=== PATIENT | female | born 1950 | race Caucasian/White ===

== ENCOUNTER 2020-10-05 09:15 | Outpatient (REF) | payer MEDICARE, OTHER, SELFPAY ==
[2020-10-05 11:20] LABS: Hematocrit 44.6 % (37-47); Hemoglobin 14.3 g/dl (12.0-16.0); Mean Corpuscular HGB Conc 32.1 g/dl (31.0-35.0); Mean Corpuscular Hemoglobin 29.1 pg (27.0-33.0); Mean Corpuscular Volume 90.8 fL (80-98); Platelet Count 265 X10*3/uL (160-400); Red Blood Count 4.91 X10*6/uL (4.20-5.50); Red Cell Distribution Width 13.2 % (11.0-16.0); White Blood Count 8.5 X10*3/uL (4.8-10.8)
[2020-10-05 11:36] LABS: Alanine Aminotransferase 46 U/L (0-31); Albumin Level 4.1 g/dL (3.5-5.0); Alkaline Phosphatase 149 U/L (39-117); Anion Gap 14 (12-20); Aspartate Amino Transferase 31 U/L (5-31); Bilirubin Total 0.7 mg/dL (0.0-1.0); Blood Urea Nitrogen 22 mg/dL (9-16); Calcium 9.2 mg/dL (8.4-10.2); Carbon Dioxide 28 mmol/L (22-29); Chloride 104 mmol/L (96-108); Cholesterol 197 mg/dL; Estimated Glomerular Filt Rate 50; Glucose Fasting 93 mg/dL (60-99); HDL Cholesterol 42 mg/dL; LDL Cholesterol Calculated 131 mg/dl; Potassium 4.9 mmol/l (3.3-5.1); Sodium 141 mmol/L (135-145); Total Protein 7.4 g/dL (6.5-8.0); Triglycerides 122 mg/dL
[2020-10-05 11:36] LABS: Glucose Urine UA NEG (NEG); Leukocyte Esterase Urine NEG (NEG); Nitrite Urine NEG (NEG); Specific Gravity - Urine 1.025 (1.005-1.025); Urine Blood NEG (NEG); Urine Ketones NEG (NEG); Urine Protein NEG (NEG-TRACE)
[2020-10-05 11:45] LABS: Appearance Urine CLEAR; Color Urine YELLOW
== END 2020-10-05 09:16 | disposition home or self-care (01) ==
LOC: HO.HMGCLDS 09:15
PROVIDERS: PCP Internal Medicine; Visit Provider Internal Medicine
DX: E78.5 Hyperlipidemia, unspecified (principal); I10 Essential (primary) hypertension; R30.0 Dysuria
CPT/HCPCS: 36415; 80053; 80061; 81003; 85027

== ENCOUNTER 2020-11-09 14:19 | Outpatient (REF) | payer MEDICARE, SELFPAY ==
--- NOTE | 2020-11-09 14:24 | XR_ITS ---
EXAMINATION: XR CHEST CLINICAL INFORMATION: Cough. COMPARISON: None TECHNIQUE: 2 views of the chest were obtained. FINDINGS: The lungs are hyperinflated but clear of acute process. Heart size and pulmonary vascularity is normal. No gross bony abnormality seen. XR/XR chest 2V IMPRESSION: Hyperinflated lungs. No acute process.
== END 2020-11-09 14:20 | disposition home or self-care (01) ==
LOC: HO.HMGCX 14:19
PROVIDERS: PCP Internal Medicine; Visit Provider Internal Medicine
DX: R05 Cough (principal)
CPT/HCPCS: 71046

== ENCOUNTER → 2023-03-04 09:56 | Outpatient (BNVA) | payer MEDICARE, SELFPAY | PROVIDERS: PCP Internal Medicine; Visit Provider Orthopaedic Surgery | DX: M72.0 Palmar fascial fibromatosis [Dupuytren] (principal) | CPT/HCPCS: 99202 ==

== ENCOUNTER 2023-05-08 12:03 | Outpatient (AMB) | payer MEDICARE, SELFPAY ==
--- NOTE | 2023-05-08 12:04 | AM.OFFWIN_ITS ---
Intake Vital Signs 05/08/23 12:05 Height 5 ft 8 in BP 158/82 H Blood Pressure Location Rt brachial Position Sitting Pulse 95 Pulse Source Pulse Oximeter Temp 98.6 F Temp Source Temporal Artery Scan Pulse Oximetry (%) 97 Oxygen Delivery Method Room Air Intake Visit Reasons: EST/left arm pain Intake Note: pt is here for c/o left arm pain due to fall. Patient Tobacco Use Status: Former Tobacco user Accompanied by: Self / Same As Patient Allergies acetaminophen [From PERCOCET] Allergy (Unknown, Verified 05/08/23 12:04) UNKNOWN azithromycin Allergy (Unknown, Verified 05/08/23 12:04) hives oxycodone [From PERCOCET] Allergy (Unknown, Verified 05/08/23 12:04) UNKNOWN Xjlvyao-WOY-CeL Reductase Inhibitor [JFXLFPQ-AUG-YNY REDUCTASE INHIBITOR] Allergy (Unknown, Verified 05/08/23 12:04) liver failure, major liver problems nitrofurantoin [From Macrobid] Adverse Reaction (Severe, Verified 05/08/23 12:04) breathing atorvastatin [Lipitor] Adverse Reaction (Unknown, Verified 05/08/23 12:04) Liver issues z-pack Allergy (Unknown, Uncoded 03/04/23 10:09) hives Do you need a note to return to daycare/school/sports/work: No HPI HPI Comments History of Present Illness Details This is a 73-year-old female presenting to the office with left shoulder/elbow/wrist pain following mechanical fall that occurred yesterday. Patient states she was [place] the beach for [place] and tripped while walking down the stairs causing her to fall on her left side. She sustained some abrasions on her left wrist and her left knee. She also developed left shoulder pain, left elbow pain and swelling, and left wrist pain and swelling. Patient went to an urgent care center and had imaging done that she is not sure of the results. She denies hitting her head. She denies headaches, visual disturbances, nausea/vomiting, or numbness/weakness/paresthesias of her extremities. [facility] Medical History CKD (chronic kidney disease), stage III Cough Dysuria GERD (gastroesophageal reflux disease) Hepatitis HTN (hypertension) Hyperlipidemia Liver hemangioma Mammogram normal TIA (transient ischemic attack) Surgical History H/O colonoscopy History of back surgery History of breast surgery History of hysterectomy Hx of cholecystectomy Family History Father No problems noted. Mother No problems noted. Brother No problems noted. Brother No problems noted. Sister No problems noted. 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 Cognitive needs: No Hearing needs: No Vision needs: Yes Review of Systems Const All systems reviewed & are unremarkable except as noted in HPI and below Denies chills and Denies fever(s) Eyes Reports no additional complaints, Denies change in vision and Denies loss of vision ENT Reports no additional complaints Card Denies chest pain, Denies chest pain at rest, Denies chest pain with activity and Denies dyspnea Resp Reports no additional complaints and Denies dyspnea GI Reports no additional complaints Reports no additional complaints Musc Reports arthralgias and Reports joint swelling Skin/Breast Reports wounds Neuro Reports no additional complaints and Denies loss of vision Physical Exam Vital Signs: Last Vital Signs Temp 98.6 F 05/08/23 12:05 Pulse 95 05/08/23 12:05 BP 158/82 H 05/08/23 12:05 Pulse Ox 97 05/08/23 12:05 Oxygen Delivery Method Room Air 05/08/23 12:05 Const General: cooperative and no acute distress Orientation/consciousness: patient oriented x3 HEENT Head: Yes normal to inspection, Yes normocephalic, Yes atraumatic, No Singer's sign, No raccoon eyes, No scalp tenderness and No periorbital ecchymosis Ears: hearing grossly normal bilaterally General nose exam: Normal external nose present Face and sinus: Yes normal facial exam Cardio Rate: regular rate Rhythm: regular rhythm Heart sounds: no gallops, no murmurs and no rubs Peripheral pulses: Peripheral pulses 2+ throughout Skin Other: Scabbed abrasion to the anterior left knee without surrounding erythema or purulence drainage. Two small skin tears noted to the anterior left wrist with some mild bleeding. No purulent drainage or surrounding erythema. Neuro General: patient oriented x3 Extrem Other: Tenderness to palpation and mild swelling of the left elbow and left wrist. Painful flexion/extension of the left elbow. Full painless range of motion of the left shoulder but some mild tenderness to palpation of the anterior shoulder. No tenderness to palpation of the left hip, knee, or ankle. Full r chino of motion of the left lower extremity without pain. Assessment & Plan Assessment & Plan (1) Left wrist pain: Code(s): M25.532 - Pain in left wrist (2) Left elbow pain: Code(s): M25.522 - Pain in left elbow (3) Abrasion of left wrist: Code(s): S60.812A - Abrasion of left wrist, initial encounter Plan This is a 73-year-old female presenting with left wrist, left elbow, and left shoulder pain following a mechanical fall that occurred yesterday. Differential diagnoses include sprain/strain versus fracture versus contusion versus abrasions. Patient's skin tears were cleansed, covered with bacitracin ointment, and dressed with a nonadherent pad and gauze wrap. X-rays of the left wrist, elbow, and shoulder were ordered and patient proceeding directly to [facility] to have these images done. Recommended supportive management including rest, ice, compression, and elevation of extremity. Patient instructed to keep the skin tears clean and dry. Patient was instructed to follow-up here or the emergency room for worsening or persistent symptoms. Patient verbalizes understanding and she is in agreement with the plan. Orders: Orders XR elbow LT min 3V Today R52 - Pain, unspecified XR shoulder LT min 2V Today R52 - Pain, unspecified XR wrist LT min 3V Today R52 - Pain, unspecified Coding Level of Care Code Est Pt Level 3 (91886) Diagnoses Left wrist pain M25.532 Left elbow pain M25.522 Abrasion of left wrist S60.812A
[2023-05-08 12:05] VITALS: BP 158/82; PULSE 95; TEMP 37; O2SAT 97
== END 2023-05-08 12:31 | disposition home or self-care (01) ==
PROVIDERS: PCP Internal Medicine; Visit Provider Physician Assistant Medical
DX: M25.532 Pain in left wrist (principal); M25.522 Pain in left elbow; S60.812A Abrasion of left wrist, initial encounter
CPT/HCPCS: 99213

== ENCOUNTER 2023-05-08 12:56 | Outpatient (REF) | payer MEDICARE, SELFPAY ==
--- NOTE | ~2023-05-08 | XR_ITS ---
Examination: Left elbow, left wrist and left shoulder. Clinical indications: Pain. COMPARISON: None. TECHNIQUE: Left elbow 3 views. Left wrist 4 views. Left shoulder 4 views. Findings: Left elbow: There is no visible fracture or dislocation. There is normal articulation of the elbow joint. The anterior and posterior fat pad sign is normal. The soft tissues are normal. Left wrist: There is no visible acute fracture or dislocation. There is a negative ulnar variance. The radioulnar carpal, intercarpal and carpometacarpal joint spaces are preserved. No bony erosive changes. The soft tissues are normal. The scaphoid view reveals no fracture. Left shoulder: There is no visible acute fracture or dislocation. The AC joint and glenohumeral joint space is maintained normal. The soft tissues are normal. XR/XR elbow LT min 3V IMPRESSION: 1. Unremarkable left elbow exam. 2. Unremarkable left wrist exam. There is negative ulnar variance. 3. Unremarkable left shoulder exam.
--- NOTE | ~2023-05-08 | XR_ITS ---
Examination: Left elbow, left wrist and left shoulder. Clinical indications: Pain. COMPARISON: None. TECHNIQUE: Left elbow 3 views. Left wrist 4 views. Left shoulder 4 views. Findings: Left elbow: There is no visible fracture or dislocation. There is normal articulation of the elbow joint. The anterior and posterior fat pad sign is normal. The soft tissues are normal. Left wrist: There is no visible acute fracture or dislocation. There is a negative ulnar variance. The radioulnar carpal, intercarpal and carpometacarpal joint spaces are preserved. No bony erosive changes. The soft tissues are normal. The scaphoid view reveals no fracture. Left shoulder: There is no visible acute fracture or dislocation. The AC joint and glenohumeral joint space is maintained normal. The soft tissues are normal. XR/XR wrist LT min 3V IMPRESSION: 1. Unremarkable left elbow exam. 2. Unremarkable left wrist exam. There is negative ulnar variance. 3. Unremarkable left shoulder exam.
--- NOTE | ~2023-05-08 | XR_ITS ---
Examination: Left elbow, left wrist and left shoulder. Clinical indications: Pain. COMPARISON: None. TECHNIQUE: Left elbow 3 views. Left wrist 4 views. Left shoulder 4 views. Findings: Left elbow: There is no visible fracture or dislocation. There is normal articulation of the elbow joint. The anterior and posterior fat pad sign is normal. The soft tissues are normal. Left wrist: There is no visible acute fracture or dislocation. There is a negative ulnar variance. The radioulnar carpal, intercarpal and carpometacarpal joint spaces are preserved. No bony erosive changes. The soft tissues are normal. The scaphoid view reveals no fracture. Left shoulder: There is no visible acute fracture or dislocation. The AC joint and glenohumeral joint space is maintained normal. The soft tissues are normal. XR/XR shoulder LT min 2V IMPRESSION: 1. Unremarkable left elbow exam. 2. Unremarkable left wrist exam. There is negative ulnar variance. 3. Unremarkable left shoulder exam.
== END 2023-05-08 12:57 | disposition home or self-care (01) ==
LOC: HO.XRAY 12:56
PROVIDERS: PCP Internal Medicine; Visit Provider Physician Assistant Medical
DX: M25.532 Pain in left wrist (principal); M25.512 Pain in left shoulder; M25.522 Pain in left elbow
CPT/HCPCS: 73030; 73080; 73110

== ENCOUNTER 2023-06-30 08:34 | Outpatient (AMB) | payer MEDICARE, SELFPAY ==
[2023-06-30 08:37] VITALS: BMI 27.1
--- NOTE | 2023-06-30 08:37 | MHC.OFFVIS ---
Intake Vital Signs 06/30/23 08:37 Height 5 ft 8 in Weight 178 lb BMI 27.1 Intake Visit Reasons: OV-RT hand Pinky trigger finger-w/out XRAYS Intake Note: Funmi 73 yr old female presents today for her follow up visit to discuss surgery for her Right small finger Dupuytren's contracture. Also states on 05/07/23 while on vacation on the beach, she tripped while walking down the stairs causing her to fall on her left side. Seen at [facility] urgent care and then at [facility] where xrays were taken. Currently states she did not injured her hand just some lacerations and scrapes. Allergies acetaminophen [From PERCOCET] Allergy (Unknown, Verified 06/30/23 08:45) UNKNOWN azithromycin Allergy (Unknown, Verified 06/30/23 08:45) hives oxycodone [From PERCOCET] Allergy (Unknown, Verified 06/30/23 08:45) UNKNOWN Nfpsxnj-DED-ShX Reductase Inhibitor [BNOJOIJ-KFC-FND REDUCTASE INHIBITOR] Allergy (Unknown, Verified 06/30/23 08:45) liver failure, major liver problems nitrofurantoin [From Macrobid] Adverse Reaction (Severe, Verified 06/30/23 08:45) breathing atorvastatin [Lipitor] Adverse Reaction (Unknown, Verified 06/30/23 08:45) Liver issues z-pack Allergy (Unknown, Uncoded 06/30/23 08:45) hives HPI OV-RT hand Pinky trigger finger-w/out XRAYS HPI Details Funmi is a 72 year old right hand dominant woman who returns to discuss her right small finger Dupuytrens contracture. She continues to be unable to fully straighten her finger, and has been working on ROM exercises at home. She was last seen on 03/04/23 where surgery was discussed, but at that time she was undergoing treatment for her CKD and that was her priority before treating her hand operatively. She also complains of some decreased sensation in her small finger, which is new since her last appointment. She has more normal sensation in the radial half of her small finger. She also reports taking a fall while on vacation on 05/07/23, landing on her left side and injuring her left wrist, elbow, & shoulder. She was seen at urgent care and imaging was performed, which showed no fractures or dislocations. She says she is doing better in regards to this. She has CKD stage III and reports a prior hx of issues with general anesthesia. 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 She says she is going for an echo on 07/03/23 due to having a weak pulse during prior kidney treatment. This was ordered by her Dental Hygiene Instructor, she does not follow with a Business Account Specialist. She says she is done her treatments for now, but she has a follow-up ultrasound in August to assess her kidneys. [facility] Medical History (Updated 06/30/23 @ 08:56 by Porfirio Greco) CKD (chronic kidney disease), stage III Cough Dysuria GERD (gastroesophageal reflux disease) Hepatitis HTN (hypertension) Hyperlipidemia Liver hemangioma Mammogram normal TIA (transient ischemic attack) Surgical History H/O colonoscopy History of back surgery History of breast surgery History of hysterectomy Hx of cholecystectomy Family History Father No problems noted. Mother No problems noted. Brother No problems noted. Brother No problems noted. Sister No problems noted. 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 She has normal sensation to the radial digital nerve distribution of the small finger and the rest of her digits. Vascular: Cap refill brisk ROM: She can bring all her digits closed to a fist She can extend all her digits, except for her small finger PIP joint flexion contracture of ~65 degrees, this involves the small finger ABductor She has Dupuytrens cord involving the small finger ABductor and flexion contracture of the small finger PIP joint of ~65 degrees Psych Appearance: grossly normal Affect: normal affect Attitude: cooperative Assessment & Plan Assessment & Plan (1) Dupuytren's contracture of right hand: Code(s): M72.0 - Palmar fascial fibromatosis [Dupuytren] (2) CKD (chronic kidney disease), stage III: Comment: f/u Dr. Fraser Code(s): N18.30 - Chronic kidney disease, stage 3 unspecified Plan Assessment & Plan: 1. Right small finger Dupuytren's contracture Involving the small finger ABductor MCP 0/PIP 65 I educated her about this condition I discussed operative and non-operative treatment options The patient would like to proceed with surgery She will have an appointment with OT hand therapy following her first post-op appointment to have a custom night splint made for her to wear. The risks and benefits of operative treatment were discussed with the patient and the patient wishes to proceed with surgery. These risks include, but are not limited to risk of damage to blood vessels, nerves, tendons, infection, recurrence, incomplete relief of preoperative symptoms, persistent pain, possible need for further surgery and the risks associated with regional blocks and anesthesia. The plan is to take the patient to the operating room sometime in the next few weeks for the following procedures: 1. Right small finger Duypuytrens fasciectomy, under general All of the preoperative paperwork including the consent was filled out today. All the patient's questions were answered. The patient understands that they will be contacted by our support representative soon to schedule this procedure She denies Diabetes, blood thinners, asthma, heart, lung issues She has Stage III CKD, and has an echocardiogram scheduled for 07/03/23, ordered by her Dental Hygiene Instructor, to assess for possible arrhythmia. She will need clearance prior to surgery, and I explained that if it takes longer than 30 days she may need to return to sign a new consent form. She reports a prior incident of having difficulty waking up following general anesthesia 2. Left small finger numbness Decreased subjective sensation to ulnar digital nerve distribution of the small finger This could very well be because of involvement of the ulnar digital nerve with the Dupuytren's cord. Scribed for Erin Rdz MD by Porfirio Lubanszky, medical billing coordinator, on 06/30/23 at 9:10 AM, EST. Coding Level of Care Code Est Pt Level 4 (15925) Diagnoses Dupuytren's contracture of right hand M72.0 CKD (chronic kidney disease), stage III N18.30
== END 2023-06-30 09:34 | disposition home or self-care (01) ==
PROVIDERS: Visit Provider Orthopaedic Surgery
DX: M72.0 Palmar fascial fibromatosis [Dupuytren] (principal)
CPT/HCPCS: 99214

== ENCOUNTER → 2023-06-30 08:34 | Outpatient (BNVA) | payer MEDICARE, SELFPAY | PROVIDERS: Visit Provider Orthopaedic Surgery | DX: M72.0 Palmar fascial fibromatosis [Dupuytren] (principal); N18.30 Chronic kidney disease, stage 3 unspecified | CPT/HCPCS: 99212 ==

== ENCOUNTER 2023-07-30 07:29 | Outpatient (REF) | payer MEDICARE, SELFPAY ==
[2023-07-30 11:12] LABS: Basophils Absolute Auto 0.1 X10*3/uL (0.0-0.2); Basophils Percent Auto 1.3 % (0-2); Eosinophils Absolute Auto 2.7 X10*3/uL (0.0-0.4); Eosinophils Percent Auto 31.5 % (0-4); Hematocrit 42.4 % (37.0-47.0); Hemoglobin 13.5 g/dl (12.0-16.0); Imm Gran Abs Auto 0.03 X10*3/uL (0.00-0.03); Imm Gran Pct Auto 0.3 % (0.0-0.4); Lymphocytes Absolute Auto 2.3 X10*3/uL (1.2-4.9); Lymphocytes Percent Auto 26.4 % (20-40); MANUAL DIFF FLAG SCAN; Mean Corpuscular HGB Conc 31.8 g/dl (31.0-35.0); Mean Platelet Volume 10.8 fL (9.4-12.3); Monocytes Absolute Auto 0.6 X10*3/uL (0.1-1.2); Monocytes Percent Auto 6.8 % (2-11); Neutrophils Absolute Auto 2.9 x10*3/uL (2.0-8.3); Neutrophils Percent Auto 33.7 % (45-73); Platelet Count 242 X10*3/uL (160-400); Red Blood Count 4.66 X10*6/uL (4.20-5.50); SCAN SMEAR FLAG 1; White Blood Count 8.7 X10*3/uL (4.8-10.8)
[2023-07-30 12:00] LABS: Alanine Aminotransferase 39 U/L (0-31); Albumin Level 3.7 g/dL (3.5-5.0); Alkaline Phosphatase 146 U/L (39-117); Anion Gap 14 (12-20); Aspartate Amino Transferase 32 U/L (5-31); Bilirubin Total 0.7 mg/dL (0.0-1.0); Blood Urea Nitrogen 16 mg/dL (9-16); Calcium 9.3 mg/dL (8.4-10.2); Carbon Dioxide 26 mmol/L (22-29); Chloride 107 mmol/L (96-108); Cholesterol 183 mg/dL (<200); Estimated Glomerular Filt Rate 57; Glucose Fasting 102 mg/dL (60-99); HDL Cholesterol 42 mg/dL (>40); LDL Cholesterol Calculated 122 mg/dL (<100); Potassium 4.5 mmol/L (3.3-5.1); Sodium 142 mmol/L (135-145); Total Protein 7.1 g/dL (6.5-8.0); Triglycerides 98 mg/dL (<150)
[2023-07-30 12:01] LABS: SLIDE REVIEW VERIFIED
[2023-07-30 12:03] LABS: TSH reflex Free T4 3.04 uIU/mL (0.32-4.0)
== END 2023-07-30 07:30 | disposition home or self-care (01) ==
LOC: HO.HMGCLDS 07:29
PROVIDERS: PCP Internal Medicine; Visit Provider Internal Medicine
DX: I12.9 Hypertensive chronic kidney disease with stage 1 through stage 4 chronic kidney disease, or unspecified chronic kidney disease (principal); N18.30 Chronic kidney disease, stage 3 unspecified; E78.5 Hyperlipidemia, unspecified
CPT/HCPCS: 36415; 80053; 80061; 84443; 85025

== ENCOUNTER 2023-08-10 07:55 | Outpatient (AMB) | payer MEDICARE, SELFPAY ==
--- NOTE | 2023-08-10 08:08 | A.OFFPC_ITS ---
Vital Signs 08/10/23 08:11 Height 5 ft 8 in Weight 170 lb BMI 25.8 BP 138/82 Blood Pressure Location Lt brachial Position Sitting Pulse 80 Pulse Source Pulse Oximeter Pulse Oximetry (%) 98 Oxygen Delivery Method Room Air Intake Visit Reasons: Pre op Intake Note: Pt is here today for pre op visit on dupuytren's syndrome of R hand with Dr. Rdz on 08/13/23. Allergies acetaminophen [From PERCOCET] Allergy (Unknown, Verified 08/10/23 08:15) UNKNOWN azithromycin Allergy (Unknown, Verified 08/10/23 08:15) hives oxycodone [From PERCOCET] Allergy (Unknown, Verified 08/10/23 08:15) UNKNOWN Eitjijb-GRX-XqU Reductase Inhibitor [JAFFNHM-CEL-ODJ REDUCTASE INHIBITOR] Allergy (Unknown, Verified 08/10/23 08:15) liver failure, major liver problems nitrofurantoin [From Macrobid] Adverse Reaction (Severe, Verified 08/10/23 08:15) breathing atorvastatin [Lipitor] Adverse Reaction (Unknown, Verified 08/10/23 08:15) Liver issues z-pack Allergy (Unknown, Uncoded 08/10/23 08:15) hives Medication List - Last Reconciled 08/10/23 by Annelise Griffiths MD albuterol sulfate 90 mcg/actuation 1 - 2 puffs PO Q4-6H PRN aspirin 81 mg PO DAILY clonidine HCl 0.1 mg PO TID PRN ezetimibe 10 mg PO DAILY lisinopril 40 mg PO DAILY lorazepam 0.5 mg PO DAILY PRN omeprazole 20 mg PO DAILY spironolactone 25 mg PO DAILY Tobacco use date assessed: 08/10/23 Fall risk assessment: No Falls in past year Last assessed Fall Risk: 08/10/23 Dental Screening Dental Screen Date: 08/10/23 Did you have a dental visit in the last 12 months?: Yes Did you have a dental problem in the last 6 months where you did not have access to dental care?: No Was dental information given to patient?: Patient has dentist HPI Pre op HPI Details Pt presents for preop L 5th finger cyst. Pt f/u for HTN with nephrology and reports her blood pressure well controlled at home. She denies chest pain shortness of breath headaches. [facility] Medical History Cough Mammogram normal Dysuria CKD (chronic kidney disease), stage III TIA (transient ischemic attack) Liver hemangioma Hepatitis GERD (gastroesophageal reflux disease) HTN (hypertension) Hyperlipidemia Surgical History H/O colonoscopy Hx of cholecystectomy History of breast surgery History of back surgery History of hysterectomy Family History Father No problems noted. Mother No problems noted. Brother No problems noted. Brother No problems noted. Sister No problems noted. 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 1. Little interest or pleasure in doing things: not at all 2. Feeling down, depressed, or hopeless: not at all 3. Trouble falling or staying asleep, or sleeping too much: not at all 4. Feeling tired or having little energy: several days 5. Poor appetite or overeating: several days 6. Feeling bad about yourself - or that you are a failure or have let yourself or your family down: not at all 7. Trouble concentrating on things, such as reading the newspaper or watching television: not at all 8. Moving or speaking so slowly that other people could have noticed. Or the opposite - being so fidgety or restless that you have been moving around a lot more than usual: not at all 9. Thoughts that you would be better off or of hurting yourself in some way: not at all Total score: 2 Depression Screening Interpretation: Negative Depression Screening Done: Yes Source: Developed by Drs. Jose Caba, Aurelia Arita, Juan A Juan and colleagues, with an educational denise from [employer]. Thrive Questionnaire Date Thrive assessed: 08/10/23 I am a: Patient What is your living situation today?: I have a steady place to live Within the past 12 months, did the food you bought not last and you didn't have the money to get more?: Never true Within the past 12 months, did you worry whether your food would run out before you got money to buy more?: Never true Do you have trouble paying for medicines?: No Do you have trouble getting transportation to medical appointments?: No Do you have trouble paying your heating and electricity bill?: No Do you have trouble taking care of your child, family member or friend?: No Do you have trouble with day-to-day activities such as bathing, preparing meals, shopping, managing finances, etc.?: No Are you currently unemployed and looking for a job?: No Are you interested in more education?: No Please select the resources that you would like help with: None Currently or been in a relationship where the following occur: no concerns reported AUDIT C Alcohol Use Questionnaire (AUDIT-C) 1. How often do you have a drink containing alcohol?: Never 3. How often do you have six or more drinks on one occasion?: Never Total Score: 0 SOBEIDA-7 AMB Questionnaire SOBEIDA-7 Date SOBEIDA - 7 assessed: 08/10/23 Feeling nervous, anxious, or on edge: 0 = Not at all Not being able to stop or control worryin = Not at all Worrying too much about different things: 1 = Several days Trouble relaxin = Not at all Being so restless that it is hard to sit still: 0 = Not at all Becoming easily annoyed or irritable: 0 = Not at all Feeling afraid as if something awful might happen: 0 = Not at all Total SOBEIDA-7 score (0-4 normal; 5-9 mild; 10-14 moderate; 15-21 severe): 1 Source: Developed by Drs. Jose Caba, Aurelia Arita, Juan A Juan and colleagues, with an educational denise from [employer]. Review of Systems Const All systems reviewed & are unremarkable except as noted in HPI and below Reports no additional complaints Eyes Reports no additional complaints ENT Reports no additional complaints Card Reports no additional complaints Resp Reports no additional complaints GI Reports no additional complaints Reports no additional complaints Physical exam (Primary Care) Vital Signs: Last Vital Signs Pulse 80 08/10/23 08:11 BP 138/82 08/10/23 08:11 Pulse Ox 98 08/10/23 08:11 Oxygen Delivery Method Room Air 08/10/23 08:11 BMI result Body Mass Index 25.8 Tobacco/Smoking Status: Tobacco use Status Tobacco use date assessed 08/10/23 08/10/23 08:17 Patient Tobacco Use Status Former Tobacco user 08/10/23 08:10 e-Cigarette/Vaping Use Never Used 08/10/23 08:10 PHQ-9: PHQ-9 Score PHQ-9: Total score 2 08/10/23 08:28 Depression Screening Interpretation: Negative Thrive Assessment: Date of Thrive Assessment Date Thrive assessed 08/10/23 08/10/23 08:26 Currently or been in a relationship where the following occur: no concerns reported Const General: no acute distress HENMT Head: Yes normal to inspection Neck Neck: Yes no lymphadenopathy and Yes supple Resp Effort & Inspection: normal respiratory effort Auscultation: clear to auscultation bilaterally Cardio Rhythm: regular rhythm Heart sounds: S1 normal heart sound present and S2 normal heart sound present GI Inspection: Yes normal to inspection Palpation (GI): Soft to palpation Percussion: Yes normal to percussion Assessment and Plan Assessment & Plan (1) CKD (chronic kidney disease), stage III: Comment: f/u Dr. Fraser Code(s): N18.30 - Chronic kidney disease, stage 3 unspecified Plan: Monitor renal function follow-up with nephrology (2) HTN (hypertension): Comment: BP goal less than 130/80, f/u prescribed lorazepam for anxiety Code(s): I10 - Essential (primary) hypertension Plan: Continue current medications (3) Ganglion cyst of finger: Code(s): M67.449 - Ganglion, unspecified hand Plan: Patient is medically cleared for a finger surgery. Medications: New spironolactone 25 mg PO DAILY 90 tabs 0RF amlodipine 2.5 mg PO BID 180 tabs 0RF Changed From lisinopril 20 mg PO DAILY 90 tabs 3RF To lisinopril 40 mg PO DAILY Coding Level of Care Code Est Pt Level 3 (95308) Diagnoses CKD (chronic kidney disease), stage III N18.30 HTN (hypertension) I10 Ganglion cyst of finger M67.449
[2023-08-10 08:11] VITALS: BP 138/82; PULSE 80; O2SAT 98; BMI 25.8
== END 2023-08-10 13:45 | disposition home or self-care (01) ==
PROVIDERS: PCP Internal Medicine; Visit Provider Internal Medicine
DX: Z01.818 Encounter for other preprocedural examination (principal); M67.441 Ganglion, right hand; I12.9 Hypertensive chronic kidney disease with stage 1 through stage 4 chronic kidney disease, or unspecified chronic kidney disease; N18.30 Chronic kidney disease, stage 3 unspecified
CPT/HCPCS: 99213

== ENCOUNTER 2023-08-11 11:12 | Outpatient (AMB) | payer MEDICARE, SELFPAY ==
--- NOTE | 2023-08-11 11:45 | MHC.OFFVIS ---
Intake Vital Signs 08/11/23 11:50 Height 5 ft 8 in Weight 170 lb BMI 25.8 Intake Visit Reasons: Pre-op Dupuytren's contracture of right hand Intake Note: Funmi is a 73 year old female who presents today for a pre op appointment for her dupuytren's contracture of the left hand. Allergies acetaminophen [From PERCOCET] Allergy (Unknown, Verified 08/11/23 11:49) UNKNOWN azithromycin Allergy (Unknown, Verified 08/11/23 11:49) hives oxycodone [From PERCOCET] Allergy (Unknown, Verified 08/11/23 11:49) UNKNOWN Vvjjaac-ESU-BtE Reductase Inhibitor [XDGODET-LZR-AVA REDUCTASE INHIBITOR] Allergy (Unknown, Verified 08/11/23 11:49) liver failure, major liver problems nitrofurantoin [From Macrobid] Adverse Reaction (Severe, Verified 08/11/23 11:49) breathing atorvastatin [Lipitor] Adverse Reaction (Unknown, Verified 08/11/23 11:49) Liver issues z-pack Allergy (Unknown, Uncoded 08/10/23 08:15) hives HPI Pre-op Dupuytren's contracture of right hand HPI Details Funmi is a 72 year old right hand dominant woman who returns to discuss her right small finger Dupuytrens contracture. She continues to be unable to fully straighten her finger, and has been working on ROM exercises at home. She says her finger is hurting her and her contracture has worsened since she was last seen She has been undergoing treatment for her CKD and that was her priority before treating her hand operatively. She says she is done her treatments for now She continues to complain of some decreased sensation in her small finger, which is new since her last appointment. She has more normal sensation in the radial half of her small finger. She has CKD stage III and reports a prior hx of issues with general anesthesia. 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 She reports having a poor reaction to Percocets after surgery [facility] Medical History Cough Mammogram normal Dysuria CKD (chronic kidney disease), stage III TIA (transient ischemic attack) Liver hemangioma Hepatitis GERD (gastroesophageal reflux disease) HTN (hypertension) Hyperlipidemia Surgical History H/O colonoscopy Hx of cholecystectomy History of breast surgery History of back surgery History of hysterectomy Family History Father No problems noted. Mother No problems noted. Brother No problems noted. Brother No problems noted. Sister No problems noted. 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 She has normal sensation to the radial digital nerve distribution of the small finger and the rest of her digits. Vascular: Cap refill brisk ROM: She can make a fist and extend all her digits, except for her small finger She has a Dupuytrens cord involving the small finger ABductor and flexion contracture MCP 0/ PIP 75, involving the small finger ABductor Psych Appearance: grossly normal Affect: normal affect Attitude: cooperative Assessment & Plan Assessment & Plan (1) Dupuytren's contracture of right hand: Code(s): M72.0 - Palmar fascial fibromatosis [Dupuytren] (2) CKD (chronic kidney disease), stage III: Comment: f/u Dr. Fraser Code(s): N18.30 - Chronic kidney disease, stage 3 unspecified Plan Assessment & Plan: 1. Right small finger Dupuytren's contracture Involving the small finger ABductor MCP 0/PIP 75 I educated her about this condition I discussed operative and non-operative treatment options The patient would like to proceed with surgery She will have an appointment with OT hand therapy following her first post-op appointment to have a custom night splint made for her to wear. The risks and benefits of operative treatment were discussed with the patient and the patient wishes to proceed with surgery. These risks include, but are not limited to risk of damage to blood vessels, nerves, tendons, infection, recurrence, incomplete relief of preoperative symptoms, persistent pain, possible need for further surgery and the risks associated with regional blocks and anesthesia. The plan is to take the patient to the operating room sometime on 08/13/23 for the following procedures: 1. Right small finger Duypuytrens fasciectomy, under general 2. Ulnar nerve block All of the preoperative paperwork including the consent was filled out today. All the patient's questions were answered. She denies Diabetes, blood thinners, asthma, heart, lung issues She has Stage III CKD, and has been cleared by her Biochemistry Specialist for surgery She reports a prior incident of having difficulty waking up following general anesthesia, and a poor reaction to Percocets after surgery 2. Left small finger numbness Decreased subjective sensation to ulnar digital nerve distribution of the small finger This could very well be because of involvement of the ulnar digital nerve with the Dupuytren's cord. Scribed for Erin Rdz MD by Porfirio Greco, medical laboratory manager, on 08/11/23 at 12:05 PM, EST. Coding Level of Care Code Est Pt Level 4 (79166) Diagnoses Dupuytren's contracture of right hand M72.0 CKD (chronic kidney disease), stage III N18.30
[2023-08-11 11:50] VITALS: BMI 25.8
== END 2023-08-11 12:19 | disposition home or self-care (01) ==
PROVIDERS: PCP Internal Medicine; Visit Provider Orthopaedic Surgery
DX: M72.0 Palmar fascial fibromatosis [Dupuytren] (principal)
CPT/HCPCS: 99214

== ENCOUNTER → 2023-08-11 11:12 | Outpatient (BNVA) | payer MEDICARE, SELFPAY | PROVIDERS: PCP Internal Medicine; Visit Provider Orthopaedic Surgery | DX: M72.0 Palmar fascial fibromatosis [Dupuytren] (principal); N18.30 Chronic kidney disease, stage 3 unspecified; Z96.0 Presence of urogenital implants | CPT/HCPCS: 99212 ==

== ENCOUNTER 2023-08-13 05:59 | Day surgery (SDC) | payer MEDICARE, SELFPAY ==
[2023-08-11 08:39] VITALS: BMI 25.8
--- NOTE | 2023-08-12 10:48 | P.CONAN_ITS ---
Documented by User: Sherley Irving NP 08/12/23 10:50 HPI - Anesthesia Eval Consult details Narrative: 73yo F for Right Small Finger Dupuytrens Contracture Release PCP cleared [facility] Active Problems Active Problems: All Active Problems (Updated 08/10/23 @ 13:45 by Annelise Griffiths MD) Ganglion cyst of finger (Acute) CKD (chronic kidney disease), stage III (Acute) Dupuytren's contracture of right hand (Acute) Annual physical exam (Acute) Cough (Acute) Mammogram normal (Acute) Hyperlipidemia (Acute) HTN (hypertension) (Acute) Dysuria (Acute) Past Medical History Medical History Cough Mammogram normal Dysuria CKD (chronic kidney disease), stage III TIA (transient ischemic attack) Liver hemangioma Hepatitis GERD (gastroesophageal reflux disease) HTN (hypertension) Hyperlipidemia Family History Family History Father No problems noted. Mother No problems noted. Brother No problems noted. Brother No problems noted. Sister No problems noted. 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 Cognitive needs: No Hearing needs: No Vision needs: Yes Meds Allergies Allergy/AdvReac Type Severity Reaction Status Date / Time acetaminophen [From PERCOCET] Allergy Unknown UNKNOWN Verified 08/11/23 11:49 azithromycin Allergy Unknown hives Verified 08/11/23 11:49 oxycodone [From PERCOCET] Allergy Unknown UNKNOWN Verified 08/11/23 11:49 [place]-TMP-LoV Reductase Allergy Unknown liver Verified 08/11/23 11:49 Inhibitor failure, [TREWAJK-WQA-KFL REDUCTASE major INHIBITOR] liver problems nitrofurantoin AdvReac Severe breathing Verified 08/11/23 11:49 [From Macrobid] atorvastatin [Lipitor] AdvReac Unknown Liver Verified 08/11/23 11:49 issues z-pack Allergy Unknown hives Uncoded 08/10/23 08:15 Home Medications Medication Instructions Recorded Confirmed Last Taken Type albuterol sulfate 90 mcg/actuation 1 - 2 puff PO Q4-6H PRN dyspnea 10/04/20 08/10/23 Unknown History aerosol inhaler aspirin 81 mg tablet,delayed 81 mg PO DAILY 10/04/20 08/10/23 Unknown History release clonidine HCl 0.1 mg tablet 0.1 mg PO TID PRN blood pressure 10/04/20 08/10/23 Unknown History lorazepam 0.5 mg tablet 0.5 mg PO DAILY PRN anxiety 10/04/20 08/10/23 Unknown History lisinopril 20 mg tablet 40 mg PO DAILY 08/10/23 08/10/23 Unknown History Exam Exam Date and Time: August 12, 2023 1048 Height,Weight and Vital Signs: Height 5 ft 8 in Weight 77.111 kg Pertinent Lab Results Pertinent Lab Results: Laboratory Tests 07/30/23 07/30/23 07:44 07:46 WBC 8.7 Hgb 13.5 Hct 42.4 Plt Count 242 Sodium 142 Potassium 4.5 Chloride 107 Carbon Dioxide 26 BUN 16 Creatinine 0.96 Assessment and Plan Assessment Anesthesia Assessment: Chart Reviewed Documented by User: Neeraj Olivier MD 08/13/23 08:53 [facility] Past Medical History Medical History Cough Mammogram normal Dysuria CKD (chronic kidney disease), stage III TIA (transient ischemic attack) Liver hemangioma Hepatitis GERD (gastroesophageal reflux disease) HTN (hypertension) Hyperlipidemia Family History Family History Father No problems noted. Mother No problems noted. Brother No problems noted. Brother No problems noted. Sister No problems noted. 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 Cognitive needs: No Hearing needs: No Vision needs: Yes Meds Allergies Allergy/AdvReac Type Severity Reaction Status Date / Time acetaminophen [From PERCOCET] Allergy Unknown UNKNOWN Verified 08/11/23 11:49 azithromycin Allergy Unknown hives Verified 08/11/23 11:49 oxycodone [From PERCOCET] Allergy Unknown UNKNOWN Verified 08/11/23 11:49 Kcfmeeq-QDM-UlJ Reductase Allergy Unknown liver Verified 08/11/23 11:49 Inhibitor failure, [LDKSBKY-AZK-JWH REDUCTASE major INHIBITOR] liver problems nitrofurantoin AdvReac Severe breathing Verified 08/11/23 11:49 [From Macrobid] atorvastatin [Lipitor] AdvReac Unknown Liver Verified 08/11/23 11:49 issues z-pack Allergy Unknown hives Uncoded 08/10/23 08:15 Home Medications Medication Instructions Recorded Confirmed Last Taken Type albuterol sulfate 90 mcg/actuation 1 - 2 puff PO Q4-6H PRN dyspnea 10/04/20 08/10/23 Unknown History aerosol inhaler aspirin 81 mg tablet,delayed 81 mg PO DAILY 10/04/20 08/10/23 Unknown History release clonidine HCl 0.1 mg tablet 0.1 mg PO TID PRN blood pressure 10/04/20 08/10/23 Unknown History lorazepam 0.5 mg tablet 0.5 mg PO DAILY PRN anxiety 10/04/20 08/10/23 Unknown History lisinopril 20 mg tablet 40 mg PO DAILY 08/10/23 08/10/23 Unknown History Exam Airway Mallampati Class: II TM Dist: <=3cm Neck ROM: Full Partial: Upper Heart: ok Lungs: ok Assessment and Plan Assessment Anesthesia Assessment: Anesthesia Plan Discussed Final Anesthetic Review Family History of Problems with Anesthesia: No History of Problems with Anesthesia: Yes (PONV) NPO: Yes ASA Class: III Final Preanesthetic Review: No Changes in Pt Med Stat, Meds/Allgs Chart Reviewed, Consent Obtained/Reviewed and Anes Risks/Benef Reviewed Patient Risk: Intermediate Procedure Risk: Low Anesthetic Plan Anesthetic Plan: GA, Regional Block and Agree w/ Assess. and Plan Disposition: Standard PACU
[2023-08-13] VITALS (10 sets, daily range): BP systolic 134–177; BP diastolic 47–71; PULSE 50–65; RESP 14–18; TEMP 36.1–36.4; O2SAT 91–98
--- NOTE | 2023-08-13 07:59 | MHC.SHP ---
Pre-Procedural Eval Section A Date of Service: 08/13/23 Section B Chief Complaint: Palmar fascial fibromatosis [Dupuytren], left smal Allergies: Allergies Allergy/AdvReac Type Severity Reaction Status Date / Time acetaminophen [From PERCOCET] Allergy Unknown UNKNOWN Verified 08/11/23 11:49 azithromycin Allergy Unknown hives Verified 08/11/23 11:49 oxycodone [From PERCOCET] Allergy Unknown UNKNOWN Verified 08/11/23 11:49 Uxdlfvr-UYZ-EtW Reductase Allergy Unknown liver Verified 08/11/23 11:49 Inhibitor failure, [UYQOYZH-XEY-ZIS REDUCTASE major INHIBITOR] liver problems nitrofurantoin AdvReac Severe breathing Verified 08/11/23 11:49 [From Macrobid] atorvastatin [Lipitor] AdvReac Unknown Liver Verified 08/11/23 11:49 issues z-pack Allergy Unknown hives Uncoded 08/10/23 08:15 Plan I have reviewed the history and physical and performed a pertinent physical examination on my patient. No changes have occurred unless specified. Original order was for right small finger surgery. The order was changed and the note amended to notes that she has a left small finger Dupuytren's contracture and we are performing surgery on the left small finger. Time Spent With Patient Time: Total time managing care of this patient today ____ minutes.
--- NOTE | 2023-08-13 08:00 | W.PM.OPN ---
Operative Note Operative Note Date of Service: 08/13/23 Narrative: Preop diagnosis: 1. Left small finger Dupuytren's contracture Postop diagnosis: Same Procedure: 1. Left small finger Partial Dupuytren's fasciectomy 2. Left small finger ulnar digital nerve neurolysis 3. Left small finger PIP joint volar capsulectomy and release of the volar plate Surgeon: Erin Rdz MD Anesthesia: General anesthesia plus regional block Findings: Dupuytren's cord extending from the abductor digiti minimi muscle across the volar aspect of the small finger to the distal aspect of the middle phalanx. PIP joint was brought into full extension after release of the volar plate. Implants: None Tourniquet time: 45 minutes EBL: 5.0 ml Specimen: Left small finger Dupuytren's cord Drains: None Complications: None Disposition: Brought to the recovery room in stable condition Plan: Follow-up in 10-14 days for wound check, suture removal and to check pathology OT appt on day of f/u to make a custom night spint and to begin OT Indications: The patient is a 73 year old woman with a left small finger Dupuytren's contracture . The risks and benefits of operative treatment, including but not limited to risk of damage to blood vessels, nerves, tendons, infection, recurrence, persistent pain or numbness, incomplete resolution of preoperative symptoms, or need for further surgery were discussed with the patient and they wished to proceed with surgery. Procedure: Once consent was obtained patient was brought back to the operating suite and placed in the operating table in a supine position. A regional block was performed by the anesthesia team. Perioperative antibiotics and anesthesia was administered by the anesthesia team. A tourniquet was applied to the proximal aspect of the left upper extremity and the limb was prepped and draped in a standard surgical fashion. The limb was elevated exsanguinated with Esmarch bandage and the tourniquet inflated to 250 mm of mercury for a total tourniquet time of 45 minutes. I made a Kimberlee type incision extending along the Dupuytren's cord from the mid palm to the DIP flexion crease of the left small finger. The Incision was made with a 15. Blade through the skin the subcutaneous tissues. I then carefully dissected down to the level of the Dupuytren's cord beginning at the proximal aspect of the incision. This was done using tenotomy in iris scissors. Care was taken to protect the nearby neurovascular structures. The Dupuytren's cord was cut at its proximal aspect using tenotomy scissors. It was then grasped with an Allis clamp. TheDupuytren's cord was then carefully dissected free in a proximal to distal direction using tenotomy scissors and again taking care to protect the nearby neurovascular structures. She had a Dupuytren's cord extending from the abductor digiti minimi distally along the volar ulnar aspect of the small finger to the distal aspect of middle phalanx centered over the flexor tendon sheath in this area. The ulnar digital neurovascular bundle was identified passing volar and radial to the fascial cord. A neurolysis of the ulnar digital nerve and vessel was performed carefully dissecting it free from the Dupuytren's cords and then protecting them from our dissection. The Dupuytren's cord was detached proximally and then released from the surrounding tissues in a proximal to distal direction. It had been attached to the skin, flexor tendon sheath and the middle phalanx, as well as its attachment to the abductor digiti minimi. It was mobilized, detached and placed on the back table to be sent for histopathology. At this point I was able to bring the MCP joint in full extension and the PIP joint to about 40 degrees from full extension. I then elected to proceed with a release of the volar capsule of the PIP joint and the volar plate. The flexor tendon sheath was identified. I then passed radial to the flexor tendons as I entered the flexor tendon sheath at the A3 barbie and retracted the flexor tendons ulnarly. This then allowed me to perform my capsulectomy and released the volar plate just proximal to the PIP joint. I then carefully brought the PIP joint into full extension. No further Dupuytren's cords were appreciated in the small finger. At the conclusion of our case the small finger was brought into full extension at the MCP, PIP and D IP joints. At this point the tourniquet was deflated and hemostasis obtained with a brief period of local pressure. The wound was copiously irrigated with normal saline. The skin edges were reapproximated with 5-0 Prolene suture. The wound was infiltrated with some 0.25% plain Marcaine for postop pain control and a sterile dressing and volar splint holding the small and ring fingers in extension was applied. The patient appears to have tolerated the procedure well and with no complications. All digits were well vascularized conclusion of the case.
[2023-08-13] MEDS: ondansetron HCL 4 MG/2 ML VIAL IVPUSH (10:55)
== END 2023-08-13 12:45 | disposition home or self-care (01) ==
PROVIDERS: PCP Internal Medicine; Visit Provider Orthopaedic Surgery
PROC: (CPT 26045; principal; 2023-08-13 07:30)
DX: M72.0 Palmar fascial fibromatosis [Dupuytren] (principal); I12.9 Hypertensive chronic kidney disease with stage 1 through stage 4 chronic kidney disease, or unspecified chronic kidney disease; N18.30 Chronic kidney disease, stage 3 unspecified; Z79.82 Long term (current) use of aspirin; Z79.899 Other long term (current) drug therapy; Z88.1 Allergy status to other antibiotic agents; Z88.5 Allergy status to narcotic agent; Z88.8 Allergy status to other drugs, medicaments and biological substances; Z86.73 Personal history of transient ischemic attack (TIA), and cerebral infarction without residual deficits; Z87.891 Personal history of nicotine dependence; Z98.890 Other specified postprocedural states
CPT/HCPCS: 26123; 64702; 26525; 88304; J0690; J2371; J2405; J2795; J3010

== ENCOUNTER → 2023-08-13 05:59 | Outpatient (BNV) | payer MEDICARE, SELFPAY | PROVIDERS: PCP Internal Medicine; Visit Provider Orthopaedic Surgery | DX: M72.0 Palmar fascial fibromatosis [Dupuytren] (principal) | CPT/HCPCS: 26123; 26525 ==

== ENCOUNTER 2023-08-26 12:04 | Outpatient (AMB) | payer MEDICARE, SELFPAY ==
--- NOTE | 2023-08-26 12:22 | MHC.OFFVIS ---
Intake Intake Visit Reasons: PO-Dupuytrens 08/13/23 Intake Note: Funmi a 73 year old female presents today for a post operative left small finger dupuytrens, DOS 08/13/23. Patient reports having discomfort and a throbbing sensation in her small finger. Allergies acetaminophen [From PERCOCET] Allergy (Unknown, Verified 08/26/23 12:24) UNKNOWN azithromycin Allergy (Unknown, Verified 08/26/23 12:24) hives oxycodone [From PERCOCET] Allergy (Unknown, Verified 08/26/23 12:24) UNKNOWN Tlpxnfn-GHB-GpO Reductase Inhibitor [WPOBDCY-ZJX-NLS REDUCTASE INHIBITOR] Allergy (Unknown, Verified 08/26/23 12:24) liver failure, major liver problems nitrofurantoin [From Macrobid] Adverse Reaction (Severe, Verified 08/26/23 12:24) breathing atorvastatin [Lipitor] Adverse Reaction (Unknown, Verified 08/26/23 12:24) Liver issues z-pack Allergy (Unknown, Uncoded 08/26/23 12:24) hives HPI PO-Dupuytrens 08/13/23 HPI Details Funmi is a 73 year old right hand dominant woman who presents S/P left small finger partial fasciectomy and volar capsulectomy, DOS: 08/13/23. She complains of a throbbing sensation in her small finger and she continues to have numbness. It does not appear that she has an appointment with OT to have a custom night splint made for her. [facility] Medical History Cough Mammogram normal Dysuria CKD (chronic kidney disease), stage III TIA (transient ischemic attack) Liver hemangioma Hepatitis GERD (gastroesophageal reflux disease) HTN (hypertension) Hyperlipidemia Surgical History H/O colonoscopy Hx of cholecystectomy History of breast surgery History of back surgery History of hysterectomy Family History Father No problems noted. Mother No problems noted. Brother No problems noted. Brother No problems noted. Sister No problems noted. 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 Half sutures removed and Steri-Strips applied She can bring her small finger out into full extension She was hesitant to bring her ring & small fingers down to a closed fist. We worked on range of motion exercises while she was in clinic today. Before leaving clinic she was able to actively bring her ring finger closed to a fist, and her small finger ~2cm from her palm No locking or catching Continues to have decreased sensation in the ulnar digital nerve distribution, unchanged from prior to surgery. Normal sensation to the radial digital nerve distributions. Cap refill is brisk Psych Appearance: grossly normal Affect: normal affect Attitude: cooperative Assessment & Plan Assessment & Plan (1) CKD (chronic kidney disease), stage III: Comment: f/u Dr. Fraser Code(s): N18.30 - Chronic kidney disease, stage 3 unspecified (2) Dupuytren's contracture of left hand: Code(s): M72.0 - Palmar fascial fibromatosis [Dupuytren] Plan Assessment & Plan: 1. Left small finger Dupuytren's contracture S/P partial fasciectomy & PIP joint volar capsulectomy DOS: 08/13/23 Involving the small finger ABductor MCP 0/PIP 75 Post-operatively with full extension The patient appears to be doing well post-operatively I educated her about the post-operative course I explained the signs and symptoms of infection, if the patient develops any new or worsening erythema, drainage, pain, or warmth they should contact the clinic or attend the ED. I discussed activity modifications, she is to lift nothing heavier than a cellphone for the next two weeks She is to attend OT to have a cutom night splint made for her to wear, as she does not have an appointment scheduled I ordered OT today She will perform gentle ROM exercises at home. Her goal is to be able to bring her small finger into a fist at her next appointment She should avoid any underwater activities for the next 5 days She should gently massage about the incision site to reduce the risk of hypersensitivity Half her sutures removed today, she will follow up next week for removal of her remaining sutures and a ROM check 2. Left small finger numbness Decreased subjective sensation to ulnar digital nerve distribution of the small finger This could very well be because of involvement of the ulnar digital nerve with the Dupuytren's cord. Scribed for Erin Rdz MD by Porfirio Greco, regional medical director, on 08/26/23 at 12:50 PM, EST. Orders: Orders OT Evaluation and Treatment Today M72.0 - Palmar fascial fibromatosis [Dupuytren] Coding Level of Care Code Global (46271) Diagnoses CKD (chronic kidney disease), stage III N18.30 Dupuytren's contracture of left hand M72.0
== END 2023-08-26 13:13 | disposition home or self-care (01) ==
PROVIDERS: PCP Internal Medicine; Visit Provider Orthopaedic Surgery
DX: N18.30 Chronic kidney disease, stage 3 unspecified (principal); M72.0 Palmar fascial fibromatosis [Dupuytren]
CPT/HCPCS: 99024

== ENCOUNTER → 2023-08-26 12:04 | Outpatient (BNVA) | payer MEDICARE, SELFPAY | PROVIDERS: PCP Internal Medicine; Visit Provider Orthopaedic Surgery ==

== ENCOUNTER 2023-09-03 10:55 | Outpatient (AMB) | payer MEDICARE, SELFPAY ==
--- NOTE | 2023-09-03 11:02 | A.OFFVIS_ITS ---
Intake Intake Visit Reasons: PO-Dupuytrens 08/13/23-ROM/Wound check Intake Note: Funmi ball 73 year old female presents today for a post operative left small finger dupuytrens, DOS 08/13/23. Patient reports she continues to have pain in small finger. States here for a suture removal. Allergies acetaminophen [From PERCOCET] Allergy (Unknown, Verified 09/03/23 11:04) UNKNOWN azithromycin Allergy (Unknown, Verified 09/03/23 11:04) hives oxycodone [From PERCOCET] Allergy (Unknown, Verified 09/03/23 11:04) UNKNOWN Hpvcxkl-HLJ-UnR Reductase Inhibitor [HLABLBJ-BOH-TFL REDUCTASE INHIBITOR] Allergy (Unknown, Verified 09/03/23 11:04) liver failure, major liver problems nitrofurantoin [From Macrobid] Adverse Reaction (Severe, Verified 09/03/23 11:04) breathing atorvastatin [Lipitor] Adverse Reaction (Unknown, Verified 09/03/23 11:04) Liver issues z-pack Allergy (Unknown, Uncoded 09/03/23 11:04) hives HPI PO-Dupuytrens 08/13/23-ROM/Wound check HPI Details 73-year-old female who [facility] for post-op left small finger Dupuytren?s, 08/13/23. She continues to have pain in her small fing er. She is working on home exercises as instructed and is not yet started with physical therapy. She is doing well otherwise and has no concerns today. [facility] Medical History Cough Mammogram normal Dysuria CKD (chronic kidney disease), stage III TIA (transient ischemic attack) Liver hemangioma Hepatitis GERD (gastroesophageal reflux disease) HTN (hypertension) Hyperlipidemia Surgical History H/O colonoscopy Hx of cholecystectomy History of breast surgery History of back surgery History of hysterectomy Family History Father No problems noted. Mother No problems noted. Brother No problems noted. Brother No problems noted. Sister No problems noted. 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 No erythema or drainage. She can fully extend the digit. She can bend the MCP to 90, PIP to 90 and DIP to 45 degrees. I can passively bring her to a closed fist. NVI. Assessment & Plan Assessment & Plan (1) Dupuytren's contracture of left hand: Code(s): M72.0 - Palmar fascial fibromatosis [Dupuytren] Plan Sutures removed today, steri strips applied. We did work on ROM techniques in the office today and I was able to actively bring her to a closed fist. I did stress the importance of working on this several times a day while at home to improve her ROM. She does begin occupational therapy on 09/08/23. I would like to see her back in 3 weeks for a ROM check, sooner if needed. Patient Instructions: Scribed for Daniella Lyn PA-C, by [facility] or medical, on 09/03/2023 at 11:15 AM EST. I, Daniella Lyn PA-C, have personally reviewed and agree with the information entered by the scribe. Coding Level of Care Code Global (50195) Diagnoses Dupuytren's contracture of left hand M72.0
== END 2023-09-03 11:55 | disposition home or self-care (01) ==
PROVIDERS: PCP Internal Medicine; Visit Provider Physician Assistant
DX: M72.0 Palmar fascial fibromatosis [Dupuytren] (principal)
CPT/HCPCS: 99024

== ENCOUNTER → 2023-09-03 10:55 | Outpatient (BNVA) | payer MEDICARE, SELFPAY | PROVIDERS: PCP Internal Medicine; Visit Provider Physician Assistant ==

== ENCOUNTER 2023-09-21 08:32 | Outpatient (AMB) | payer MEDICARE, SELFPAY ==
--- NOTE | 2023-09-21 08:58 | MHC.PC.OV ---
Vital Signs 09/21/23 09:01 Height 5 ft 8 in Weight 141 lb BMI 21.4 BP 140/64 H Blood Pressure Location Lt brachial Position Sitting Pulse 70 Pulse Source Pulse Oximeter Pulse Oximetry (%) 96 Oxygen Delivery Method Room Air Intake Visit Reasons: 1 month follow up Intake Note: Pt is here today for 1 month follow up visit. Allergies acetaminophen [From PERCOCET] Allergy (Unknown, Verified 09/21/23 09:04) UNKNOWN azithromycin Allergy (Unknown, Verified 09/21/23 09:04) hives oxycodone [From PERCOCET] Allergy (Unknown, Verified 09/21/23 09:04) UNKNOWN Gdczfgb-FRJ-DxY Reductase Inhibitor [VODRJPE-HFI-DJY REDUCTASE INHIBITOR] Allergy (Unknown, Verified 09/21/23 09:04) liver failure, major liver problems nitrofurantoin [From Macrobid] Adverse Reaction (Severe, Verified 09/21/23 09:04) breathing atorvastatin [Lipitor] Adverse Reaction (Unknown, Verified 09/21/23 09:04) Liver issues z-pack Allergy (Unknown, Uncoded 09/21/23 09:04) hives Tobacco use date assessed: 09/21/23 HPI 1 month follow up HPI Details Pt presents for f/u of HTN, hyperlipid,GERD, stable on meds. [facility] Medical History (Updated 09/21/23 @ 10:25 by Annelise Griffiths MD) Cough Mammogram normal Dysuria CKD (chronic kidney disease), stage III TIA (transient ischemic attack) Liver hemangioma Hepatitis GERD (gastroesophageal reflux disease) HTN (hypertension) Hyperlipidemia Surgical History H/O colonoscopy Hx of cholecystectomy History of breast surgery History of back surgery History of hysterectomy Family History Father No problems noted. Mother No problems noted. Brother No problems noted. Brother No problems noted. Sister No problems noted. 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 Jose Caba, Aurelia Arita, Juan A Juan and colleagues, with an educational denise from [employer]. Review of Systems Const All systems reviewed & are unremarkable except as noted in HPI and below Eyes Reports no additional complaints ENT Reports no additional complaints Card Reports no additional complaints Resp Reports no additional complaints GI Reports no additional complaints Reports no additional complaints Physical exam (Primary Care) Vital Signs: Last Vital Signs Pulse 70 09/21/23 09:01 BP 140/64 H 09/21/23 09:01 Pulse Ox 96 09/21/23 09:01 Oxygen Delivery Method Room Air 09/21/23 09:01 BMI result Body Mass Index 21.4 Tobacco/Smoking Status: Tobacco use Status Tobacco use date assessed 09/21/23 09/21/23 09:05 Patient Tobacco Use Status Former Tobacco user 09/21/23 08:59 e-Cigarette/Vaping Use Never Used 09/21/23 08:59 Thrive Assessment: Date of Thrive Assessment Date Thrive assessed 08/10/23 09/21/23 08:59 Const General: no acute distress HENMT Head: Yes normal to inspection Ears: hearing grossly normal bilaterally General nose exam: Normal external nose present Face and sinus: Yes normal facial exam Mouth: Normal oral and palatal mucosa present Throat: Yes posterior oropharynx normal Eyes General: appearance normal, both eyes and all related structures Neck Neck: Yes no lymphadenopathy and Yes supple Resp Effort & Inspection: normal respiratory effort Auscultation: clear to auscultation bilaterally Cardio Rhythm: regular rhythm Heart sounds: S1 normal heart sound present and S2 normal heart sound present GI Palpation (GI): Soft to palpation Percussion: Yes normal to percussion Auscultation: normal bowel sounds Assessment and Plan Assessment & Plan (1) Hydronephrosis: Comment: L kidney s/p stent 01/15, urology Dr. Barker Code(s): N13.30 - Unspecified hydronephrosis Plan: f/u with urology (2) CKD (chronic kidney disease), stage III: Comment: f/u Dr. Fraser Code(s): N18.30 - Chronic kidney disease, stage 3 unspecified Plan: f/u with nephrology (3) Annual physical exam: Code(s): Z00.00 - Encounter for general adult medical examination without abnormal findings Plan: well balanced diet, regular exercise discussed (4) Hyperlipidemia: Comment: statins caused hepatitis [place] 2020, f/u with GI Code(s): E78.5 - Hyperlipidemia, unspecified Plan: cont Zetia and low cholesterol diet (5) HTN (hypertension): Comment: BP goal less than 130/80, f/u prescribed lorazepam for anxiety Code(s): I10 - Essential (primary) hypertension Plan: cont meds Coding Level of Care Code Est Pt Level 4 (81840) Diagnoses Hydronephrosis N13.30 CKD (chronic kidney disease), stage III N18.30 Annual physical exam Z00.00 Hyperlipidemia E78.5 HTN (hypertension) I10
[2023-09-21 09:01] VITALS: BP 140/64; PULSE 70; O2SAT 96; BMI 21.4
== END 2023-09-21 10:27 | disposition home or self-care (01) ==
PROVIDERS: PCP Internal Medicine; Visit Provider Internal Medicine
DX: I12.9 Hypertensive chronic kidney disease with stage 1 through stage 4 chronic kidney disease, or unspecified chronic kidney disease (principal); N13.30 Unspecified hydronephrosis; N18.30 Chronic kidney disease, stage 3 unspecified; Z00.00 Encounter for general adult medical examination without abnormal findings; E78.5 Hyperlipidemia, unspecified
CPT/HCPCS: 99214

== ENCOUNTER 2023-09-23 09:29 | Outpatient (AMB) | payer MEDICARE, SELFPAY ==
--- NOTE | 2023-09-23 09:49 | A.OFFVIS_ITS ---
Intake Intake Visit Reasons: PO-Dupuytrens 08/13/23-ROM check Intake Note: Funmi ball 73 year old female presents today for a post operative ROM check s/p left hand dupuytrens, 08/13/23 AR. Patient reports that she continues to work with OT. She states numbness in her SF. Allergies acetaminophen [From PERCOCET] Allergy (Unknown, Verified 09/23/23 10:03) UNKNOWN azithromycin Allergy (Unknown, Verified 09/23/23 10:03) hives oxycodone [From PERCOCET] Allergy (Unknown, Verified 09/23/23 10:03) UNKNOWN Mveowom-NJC-LyB Reductase Inhibitor [VCWFNTC-UXQ-MLE REDUCTASE INHIBITOR] Allergy (Unknown, Verified 09/23/23 10:03) liver failure, major liver problems nitrofurantoin [From Macrobid] Adverse Reaction (Severe, Verified 09/23/23 10:03) breathing atorvastatin [Lipitor] Adverse Reaction (Unknown, Verified 09/23/23 10:03) Liver issues z-pack Allergy (Unknown, Uncoded 09/23/23 10:03) hives HPI PO-Dupuytrens 08/13/23-ROM check HPI Details 73-year-old female who returns to the [facility] today for post-op left hand Dupuytren?s, 08/13/[address] Rdz. She states she has no pain but she does c/o numbness in her small finger. She continues to wear her brace at night and works with occupational therapy as instructed. She is doing well overall and has no concerns today. [facility] Medical History (Updated 09/21/23 @ 10:25 by Annelise Griffiths MD) Cough Mammogram normal Dysuria CKD (chronic kidney disease), stage III TIA (transient ischemic attack) Liver hemangioma Hepatitis GERD (gastroesophageal reflux disease) HTN (hypertension) Hyperlipidemia Surgical History H/O colonoscopy Hx of cholecystectomy History of breast surgery History of back surgery History of hysterectomy Family History Father No problems noted. Mother No problems noted. Brother No problems noted. Brother No problems noted. Sister No problems noted. 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 No erythema or swelling. She has full extension and flexion with no contracture. NVI. Assessment & Plan Assessment & Plan (1) Dupuytren's contracture of left hand: Code(s): M72.0 - Palmar fascial fibromatosis [Dupuytren] Plan She will continue working with occupational therapy and she will continue wearing her night splint for at least another 6 weeks to prevent contracture. I did ask that she make an appointment to see us back in 6 weeks for another follow-up and this can be booked with myself or Dr. Rdz, sooner if needed. Patient Instructions: Scribed for Daniella Lyn PA-C, by [facility] Sanchez medical staffing coordinator, on 09/23/2023 at 9:45 AM EST. I, Daniella Lyn PA-C, have personally reviewed and agree with the information entered by the scribe. Coding Level of Care Code Global (03728) Diagnoses Dupuytren's contracture of left hand M72.0
== END 2023-09-23 10:03 | disposition home or self-care (01) ==
PROVIDERS: PCP Internal Medicine; Visit Provider Physician Assistant
DX: M72.0 Palmar fascial fibromatosis [Dupuytren] (principal)
CPT/HCPCS: 99024

== ENCOUNTER → 2023-09-23 09:29 | Outpatient (BNVA) | payer MEDICARE, SELFPAY | PROVIDERS: PCP Internal Medicine; Visit Provider Physician Assistant ==

== ENCOUNTER 2023-09-28 09:00 | Outpatient (RCR) | payer MEDICARE, SELFPAY ==
--- NOTE | 2023-09-08 13:25 | MHC.OT.EP ---
[address] [phone] Occupational Therapy Plan of Care Patient Name: Funmi Gonzales Date of Evaluation: 09/08/23 Diagnosis: Left hand Dupuytens contracture, small finger Pain Location: 4 left small finger with exercise, ache Pain Score: 4 Pain Scale Used: Numeric (0 - 10) Aggravating Factors: Bending small finger Alleviating Factors: Avoiding use of left small finger Assessment: Pt is a 73 yo female 4 wks s/p right small finger Dupuytrenss and ulnar digital nerve neurolysis . Today she presents with mild small finger edema ,stiffness and impaired light touch at ulnar aspect of distal digit Pt reports mild limitation due to protecting the small finger by avoiding use. Pt will benefit from and night hand based volar gutter splint for digit extension and continued OT to progress ROM and functional use of her right dominant hand Frequency and Duration: The patient will be seen 2 x 2 wks Short Term Goals: Demo compliance with night extension orthosis Demo proper technique with scar management as instructed Right small finger extension to neutral at MCP jt and PIP jt Right small finger tip to DPC Use if right dominant hand with light to mod resistant activities with homemaking Nursing Home Goals: Same as above Treatment Plan: Therapeutic Exercise Therapeutic Activity Home Exercise Program Splinting Patient Education Soft Tissue Mobilization Scar management Electronically Signed By: Petrona Love OT CHT CLT Please Sign and return to therapist. Thank you once again for your referral.
--- NOTE | 2023-10-30 13:30 | MHC.OT.DC ---
[address] [phone] F: [phone] Occupational Therapy Discharge Note Patient Name: Funmi Gonzales Provider: Erin Rdz Diagnosis: Left hand Dupuytens contracture, small finger Date of Surgery: 08/13/23 Date of Evaluation: 09/08/23 Date of Discharge: 09/28/23 Treatments to Date: 3 Cancellations to Date: No Shows to Date: Discharge Status: Achieved Goals Improved Function Independent with HEP Discharge Summary: Goals met for digit extension to neutral, digit flexion and tolerating moderate use of right dominant hand. . 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 Electronically Signed By: Petrona Love OT CHT CLT Reviewed/agree with student documentation: Therapist: Please Sign and return to therapist, thank you for your referral.
== END 2023-10-30 13:31 | disposition home or self-care (01) ==
LOC: HO.OT 09:00
PROVIDERS: PCP Internal Medicine; Visit Provider Orthopaedic Surgery
DX: Z47.89 Encounter for other orthopedic aftercare (principal); M72.0 Palmar fascial fibromatosis [Dupuytren]
CPT/HCPCS: 29130; 97110; 97165; 97760

== ENCOUNTER 2023-11-04 09:42 | Outpatient (AMB) | payer MEDICARE, SELFPAY ==
[2023-11-04 09:44] VITALS: BMI 22.5
--- NOTE | 2023-11-04 09:44 | A.OFFVIS_ITS ---
Intake Vital Signs 11/04/23 09:44 Height 5 ft 8 in Weight 148 lb BMI 22.5 Intake Visit Reasons: New problem- right wrist pain Intake Note: Funmi 73 year old female presents today for a new problem for her right wrist pain. she is also s/p left hand dupuytrens surgery, 08/13/23 [place]. Patient reports she continues to do her home exercise with great improvement however states she banged her right against a chair about 3 weeks ago and is now having mild pain. Patient is requesting xrays. Allergies acetaminophen [From PERCOCET] Allergy (Unknown, Verified 11/04/23 10:01) UNKNOWN azithromycin Allergy (Unknown, Verified 11/04/23 10:) hives oxycodone [From PERCOCET] Allergy (Unknown, Verified 11/04/23 10:) UNKNOWN Wzbahkk-UPN-AxU Reductase Inhibitor [QTNWCJQ-IZO-WBO REDUCTASE INHIBITOR] Allergy (Unknown, Verified 11/04/23 10:01) liver failure, major liver problems nitrofurantoin [From Macrobid] Adverse Reaction (Severe, Verified 11/04/23 10:01) breathing atorvastatin [Lipitor] Adverse Reaction (Unknown, Verified 11/04/23 10:01) Liver issues z-pack Allergy (Unknown, Uncoded 11/04/23 10:01) hives HPI New problem- right wrist pain HPI Details Funmi is a 73 year old right hand dominant woman who presents with complaint of right ulnar-sided wrist pain after a fall ~2-3 weeks ago. She says she has pain with activity and use of her wrist, along with an audible clicking sound, and she says she has a brief increase of pain when this happens. She has her hand very bruised after her fall, but this has been improving. She is also S/P left small finger partial fasciectomy and volar capsulectomy, DOS: 08/13/23. In regards to her left hand, she says she is doing well and continues to work on at-home exercises. She says this has been improving her motion and stiffness, and she is happy about this. She continues to have numbness in her small finger, unchanged from prior. [facility] Medical History (Updated 11/04/23 @ 10:41 by Porfirio Greco) Cough Mammogram normal Dysuria CKD (chronic kidney disease), stage III TIA (transient ischemic attack) Liver hemangioma Hepatitis GERD (gastroesophageal reflux disease) HTN (hypertension) Hyperlipidemia Surgical History H/O colonoscopy Hx of cholecystectomy History of breast surgery History of back surgery History of hysterectomy Family History Father No problems noted. Mother No problems noted. Brother No problems noted. Brother No problems noted. Sister No problems noted. 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 Normal sensation to the tips of all other digits Vascular: Cap refill brisk Her incision is well healed. She can make a fist and extend all her digits She can get her left hand flat on the table In regards to her right hand: Tender over ECU tendon No foveal tenderness Mild tenderness over the DRUJ When bringing wrist into supination, there was an audible click or snapping sound in the dorsal ulnar aspect of her wrist, which was painful Non-tender over the distal radius or scaphoid No tenderness over the radiocarpal joint no tenderness over the metacarpals or digits No swelling or erythema Radiographs: 3 views of the right wrist were taken and viewed by me today in clinic. They show no fractures or dislocations. Psych Appearance: grossly normal Affect: normal affect Attitude: cooperative Assessment & Plan Assessment & Plan (1) Dupuytren's contracture of left hand: Code(s): M72.0 - Palmar fascial fibromatosis [Dupuytren] (2) Numbness of left hand: Code(s): R20.0 - Anesthesia of skin (3) Right wrist pain: Code(s): M25.531 - Pain in right wrist Plan Assessment & Plan: 1. Right dorsal ulnar sided wrist pain After a fall ~2 weeks ago, in late September I educated her about this condition. I ordered an MRI to assess her wrist I discussed activity modification, she should limit or avoid any heavy lifting or twisting activities for the next few weeks, She will follow up after the MRI for review, and should have a 30 minute appointment. 2. Left small finger Dupuytren's contracture S/P partial fasciectomy & PIP joint volar capsulectomy DOS: 08/13/23 Involving the small finger ABductor MCP 0/PIP 75 Post-operatively with full extension Doing well with no complaints Continue at-home ROM exercises 3. Left small finger numbness Continue numbness in the ulnar digital nerve distribution of the small finger, which was present preoperatively. Please note that greater than 30 minutes was spent with this patient going over the history, evaluating the patient and radiographs, formulating possible treatment options, discussing them with the patient, and documenting the visit. Scribed for Erin Rdz MD by Porfirio Greco, outside medical sales representative, on 11/04/23 at 10:45 AM, EST. Orders: Orders XR wrist RT min 3V Today M25.531 - Pain in right wrist MR wrist RT wo con Today M25.531 - Pain in right wrist Coding Level of Care Code Est Pt Level 3 (98314) Diagnoses Dupuytren's contracture of left hand M72.0 Numbness of left hand R20.0 Right wrist pain M25.531
== END 2023-11-04 10:45 | disposition home or self-care (01) ==
PROVIDERS: PCP Internal Medicine; Visit Provider Orthopaedic Surgery
DX: M25.531 Pain in right wrist (principal); M72.0 Palmar fascial fibromatosis [Dupuytren]; R20.0 Anesthesia of skin
CPT/HCPCS: 99213

== ENCOUNTER 2023-11-04 09:42 | Outpatient (REF) | payer MEDICARE, SELFPAY ==
--- NOTE | ~2023-11-04 | XR_ITS ---
EXAMINATION: XR WRIST, RIGHT CLINICAL INFORMATION: Pain in the right wrist COMPARISON: None available. TECHNIQUE: PA, lateral, and oblique views of the right wrist. FINDINGS: Small marginal osteophytes about the first carpometacarpal joint and triscaphe scaphoid joint indicative of mild osteoarthritis. Surrounding bones joints and soft tissues unremarkable.. XR/XR wrist RT min 3V IMPRESSION: Mild osteoarthritis of the right wrist.
== END 2023-11-04 09:43 | disposition home or self-care (01) ==
LOC: HO.HOSX 09:42
PROVIDERS: PCP Internal Medicine; Visit Provider Orthopaedic Surgery
DX: M25.531 Pain in right wrist (principal); M72.0 Palmar fascial fibromatosis [Dupuytren]; R20.0 Anesthesia of skin; Z91.81 History of falling
CPT/HCPCS: 73110; 99212

== ENCOUNTER 2023-11-23 08:43 | Outpatient (REF) | payer MEDICARE, SELFPAY ==
--- NOTE | ~2023-11-23 | MR_ITS ---
EXAMINATION: MR WRIST WITHOUT CONTRAST, RIGHT CLINICAL INFORMATION: Right dorsal ulnar pain, status post fall 3 weeks ago. COMPARISON: None available. TECHNIQUE: MRI of the wrist was performed using routine sequences on a high-field scanner. FINDINGS: Motion artifact degrading images, limiting evaluation. BONE/JOINTS: There are degenerative/arthritic changes in the carpal bones, including T2 bright foci/cysts in the distal scaphoid, lunate, triquetrum. Mild distal ulnar edema, nonspecific, could reflect degenerative signal or bone bruise. Mild first CMC arthritis. No acute fracture seen, correlate with x-ray. Small wrist joint effusion. Small distal radioulnar joint effusion. MUSCLE/TENDONS: Mild intermediate signal in the extensor carpi ulnaris tendon could reflect mild tendinosis. The tendons otherwise appear intact. No appreciable tenosynovitis. LIGAMENTS: Thinning/partial tearing of the medial aspect of the triangular fibrocartilage measuring 0.45 cm transverse. There is diffuse T2 signal otherwise in the TFCC, including in the ulnar attachments of the TFCC which could reflect degeneration or sprain. There is fluid in the distal radioulnar joint, raising the possibility of an occult full-thickness tear of the triangular fibrocartilage. Scapholunate ligament degeneration without tear. MEDIAN NERVE: Within normal limits. MR/MR wrist RT wo con IMPRESSION: 1. Arthritis present, including arthritic changes in the carpal bones, mild first CMC arthritis. No evidence of acute fracture, correlate with x-ray. 2. Small wrist joint effusion. 3. Triangular fibrocartilage degeneration with a partial-thickness tear in the radial aspect, measuring 0.45 cm transverse. Increased signal in the TFCC otherwise, could reflect degeneration or sprain. Small effusion the distal radioulnar joint raises the possibility of an occult full-thickness triangular fibrocartilage tear. 4. Scapholunate ligament degeneration. 5. Mild distal ulnar edema, nonspecific, could reflect degeneration or bruise. 6. Possible mild extensor carpi ulnaris tendinosis.
== END 2023-11-23 08:44 | disposition home or self-care (01) ==
LOC: HO.MRI 08:43
PROVIDERS: PCP Internal Medicine; Visit Provider Orthopaedic Surgery
DX: M25.531 Pain in right wrist (principal)
CPT/HCPCS: 73221

== ENCOUNTER 2023-12-02 13:03 | Outpatient (AMB) | payer MEDICARE, SELFPAY ==
[2023-12-02 13:25] VITALS: BMI 22.5
--- NOTE | 2023-12-02 13:25 | MHC.OFFVIS ---
Intake Vital Signs 12/02/23 13:25 Height 5 ft 8 in Weight 148 lb BMI 22.5 Intake Visit Reasons: O/V Right dorsal ulnar sided wrist pain MRI rev. Intake Note: Funmi is a 73 year old female who presents today for a follow up for her MRI review of her right dorsal ulnar sided wrist pain. Patient reports her pain hasn't changed since her last visit. She states that she hears a crunching sound when she moves her wrist. Allergies acetaminophen [From PERCOCET] Allergy (Unknown, Verified 12/02/23 13:29) UNKNOWN azithromycin Allergy (Unknown, Verified 12/02/23 13:29) hives oxycodone [From PERCOCET] Allergy (Unknown, Verified 12/02/23 13:29) UNKNOWN Kvwyvyc-SII-BgR Reductase Inhibitor [PRPXSBW-HYD-FAP REDUCTASE INHIBITOR] Allergy (Unknown, Verified 12/02/23 13:29) liver failure, major liver problems nitrofurantoin [From Macrobid] Adverse Reaction (Severe, Verified 12/02/23 13:29) breathing atorvastatin [Lipitor] Adverse Reaction (Unknown, Verified 12/02/23 13:29) Liver issues z-pack Allergy (Unknown, Uncoded 11/04/23 10:01) hives HPI O/V Right dorsal ulnar sided wrist pain MRI rev. HPI Details Funmi is a 73 year old right hand dominant woman who returns with complaints of right ulnar-sided wrist pain after a fall in mid to late September 2023. She says she still has pain in the ulnar aspect of her right wrist that can be at rest, but is more likely with activities with her right hand. She is here for follow-up and an MRI review She says this pain has not changed since her last appointment. She is S/P left small finger partial fasciectomy and volar capsulectomy, DOS: 08/13/23. She is very pleased with the results of her surgery, and the fact that she can now fully extend her small finger and bring it to a fist. [facility] Medical History (Updated 12/02/23 @ 14:12 by Porfirio Greco) Cough Mammogram normal Dysuria CKD (chronic kidney disease), stage III TIA (transient ischemic attack) Liver hemangioma Hepatitis GERD (gastroesophageal reflux disease) HTN (hypertension) Hyperlipidemia Surgical History H/O colonoscopy Hx of cholecystectomy History of breast surgery History of back surgery History of hysterectomy Family History Father No problems noted. Mother No problems noted. Brother No problems noted. Brother No problems noted. Sister No problems noted. 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 She can make a tight fist with good strength and no pain. She can actively extend all of her digits. She was not particularly tender over the distal radius DRUJ or distal ulna. The DRUJ was stable on exam. She could bring her wrist into full pronation and then into about 70 degrees of supination. This time I did not appreciate any kind of audible click or snapping sound. At her last visit we did have an audible click or snapping sound around the dorsal aspect of her wrist which was painful. She was somewhat tender over the fovea today. Not particularly tender over the dorsal aspect of the ulnocarpal joint, distal to the DRUJ or over the DRUJ. Not particularly tender over the ECU tendon. I did not appreciate any ECU subluxation with pronation/supination. Mild pain with full wrist extension and flexion. This may be secondary to using her wrist brace and protecting her wrist. Right wrist MRI: FINDINGS: Motion artifact degrading images, limiting evaluation. BONE/JOINTS: There are degenerative/arthritic changes in the carpal bones, including T2 bright foci/cysts in the distal scaphoid, lunate, triquetrum. Mild distal ulnar edema, nonspecific, could reflect degenerative signal or bone bruise. Mild first CMC arthritis. No acute fracture seen, correlate with x-ray. Small wrist joint effusion. Small distal radioulnar joint effusion. MUSCLE/TENDONS: Mild intermediate signal in the extensor carpi ulnaris tendon could reflect mild tendinosis. The tendons otherwise appear intact. No appreciable tenosynovitis. LIGAMENTS: Thinning/partial tearing of the medial aspect of the triangular fibrocartilage measuring 0.45 cm transverse. There is diffuse T2 signal otherwise in the TFCC, including in the ulnar attachments of the TFCC which could reflect degeneration or sprain. There is fluid in the distal radioulnar joint, raising the possibility of an occult full-thickness tear of the triangular fibrocartilage. Scapholunate ligament degeneration without tear. MEDIAN NERVE: Within normal limits. IMPRESSION: 1. Arthritis present, including arthritic changes in the carpal bones, mild first CMC arthritis. No evidence of acute fracture, correlate with x-ray. 2. Small wrist joint effusion. 3. Triangular fibrocartilage degeneration with a partial-thickness tear in the radial aspect, measuring 0.45 cm transverse. Increased signal in the TFCC otherwise, could reflect degeneration or sprain. Small effusion the distal radioulnar joint raises the possibility of an occult full-thickness triangular fibrocartilage tear. 4. Scapholunate ligament degeneration. 5. Mild distal ulnar edema, nonspecific, could reflect degeneration or bruise. 6. Possible mild extensor carpi ulnaris tendinosis. Dictated By: Mayo Chen MD 11/24/23 Psych Appearance: grossly normal Affect: normal affect Attitude: cooperative Assessment & Plan Assessment & Plan (1) Dupuytren's contracture of left hand: Code(s): M72.0 - Palmar fascial fibromatosis [Dupuytren] (2) Numbness of left hand: Code(s): R20.0 - Anesthesia of skin (3) Tear of triangular fibrocartilage complex (TFCC) of right wrist: Code(s): S63.591A - Other specified sprain of right wrist, initial encounter (4) Right wrist pain: Code(s): M25.531 - Pain in right wrist Plan Assessment & Plan: 1. Right TFCC tear, likely partial, and possibly degenerative with an acute sprain. After a fall in late September 2023 I educated her about this condition and reviewed her MRI results with her We discussed operative and non-operative treatment options, including steroid injection or possible diagnostic wrist arthroscopy with evaluation of the TFCC for possible debridement versus repair. Before deciding on surgery, I think it is prudent to determine whether it is in the necessary. Some of her discomfort appears to be secondary to mild wrist stiffness secondary to disuse. We talked about the importance of activity modification. I have also ordered a course of occupational hand therapy for her to work on improving her range of motion and overall hand and wrist function. She will follow up in 4 weeks, no radiographs. If her symptoms persist we may consider an ulnocarpal joint injection If she still continues to have pain, we may consider a diagnostic Arthroscopy with evaluation of the TFCC for possible debridement versus repair 2. Left small finger Dupuytren's contracture S/P partial fasciectomy & PIP joint volar capsulectomy DOS: 08/13/23 Involving the small finger ABductor MCP 0/PIP 75 Post-operatively with full extension The patient is doing well and very pleased with her results. 3. Left small finger numbness Continue numbness in the ulnar digital nerve distribution of the small finger, which was present preoperatively. Please note that greater than 40 minutes was spent with this patient going over the history, evaluating the patient and radiographs, formulating possible treatment options, discussing them with the patient, and documenting the visit. Scribed for Erin Rdz MD by Porfirio Greco, medical photographer, on 12/02/23 at 2:10 PM, EST. Orders: Orders OT Evaluation and Treatment 12/02/23 M25.531 - Pain in right wrist, S63.591A - Other specified sprain of right wrist, initial encounter Coding Level of Care Code Est Pt Level 4 (29531) Diagnoses Dupuytren's contracture of left hand M72.0 Numbness of left hand R20.0 Tear of triangular fibrocartilage complex (TFCC) of right wrist S63.591A Right wrist pain M25.531
== END 2023-12-02 14:31 | disposition home or self-care (01) ==
PROVIDERS: PCP Internal Medicine; Visit Provider Orthopaedic Surgery
DX: M72.0 Palmar fascial fibromatosis [Dupuytren] (principal); R20.0 Anesthesia of skin; S63.591A Other specified sprain of right wrist, initial encounter; M25.531 Pain in right wrist
CPT/HCPCS: 99215

== ENCOUNTER → 2023-12-02 13:03 | Outpatient (BNVA) | payer MEDICARE, SELFPAY | PROVIDERS: PCP Internal Medicine; Visit Provider Orthopaedic Surgery | DX: S63.591D Other specified sprain of right wrist, subsequent encounter (principal); M72.0 Palmar fascial fibromatosis [Dupuytren]; R20.0 Anesthesia of skin | CPT/HCPCS: 99212 ==

== ENCOUNTER 2024-01-06 07:58 | Outpatient (AMB) | payer MEDICARE, SELFPAY ==
[2024-01-06 08:22] VITALS: BMI 22.5
--- NOTE | 2024-01-06 08:22 | A.OFFVIS_ITS ---
Intake Vital Signs 01/06/24 08:22 Height 5 ft 8 in Weight 148 lb BMI 22.5 Intake Visit Reasons: O/V Right dorsal ulnar sided-R wrist TFCC Intake Note: Funmi 72 yr old female presents today for her follow up visit for her right dorsal ulnar sided-R wrist TFCC after a fall in late September 2023. Here for a ROM check s/p O.T. States little improvement in her ROM, she continues to have pain with certain twists of wrist. She continues to attend OT. Allergies acetaminophen [From PERCOCET] Allergy (Unknown, Verified 01/06/24 08:28) UNKNOWN azithromycin Allergy (Unknown, Verified 01/06/24 08:28) hives oxycodone [From PERCOCET] Allergy (Unknown, Verified 01/06/24 08:28) UNKNOWN Mhzgbwv-JDG-IkW Reductase Inhibitor [YKJWHJE-HQI-CVJ REDUCTASE INHIBITOR] Allergy (Unknown, Verified 01/06/24 08:28) liver failure, major liver problems nitrofurantoin [From Macrobid] Adverse Reaction (Severe, Verified 01/06/24 08:28) breathing atorvastatin [Lipitor] Adverse Reaction (Unknown, Verified 01/06/24 08:28) Liver issues z-pack Allergy (Unknown, Uncoded 01/06/24 08:28) hives HPI O/V Right dorsal ulnar sided-R wrist TFCC HPI Details Funmi is a 73 year old right hand dominant woman who returns to discuss her right wrist TFCC tear, from a fall in mid to late September 2023. She says she still has pain in the ulnar aspect of her right wrist that can be at rest, but is more likely with activities with her right hand. She has found little improvement in her pain with OT. She continues to have pain with twisting motions of her wrist, but she does say the snapping sensation has improved somewhat. She feels she has improved some of her motion as she performs exercises daily at home & with OT. She says she is supposed to have an OT appointment later this morning but is unsure if she can keep this following an injection. She is S/P left small finger partial fasciectomy and volar capsulectomy, DOS: 08/13/23. She is very pleased with the results of her surgery, and the fact that she can now fully extend her small finger and bring it to a fist. [facility] Medical History (Updated 12/02/23 @ 14:12 by Porfirio Greco) Cough Mammogram normal Dysuria CKD (chronic kidney disease), stage III TIA (transient ischemic attack) Liver hemangioma Hepatitis GERD (gastroesophageal reflux disease) HTN (hypertension) Hyperlipidemia Surgical History H/O colonoscopy Hx of cholecystectomy History of breast surgery History of back surgery History of hysterectomy Family History Father No problems noted. Mother No problems noted. Brother No problems noted. Brother No problems noted. Sister No problems noted. 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 She can make a tight fist with good strength and no pain. She can actively extend all of her digits. She was not particularly tender over the distal radius DRUJ or distal ulna. The DRUJ was stable on exam. She could bring her wrist into full pronation without pain. She can bring her wrist into about 70 degrees of supination but this was mildly painful at full supination.. We no longer appreciate any kind of audible click or snapping sound. At her visit in October we did have an audible click or snapping sound around the dorsal aspect of her wrist which was painful. She was tender over the fovea today. Not particularly tender over the dorsal aspect of the ulnocarpal joint, distal to the DRUJ or over the DRUJ. Not particularly tender over the ECU tendon, except perhaps where the ECU tendon passed over the ulnocarpal joint she had some mild tenderness.. I did not appreciate any ECU subluxation with pronation/supination. Wrist flexion and extension are improved to about 70 degrees and 60 degrees. Right wrist MRI: FINDINGS: Motion artifact degrading images, limiting evaluation. BONE/JOINTS: There are degenerative/arthritic changes in the carpal bones, including T2 bright foci/cysts in the distal scaphoid, lunate, triquetrum. Mild distal ulnar edema, nonspecific, could reflect degenerative signal or bone bruise. Mild first CMC arthritis. No acute fracture seen, correlate with x-ray. Small wrist joint effusion. Small distal radioulnar joint effusion. MUSCLE/TENDONS: Mild intermediate signal in the extensor carpi ulnaris tendon could reflect mild tendinosis. The tendons otherwise appear intact. No appreciable tenosynovitis. LIGAMENTS: Thinning/partial tearing of the medial aspect of the triangular fibrocartilage measuring 0.45 cm transverse. There is diffuse T2 signal otherwise in the TFCC, including in the ulnar attachments of the TFCC which could reflect degeneration or sprain. There is fluid in the distal radioulnar joint, raising the possibility of an occult full-thickness tear of the triangular fibrocartilage. Scapholunate ligament degeneration without tear. MEDIAN NERVE: Within normal limits. IMPRESSION: 1. Arthritis present, including arthritic changes in the carpal bones, mild first CMC arthritis. No evidence of acute fracture, correlate with x-ray. 2. Small wrist joint effusion. 3. Triangular fibrocartilage degeneration with a partial-thickness tear in the radial aspect, measuring 0.45 cm transverse. Increased signal in the TFCC otherwise, could reflect degeneration or sprain. Small effusion the distal radioulnar joint raises the possibility of an occult full-thickness triangular fibrocartilage tear. 4. Scapholunate ligament degeneration. 5. Mild distal ulnar edema, nonspecific, could reflect degeneration or bruise. 6. Possible mild extensor carpi ulnaris tendinosis. Dictated By: Mayo Chen MD 11/24/23 Psych Appearance: grossly normal Affect: normal affect Attitude: cooperative Office Procedures Fracture Care Details: [place] [address] for needle placement with fluoroscopic guidance Fracture Billing Code: Fracture Billing Code Assessment & Plan Assessment & Plan (1) Dupuytren's contracture of left hand: Code(s): M72.0 - Palmar fascial fibromatosis [Dupuytren] (2) Numbness of left hand: Code(s): R20.0 - Anesthesia of skin (3) Tear of triangular fibrocartilage complex (TFCC) of right wrist: Code(s): S63.591A - Other specified sprain of right wrist, initial encounter (4) Right wrist pain: Code(s): M25.531 - Pain in right wrist Plan Assessment & Plan: 1. Right TFCC tear, likely partial, and possibly degenerative with an acute sprain. After a fall in late September 2023 I educated her about this condition We discussed operative and non-operative treatment options, including steroid injection or possible diagnostic wrist arthroscopy with evaluation of the TFCC for possible debridement versus repair. We talked about the importance of activity modification. Her symptoms have not improved with OT hand therapy I recommend a diagnostic ulnocarpal joint injection, and she is in agreement She will continue to attend OT hand therapy for ROM and normalizing function. She is supposed to have an appointment later this morning, but I think it would be best to skip this appointment following her injection. Carmella will reach out to the OT office to cancel her OT appointments for this week.. If she still continues to have pain, we may consider a diagnostic Arthroscopy with evaluation of the TFCC for possible debridement versus repair Injection #1 : The risks and benefits of a steroid injection including but not limited to risk of damage to blood vessels, nerve, tendon, infection, skin bleaching, persistent or worsening pain, and failure to improve symptoms were discussed with the patient and they wish to proceed with the steroid injection. Once consent was obtained the skin over the dorsal aspect of the right ulnocarpal joint was sterilely prepped. The joint was then injected in the dorsal aspect of the ulnocarpal joint between the 5th and 6th dorsal compartments with a combination of 1 mL of (40 mg/ml} Depo-Medrol and 3mL plain 0.5% Marcaine using the Fluoroscan for needle guidance. The patient appears to have tolerated the procedure well and with no complications. She had very good early relief of her symptoms before leaving clinic today. She took the wrist through full range of motion including pronation and supination and again felt that her pain was significantly improved after the injection. She knows that they may not have another steroid injection into this joint for least 4 months. She will follow up in 6-8 weeks to see how she is doing 2. Left small finger Dupuytren's contracture S/P partial fasciectomy & PIP joint volar capsulectomy DOS: 08/13/23 Involving the small finger ABductor MCP 0/PIP 75 Post-operatively with full extension The patient is doing well and very pleased with her results. 3. Left small finger numbness Continue numbness in the ulnar digital nerve distribution of the small finger, which was present preoperatively. Please note that greater than 40 minutes was spent with this patient going over the history, evaluating the patient and radiographs, formulating possible treatment options, discussing them with the patient, and documenting the visit. Scribed for Erin Rdz MD by Porfirio Greco, medical van driver, on 01/06/24 at 8:40 AM, EST. Orders: Orders FL guided needle placement Today M25.531 - Pain in right wrist, S63.591A - Other specified sprain of right wrist, initial encounter Coding Level of Care Code Est Pt Level 4 (54741) Diagnoses Dupuytren's contracture of left hand M72.0 Numbness of left hand R20.0 Tear of triangular fibrocartilage complex (TFCC) of right wrist S63.591A Right wrist pain M25.531 CPT Codes Fracture Care - Fracture Billing Code: Fracture Billing Code ([id number])
== END 2024-01-06 09:25 | disposition home or self-care (01) ==
PROVIDERS: PCP Internal Medicine; Visit Provider Orthopaedic Surgery
DX: M72.0 Palmar fascial fibromatosis [Dupuytren] (principal); S63.591A Other specified sprain of right wrist, initial encounter; R20.0 Anesthesia of skin; M25.531 Pain in right wrist
CPT/HCPCS: 20605; 77002; 99214

== ENCOUNTER 2024-01-06 07:58 | Outpatient (REF) | payer MEDICARE, SELFPAY ==
--- NOTE | ~2024-01-06 | FL_ITS ---
INDICATION: Intraoperative fluoroscopy. FLUOROSCOPY: Fluoroscopy Time: 6.2 seconds Dose/DAP: 3642.6 Gy m2 Images saved: 1 FINDINGS: A single intraoperative fluoroscopic image is submitted during reported procedure of the right wrist. Correlation with operative report. Evaluation is limited secondary to fluoroscopic technique. IMPRESSION: Intra-operative fluoroscopic imaging provided by radiology during during reported procedure Please refer to operative note for further information.
== END 2024-01-06 07:59 | disposition home or self-care (01) ==
LOC: HO.HOSX 07:58
PROVIDERS: PCP Internal Medicine; Visit Provider Orthopaedic Surgery
DX: M72.0 Palmar fascial fibromatosis [Dupuytren] (principal); R20.0 Anesthesia of skin; S63.591A Other specified sprain of right wrist, initial encounter
CPT/HCPCS: 20605; 77002; 99212; J0665; J1020

== ENCOUNTER 2024-01-27 09:00 | Outpatient (RCR) | payer MEDICARE, SELFPAY ==
--- NOTE | 2023-12-16 09:00 | MHC.OT.EP ---
[address] [phone] Occupational Therapy Plan of Care Patient Name: Funmi Gonzales Date of Evaluation: 12/16/23 Diagnosis: Right wrist pain w/ TFCC tear Pain Location: Low ache at rest, right ulnar wrist Sharp strong pain w/ weightbearing or lifting/rotating Tender to palpate right ulnar wrist over TFCC Pain Score: 8 Pain Scale Used: Dudley-Gonsalez (Faces) Aggravating Factors: Lifting, rotation, weightbearing Alleviating Factors: Tylenol PRN Assessment: 73 yo female w/ hx of fall this past September, was seen at [facility] (where she is known from recent D5 partial fasciectomy and volar capsulotomy) and was noted to have pain and clicking w/ wrist movement and rotation. MRI indicating partial TFCC tear OT ordered for conservative treatment prior to surgical interventions. On assessment, she reports pain w/ end range forearm rotation and w/ weightbearing through palm. She has (+) Fovea sign and pain/weakness w/ WB through palm assessment. Gross grasp is weakened and wrist range is slightly decreased but still functional. She has been avoiding aggravating movements but still has pain w/ everyday activities such as lifting cookware, turning steering wheel and occasionally w/ sleep positions. She will benefit from trial of OT services for reduction of pain and inflammation w/ attention to activity modification and joint protection as well. Frequency and Duration: The patient will be seen 2x/wk for 4 weeks Short Term Goals: Ind w/ Wrist Widget trial for reduction of pain Ind w/ use of ice for inflammation and pain Pt to demo good follow through w/ joint protection techniques Pt to report ease w/ sleeping [facility] Goals: Right gross grasp 30lb QuickDASH score <40 pts Pt to demo lift and carry light weighted container (simulating laundry, pans, etc) Pain free through unweighted AROM wrist/forearm Ind w/ isometric strengthening HEP Treatment Plan: Therapeutic Exercise Therapeutic Activity Home Exercise Program Patient Education Edema Control ADL Training Ultrasound Iontophoresis Paraffin Fluidotherapy MHP Cold Packs Soft Tissue Mobilization Kinesiotaping Ionto w/ Dexamethasone Wrist Widget trial Electronically Signed By: Nola Valentino, OTR/L CHT Please Sign and return to therapist. Thank you once again for your referral.
--- NOTE | 2023-12-30 14:04 | MHC.OT.OP ---
[address] [phone] F: [phone] Occupational Therapy Progress Note Patient Name: Funmi Gonzales Diagnosis: Right wrist pain w/ TFCC tear Date of Evaluation: 12/16/23 Treatments to Date: 5 Subjective: I think it's a bit better, I can move a little more Pain Score: 6 Pain Location: Right ulnar wrist Objective Measures: Denies sensory changes Status: Progressing Assessment: Funmi is progressing steadily, but slowly through course of conservative hand therapy. She has good carry over with gentle home exercises, joint protection and activity modification and has been using Wrist Widget for TFCC support and DRUJ stability, noting comfort and increased functional with wear. She is still avoiding forceful rotation, weightbearing through palm and heavy lifting. We are continuing with iontophoresis w/ dexamathesone and progressing as able with focus on mindfulnes of movement and use of right hand/wrist. Short Term Goals: Ind w/ Wrist Widget trial for reduction of pain Ind w/ use of ice for inflammation and pain Pt to demo good follow through w/ joint protection techniques Pt to report ease w/ sleeping [employer] Goals: Right gross grasp 30lb QuickDASH score <40 pts Pt to demo lift and carry light weighted container (simulating laundry, pans, etc) Pain free through unweighted AROM wrist/forearm Ind w/ isometric strengthening HEP Frequency and Duration: The patient will be seen 2x/wk for 3 weeks Treatment Plan: Therapeutic Exercise Therapeutic Activity Home Exercise Program Splinting Patient Education Edema Control ADL Training Ultrasound Iontophoresis w/ Dexamethasone Paraffin Fluidotherapy MHP Cold Packs Soft Tissue Mobilization Kinesiotaping Ionto w/ Dexamethasone Wrist Widget trial Electronically Signed By: Nola Valentino OTR/L CHT Reviewed/agree with student documentation: Therapist:
--- NOTE | 2024-01-27 13:41 | MHC.OT.DC ---
[address] [phone] F: [phone] Occupational Therapy Discharge Note Patient Name: Funmi Gonzales Provider: Dr Erin Rdz Diagnosis: Right wrist pain w/ TFCC tear Date of Evaluation: 12/16/23 Date of Discharge: 01/27/24 Treatments to Date: 10 Discharge Status: Independent with HEP Discharge Summary: Funmi was referred to OT for conservative management of TFCC tear. She received cortisone injection several weeks ago and is reporting overall decreased pain, but sharp ache still occurs w/ overuse or end range rotation. She has good follow through HEP and still wearing Wrist Widget for comfort. She does not like full wrist orthosis but would benefit from cont'd protection and reminder to limit full forearm rotation. She is still using left hand for heavier activities, not cutting or opening containers, able to lift light objects w/ two hands together. At this time we will discharge to self management and allow patient time to heal, she is Ind w/ progression of isometric exercises and will limited full range, weightbearing and heavier tasks. Electronically Signed By: Nola Valentino OTR/L CHT Please Sign and return to therapist, thank you for your referral.
== END 2024-01-27 13:42 | disposition home or self-care (01) ==
LOC: HO.OT 09:00
PROVIDERS: PCP Internal Medicine; Visit Provider Orthopaedic Surgery
DX: M25.531 Pain in right wrist (principal)
CPT/HCPCS: 29125; 97033; 97035; 97110; 97140; 97165; 97760

== ENCOUNTER 2024-02-16 08:29 | Outpatient (AMB) | payer MEDICARE, SELFPAY ==
[2024-02-16 08:44] VITALS: BMI 22.5
--- NOTE | 2024-02-16 08:44 | A.OFFVIS_ITS ---
Vital Signs 02/16/24 08:44 Height 5 ft 8 in Weight 148 lb BMI 22.5 Handedness Right Intake Visit Reasons: O/V RT dorsal ulnar sided-R wrist TFCC-follow up Intake Note: Funmi is a 72 year old right hand dominant female who presents today for her follow up visit for her right dorsal ulnar sided-R wrist TFCC after a fall in late September 2023. Injection done on 01/06/24, which was helpful. Patient reports she is doing well. She completed therapy and states she is improving. Allergies acetaminophen [From PERCOCET] Allergy (Unknown, Verified 02/16/24 08:50) UNKNOWN azithromycin Allergy (Unknown, Verified 02/16/24 08:50) hives oxycodone [From PERCOCET] Allergy (Unknown, Verified 02/16/24 08:50) UNKNOWN Bucblsw-AIV-JsG Reductase Inhibitor [KPLGQQC-VJG-CRR REDUCTASE INHIBITOR] Allergy (Unknown, Verified 02/16/24 08:50) liver failure, major liver problems nitrofurantoin [From Macrobid] Adverse Reaction (Severe, Verified 02/16/24 08:50) breathing atorvastatin [Lipitor] Adverse Reaction (Unknown, Verified 02/16/24 08:50) Liver issues z-pack Allergy (Unknown, Uncoded 01/06/24 08:28) hives HPI HPI O/V RT dorsal ulnar sided-R wrist TFCC-follow up: Details: Funmi is a 73 year old right hand dominant woman who returns to discuss her right wrist TFCC tear, from a fall in mid to late September 2023. She has completed a course of OT and was discharged on 01/27/24 noting discharge to self management and allow patient time to heal She was last seen, on 01/06/24 and given a right ulnocarpal joint injection, using Fluoroscan. She says this injection was helpful. She says she is feeling better and feels she has improved following the injection & OT. She says she no longer feels any cracking in her wrist with rotation. She says she cannot do any heavy lifting with her right hand, but is overall happy with how much her wrist has improved.. She is S/P left small finger partial fasciectomy and volar capsulectomy, DOS: 08/13/23. She is very pleased with the results of her surgery, and the fact that she can now fully extend her small finger and bring it to a fist. [facility] Medical History (Updated 12/02/23 @ 14:12 by Porfirio Greco) Cough Mammogram normal Dysuria CKD (chronic kidney disease), stage III TIA (transient ischemic attack) Liver hemangioma Hepatitis GERD (gastroesophageal reflux disease) HTN (hypertension) Hyperlipidemia Surgical History H/O colonoscopy Hx of cholecystectomy History of breast surgery History of back surgery History of hysterectomy Family History Father No problems noted. Mother No problems noted. Brother No problems noted. Brother No problems noted. Sister No problems noted. 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 She can make a tight fist with good strength and no pain. She can actively extend all of her digits. She was not tender over the distal radius DRUJ or distal ulna. The DRUJ was stable on exam. No fovea tenderness Not tenderness over the dorsal aspect of the ulnocarpal joint, distal to the DRUJ or over the DRUJ. No foveal tenderness She is using her hand normally today Full & symmetrical pronosupination We no longer appreciate any kind of audible click or snapping sound with ROM. Right wrist MRI: FINDINGS: Motion artifact degrading images, limiting evaluation. BONE/JOINTS: There are degenerative/arthritic changes in the carpal bones, including T2 bright foci/cysts in the distal scaphoid, lunate, triquetrum. Mild distal ulnar edema, nonspecific, could reflect degenerative signal or bone bruise. Mild first CMC arthritis. No acute fracture seen, correlate with x-ray. Small wrist joint effusion. Small distal radioulnar joint effusion. MUSCLE/TENDONS: Mild intermediate signal in the extensor carpi ulnaris tendon could reflect mild tendinosis. The tendons otherwise appear intact. No appreciable tenosynovitis. LIGAMENTS: Thinning/partial tearing of the medial aspect of the triangular fibrocartilage measuring 0.45 cm transverse. There is diffuse T2 signal otherwise in the TFCC, including in the ulnar attachments of the TFCC which could reflect degeneration or sprain. There is fluid in the distal radioulnar joint, raising the possibility of an occult full-thickness tear of the triangular fibrocartilage. Scapholunate ligament degeneration without tear. MEDIAN NERVE: Within normal limits. IMPRESSION: 1. Arthritis present, including arthritic changes in the carpal bones, mild first CMC arthritis. No evidence of acute fracture, correlate with x-ray. 2. Small wrist joint effusion. 3. Triangular fibrocartilage degeneration with a partial-thickness tear in the radial aspect, measuring 0.45 cm transverse. Increased signal in the TFCC otherwise, could reflect degeneration or sprain. Small effusion the distal radioulnar joint raises the possibility of an occult full-thickness triangular fibrocartilage tear. 4. Scapholunate ligament degeneration. 5. Mild distal ulnar edema, nonspecific, could reflect degeneration or bruise. 6. Possible mild extensor carpi ulnaris tendinosis. Dictated By: Mayo Chen MD 11/24/23 Psych Appearance: grossly normal Affect: normal affect Attitude: cooperative Assessment & Plan Assessment & Plan (1) Dupuytren's contracture of left hand: Code(s): M72.0 - Palmar fascial fibromatosis [Dupuytren] Category: Medical (2) Numbness of left hand: Code(s): R20.0 - Anesthesia of skin Category: Medical (3) Tear of triangular fibrocartilage complex (TFCC) of right wrist: Code(s): S63.591A - Other specified sprain of right wrist, initial encounter Category: Medical (4) Right wrist pain: Code(s): M25.531 - Pain in right wrist Category: Medical Plan Assessment & Plan: 1. Right TFCC tear, likely partial, and possibly degenerative with an acute sprain, S/P injection After a fall in late September 2023 Date of injection: 01/06/24 I educated her about this condition Her symptoms have improved significantly following her injection & OT hand therapy In the past We discussed operative and non-operative treatment options, including steroid injection or possible diagnostic wrist arthroscopy with evaluation of the TFCC for possible debridement versus repair. We both agree that operative treatment does not appear necessary at this point. I discussed activity modification, she is to continue to work on ROM exercises at home. She should work on slowly increasing her weight limit as tolerated, as she still has difficulty with heavy lifting She can follow up prn She is happy with the current plan, and plans to meet with her family this summer on [employer] She can have a repeat injection no sooner than 05/07/24 2. Left small finger Dupuytren's contracture S/P partial fasciectomy & PIP joint volar capsulectomy DOS: 08/13/23 Involving the small finger ABductor MCP 0/PIP 75 Post-operatively with full extension The patient is doing well and very pleased with her results. 3. Left small finger numbness Continue numbness in the ulnar digital nerve distribution of the small finger, which was present pre-operatively. Scribed for Erin Rdz MD by Porfirio Greco, medical records library professor, on 02/16/24 at 9:00 AM, EST.
== END 2024-02-16 09:17 | disposition home or self-care (01) ==
PROVIDERS: PCP Internal Medicine; Visit Provider Orthopaedic Surgery
DX: M72.0 Palmar fascial fibromatosis [Dupuytren] (principal); R20.0 Anesthesia of skin; S63.591A Other specified sprain of right wrist, initial encounter; M25.531 Pain in right wrist
CPT/HCPCS: 99213

== ENCOUNTER → 2024-02-16 08:29 | Outpatient (BNVA) | payer MEDICARE, SELFPAY | PROVIDERS: PCP Internal Medicine; Visit Provider Orthopaedic Surgery | DX: M72.0 Palmar fascial fibromatosis [Dupuytren] (principal); S63.591D Other specified sprain of right wrist, subsequent encounter; R20.0 Anesthesia of skin; M25.531 Pain in right wrist | CPT/HCPCS: 99212 ==

== ENCOUNTER 2024-03-02 08:34 | Outpatient (AMB) | payer MEDICARE, SELFPAY ==
--- NOTE | 2024-03-02 08:37 | A.OFFPC_ITS ---
Intake Visit Reasons: SWV [id number] Allergies acetaminophen [From PERCOCET] Allergy (Unknown, Verified 02/16/24 08:50) UNKNOWN azithromycin Allergy (Unknown, Verified 02/16/24 08:50) hives oxycodone [From PERCOCET] Allergy (Unknown, Verified 02/16/24 08:50) UNKNOWN Mcwtzps-OMK-YmI Reductase Inhibitor [CUMOOGR-DDJ-IOU REDUCTASE INHIBITOR] Allergy (Unknown, Verified 02/16/24 08:50) liver failure, major liver problems nitrofurantoin [From Macrobid] Adverse Reaction (Severe, Verified 02/16/24 08:50) breathing atorvastatin [Lipitor] Adverse Reaction (Unknown, Verified 02/16/24 08:50) Liver issues z-pack Allergy (Unknown, Uncoded 01/06/24 08:28) hives Tobacco use date assessed: 09/21/23 Dental Screening Dental Screen Date: 08/10/23 [facility] Medical History (Updated 12/02/23 @ 14:12 by Porfirio Greco) Cough Mammogram normal Dysuria CKD (chronic kidney disease), stage III TIA (transient ischemic attack) Liver hemangioma Hepatitis GERD (gastroesophageal reflux disease) HTN (hypertension) Hyperlipidemia Surgical History H/O colonoscopy Hx of cholecystectomy History of breast surgery History of back surgery History of hysterectomy Family History Father No problems noted. Mother No problems noted. Brother No problems noted. Brother No problems noted. Sister No problems noted. 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 Jose Caba, Aurelia Arita, Juan A Juan and colleagues, with an educational denise from [employer]. Physical exam (Primary Care) Tobacco/Smoking Status: Tobacco use Status Tobacco use date assessed 09/21/23 12/02/23 10:54 Patient Tobacco Use Status Former Tobacco user 12/02/23 10:54 e-Cigarette/Vaping Use Never Used 12/02/23 10:54 Thrive Assessment: Date of Thrive Assessment Date Thrive assessed 08/10/23 12/02/23 10:54 Coding
[2024-03-02 08:40] VITALS: BP 132/80; PULSE 81; O2SAT 97; BMI 26.6
--- NOTE | 2024-03-02 08:41 | AM.OFFVISMDC ---
Intake Vital Signs 03/02/24 08:40 Height 5 ft 8 in Weight 175 lb BMI 26.6 BP 132/80 Blood Pressure Location Lt brachial Position Sitting Pulse 81 Pulse Source Pulse Oximeter Pulse Oximetry (%) 97 Oxygen Delivery Method Room Air Intake Visit Reasons: SWV [id number] Allergies acetaminophen [From PERCOCET] Allergy (Unknown, Verified 03/02/24 08:41) UNKNOWN azithromycin Allergy (Unknown, Verified 03/02/24 08:41) hives oxycodone [From PERCOCET] Allergy (Unknown, Verified 03/02/24 08:41) UNKNOWN [place]-HYU-OlM Reductase Inhibitor [XIIYQOF-CRG-JSP REDUCTASE INHIBITOR] Allergy (Unknown, Verified 03/02/24 08:41) liver failure, major liver problems nitrofurantoin [From Macrobid] Adverse Reaction (Severe, Verified 03/02/24 08:41) breathing atorvastatin [Lipitor] Adverse Reaction (Unknown, Verified 03/02/24 08:41) Liver issues z-pack Allergy (Unknown, Uncoded 03/02/24 08:41) hives Medication List - Last Reconciled 03/02/24 by Annelise Griffiths MD albuterol sulfate 90 mcg/actuation 1 - 2 puffs PO Q4-6H PRN amlodipine 5 mg PO DAILY clonidine HCl 0.1 mg PO BID ezetimibe 10 mg PO DAILY lisinopril 40 mg PO DAILY lorazepam 0.5 mg PO DAILY PRN omeprazole 20 mg PO DAILY spironolactone 25 mg PO DAILY HPI SWV [id number] HPI Details Initiated the conversation about Advanced Directives. Advanced Directives help? patients prepare for current and future decisions about their medical treatment? and place of care. Discussed with patient that it is a process where a patients? current condition and prognosis are reviewed, their wishes for information? regarding their illness are elicited, and likely medical dilemmas are presented? and options discussed. The form can be amended as needed, reviewed yearly and? make changes as needed IPPE/AWV ? year old presents? for her ? Annual? Wellness Visit, initial visit.? Medical / Social History Reviewed? Past Medical History ?Yes? . ? [place]? of Care / Care Team list updated ?Yes . ? Surgical/Hospitalization? History ?Yes . ? Current Medications? (including OTC and supplements) ?Yes . ? Family History ?Yes? . ? Tobacco? Control form ?Yes . ? AUDIT-C (Alcohol use) form? ?Yes . ? Illicit drug use in Social? History ?Yes . ? Current diagnosis of? depression? ?No ? Appropriate PHQ2/PHQ9? completed ?Yes . ? Data entered by ?Medical? Business Systems Technician and reviewed by provider ? Fall Risk ? Fall? History? Have you had any falls with? injury in the past year? ?No . ? Have you had two or more? falls in the past year? ?No . ? Fall Risk Assessment: ?No? falls in the past year . ? HRA filled out by? the patient, reviewed by Provider and scanned. ? IPPE/AWV ? Balance? [place]? ?Yes . ? Tandem? walk ?Yes . ? Walk and? Turn ?Yes . ? Rise from? sit to stand ?Yes . ?Vision? Corrective? lens ?Yes ? Vision? screen ? Up-to-date, has an appointment [] for vision? screening and glaucoma screening ?Hearing? Whisper? test ?pass .? Initiated the conversation about Advanced Directives. Advanced Directives help? patients prepare for current and future decisions about their medical treatment? and place of care. Discussed with patient that it is a process where a patients? current condition and prognosis are reviewed, their wishes for information? regarding their illness are elicited, and likely medical dilemmas are presented? and options discussed. The form can be amended as needed, reviewed yearly and? make changes as needed Written? Plan?Completed. See Patient? Documents. [facility] Medical History (Updated 03/02/24 @ 15:50 by Annelise Griffiths MD) Cough Mammogram normal Dysuria CKD (chronic kidney disease), stage III TIA (transient ischemic attack) Liver hemangioma Hepatitis GERD (gastroesophageal reflux disease) HTN (hypertension) Hyperlipidemia Surgical History H/O colonoscopy Hx of cholecystectomy History of breast surgery History of back surgery History of hysterectomy Family History Father No problems noted. Mother No problems noted. Brother No problems noted. Brother No problems noted. Sister No problems noted. 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 Cognitive needs: No Hearing needs: No Vision needs: Yes Questionnaire Medicare Wellness Checkup [age] What gender do you identify with?: female During the past 4 weeks, how much have you been bothered by emotional problems such as feeling anxious, depressed, irritable, sad or downhearted, and blue?: not at all During the past 4 weeks, has your physical & emotional health limited your social activities with family, friends, neighbors, or groups?: not at all During the past 4 weeks, how much bodily pain have you generally had?: no pain During the past 4 weeks, was someone available to help you if you needed & wanted help?: yes, as much as I wanted During the past 4 weeks, what was the hardest physical activity you could do for at least 2 minutes?: moderate Can you get to places out of walking distance without help? (For eg., can you travel alone on buses, taxis or drive your car?): Yes Can you go shopping for groceries or clothes without someone's help?: Yes Can you prepare your own meals?: Yes Can you do your housework without help?: Yes Because of any health problems, do you need the help of another person with your personal care needs such as eating, bathing, dressing or getting around the house?: No Can you handle your own money without help?: Yes During the past 4 weeks, how would you rate your health in general?: good During the past 4 weeks how have things been going for you?: pretty well Are you having difficulties driving your car?: no Do you always fasten your seat belt when you are in a car?: yes, usually During past 4 weeks, have you been bothered by the following: never: Falling or dizzy when standing up, Sexual problems?, Trouble eating well?, Teeth or denture problems?, Problems using the telephone? and Tiredness or fatigue? Have you fallen 2 or more times in the past year?: No Are you afraid of falling?: No Are you a smoker?: no During the past 4 weeks, how many drinks of wine, beer, or other alcoholic beverages did you have?: no alcohol at all Do you exercise for about 20 minutes 3 or more times a week?: yes, some of the time Have you been given information to help with the following?: yes: Keeping track of your medications? and no: Hazards in your house that might hurt you? How often do you have trouble taking medicines the way you have been told to take them?: I always take medicine as prescribed How confident are you that you can control & manage most of your health problems?: I do not have any health problems What is your race?: White Mini Mental State Exam (MMSE) Orientation What is the (year) (season) (date) (day) (month)?: year, season, date, day and month Where are we (state) (county) (town or city) (hospital) (floor)?: state, county, town or city, hospital/clinic and floor Registration Name of 3 unrelated objects clearly and slowly, then ask patient to repeat all 3 of them. (1st repeat determines score. Make sure they can repeat all three): object 1, object 2 and object 3 Attention & Calculation (CHOOSE ONE) Spell WORLD backwards (DLROW): 5 letters Recall Ask patient to repeat the 3 items from question #3.: object 1, object 2 and object 3 Language Show patient a wristwatch & ask what it is. Repeat for pencil.: watch and pencil Ask the patient to repeat the phrase 'No ifs, ands, or buts' after you.: correct Ask the patient to 'take a piece of paper with their right hand' 'fold paper in half' 'place paper on floor': take paper in right hand, fold paper in half and place paper on floor Print the sentence 'CLOSE YOUR EYES' on a piece. If patient actually closes eyes then score.: followed written direction Give patient a blank piece of paper & ask to write a sentence. Score if it contains a noun & verb.: sentence contains subject and verb Score Score: 29 Activity of Daily Living Bathing - sponge bath, tub bath or shower: receives no assistance (gets in/out by self, if usual bathing means Dressing - getting clothes from closets & drawers, including inner/outer garments & fasteners.: gets clothes & gets completely dressed without help Toileting - going to the 'toilet room' for urine/bowel elimination & cleaning self/arranging clothes: goes to toilet room, cleans self, arranges clothes without help Transfer: moves in & out of bed and chair without help (may use support object) Continence: controls urination/bowel movements completely by self Feeding: feeds self without help Total Score: 0 Information obtained from: patient Using telephone: independent Traveling: independent Shopping: independent Preparing meals: independent Housework: independent Taking medicine: independent Managing money: independent PHQ-9 Over the last 2 weeks, how often have you been bothered by any of the following problems? 1. Little interest or pleasure in doing things: not at all 2. Feeling down, depressed, or hopeless: not at all 3. Trouble falling or staying asleep, or sleeping too much: not at all 4. Feeling tired or having little energy: several days 5. Poor appetite or overeating: not at all 6. Feeling bad about yourself - or that you are a failure or have let yourself or your family down: not at all 7. Trouble concentrating on things, such as reading the newspaper or watching television: not at all 8. Moving or speaking so slowly that other people could have noticed. Or the opposite - being so fidgety or restless that you have been moving around a lot more than usual: not at all 9. Thoughts that you would be better off or of hurting yourself in some way: not at all Total score: 1 Depression Screening Interpretation: Negative Depression Screening Done: Yes Source: Developed by Drs. Jose Caba, Aurelia Arita, Juan A Juan and colleagues, with an educational denise from [employer]. Review of Systems Const All systems reviewed & are unremarkable except as noted in HPI and below Reports no additional complaints Eyes Reports no additional complaints ENT Reports no additional complaints Card Reports no additional complaints Resp Reports no additional complaints GI Reports no additional complaints Reports no additional complaints Musc Reports no additional complaints Physical Exam Vital Signs: Last Vital Signs Pulse 81 03/02/24 08:40 BP 132/80 03/02/24 08:40 Pulse Ox 97 03/02/24 08:40 Oxygen Delivery Method Room Air 03/02/24 08:40 BMI result Body Mass Index 26.6 Const General: no acute distress Eyes General: appearance normal, both eyes and all related structures Neck Neck: Yes supple Resp Effort & Inspection: normal respiratory effort Auscultation: clear to auscultation bilaterally Cardio Rhythm: regular rhythm Heart sounds: S1 normal heart sound present and S2 normal heart sound present GI Inspection: Yes normal to inspection Palpation (GI): Soft to palpation Percussion: Yes normal to percussion Auscultation: normal bowel sounds Extrem General: Yes no clubbing, cyanosis or edema Assessment & Plan Assessment & Plan (1) Abnormal LFTs: Code(s): R79.89 - Other specified abnormal findings of blood chemistry Plan: check liver ultrasound to evaluate (2) Postmenopausal: Code(s): Z78.0 - Asymptomatic menopausal state Plan: check DEXA (3) HTN (hypertension): Comment: BP goal less than 130/80, f/u prescribed lorazepam for anxiety, follow-up with nephrology Code(s): I10 - Essential (primary) hypertension Plan: CONTINUE CURRENT MEDICATIONS FOLLOW-UP WITH NEPHROLOGY (4) CKD (chronic kidney disease), stage III: Comment: f/u Dr. Fraser Code(s): N18.30 - Chronic kidney disease, stage 3 unspecified Plan: Avoid nephrotoxins monitor renal function follow-up with nephrology (5) Annual physical exam: Code(s): Z00.00 - Encounter for general adult medical examination without abnormal findings Plan: Well-balanced diet regular physical activity discussed with the patient she is up-to-date with the mammogram and colonoscopy Orders: Orders US abdomen betancourt w elastography Today R79.89 - Other specified abnormal findings of blood chemistry XR DEXA axial skeleton Today Z78.0 - Asymptomatic menopausal state Comprehensive Met. Panel Today I10 - Essential (primary) hypertension, N18.30 - Chronic kidney disease, stage 3 unspecified, R79.89 - Other specified abnormal findings of blood chemistry, Z00.00 - Encounter for general adult medical examination without abnormal findings Hemoglobin A1c Today I10 - Essential (primary) hypertension, N18.30 - Chronic kidney disease, stage 3 unspecified, R79.89 - Other specified abnormal findings of blood chemistry, Z00.00 - Encounter for general adult medical examination without abnormal findings Quality Reporting (2019) Depression/Bipolar (159/160/161/177) PHQ-9: Total score: 1 Coding Level of Care Code Medicare Subsequent (G0439) Diagnoses Abnormal LFTs R79.89 Postmenopausal Z78.0 HTN (hypertension) I10 CKD (chronic kidney disease), stage III N18.30 Annual physical exam Z00.00 CPT Codes Advance Care Planning - Advance Care Planning discussion: On file, no changes ([id number]) Advance Care Planning - Time spent: 1-15 minutes, on File ([id number]) Advance Care Planning Advance Care Planning discussion: On file, no changes Forms completed: Health Care Proxy Time spent: 1-15 minutes, on File
== END 2024-03-02 15:51 | disposition home or self-care (01) ==
PROVIDERS: PCP Internal Medicine; Visit Provider Internal Medicine
DX: Z00.00 Encounter for general adult medical examination without abnormal findings (principal); I12.9 Hypertensive chronic kidney disease with stage 1 through stage 4 chronic kidney disease, or unspecified chronic kidney disease; N18.30 Chronic kidney disease, stage 3 unspecified; R79.89 Other specified abnormal findings of blood chemistry; Z78.0 Asymptomatic menopausal state
CPT/HCPCS: 1123F; G0439

== ENCOUNTER 2024-03-14 08:56 | Outpatient (REF) | payer MEDICARE, SELFPAY ==
[2024-03-14 10:49] LABS: Estimated Average Glucose 117 mg/dL; Hemoglobin A1c % 5.7 % (<6.0)
[2024-03-14 11:17] LABS: Alanine Aminotransferase 30 U/L (0-31); Albumin Level 3.8 g/dL (3.5-5.0); Alkaline Phosphatase 106 U/L (39-117); Anion Gap 13 (12-20); Aspartate Amino Transferase 24 U/L (5-31); Bilirubin Total 0.7 mg/dL (0.0-1.0); Blood Urea Nitrogen 21 mg/dL (9-16); Carbon Dioxide 27 mmol/L (22-29); Chloride 107 mmol/L (96-108); Estimated Glomerular Filt Rate 53; Glucose Random 90 mg/dL (60-115); Sodium 143 mmol/L (135-145); Total Protein 7.2 g/dL (6.5-8.0)
== END 2024-03-14 08:57 | disposition home or self-care (01) ==
LOC: HO.HMGCLDS 08:56
PROVIDERS: PCP Internal Medicine; Visit Provider Internal Medicine
DX: Z00.00 Encounter for general adult medical examination without abnormal findings (principal); I10 Essential (primary) hypertension; N18.30 Chronic kidney disease, stage 3 unspecified; R79.89 Other specified abnormal findings of blood chemistry
CPT/HCPCS: 36415; 80053; 83036

== ENCOUNTER 2024-04-07 07:51 | Outpatient (REF) | payer MEDICARE, SELFPAY ==
--- NOTE | ~2024-04-07 | MM_ITS ---
EXAMINATION: BONE DENSITOMETRY CLINICAL INDICATION: Asymptomatic menopausal state. COMPARISON: This is the patient's baseline examination. TECHNIQUE: Using a [employer] DXA System (software version: 13.1) manufactured by [employer], dual-energy x-ray absorptiometry was performed of the lumbar spine and left hip. The images are of good technical quality. Summary results are attached. FINDINGS: LEFT FEMUR, NECK: BMD 0.856 g/cm2, Z-score 0.2, T-score -1.3, osteopenia. LEFT FEMUR, TOTAL: BMD 0.924 g/cm2, Z-score 0.6, T-score -0.7, normal. AP SPINE L1-L3 (excluding L4): The data of L1-L4 has been changed to exclude the L4 vertebral body, because metallic hardware at this level may cause overestimation of lumbar spine density. BMD 1.091 g/cm2, Z-score 0.6, T-score -0.7, normal. IDENTIFIED RISK FACTORS: Early menopause, secondary osteoporosis, hysterectomy, bilateral oophorectomy. HISTORY OF FRACTURE: None listed. MEDICATIONS: None listed. MM/XR DEXA axial skeleton IMPRESSION: 1. DIAGNOSIS: Osteopenia based on the lowest T-score value of -1.3 in the femoral neck applying World Health Organization criteria. 2. 10-YEAR FRACTURE RISK PREDICTION, FRAX: Major osteoporotic fracture (clinical spine, forearm, hip or shoulder) 10.2%. Hip fracture 1.6%. 3. Treatment Recommendations: NOF guidelines recommend consideration for treatment in postmenopausal women and men age 50 and older presenting with the following: -A hip or vertebral (clinical or morphometric) fracture. -T-score less than or equal to -2.5 at the femoral neck or spine after appropriate evaluation to exclude secondary causes. -Low bone mass at the hip or spine and a 10-year fracture probability by FRAX of greater than or equal to 3% for hip fracture or greater than or equal to 20% for major osteoporotic fracture based on the [place] adapted WHO algorithm. 4. Other Recommendations: All treatment decisions require clinical judgment and consideration of individual patient factors, including patient preferences, comorbidities, previous drug use, risk factors not captured in the FRAX model (e.g. frailty, falls, vitamin D deficiency, increased bone turnover, interval significant decline in bone density) and possible under or overestimation of fracture risk by FRAX. Additional medical evaluation for secondary cause of low bone mineral density may be appropriate. FUTURE SCAN RECOMMENDATION: People with diagnosed cases of osteoporosis or at high risk for fracture should have regular bone mineral density tests. For patients eligible for Medicare, routine testing is allowed once every 2 years. The testing frequency can be increased to one year for patients who have rapidly progressing disease, those who are receiving or discontinuing medical therapy to restore bone mass, or have additional risk factors.
== END 2024-04-07 07:52 | disposition home or self-care (01) ==
LOC: HO.MAMMO 07:51
PROVIDERS: PCP Internal Medicine; Visit Provider Internal Medicine
DX: Z13.820 Encounter for screening for osteoporosis (principal); Z78.0 Asymptomatic menopausal state
CPT/HCPCS: 77080

== ENCOUNTER 2024-09-09 09:14 | Outpatient (AMB) | payer MEDICARE, SELFPAY ==
[2024-09-09 09:16] VITALS: BP 136/78; PULSE 58; O2SAT 98; BMI 25.8
--- NOTE | 2024-09-09 09:16 | A.OFFPC_ITS ---
Vital Signs 09/09/24 09:16 Height 5 ft 8 in Weight 170 lb BMI 25.8 BP 136/78 Blood Pressure Location Lt brachial Position Sitting Pulse 58 Pulse Source Pulse Oximeter Pulse Oximetry (%) 98 Oxygen Delivery Method Room Air Intake Visit Reasons: 6M F/U shirley TAYLOR Allergies acetaminophen [From PERCOCET] Allergy (Unknown, Verified 09/09/24 09:18) UNKNOWN azithromycin Allergy (Unknown, Verified 09/09/24 09:18) hives oxycodone [From PERCOCET] Allergy (Unknown, Verified 09/09/24 09:18) UNKNOWN Xynbube-VKB-ZhY Reductase Inhibitor [IXELRIR-ZLA-IYI REDUCTASE INHIBITOR] Allergy (Unknown, Verified 09/09/24 09:18) liver failure, major liver problems nitrofurantoin [From Macrobid] Adverse Reaction (Severe, Verified 09/09/24 09:18) breathing atorvastatin [Lipitor] Adverse Reaction (Unknown, Verified 09/09/24 09:18) Liver issues z-pack Allergy (Unknown, Uncoded 09/09/24 09:18) hives Medication List - Last Reconciled 09/09/24 by Annelise Griffiths MD albuterol sulfate 90 mcg/actuation 1 - 2 puffs PO Q4-6H PRN amlodipine 5 mg PO DAILY clonidine HCl 0.1 mg PO BID ezetimibe 10 mg PO DAILY lisinopril 40 mg PO DAILY lorazepam 0.5 mg PO DAILY PRN omeprazole 20 mg PO DAILY spironolactone 25 mg PO DAILY Tobacco use date assessed: 09/09/24 Fall risk assessment: No Falls in past year Last assessed Fall Risk: 09/09/24 Dental Screening Dental Screen Date: 09/09/24 Did you have a dental visit in the last 12 months?: Yes Did you have a dental problem in the last 6 months where you did not have access to dental care?: No Was dental information given to patient?: Patient has dentist HPI 6M F/U shirley TAYLOR HPI Details Patient presents for the follow-up of hypertension hyperlipidemia stable on current medications. [facility] Medical History (Updated 09/09/24 @ 09:35 by Annelise Griffiths MD) Cough Mammogram normal Dysuria CKD (chronic kidney disease), stage III TIA (transient ischemic attack) Liver hemangioma Hepatitis GERD (gastroesophageal reflux disease) HTN (hypertension) Hyperlipidemia Surgical History H/O colonoscopy Hx of cholecystectomy History of breast surgery History of back surgery History of hysterectomy Family History Father No problems noted. Mother No problems noted. Brother No problems noted. Brother No problems noted. Sister No problems noted. 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 How often do you have a drink containing alcohol?: Never 3. How often do you have six or more drinks on one occasion?: Never Total Score: 0 SOBEIDA-7 AMB Questionnaire SOBEIDA-7 Date SOBEIDA - 7 assessed: 08/10/23 Source: Developed by Drs. Jose Caba, Aurelia Arita, Juan A Juan and colleagues, with an educational denise from [employer] Review of Systems Const All systems reviewed & are unremarkable except as noted in HPI and below ENT Reports no additional complaints Card Reports no additional complaints Resp Reports no additional complaints GI Reports no additional complaints Reports no additional complaints Physical exam (Primary Care) Vital Signs: Last Vital Signs Pulse 58 09/09/24 09:16 BP 136/78 09/09/24 09:16 Pulse Ox 98 09/09/24 09:16 Oxygen Delivery Method Room Air 09/09/24 09:16 BMI result Body Mass Index 25.8 Tobacco/Smoking Status: Tobacco use Status Tobacco use date assessed 09/09/24 09/09/24 09:20 Patient Tobacco Use Status Former Tobacco user 09/09/24 09:20 e-Cigarette/Vaping Use Never Used 09/09/24 09:20 Thrive Assessment: Date of Thrive Assessment Date Thrive assessed 08/10/23 09/09/24 09:20 Const General: no acute distress HENMT Head: Yes normal to inspection Throat: Yes posterior oropharynx normal Resp Effort & Inspection: normal respiratory effort Auscultation: clear to auscultation bilaterally Cardio Rhythm: regular rhythm Heart sounds: S1 normal heart sound present and S2 normal heart sound present GI Inspection: Yes normal to inspection Palpation (GI): Soft to palpation Percussion: Yes normal to percussion Auscultation: normal bowel sounds Coding Level of Care Code Est Pt Level 4 (93511) Diagnoses Hyperlipidemia E78.5 HTN (hypertension) I10 CKD (chronic kidney disease), stage III N18.30 Annual physical exam Z00.00 Assessment & Plan Assessment & Plan (1) Hyperlipidemia: Comment: statins caused hepatitis [place] 2020, f/u with GI Code(s): E78.5 - Hyperlipidemia, unspecified Category: Medical Plan: Continue Zetia and low-cholesterol diet (2) HTN (hypertension): Comment: BP goal less than 130/80, f/u prescribed lorazepam for anxiety, follow-up with nephrology Code(s): I10 - Essential (primary) hypertension Category: Medical Plan: Continue current medications patient is established with nephrology (3) CKD (chronic kidney disease), stage III: Comment: f/u Dr. Fraser Code(s): N18.30 - Chronic kidney disease, stage 3 unspecified Category: Medical Plan: Avoid nephrotoxins monitor renal function (4) Annual physical exam: Code(s): Z00.00 - Encounter for general adult medical examination without abnormal findings Category: Medical Plan: Well-balanced diet regular physical activity discussed with the patient return in 6 months with a fasting labs before Orders: Orders Comprehensive [place]. Panel Fast 6 Months E53.8 - Deficiency of other specified B group vitamins, E55.9 - Vitamin D deficiency, unspecified, E78.5 - Hyperlipidemia, unspecified, I10 - Essential (primary) hypertension, N18.30 - Chronic kidney disease, stage 3 unspecified, Z00.00 - Encounter for general adult medical examination without abnormal findings Complete Blood Count Auto Diff 6 Months E53.8 - Deficiency of other specified B group vitamins, E55.9 - Vitamin D deficiency, unspecified, E78.5 - Hyperlipidemia, unspecified, I10 - Essential (primary) hypertension, N18.30 - Chronic kidney disease, stage 3 unspecified, Z00.00 - Encounter for general adult medical examination without abnormal findings TSH reflex Free T4 6 Months E53.8 - Deficiency of other specified B group vitamins, E55.9 - Vitamin D deficiency, unspecified, E78.5 - Hyperlipidemia, unspecified, I10 - Essential (primary) hypertension, N18.30 - Chronic kidney disease, stage 3 unspecified, Z00.00 - Encounter for general adult medical examination without abnormal findings Vitamin B12 and Folate 6 Months E53.8 - Deficiency of other specified B group vitamins, E55.9 - Vitamin D deficiency, unspecified, E78.5 - Hyperlipidemia, unspecified, I10 - Essential (primary) hypertension, N18.30 - Chronic kidney disease, stage 3 unspecified, Z00.00 - Encounter for general adult medical examination without abnormal findings Vitamin D 25-OH Total 6 Months E53.8 - Deficiency of other specified B group vitamins, E55.9 - Vitamin D deficiency, unspecified, E78.5 - Hyperlipidemia, unspecified, I10 - Essential (primary) hypertension, N18.30 - Chronic kidney disease, stage 3 unspecified, Z00.00 - Encounter for general adult medical examination without abnormal findings Lipid Panel 6 Months E53.8 - Deficiency of other specified B group vitamins, E55.9 - Vitamin D deficiency, unspecified, E78.5 - Hyperlipidemia, unspecified, I10 - Essential (primary) hypertension, N18.30 - Chronic kidney disease, stage 3 unspecified, Z00.00 - Encounter for general adult medical examination without abnormal findings
== END 2024-09-09 09:37 | disposition home or self-care (01) ==
PROVIDERS: PCP Internal Medicine; Visit Provider Internal Medicine
DX: E78.5 Hyperlipidemia, unspecified (principal); I10 Essential (primary) hypertension; N18.30 Chronic kidney disease, stage 3 unspecified; Z00.00 Encounter for general adult medical examination without abnormal findings

== ENCOUNTER → 2024-09-09 09:14 | Outpatient (BNVA) | payer MEDICARE, SELFPAY | PROVIDERS: PCP Internal Medicine; Visit Provider Internal Medicine | DX: E78.5 Hyperlipidemia, unspecified (principal); I12.9 Hypertensive chronic kidney disease with stage 1 through stage 4 chronic kidney disease, or unspecified chronic kidney disease; N18.30 Chronic kidney disease, stage 3 unspecified | CPT/HCPCS: 99212 ==

== ENCOUNTER 2024-11-04 09:11 | Outpatient (AMB) | payer MEDICARE, SELFPAY ==
--- OUTSIDE RECORDS SUMMARY | 2024-11-04 09:17 | XMS_ITS | Data Portability ---
Author Organization [facility], Main Office Address [address] [address] [place] [address] Care Team Providers Care Printed Circuit Layout Taper Name Role Phone JUNIOR JARQUIN Chinese Language Professor [phone] EVELIN BEAL Export Manager ARACELI YOUNG Primary Care Provider YAYA ARANA Title Coordinator Assessment No assessment recorded. Plan of Treatment Reminders Order Date Submit Date Provider Last Modified By Organization Details Last Modified Time Details Appointments None recorded. Lab urinalysi s complete, reflex culture 2017 018 [facility], [address], [address], [place], [address], 8 21:21:44 hepatic function panel, serum 2017 018 [facility], [address], [address], [place], [address], 8 15:02:53 urinalysi s, dipstick 2017 018 pmadden In-Office Order, Internal Use Only DO Not Attach Compendium DO Not Attach Compendium, Do Not Delete/merge, [id number] 8 11:07:53 rapid flu (A+B) 2017 018 pmadden In-Office Order, Internal Use Only DO Not Attach Compendium DO Not Attach Compendium, Do Not Delete/merge, 8 11:07:53 CK (creatine kinase), total, serum 2017 018 [facility], [address], [address], [place], [address], 8 15:02:51 hepatic function panel, serum - copy all labs to Dr Syed Jarquin 2017 018 [facility], [address], [address], [place], [address], 8 14:36:02 hepatic function panel, serum 2017 018 [facility], [address], [address], [place], [address], 8 22:14:23 CBC w/ auto diff 2017 018 [facility], [address], [address], [place], [address], 8 20:28:11 CMP, serum or plasma 2018 019 [facility], [address], [address], [place], [address], 9 18:47:48 Referral gastroent erologist referral - pt had episode of jaundice which is most likely due to statin reaction. Labs to be repeated next week. pt needs f/u appt w/GI in December 252017 018 lisa Jarquin, [address] [place], [address], 8 10:24:32 physical therapist referral - At risk for falling 2017 018 [facility], [address], [place], [address], 8 09:01:13 cardiolog ist referral 2018 019 satish Wolff MD, [address], [address], [place], [address], 9 08:56:49 Procedures None recorded. Surgeries None recorded. Imaging None recorded. Medication Orders omeprazol e 20 mg capsule,d elayed release 2017 018 abigby Not available 8 11:32:13 Tessalon Perles 100 mg capsule 2017 018 [facility], [address] [place] [address], [id number], 9 16:02:00 omeprazol e 20 mg capsule,d elayed release 2018 019 [facility], [address] [place] [address], [id number], 9 17:44:15 lisinopri l 20 mg tablet 2018 019 [facility], [address] [place] [address], [id number], 9 17:44:16 ezetimibe 10 mg tablet 2018 019 [facility], [address] [place] [address], [id number], 9 17:44:14 Patient Targets Encounter Date Encounter Id Patient Goals Patient Target Last Modified By Organization Details Last Modified Time 09/06/2018 [id number] squash centre manager goal of Blood Pressure 140 / 90 Not available Not available Not available [facility] goal of Exercise level Not available Not available Not available squash centre manager goal of Tobacco Smoking Status Not available Not available Not available squash centre manager goal of Excess Body Weight Loss % 5 Not available Not available Not available Ongoing of LDL Direct yearly Not available Not available Not available Ongoing of LDL Direct <100 Not available Not available Not available Pt agrees to follow low fat diet, avoid saturated fats , decrease carbohydrate intake to 45 - 50 gm per meal , pt agrees to develop a regular pattern of exercise such as walking 30 minutes a day 3 times a week, Pt will keep a record of exercise and activity level Patient preferences and goals incorporated in plan and updated/modified as needed to reflect progress toward goal.Pt advised and agrees to eat a low salt low fat diet; to do moderate exercise (such as walking) 150 minutes per week; to limit alcohol intake (goal of 2 drinks per day or less for men or 1 for woman). and to monitor dietary sodium. Will monitor home blood pressures and bring readings to appointments. Patient preferences and goals incorporated in plan and updated/modified as needed to reflect progress toward goal.Pt advised and agrees to work on self-monitoring behaviors; begin an appropriate diet for weight loss (such as a low carbohydrate diet), to do moderate exercise (such as walking) for approximately 150 minutes per week; and to identify desirable and timely rewards that will reinforce achievement of specific weight loss goals. pmadden Not available 09/07/2018 20:10:28 03/07/2019 [id number] [facility] goal of Blood Pressure 140 / 90 Not available Not available Not available [facility] goal of Exercise level Not available Not available Not available squash centre manager goal of Tobacco Smoking Status Not available Not available Not available Pt advised and agrees to eat a low salt low fat diet; to do moderate exercise (such as walking) 150 minutes per week; to limit alcohol intake (goal of 2 drinks per day or less for men or 1 for woman). and to monitor dietary sodium. Will monitor home blood pressures and bring readings to appointments. Patient preferences and goals incorporated in plan and updated/modified as needed to reflect progress toward goal. pmadden Not available 03/07/2019 16:42:31 Patient Instructions Encounter Date Encounter Id Patient Instructions Last Modified By Organization Details Last Modified Time 12/07/2017 [id number] jaundice: care instructions pmadden Not available 12/07/2017 11:08:02 nausea and vomiting: care instructions pmadden Not available 12/07/2017 11:07:53 dehydration: care instructions pmadden Not available 12/07/2017 11:07:53 Discussed risks for driving while using this medication.mm. I have reviewed the note and agree with the assessment and plan of care. quinn Not available 12/07/2017 17:31:03 09/06/2018 [id number] cough: care instructions pmadden Not available 09/06/2018 17:18:26 saline nasal washes: care instructions pmadden Not available 09/06/2018 17:18:26 upper respiratory infection (cold): care instructions pmadden Not available 09/06/2018 17:18:25 preventing falls: care instructions pmadden Not available 09/06/2018 17:26:29 medicare preventive services guide (male 74 rs and under) pmadden Not available 09/06/2018 17:26:29 medicare preventive services guide (female 74yrs and under) pmadden Not available 09/06/2018 17:26:29 Follow up if no improvement or if symptoms worsen. -- re: cough Medications (OTC, herbal therapies, supplements) reviewed and reconciled with patient and or caregiver, including potential side effects, drug interactions, instructions, and the consequences of not taking medication. Reviewed potential barriers to medication adherence, such as side effects from medication or cost of medication. pmadden Not available 09/06/2018 17:20:45 03/07/2019 [id number] Medications (OTC, herbal therapies, supplements) reviewed and reconciled with patient and or caregiver, including potential side effects, drug interactions, instructions, and the consequences of not taking medication. Reviewed potential barriers to medication adherence, such as side effects from medication or cost of medication. Patient will follow up and keep appointment as scheduled. pmadden Not available 03/09/2019 13:07:44 Reason for Referral Chinese Language Professor Referral for Jaundice pt had episode of jaundice which is most likely due to statin reaction. Labs to be repeated next week. pt needs f/u appt w/GI in December Referring Physician: Tony Mojica, Internal Medicine, Encounter Date: 12/17/2017 Physical Therapist Referral for Adult health examination At risk for falling Referring Physician: Araceli Young, Internal Medicine, Encounter Date: 09/06/2018 Nurseryman Assistant Referral for Dy spnea Referring Physician: Araceli Young, Internal Medicine, Encounter Date: 03/07/2019 Results Created Date Observation Date Name Description Value Unit Range Abnormal Flag Note LastModifiedBy Organization Detail LastModifiedTime 12/05/19 18 12/05/2017 CBC w/ auto diff WBC 9.0 K/mm3 (4.0-1 1.0) Not Available [facility] [address], [place], [address], 12/05/2017 14:01:14 12/05/19 18 12/05/2017 CBC w/ auto diff RBC 4.53 M/mm3 (4.20- 5.40) Not Available [facility] [address] [place], [address], 12/05/2017 14:01:14 12/05/19 18 12/05/2017 CBC w/ auto diff HGB 13.4 gm/dL (12.0- 16.0) Not Available [facility] [address] [place], [address], 12/05/2017 14:01:14 12/05/19 18 12/05/2017 CBC w/ auto diff HCT 41.6 % (37.0- 47.0) Not Available [facility] [address] [place], [address], 12/05/2017 14:01:14 12/05/19 18 12/05/2017 CBC w/ auto diff MCV 91.8 fL (80.0- 100.0) Not Available [facility] [address] [place], [address], 12/05/2017 14:01:14 12/05/19 18 12/05/2017 CBC w/ auto diff MCH 29.6 pg (27.0- 34.0) Not Available [facility] [address] [place], [address], 12/05/2017 14:01:14 12/05/19 18 12/05/2017 CBC w/ auto diff MCHC 32.2 g/dL (33.0- 37.0) low Not Available [facility] [address] [place], [address], 12/05/2017 14:01:14 12/05/19 18 12/05/2017 CBC w/ auto diff plt 235 K/mm3 (150-4 60) Not Available [facility] [address] [place], [address], 12/05/2017 14:01:14 12/05/19 18 12/05/2017 CBC w/ auto diff RDW-SD 45.5 fL (<47.0 ) Not Available [facility] [address] [place], [address], 12/05/2017 14:01:14 12/05/19 18 12/05/2017 CBC w/ auto diff MPV 11.3 fL (9.4-1 2.4) Not Available [facility] [address] [place], [address], 12/05/2017 14:01:14 12/05/19 18 12/05/2017 CBC w/ auto diff automated NRBC 0.0 #/100 _WBC' s Not Available [facility] [address] [place], [address], 12/05/2017 14:01:14 12/05/19 18 12/05/2017 CBC w/ auto diff abs. NRBC 0.0 K/mm3 Not Available [facility] [address] [place], [address], 12/05/2017 14:01:14 12/05/19 18 12/05/2017 CBC w/ auto diff neut # 5.4 K/mm3 (1.3-7 .0) Not Available [facility] [address] [place], [address], 12/05/2017 14:01:14 12/05/19 18 12/05/2017 CBC w/ auto diff lymph # 1.8 K/mm3 (0.8-3 .1) Not Available [facility] [address] [place], [address], 12/05/2017 14:01:14 12/05/19 18 12/05/2017 CBC w/ auto diff mono# 0.4 K/mm3 (0.4-0 .9) Not Available [facility] [address] [place], [address], 12/05/2017 14:01:14 12/05/19 18 12/05/2017 CBC w/ auto diff eo # 1.1 K/mm3 (0.0-0 .4) high Not Available [facility] [address] [place], [address], 12/05/2017 14:01:14 12/05/19 18 12/05/2017 CBC w/ auto diff baso # 0.1 K/mm3 (0.0-0 .1) Not Available [facility] [address] [place], [address], 12/05/2017 14:01:14 12/05/19 18 12/05/2017 CBC w/ auto diff abs. imm gran 0.1 K/mm3 Not Available [facility] [address] [place], [address], 12/05/2017 14:01:14 12/05/19 18 12/05/2017 CBC w/ auto diff neut 60.5 % (44-76 ) Not Available [facility] [address] [place], [address], 12/05/2017 14:01:14 12/05/19 18 12/05/2017 CBC w/ auto diff lymph 19.9 % (15-43 ) Not Available [facility] [address] [place], [address], 12/05/2017 14:01:14 12/05/19 18 12/05/2017 CBC w/ auto diff monocyte 4.9 % (4.5-1 0.5) Not Available [facility] [address] [place], [address], 12/05/2017 14:01:14 12/05/19 18 12/05/2017 CBC w/ auto diff eo 12.6 % (0-6) high Not Available [facility] [address] [place], [address], 12/05/2017 14:01:14 12/05/19 18 12/05/2017 CBC w/ auto diff baso 0.7 % (0-2) Not Available [facility] [address] [place], [address], 12/05/2017 14:01:14 12/05/19 18 12/05/2017 CBC w/ auto diff imm gran 1.4 % (0.0-0 .6) high Not Available [facility] [address] [place], [address], 12/05/2017 14:01:14 12/05/19 18 12/05/2017 BMP, serum or plasm a glucose 83 mg/dL (70-99 ) Not Available [facility] [address] [place], [address], 12/05/2017 15:51:55 12/05/19 18 12/05/2017 BMP, serum or plasm a BUN 18 mg/dL (8-23) Not Available [facility] [address] [place], [address], 12/05/2017 15:51:55 12/05/19 18 12/05/2017 BMP, serum or plasm a creatinine 1.2 mg/dL (0.5-1 .0) high Not Available [facility] [address], [address], 12/05/2017 15:51:55 12/05/19 18 12/05/2017 BMP, serum or plasm a sodium 143 mmol/ L (133-1 45) Not Available [facility] [address], [address], 12/05/2017 15:51:55 12/05/19 18 12/05/2017 BMP, serum or plasm a potassium 4.5 mmol/ L (3.6-5 .2) Not Available [facility] [address] [place], [address], 12/05/2017 15:51:55 12/05/19 18 12/05/2017 BMP, serum or plasm a chloride 103 mmol/ L (98-10 7) Not Available [facility] [address], [address], 12/05/2017 15:51:55 12/05/19 18 12/05/2017 BMP, serum or plasm a bicarbonate 28 mmol/ L (22-29 ) Not Available [facility] [address] [place], [address], 12/05/2017 15:51:55 12/05/19 18 12/05/2017 BMP, serum or plasm a anion gap 12 (4-17) Not Available [facility] [address] [place], [address], 12/05/2017 15:51:55 12/05/19 18 12/05/2017 BMP, serum or plasm a calcium 9.0 mg/dL (8.6-1 0.5) Not Available [facility] [address] [place], [address], 12/05/2017 15:51:55 12/05/19 18 12/05/2017 BMP, serum or plasm a est GFR non 47 mL/mi n/1.7 3_M2 Creat inine based estim ated glome rular filtr ation rate (eGFR ) is calcu lated using the Chron ic Kidne y Disea se Epide miolo gy Colla borat ion (CKD- EPI). The CKD-E PI creat inine equat ion has not been valid ated in child cayden (<18 years ), pregn ant women or in some racia l or ethni c subgr oups other than Cauca sians and Afric an Ameri cans. Not Available [facility] [address] [place], [address], 12/05/2017 15:51:55 12/05/19 18 12/05/2017 BMP, serum or plasm a est GFR 55 mL/mi n/1.7 3_M2 Creat inine based estim ated glome rular filtr ation rate (eGFR ) is calcu lated using the Chron ic Kidne y Disea se Epide miolo gy Colla borat ion (CKD- EPI). The CKD-E PI creat inine equat ion has not been valid ated in child cayden (<18 years ), pregn ant women or in some racia l or ethni c subgr oups other than Cauca sians and Afric olvin Mcnallyeri cans. Not Available [facility] [address] [place], [address], 12/05/2017 15:51:55 12/07/19 18 12/07/2017 CK (crea irlanda kinas e), total , serum CK (creatine kinase) 38 U/L (0-190 ) TOTAL CPK MAXIM NTRAT ION TOO LOW FOR ISOEN ZYME RUBÉN SIS Not Available [facility] [address] [place], [address], 12/07/2017 15:02:51 12/07/19 18 12/07/2017 hepat ic funct ion panel , serum bilirubin,to yolie 4.7 mg/dL (0-1.2 ) high Not Available [facility] [address] [place], [address], 12/07/2017 15:02:53 12/07/19 18 12/07/2017 hepat ic funct ion panel , serum bilirubin, direct 3.9 mg/dL (0-0.3 ) high Not Available [facility] [address] [place], [address], 12/07/2017 15:02:53 12/07/19 18 12/07/2017 hepat ic funct ion panel , serum indirect bilirubin 0.8 mg/dL (0.0-0 .7) high Not Available [facility] [address] [place], [address], 12/07/2017 15:02:53 12/07/19 18 12/07/2017 hepat ic funct ion panel , serum albumin 3.6 gm/dL (3.4-4 .8) Not Available [facility] [address] [place], [address], 12/07/2017 15:02:53 12/07/19 18 12/07/2017 hepat ic funct ion panel , serum AST 205 U/L (0-32) high Not Available [facility] [address] [place], [address], 12/07/2017 15:02:53 12/07/19 18 12/07/2017 hepat ic funct ion panel , serum ALT 366 U/L (0-33) high Not Available [facility] [address] [place], [address], 12/07/2017 15:02:53 12/07/19 18 12/07/2017 hepat ic funct ion panel , serum alk phos 372 U/L (35-10 4) high Not Available [facility] [address] [place], [address], 12/07/2017 15:02:53 12/07/19 18 12/07/2017 hepat ic funct ion panel , serum total protein 6.5 gm/dL (6.2-8 .2) Not Available [facility] [address] [place], [address], 12/07/2017 15:02:53 12/07/19 18 12/07/2017 urina lysis compl ete, refle x cultu re appear/color DARK YELLO W CLEAR Not Available [facility] [address] [place], [address], 12/07/2017 21:21:44 12/07/19 18 12/07/2017 urina lysis compl ete, refle x cultu re sp. gravity 1.025 (1.002 -1.030 ) Not Available [facility] [address] [place], [address], 12/07/2017 21:21:44 12/07/19 18 12/07/2017 urina lysis compl ete, refle x cultu re urine pH 5.0 (4.0-8 .0) Not Available [facility] [address] [place], [address], 12/07/2017 21:21:44 12/07/19 18 12/07/2017 urina lysis compl ete, refle x cultu re urine albumin 1+ (neg) abnormal Not Available [facility] [address] [place], [address], 12/07/2017 21:21:44 12/07/19 18 12/07/2017 urina lysis compl ete, refle x cultu re urine glucose NEGATI VE (neg) Not Available [facility] [address] [place], [address], 12/07/2017 21:21:44 12/07/19 18 12/07/2017 urina lysis compl ete, refle x cultu re urine ketones NEGATI VE (neg) Not Available [facility] [address] [place], [address], 12/07/2017 21:21:44 12/07/19 18 12/07/2017 urina lysis compl ete, refle x cultu re urine bilirubin 2+ (neg) abnormal Not Available [facility] [address] [place], [address], 12/07/2017 21:21:44 12/07/19 18 12/07/2017 urina lysis compl ete, refle x cultu re urine hemoglobn 1+ (neg) abnormal Not Available [facility] [address] [place], [address], 12/07/2017 21:21:44 12/07/19 18 12/07/2017 urina lysis compl ete, refle x cultu re urine nitrite POSITI VE (neg) abnormal Not Available [facility] [address] [place], [address], 12/07/2017 21:21:44 12/07/19 18 12/07/2017 urina lysis compl ete, refle x cultu re urine leukocyte 2+ (neg) abnormal Not Available [facility] [address] [place], [address], 12/07/2017 21:21:44 12/07/19 18 12/07/2017 urina lysis compl ete, refle x cultu re urobilinogen 4 mg/dL (norm) abnormal Not Available [facility] [address] [place], [address], 12/07/2017 21:21:44 12/07/19 18 12/07/2017 urina lysis compl ete, refle x cultu re urine WBC's 39 /hpf (0-5) high Not Available [facility] [address] [place], [address], 12/07/2017 21:21:44 12/07/19 18 12/07/2017 urina lysis compl ete, refle x cultu re urine RBC's 1 /hpf (<3) Not Available [facility] [address] [place], [address], 12/07/2017 21:21:44 12/07/19 18 12/07/2017 urina lysis compl ete, refle x cultu re bacteria HEAVY hpf (neg) abnormal Not Available [facility] [address] [place], [address], 12/07/2017 21:21:44 12/07/19 18 12/07/2017 urina lysis compl ete, refle x cultu re mucus SLIGHT /lpf Not Available [facility] [address] [place], [address], 12/07/2017 21:21:44 12/07/19 18 12/07/2017 urina lysis compl ete, refle x cultu re squamous epith 9 /hpf Not Available [facility] [address] [place], [address], 12/07/2017 21:21:44 12/07/19 18 12/07/2017 urina lysis compl ete, refle x cultu re clarity CLEAR (clear ) Not Available [facility] [address] [place], [address], 12/07/2017 21:21:44 12/07/19 18 12/07/2017 urina lysis compl ete, refle x cultu re culture indication CULTUR E INDICA MARYLU Not Available [facility] [address] [place], [address], 12/07/2017 21:21:44 12/07/19 18 12/08/2017 cultu re, urine specimen description URINE Not Available [facility] [address] [place], [address], 12/09/2017 13:00:44 12/07/19 18 12/08/2017 cultu re, urine special requests NONE Not Available [facility] [address] [place], [address], 12/09/2017 13:00:44 12/07/19 18 12/09/2017 cultu re, urine culture >100,0 00 COL/ML ESCHER ICHIA COLI Not Available [facility] [address] [place], [address], 12/09/2017 13:00:44 12/07/19 18 12/09/2017 cultu re, urine report status FINAL 2017 Not Available [facility] [address] [place], [address], 12/09/2017 13:00:44 12/07/19 18 12/09/2017 cultu re, urine organism ORGANI SM >100,0 00 COL/ML ESCHER ICHIA COLI Not Available [facility] [address] [place], [address], 12/09/2017 13:00:44 12/07/19 18 12/09/2017 cultu re, urine method METHOD MIN. INHIB. CONC. (MCG/M L) Not Available [facility] [address] [place], [address], 12/09/2017 13:00:44 12/07/19 18 12/09/2017 cultu re, urine ampicillin AMPICI LLIN RESIST ANT resistant Not Available [facility] [address] [place], [address], 12/09/2017 13:00:44 12/07/19 18 12/09/2017 cultu re, urine ampicillin/s ulbactam AMPICI LLIN/S ULBACT AM RESIST ANT resistant Not Available [facility] [address] [place], [address], 12/09/2017 13:00:44 12/07/19 18 12/09/2017 cultu re, urine amoxicillin/ clavulanic acid AMOXIC ILLIN/ CLAVUL AN SUSCEP TIBLE susceptib le Not Available [facility] [address] [place], [address], 12/09/2017 13:00:44 12/07/19 18 12/09/2017 cultu re, urine cefazolin CEFAZO ADDISON SUSCEP TIBLE susceptib le Not Available [facility] [address] [place], [address], 12/09/2017 13:00:44 12/07/19 18 12/09/2017 cultu re, urine cefepime CEFEPI ME SUSCEP TIBLE susceptib le Not Available [facility] [address] [place], [address], 12/09/2017 13:00:44 12/07/19 18 12/09/2017 cultu re, urine ceftriaxone CEFTRI AXONE SUSCEP TIBLE susceptib le Not Available [facility] [address] [place], [address], 12/09/2017 13:00:44 12/07/19 18 12/09/2017 cultu re, urine ciprofloxaci n CIPROF LOXACI N SUSCEP TIBLE susceptib le Not Available [facility] [address] [place], [address], 12/09/2017 13:00:44 12/07/19 18 12/09/2017 cultu re, urine gentamicin GENTAM ICIN SUSCEP TIBLE susceptib le Not Available [facility] [address] [place], [address], 12/09/2017 13:00:44 12/07/19 18 12/09/2017 cultu re, urine levofloxacin LEVOFL OXACIN SUSCEP TIBLE susceptib le Not Available [facility] [address] [place], [address], 12/09/2017 13:00:44 02/12/20 18 12/09/2017 cultu re, urine meropenem MEROPE NEM SUSCEP TIBLE susceptib le Not Available [facility] [address] [place], [address], 12/09/2017 13:00:44 12/07/19 18 12/09/2017 cultu re, urine nitrofuranto in NITROF URANTO IN SUSCEP TIBLE susceptib le Not Available [facility] [address] [place], [address], 12/09/2017 13:00:44 12/07/19 18 12/09/2017 cultu re, urine piperacillin /tazobactam PIPERA CILLIN /TAZOB AC SUSCEP TIBLE susceptib le Not Available [facility] [address] [place], [address], 12/09/2017 13:00:44 12/07/19 18 12/09/2017 cultu re, urine trimeth/sulf amethox TRIMET H/SULF AMETHO X RESIST ANT resistant Not Available [facility] [address] [place], [address], 12/09/2017 13:00:44 12/07/19 18 12/09/2017 cultu re, 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 Not Available [facility] [address] [place], [address], 12/09/2017 13:00:44 12/07/19 18 12/07/2017 rapid flu (A+B) Flu A negati ve Not Available In-Office Order Internal Use Only DO Not Attach Compendium DO Not Attach Compendium, Do Not Delete/merge, [id number] 12/07/2017 10:54:49 12/07/19 18 12/07/2017 rapid flu (A+B) Flu B negati ve Not Available In-Office Order Internal Use Only DO Not Attach Compendium DO Not Attach Compendium, Do Not Delete/merge, [id number] 12/07/2017 10:54:49 12/07/19 18 12/07/2017 urina lysis , dipst ick Leukocytes Large Not Available In-Offi ce Order Internal Use Only DO Not Attach Compendium DO Not Attach Compendium, Do Not Delete/merge, 12/07/2017 10:57:51 12/07/19 18 12/07/2017 urina lysis , dipst ick Nitrite positi ve Not Available In-Office Order Internal Use Only DO Not Attach Compendium DO Not Attach Compendium, Do Not Delete/merge, 12/07/2017 10:57:51 12/07/19 18 12/07/2017 urina lysis , dipst ick Urobilinogen 4 Not Available In-Of fice Order Internal Use Only DO Not Attach Compendium DO Not Attach Compendium, Do Not Delete/merge, 12/07/2017 10:57:51 12/07/19 18 12/07/2017 urina lysis , dipst ick Protein Negati ve Not Available In-Office Order Internal Use Only DO Not Attach Compendium DO Not Attach Compendium, Do Not Delete/merge, 12/07/2017 10:57:51 12/07/19 18 12/07/2017 urina lysis , dipst ick pH 6.0 Not Available In-Office Order Internal Use Only DO Not Attach Compendium DO Not Attach Compendium, Do Not Delete/merge, 12/07/2017 10:57:51 12/07/19 18 12/07/2017 urina lysis , dipst ick Blood Negati ve Not Available In-Office Order Internal Use Only DO Not Attach Compendium DO Not Attach Compendium, Do Not Delete/merge, 12/07/2017 10:57:51 12/07/19 18 12/07/2017 urina lysis , dipst ick Specific [place] 1.030 Not Available In-Off ice Order Internal Use Only DO Not Attach Compendium DO Not Attach Compendium, Do Not Delete/merge, 12/07/2017 10:57:51 12/07/19 18 12/07/2017 urina lysis , dipst ick Ketone Negati ve Not Available In-Office Order Internal Use Only DO Not Attach Compendium DO Not Attach Compendium, Do Not Delete/merge, 12/07/2017 10:57:51 12/07/19 18 12/07/2017 urina lysis , dipst ick Bilirubin Negati ve Not Available In-Office Order Internal Use Only DO Not Attach Compendium DO Not Attach Compendium, Do Not Delete/merge, [id number] 12/07/2017 10:57:51 12/07/19 18 12/07/2017 urina lysis , dipst ick Glucose Negati ve Not Available In-Office Order Internal Use Only DO Not Attach Compendium DO Not Attach Compendium, Do Not Delete/merge, [id number] 12/07/2017 10:57:51 12/07/19 18 12/07/2017 urina lysis , dipst ick Color [place] Not Available In-Office Order Internal Use Only DO Not Attach Compendium DO Not Attach Compendium, Do Not Delete/merge, [id number] 12/07/2017 10:57:51 12/07/19 18 12/07/2017 urina lysis , dipst ick Appearance Cloudy Not Available In-Offi ce Order Internal Use Only DO Not Attach Compendium DO Not Attach Compendium, Do Not Delete/merge, [id number] 12/07/2017 10:57:51 12/22/19 18 12/22/2017 hepat ic funct ion panel , serum bilirubin,to yolie 0.7 mg/dL (0-1.2 ) Not Available [facility] [address] [place], [address], 12/22/2017 14:36:02 12/22/19 18 12/22/2017 hepat ic funct ion panel , serum bilirubin, direct 0.3 mg/dL (0-0.3 ) Not Available [facility] [address] [place], [address], 12/22/2017 14:36:02 12/22/19 18 12/22/2017 hepat ic funct ion panel , serum indirect bilirubin 0.4 mg/dL (0.0-0 .7) Not Available [facility] [address] [place], [address], 12/22/2017 14:36:02 12/22/19 18 12/22/2017 hepat ic funct ion panel , serum albumin 3.9 gm/dL (3.4-4 .8) Not Available [facility] [address] [place], [address], 12/22/2017 14:36:02 12/22/19 18 12/22/2017 hepat ic funct ion panel , serum AST 21 U/L (0-32) Not Available [facility] [address] [place], [address], 12/22/2017 14:36:02 12/22/19 18 12/22/2017 hepat ic funct ion panel , serum ALT 39 U/L (0-33) high Not Available [facility] [address] [place], [address], 12/22/2017 14:36:02 12/22/19 18 12/22/2017 hepat ic funct ion panel , serum alk phos 172 U/L (35-10 4) high Not Available [facility] [address], [address], 12/22/2017 14:36:02 12/22/19 18 12/22/2017 hepat ic funct ion panel , serum total protein 6.8 gm/dL (6.2-8 .2) Not Available [facility] [address], [address], 12/22/2017 14:36:02 03/15/20 18 03/15/2018 hepat ic funct ion panel , serum bilirubin,to yolie 0.4 mg/dL (0-1.2 ) Not Available [facility] [address], [address], 03/15/2018 22:14:22 03/15/20 18 03/15/2018 hepat ic funct ion panel , serum bilirubin, direct 0.1 mg/dL (0-0.3 ) Not Available [facility] [address], [address], 03/15/2018 22:14:22 03/15/20 18 03/15/2018 hepat ic funct ion panel , serum indirect bilirubin 0.3 mg/dL (0.0-0 .7) Not Available [facility] [address] [place], [address], 03/15/2018 22:14:22 03/15/20 18 03/15/2018 hepat ic funct ion panel , serum albumin 4.2 gm/dL (3.4-4 .8) Not Available [facility] [address] [place], [address], 03/15/2018 22:14:22 03/15/20 18 03/15/2018 hepat ic funct ion panel , serum AST 23 U/L (0-32) Not Available [facility] [address] [place], [address], 03/15/2018 22:14:22 03/15/20 18 03/15/2018 hepat ic funct ion panel , serum ALT 30 U/L (0-33) Not Available [facility] [address] [place], [address], 03/15/2018 22:14:22 03/15/20 18 03/15/2018 hepat ic funct ion panel , serum alk phos 120 U/L (35-10 4) high Not Available [facility] [address] [place], [address], 03/15/2018 22:14:22 03/15/20 18 03/15/2018 hepat ic funct ion panel , serum total protein 7.2 gm/dL (6.2-8 .2) Not Available [facility] [address] [place], [address], 03/15/2018 22:14:22 08/31/20 18 08/31/2018 CBC w/ auto diff WBC 12.9 K/mm3 (4.0-1 1.0) high Not Available [facility] [address] [place], [address], 08/31/2018 14:43:33 08/31/20 18 08/31/2018 CBC w/ auto diff RBC 4.65 M/mm3 (4.20- 5.40) Not Available [facility] [address] [place], [address], 08/31/2018 14:43:33 08/31/20 18 08/31/2018 CBC w/ auto diff HGB 13.8 gm/dL (11.7- 15.5) Not Available [facility] [address] [place], [address], 08/31/2018 14:43:33 08/31/20 18 08/31/2018 CBC w/ auto diff HCT 42.3 % (35.7- 45.8) Not Available [facility] [address] [place], [address], 08/31/2018 14:43:33 08/31/20 18 08/31/2018 CBC w/ auto diff MCV 91.0 fL (80.0- 100.0) Not Available [facility] [address] [place], [address], 08/31/2018 14:43:33 08/31/20 18 08/31/2018 CBC w/ auto diff MCH 29.7 pg (27.0- 34.0) Not Available [facility] [address] [place], [address], 08/31/2018 14:43:33 08/31/20 18 08/31/2018 CBC w/ auto diff MCHC 32.6 g/dL (33.0- 37.0) low Not Available [facility] [address] [place], [address], 08/31/2018 14:43:33 08/31/20 18 08/31/2018 CBC w/ auto diff plt 270 K/mm3 (150-4 60) Not Available [facility] [address] [place], [address], 08/31/2018 14:43:33 08/31/20 18 08/31/2018 CBC w/ auto diff RDW-SD 44.9 fL (<47.0 ) Not Available [facility] [address] [place], [address], 08/31/2018 14:43:33 08/31/20 18 08/31/2018 CBC w/ auto diff MPV 10.4 fL (9.4-1 2.4) Not Available [facility] [address] [place], [address], 08/31/2018 14:43:33 08/31/20 18 08/31/2018 CBC w/ auto diff automated NRBC 0.0 #/100 _WBC' s Not Available [facility] [address] [place], [address], 08/31/2018 14:43:33 08/31/20 18 08/31/2018 CBC w/ auto diff abs. NRBC 0.0 K/mm3 Not Available [facility] [address] [place], [address], 08/31/2018 14:43:33 08/31/20 18 08/31/2018 hepat itis C virus Ab, serum anti-hepatit is C NEGAT ALLYN Refer ence range : Negat allyn This test was perfo rmed on the Abbot t Archi tect immun oassa y syste m. Not Available [facility] [address] [place], [address], 08/31/2018 16:17:01 08/31/20 18 08/31/2018 CMP, serum or plasm a glucose 76 mg/dL (70-99 ) Not Available [facility] [address] [place], [address], 08/31/2018 20:51:23 08/31/20 18 08/31/2018 CMP, serum or plasm a BUN 20 mg/dL (8-23) Not Available [facility] [address] [place], [address], 08/31/2018 20:51:23 08/31/20 18 08/31/2018 CMP, serum or plasm a creatinine 1.2 mg/dL (0.5-1 .0) high Not Available [facility] [address] [place], [address], 08/31/2018 20:51:23 08/31/20 18 08/31/2018 CMP, serum or plasm a sodium 145 mmol/ L (133-1 45) Not Available [facility] [address] [place], [address], 08/31/2018 20:51:23 08/31/20 18 08/31/2018 CMP, serum or plasm a potassium 3.6 mmol/ L (3.6-5 .2) Not Available [facility] [address] [place], [address], 08/31/2018 20:51:23 08/31/20 18 08/31/2018 CMP, serum or plasm a chloride 107 mmol/ L (98-10 7) Not Available [facility] [address] [place], [address], 08/31/2018 20:51:23 08/31/20 18 08/31/2018 CMP, serum or plasm a bicarbonate 27 mmol/ L (22-29 ) Not Available [facility] [address] [place], [address], 08/31/2018 20:51:23 08/31/20 18 08/31/2018 CMP, serum or plasm a anion gap 11 (4-17) Not Available [facility] [address] [place], [address], 08/31/2018 20:51:23 08/31/20 18 08/31/2018 CMP, serum or plasm a albumin 4.0 gm/dL (3.4-4 .8) Not Available [facility] [address] [place], [address], 08/31/2018 20:51:23 08/31/20 18 08/31/2018 CMP, serum or plasm a calcium 8.7 mg/dL (8.6-1 0.5) Not Available [facility] [address] [place], [address], 08/31/2018 20:51:23 08/31/20 18 08/31/2018 CMP, serum or plasm a bilirubin,to yolie 0.4 mg/dL (0-1.2 ) Not Available [facility] [address] [place], [address], 08/31/2018 20:51:23 08/31/20 18 08/31/2018 CMP, serum or plasm a total protein 6.5 gm/dL (6.2-8 .2) Not Available [facility] [address] [place], [address], 08/31/2018 20:51:23 08/31/20 18 08/31/2018 CMP, serum or plasm a Ag ratio 1.6 Not Available [facility] [address] [place], [address], 08/31/2018 20:51:23 08/31/20 18 08/31/2018 CMP, serum or plasm a AST 30 U/L (0-32) Not Available [facility] [address] [place], [address], 08/31/2018 20:51:23 08/31/20 18 08/31/2018 CMP, serum or plasm a alk phos 97 U/L (35-10 4) Not Available [facility] [address] [place], [address], 08/31/2018 20:51:23 08/31/20 18 08/31/2018 CMP, serum or plasm a ALT 40 U/L (0-33) high Not Available [facility] [address] [place], [address], 08/31/2018 20:51:23 08/31/20 18 08/31/2018 CMP, serum or plasm a est GFR non 47 mL/mi n/1.7 3_M2 Creat inine based estim ated glome rular filtr ation rate (eGFR ) is calcu lated using the Chron ic Kidne y Disea se Epide miolo gy Colla borat ion (CKD- EPI). The CKD-E PI creat inine equat ion has not been valid ated in child cayden (<18 years ), pregn ant women or in some racia l or ethni c subgr oups other than Cauca sians and Afric an Ameri cans. Not Available [facility] [address] [place], [address], 08/31/2018 20:51:23 08/31/20 18 08/31/2018 CMP, serum or plasm a est GFR 54 mL/mi n/1.7 3_M2 Creat inine based estim ated glome rular filtr ation rate (eGFR ) is calcu lated using the Chron ic Kidne y Disea se Epide miolo gy Colla borat ion (CKD- EPI). The CKD-E PI creat inine equat ion has not been valid ated in child cayden (<18 years ), pregn ant women or in some racia l or ethni c subgr oups other than Cauca sians and Afric an Ameri cans. Not Available [facility] [address] [place], [address], 08/31/2018 20:51:23 08/31/20 18 08/31/2018 lipid panel , serum cholesterol, total 197 mg/dL (<200) Not Available [facility] [address] [place], [address], 08/31/2018 20:51:24 08/31/20 18 08/31/2018 lipid panel , serum triglyceride 119 mg/dL (<150) Not Available [facility] [address] [place], [address], 08/31/2018 20:51:24 08/31/20 18 08/31/2018 lipid panel , serum HDL chol 53 mg/dL (>39) Not Available [facility] [address] [place], [address], 08/31/2018 20:51:24 08/31/20 18 08/31/2018 lipid panel , serum LDL cholesterol, calculated 120 mg/dL (0-130 ) Not Available [facility] [address] [place], [address], 08/31/2018 20:51:24 08/31/20 18 08/31/2018 lipid panel , serum non HDL cholesterol (calc) 144 mg/dL (<160) Not Available [facility] [address] [place], [address], 08/31/2018 20:51:24 08/31/20 18 08/31/2018 TSH, serum or plasm a TSH 1.72 mIU/m L (0.40- 4.00) Not Available [facility] [address] [place], [address], 08/31/2018 21:14:43 08/31/20 18 09/01/2018 vitam in D, 25-hy droxy , total , serum 25OH vitamin D 45.8 NG/mL (20-50 ) Serum 25OHD : 20 to 50 ng/mL : suffi cient in vitam in D. Refer ence: [facility] Data Brief : No.59 December: Vitam in D Statu s: Unite d State s: 2000- 2005 As of , Vitam in D, 25-Hy droxy assay has been gleason ed. In some [facility], the new assay may yield a highe r value (up to 15% incre ase) in luis rison to the old assay . These incre ases would mainl y be notic eable at value s of great er than 50 ng/ml . Not Available [facility] [address] [place], [address], 09/01/2018 01:57:01 09/10/20 18 09/10/2018 CBC w/ auto diff WBC 10.7 K/mm3 (4.0-1 1.0) Not Available [facility] [address] [place], [address], 09/10/2018 20:28:11 09/10/20 18 09/10/2018 CBC w/ auto diff RBC 4.91 M/mm3 (4.20- 5.40) Not Available [facility] [address] [place], [address], 09/10/2018 20:28:11 09/10/20 18 09/10/2018 CBC w/ auto diff HGB 14.7 gm/dL (11.7- 15.5) Not Available [facility] [address] [place], [address], 09/10/2018 20:28:11 09/10/20 18 09/10/2018 CBC w/ auto diff HCT 46.3 % (35.7- 45.8) high Not Available [facility] [address] [place], [address], 09/10/2018 20:28:11 09/10/20 18 09/10/2018 CBC w/ auto diff MCV 94.3 fL (80.0- 100.0) Not Available [facility] [address] [place], [address], 09/10/2018 20:28:11 09/10/20 18 09/10/2018 CBC w/ auto diff MCH 29.9 pg (27.0- 34.0) Not Available [facility] [address] [place], [address], 09/10/2018 20:28:11 09/10/20 18 09/10/2018 CBC w/ auto diff MCHC 31.7 g/dL (33.0- 37.0) low Not Available [facility] [address] [place], [address], 09/10/2018 20:28:11 09/10/20 18 09/10/2018 CBC w/ auto diff plt 252 K/mm3 (150-4 60) Not Available [facility] [address] [place], [address], 09/10/2018 20:28:11 09/10/20 18 09/10/2018 CBC w/ auto diff RDW-SD 48.5 fL (<47.0 ) high Not Available [facility] [address] [place], [address], 09/10/2018 20:28:11 09/10/20 18 09/10/2018 CBC w/ auto diff MPV 10.5 fL (9.4-1 2.4) Not Available [facility] [address] [place], [address], 09/10/2018 20:28:11 09/10/20 18 09/10/2018 CBC w/ auto diff automated NRBC 0.0 #/100 _WBC' s Not Available [facility] [address] [place], [address], 09/10/2018 20:28:11 09/10/20 18 09/10/2018 CBC w/ auto diff abs. NRBC 0.0 K/mm3 Not Available [facility] [address] [place], [address], 09/10/2018 20:28:11 09/10/20 18 09/10/2018 CBC w/ auto diff neut # 5.8 K/mm3 (1.3-7 .0) Not Available [facility] [address] [place], [address], 09/10/2018 20:28:11 09/10/20 18 09/10/2018 CBC w/ auto diff lymph # 3.2 K/mm3 (0.8-3 .1) high Not Available [facility] [address] [place], [address], 09/10/2018 20:28:11 09/10/20 18 09/10/2018 CBC w/ auto diff mono# 0.7 K/mm3 (0.4-0 .9) Not Available [facility] [address] [place], [address], 09/10/2018 20:28:11 09/10/20 18 09/10/2018 CBC w/ auto diff eo # 1.0 K/mm3 (0.0-0 .4) high Not Available [facility] [address] [place], [address], 09/10/2018 20:28:11 09/10/20 18 09/10/2018 CBC w/ auto diff baso # 0.1 K/mm3 (0.0-0 .1) Not Available [facility] [address] [place], [address], 09/10/2018 20:28:11 09/10/20 18 09/10/2018 CBC w/ auto diff abs. imm gran 0.1 K/mm3 Not Available [facility] [address] [place], [address], 09/10/2018 20:28:11 09/10/20 18 09/10/2018 CBC w/ auto diff neut 54.0 % (44-76 ) Not Available [facility] [address] [place], [address], 09/10/2018 20:28:11 09/10/20 18 09/10/2018 CBC w/ auto diff lymph 29.4 % (15-43 ) Not Available [facility] [address] [place], [address], 09/10/2018 20:28:11 09/10/20 18 09/10/2018 CBC w/ auto diff monocyte 6.1 % (4.5-1 0.5) Not Available [facility] [address] [place], [address], 09/10/2018 20:28:11 09/10/20 18 09/10/2018 CBC w/ auto diff eo 9.1 % (0-6) high Not Available [facility] [address] [place], [address], 09/10/2018 20:28:11 09/10/20 18 09/10/2018 CBC w/ auto diff baso 0.7 % (0-2) Not Available [facility] [address] [place], [address], 09/10/2018 20:28:11 09/10/20 18 09/10/2018 CBC w/ auto diff imm gran 0.7 % (0.0-0 .6) high Not Available [facility] [address] [place], [address], 09/10/2018 20:28:11 07/15/20 19 07/15/2019 CMP, serum or plasm a glucose 83 mg/dL (70-99 ) Not Available [facility] [address] [place], [address], 07/15/2019 18:47:48 07/15/2007/15/2019 CMP, serum or plasm a BUN 22 mg/dL (8-23) Not Available [facility] [address] [place], [address], 07/15/2019 18:47:48 07/15/2007/15/2019 CMP, serum or plasm a creatinine 1.2 mg/dL (0.5-1 .0) high Not Available [facility] [address] [place], [address], 07/15/2019 18:47:48 07/15/20 19 07/15/2019 CMP, serum or plasm a sodium 139 mmol/ L (133-1 45) Not Available [facility] [address] [place], [address], 07/15/2019 18:47:48 07/15/2007/15/2019 CMP, serum or plasm a potassium 4.5 mmol/ L (3.6-5 .2) Not Available [facility] [address] [place], [address], 07/15/2019 18:47:48 07/15/2007/15/2019 CMP, serum or plasm a chloride 104 mmol/ L (98-10 7) Not Available [facility] [address] [place], [address], 07/15/2019 18:47:48 07/15/2007/15/2019 CMP, serum or plasm a bicarbonate 26 mmol/ L (22-29 ) Not Available [facility] [address] [place], [address], 07/15/2019 18:47:48 07/15/20 19 07/15/2019 CMP, serum or plasm a anion gap 9 (4-17) Not Available [facility] [address] [place], [address], 07/15/2019 18:47:48 07/15/20 19 07/15/2019 CMP, serum or plasm a albumin 4.1 gm/dL (3.4-4 .8) Not Available [facility] [address] [place], [address], 07/15/2019 18:47:48 07/15/20 19 07/15/2019 CMP, serum or plasm a calcium 9.2 mg/dL (8.6-1 0.5) Not Available [facility] [address] [place], [address], 07/15/2019 18:47:48 07/15/20 19 07/15/2019 CMP, serum or plasm a bilirubin,to yolie 0.4 mg/dL (0-1.2 ) Not Available [facility] [address] [place], [address], 07/15/2019 18:47:48 07/15/20 19 07/15/2019 CMP, serum or plasm a total protein 7.2 gm/dL (6.2-8 .2) Not Available [facility] [address] [place], [address], 07/15/2019 18:47:48 07/15/2007/15/2019 CMP, serum or plasm a Ag ratio 1.3 Not Available [facility] [address] [place], [address], 07/15/2019 18:47:48 07/15/2007/15/2019 CMP, serum or plasm a AST 23 U/L (0-32) Not Available [facility] [address] [place], [address], 07/15/2019 18:47:48 07/15/20 19 07/15/2019 CMP, serum or plasm a alk phos 117 U/L (35-10 4) high Not Available [facility] [address], [address], 07/15/2019 18:47:48 07/15/20 19 07/15/2019 CMP, serum or plasm a ALT 30 U/L (0-33) Not Available [facility] [address] [place], [address], 07/15/2019 18:47:48 07/15/20 19 07/15/2019 CMP, serum or plasm a est GFR non 46 mL/mi n/1.7 3_M2 Creat inine based estim ated glome rular filtr ation rate (eGFR ) is calcu lated using the Chron ic Kidne y Disea se Epide miolo gy Colla borat ion (CKD- EPI). The CKD-E PI creat inine equat ion has not been valid ated in child cayden (<18 years ), pregn ant women or in some racia l or ethni c subgr oups other than Cauca sians and Afric an Ameri cans. Not Available [facility] [address] [place], [address], 07/15/2019 18:47:48 07/15/20 19 07/15/2019 CMP, serum or plasm a est GFR 54 mL/mi n/1.7 3_M2 Creat inine based estim ated glome rular filtr ation rate (eGFR ) is calcu lated using the Chron ic Kidne y Disea se Epide miolo gy Colla borat ion (CKD- EPI). The CKD-E PI creat inine equat ion has not been valid ated in child cayden (<18 years ), pregn ant women or in some racia l or ethni c subgr oups other than Cauca sians and Afric an Ameri cans. Not Available [facility] [address] [place], [address], 07/15/2019 18:47:48 09/10/20 18 09/10/2018 MAMMO , scree nilda, digit al, bilat eral PROCED URE: MM Digita l Mammo Screen ing INDICA TION: Screen ing. No known palpab le abnorm alitie s. COMPAR ERIC: Multip le priors , most recent dated 2016. TECHNI QUE: Full-f ield digita l CC and MLO 3D tomosy nthesi s images of both breast s were acquir ed. Comput er-aid ed detect ion (CAD) was utiliz ed in the interp retati on of this study. DENSIT Y: The breast tissue contai ns scatte red areas of fibrog landul ar densit y. FINDIN GS: No suspic ious masses , suspic ious microc alcifi cation s, or areas of [place] ectura l distor tion are seen in either breast to sugges t malign devi. IMPRES MARLO: No mammog raphic eviden ce of malign devi. RECOMM ENDATI ON: Annual mammog raphic screen ing BI-RAD S: 1 (Negat allyn) Lay letter mailed to [place] aug[place] WSN: [id number] Dictat ed By: Teresa Bautista MD Dictat ed Date/T nadeen: 2:20 pm Review ed By: Teresa Bautista MD Signed By: Teresa Bautista MD Signed Date/T nadeen: 2:20 pm Transc ribed By: ELLIE Transc riptio n Date/T nadeen: 1:58 pm Birads : [place] augustin Class: Outpat ient [facility]) [address] [place], [address], 03/07/2019 16:31:22 06/22/20 19 06/20/2019 NM, myoca rdial perfu marlo scan No observ ation record ed. [facility] [address] [place] [address], [place], [address], 06/22/2019 13:05:01 Result Notes None recorded. Problems Name Problem SNOMED Code Status Onset Date Resolution Date Notes Provider Name and Address Organization Details Recorded Time Benign neoplasm of breast 426079839 Completed 201302/17/2017 Alisson Pedersen MA null, [facility] 7 09:28:11 Screenin g for malignan t neoplasm of breast Completed 201105/09/2014 RECORDED 06/16/20 12 10:30AM BY NEIL SHELDON MA, ANNOTATI ON/ADDEN DUM Alisson Pedersen MA null, [facility] 7 09:27:58 Screenin g for malignan t neoplasm of cervix Completed 201105/09/2014 RECORDED 06/16/20 12 10:30AM BY NEIL SHELDON MA, ANNOTATI ON/ADDEN DUM Alisson Pedersen MA null, [facility] 7 09:27:52 Screenin g for malignan t neoplasm of colon Completed 201105/09/2014 RECORDED 06/16/20 12 10:30AM BY NEIL SHELDON MA, ANNOTATI ON/ADDEN DUM Iris Melchor null, [facility] 6 09:47:05 Cyst of oral soft tissue [id number] Completed 201105/09/2014 RECORDED 06/16/20 12 10:30AM BY NEIL SHELDON MA, ANNOTATI ON/ADDEN DUM Iris Melchor null, [facility] 6 09:47:05 Disorder of skin 16525563 Completed 201105/09/2014 RECORDED 06/16/20 12 10:30AM BY NEIL SHELDON MA, ANNOTATI ON/ADDEN DUM Iris Melchor null, [facility] 6 09:47:05 Elevated level of transami nase and lactic acid dehydrog enase [id number] Completed 201105/09/2014 RECORDED 06/16/20 12 10:30AM BY NEIL SHELDON MA, ANNOTATI ON/ADDEN DUM Iris Melchor null, [facility] 6 09:47:05 Essentia l hyperten marlo [id number] Active 2013 Irisjose antonio tate [facility] 9 16:26:38 Weight finding [id number] Completed 201105/09/2014 RECORDED 06/16/20 12 10:30AM BY NEIL SHELDON MA, ANNOTATI ON/ADDEN DUM Iris tate [facility] 6 09:47:05 Family history of polyp of colon 144177200 Completed 201302/17/2017 Alisson tate, [facility] 7 09:28:28 Influenz a vaccine needed [id number] 06 Completed 200705/09/2014 RECORDED 10/16/20 08 7:39AM BY NEIL SHELDON MA, ANNOTATI ON/ADDEN DUM Iris tate [facility] 6 09:47:05 Hyperlip idemia 07088598 Active 2013 Iris tate [facility] 9 16:26:38 [facility] hyper[facility] marlo [id number] Completed 201005/09/2014 RECORDED 05/28/20 11 11:12AM BY NEIL SHELDON MA, ANNOTATI ON/ADDEN DUM Alisson tate [facility] 7 09:28:36 Hypoglyc emia [id number] Active 2013 Iris tate [facility] 9 16:26:38 Impaired fasting glycemia 960861977 Completed 201105/09/2014 RECORDED 06/16/20 12 10:30AM BY NEIL SHELDON MA, ANNOTATI ON/ADDEN DUM Iris tate [facility] 6 09:47:05 Glucose toleranc e test outside referenc e range [id number] Completed 201302/17/2017 Alisson tate [facility] 7 09:28:08 Low back pain 835604386 Completed 201302/17/2017 Alisson tate [facility] 7 09:28:05 Malaise and fatigue 912540284 Completed 201105/09/2014 RECORDED 06/16/20 12 10:30AM BY NEIL SHELDON MA, ANNOTATI ON/ADDEN DUM Iris tate [facility] 6 09:47:05 Screenin g for malignan t neoplasm of breast Completed 201102/17/2017 Alisson tate [facility] 7 09:27:58 Fibromyo sitis 74707217 Active 2013 Iris tate [facility] 9 16:26:38 Administ ration of bacteria l and viral vaccine Completed 200805/09/2014 RECORDED 02/20/20 09 7:45AM BY NEIL SHELDON MA, OFFICE VISIT Iris tate [facility] 6 09:47:05 Disorder of oral soft tissues 81741625 Completed 201105/09/2014 RECORDED 06/16/20 12 10:30AM BY NEIL SHELDON MA, ANNOTATI ON/ADDEN DUM Iris tate [facility] 6 09:47:05 Tobacco user [id number] Completed 201105/09/2014 RECORDED 04/09/20 12 8:07AM BY NEIL SHELDON MA, ANNOTATI ON/ADDEN DUM Iris tate [facility] 6 09:47:05 History of clinical finding in subject [id number] Completed 201102/17/2017 Alisson tate [facility] 7 09:28:17 Adult health examinat ion Completed 201105/09/2014 RECORDED 06/16/20 12 10:30AM BY NEIL SHELDON MA, ANNOTATI ON/ADDEN DUM Alisson tate, [facility] 7 09:28:02 Tobacco dependen ce syndrome 52657091 Active 2013 Iris tate, [facility] 9 16:26:38 Screenin g for malignan t neoplasm of breast Completed 201106/05/2014 RECORDED 06/16/20 12 10:30AM BY NEIL SHELDON MA, ANNOTATI ON/ADDEN DUM Alisson tate, [facility] 7 09:27:58 Screenin g for malignan t neoplasm of cervix Completed 201302/17/2017 Alisson tate, [facility] 7 09:27:52 Screenin g for malignan t neoplasm of colon Completed 201106/05/2014 RECORDED 06/16/20 12 10:30AM BY NEIL SHELDON MA, ANNOTATI ON/ADDEN DUM Iris tate, [facility] 6 09:47:05 Cyst of oral soft tissue 414722835 Completed 201106/05/2014 RECORDED 06/16/20 12 10:30AM BY NEIL SHELDON MA, ANNOTATI ON/ADDEN DUM Iris tate, [facility] 6 09:47:05 Excess skin of eyelid 459834912 Completed 201302/17/2017 Alisson tate, [facility] 7 09:27:55 Disorder of skin 97569859 Completed 201106/05/2014 RECORDED 06/16/20 12 10:30AM BY NEIL SHELDON MA, ANNOTATI ON/ADDEN DUM Iris tate, [facility] 6 09:47:05 Elevated level of transami nase and lactic acid dehydrog enase 996246650 Completed 201106/05/2014 RECORDED 06/16/20 12 10:30AM BY NEIL SHELDON MA, JOSE ALBERTO ON/ADDEN DUM Iris tate, [facility] 6 09:47:05 Weight finding 462709274 Completed 201106/05/2014 RECORDED 06/16/20 12 10:30AM BY NEIL SHELDON MA, JOSE ALBERTO ON/ADDEN DUM Iris tate, [facility] 6 09:47:05 Influenz a vaccine needed [id number] 06 Completed 200706/05/2014 RECORDED 10/16/20 08 7:39AM BY NEIL SHELDON MA, JOSE ALBERTO ON/ADDEN DUM Iris tate, [facility] 6 09:47:05 Adult health examinat ion Completed 201302/17/2017 Alisson tate, [facility] 7 09:28:02 Impaired fasting glycemia 969784427 Completed 201106/05/2014 RECORDED 06/16/20 12 10:30AM BY NEIL SHELDON MA, ANNOTATI ON/ADDEN DUM Iris tate [facility] 6 09:47:05 Malaise and fatigue 175814259 Completed 201106/05/2014 RECORDED 06/16/20 12 10:30AM BY NEIL SHELDON MA, ANNOTATI ON/ADDEN DUM Iris tate, [facility] 6 09:47:05 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 Active 2013 Iris tate [facility] 9 16:26:38 Administ ration of bacteria l and viral vaccine Completed 200806/05/2014 RECORDED 02/20/20 09 7:45AM BY NEIL SHELDON MA, OFFICE VISIT Iris tate [facility] 6 09:47:05 Disorder of oral soft tissues 78121643 Completed 201106/05/2014 RECORDED 06/16/20 12 10:30AM BY NEIL SHELDON MA, ANNOTATI ON/ADDEN DUM Iris tate [facility] 6 09:47:05 Tobacco user 182449365 Completed 201106/05/2014 RECORDED 04/09/20 12 8:07AM BY NEIL SHELDON MA, ANNOTATI ON/ADDEN DUM Iris tate [facility] 6 09:47:05 Adult health examinat ion Completed 201106/05/2014 RECORDED 06/16/20 12 10:30AM BY NEIL SHELDON MA, ANNOTATI ON/ADDEN DUM Alisson tate [facility] 7 09:28:02 Upper respirat ory infectio n 34028235 Completed 02/17/2017 Alisson tate [facility] 7 09:28:15 Polyp of colon 41090420 Active Iris tate [facility] 9 16:26:38 Transien t cerebral ischemia 546419369 Active Iris tate [facility] 9 16:26:38 Dehydrat ion 27996688 Completed 02/17/2017 Alisson tate [facility] 7 09:28:20 Nausea 188345870 Completed 02/17/2017 Alisson tate [facility] 7 09:28:23 Liver enzymes outside referenc e range 840272623 Completed 02/17/2017 Alisson tate [facility] 7 09:27:48 [place]weig ht 450057580 Active 2017 Iris Melchorjose antonio tate [facility] 9 16:26:38 Problem Notes None recorded. Procedures Surgical History Date Name Laterality Status Provider Name and Address Organization Details Recorded Time 09/10/20 18 Most Recent Mammogram completed Fabienne Corrales [facility] 09/10/2018 14:32:27 09/10/20 18 Mammogram Screening completed Fabienne Antoni [facility] 09/10/2018 14:32:20 09/06/20 18 Mini-Cog Test completed Lolly Cisnerossury [facility] 09/06/2018 16:44:34 06/22/20 18 Date of Last Colonoscopy completed Lolly Blaynesury [facility] 09/07/2018 10:24:24 07/30/20 17 Fall Risk Assessment completed Alisson Pedersen MA [facility] 07/30/2017 09:01:50 07/30/20 17 Mini-Cog Test completed Alisson Pedersen MA [facility] 07/30/2017 09:05:40 04/22/20 16 Date of Last Pap Smear completed Iris Melchor [facility] 04/24/2016 09:46:33 06/22/20 15 Colonoscopy completed Alisson Pedersen MA [facility] 07/27/2017 11:24:09 05/05/20 14 Most Recent Bone Density completed Darrian Reyes [facility] 04/17/2016 10:42:16 Tonsillectomy completed Chanelle Padilla [facility] 09/12/2014 08:48:03 Cholecystectomy completed Chanellecharli Padilla [facility] 09/12/2014 08:48:03 Hysterectomy completed Chanelle De Witt [facility] 09/12/2014 08:48:03 Imaging Results Imaging Date Name Status LastModified by Organiz ation Details LastModified Time 09/10/2018 MAMMO, screening, digital, bilateral completed [facility] [address], [place], [address], 03/07/2019 16:31:22 06/20/2019 NM, myocardial perfusion scan completed [facility] [address] [facility], [place], [address], 06/22/2019 13:05:01 Procedure Notes None recorded. Medical Equipment None Reported. Allergies Allergen ID Allergen Name Allergen Category Reaction Reaction Severity Criticality Documentation Date Start Date Code Code System Note Provider Name and Address Organization Details Recorded Time 69466 acetamino phen / oxycodone medicatio n Not available Not available Not available 12/07/2017 80074 3 RxNorm Alisson tate [facility] 8 10:38:30 58696 Lipitor medicatio n Not available Not available Not available 12/07/2017 49817 5 RxNorm hepat itis - 2013, 8 Araceli Young PA-C [address] [facility] [address], [place], [address] , [facility] 8 13:53:06 88298 atorvasta tin medicatio n Not available Not available Not available 12/17/2017 81163 RxNorm Alisson tate [facility] 8 11:18:40 84245 pravastat in medicatio n Not available Not available Not available 12/17/2017 89414 RxNorm Alisson tate [facility] 8 11:20:58 64822 rosuvasta tin medicatio n Not available Not available Not available 12/17/2017 41725 2 RxNorm Alisson tate [facility] 8 11:24:19 58539 simvastat in medicatio n Not available Not available Not available 12/17/2017 45509 RxNorm Alisson tate [facility] 8 11:24:38 10734 azithromy ghislaine medicatio n facial swelling severe Not available 09/06/20182017 14366 [facility] 16:[facility] Medications Name Sig Start Date Stop Date Status Note LastModified by Organization Details LastModified Time lisinop/h ctz tab 20-12.5 active Not Available Not Available Not Available amlodipin e besylate 5 mg tabs active Not Available Not Available No t Available amlodipin e tab 10mgamlod ipine besylate active Not Available Not Available Not Available pravastat in sodium 20 mg tabs active Not Available Not Available Not Available lisinop/h ctz tab 20-12.5li sinopril/ hydrochlo rothiazid e active Not Available Not Available Not Available gavilyte- g 236 gm solr active Not Available Not Available Not Available lisinopri l/hydroch lorothiaz alisson 20-12.5 mg tabs active Not Available Not Available Not Available pravastat in tab 20mg active Not Available Not Available Not Available pravastat in tab 20mgprava statin sodium active Not Available Not Available Not Available amlodipin e tab 5mgamlodi pine besylate active Not Available Not Available Not Available atorvasta tin 40 mg tablet Take 1 tablet every day by oral route for 90 days. 12/17 completed Not Available Not Available Not Available atorvasta tin 80 mg tablet Take 1 tablet every day by oral route as directed for 90 days. 2015 active Not Available Not Available Not Avai lable clonidine HCl 0.1 mg tablet Take 1 tablet as needed by oral route for 10 days. 03/07 completed Not Available Not Available Not Available paroxetin e 10 mg tablet Take 1 tablet every day by oral route for 90 days. 03/15 completed Not Available Not Available Not Available lisinopri l 20 mg-hydroc hlorothia zide 12.5 mg tablet Take 1 tablet every day by oral route as directed for 90 days. 04/30 completed Not Available Not Available Not Available azithromy ghislaine 250 mg tablet TAKE 2 TABLETS (500 MG) BY ORAL ROUTE ONCE DAILY FOR 1 DAY THEN 1 TABLET (250 MG) BY ORAL ROUTE ONCE DAILY FOR 4 DAYS 09/06 completed Not Available Not Available Not Available pravastat in 40 mg tablet Take 1 tablet every day by oral route for 90 days. 04/30 completed Not Available Not Available Not Available ondansetr on HCl 8 mg tablet 03/07 completed Not Available Not Available Not Available lisinopri l 20 mg tablet Take 1 tablet every day by oral route as directed for 90 days. 2018 active Not Available Not Available Not Avai lable ondansetr on HCl 4 mg tablet Take 1 tablet as needed by oral route for 10 days. 03/15 completed Not Available Not Available Not Available prednison e 20 mg tablet 03/07 completed Not Available Not Available Not Available potassium chloride ER 10 mEq tablet,ex tended release Take 1 tablet every day by oral route for 30 days. 07/30 completed Not Available Not Available Not Available amlodipin e 5 mg tablet Take 1 tablet every day by oral route as directed for 90 days. 12/07 completed Not Available Not Available Not Available ciproflox acin 500 mg tablet Take 1 tablet every 12 hours by oral route for 5 days. 12/17 completed Not Available Not Available Not Available sulfameth oxazole 800 mg-trimet hoprim 160 mg tablet 03/07 completed Not Available Not Available Not Available aspirin 81 mg tablet,de layed release Take 1 tablet every day by oral route for 90 days. 2015 active Not Available Not Available Not Avai lable spironola ctone 25 mg tablet Take 1 tablet every day by oral route for 90 days. active Not Available Not Available No t Available estrogens , conjugate d, synthetic A 0.625 mg tablet QD 04/09 completed RECORDED 04/09/20 12 8:02AM BY NEIL SHELDON MA, OFFICE VISIT; Not Available Not Available Not Available Tessalon Perles 100 mg capsule Take 2 capsules 3 times a day by oral route for 5 days. 03/07 completed Not Available Not Available Not Available alprazola m 0.5 mg tablet Take 1 tablet as needed by oral route for 30 days. 03/15 completed Not Available Not Available Not Available alprazola m 0.25 mg tablet Take 1 tablet every day by oral route as needed for 30 days. 12/07 completed Not Available Not Available Not Available lorazepam 0.5 mg tablet Take 1 tablet every day by oral route for 30 days. active Not Available Not Available No t Available amlodipin e 10 mg tablet TAKE ONE TABLET BY MOUTH ONCE DAILY 07/30 completed Not Available Not Available Not Available omeprazol e 20 mg capsule,d elayed release TAKE ONE CAPSULE BY MOUTH EVERY OTHER DAY 2019 active Not Available Not Available Not Avai lable codeine 10 mg-guaife nesin 100 mg/5 mL oral liquid Take 10 mL every 4 hours by oral route as needed for 4 days. 2014 active Not Available Not Available Not Avai lable pravastat in 20 mg tablet TAKE ONE TABLET BY MOUTH ONCE DAILY 12/17 completed Not Available Not Available Not Available amoxicill in 875 mg-potass ium clavulana te 125 mg tablet 03/07 completed Not Available Not Available Not Available valsartan 160 mg tablet DAILY 2009 active RECORDED 05/07/20 10 8:15AM BY TONY RUELAS MD, ANNOTATI ON/ADDEN DUM; Not Available Not Available Not Available ezetimibe 10 mg tablet TAKE ONE TABLET BY MOUTH EVERY DAY active Not Available Not Available No t Available pantopraz ole 40mg tab once daily by mouth 2015 active Not Available Not Available Not Avai lable varenicli ne tartrate 1 mg tablet BID 10/26 completed RECORDED 02/20/20 09 8:15AM BY NEIL SHELDON MA, OFFICE VISIT;NE BEVERLEY TOOK IT Not Available Not Available Not Available Chantix Starting Month Reji 0.5 mg (11)-1 mg (42) tablets in dose pack BID 06/13 completed RECORDED 06/16/20 08 12:16PM BY TONY RUELAS MD, MEDICATI ON AUTO-YANETH CTIVATIO N; Not Available Not Available Not Available GaviLyte- G 236 gram-22.7 4 gram-6.74 gram-5.86 gram oral solution active Not Available Not Available Not Available Vitals Date Recorded Body height Body mass index (BMI) Body weight Body temperature Oxygen saturation Oxygen saturation in Arterial blood by Pulse oximetry Heart rate Systolic blood pressure Diastolic blood pressure Provider Name and Address Organization Details Last Updated DateTime 8 168.91 cm 28.3 kg/m2 58436.8 4 g 99.3 [degF] 96 % 96 % 88 /min 138 mm[Hg] 76 mm[Hg] Alissonsiva Pedersen [facility] 8 10:39:54 Date Recorded Body height Body mass index (BMI) Body weight Oxygen saturation Oxygen saturation in Arterial blood by Pulse oximetry Heart rate Systolic blood pressure Diastolic blood pressure Provider Name and Address Organization Details Last Updated DateTime 8 168.91 cm 28.7 kg/m2 53013.7 3 g 96 % 96 % 59 /min 132 mm[Hg] 80 mm[Hg] Alisson Pedersen [facility] 8 11:20:48 Date Recorded Body height Body mass index (BMI) Body weight Body temperature Oxygen saturation Oxygen saturation in Arterial blood by Pulse oximetry Heart rate Systolic blood pressure Diastolic blood pressure Provider Name and Address Organization Details Last Updated DateTime 8 168.91 cm 29 kg/m2 19911.2 1 g 97.7 [degF] 97 % 97 % 82 /min 138 mm[Hg] 78 mm[Hg] Alissonsiva Hooksmontana [facility] 8 09:59:18 Date Recorded Body height Body mass index (BMI) Body weight Body temperature Heart rate Oxygen saturation Oxygen saturation in Arterial blood by Pulse oximetry Systolic blood pressure Diastolic blood pressure Provider Name and Address Organization Details Last Updated DateTime 8 168.91 cm 28.3 kg/m2 80022.1 4 g 98 [degF] 70 /min 97 % 97 % 122 mm[Hg] 72 mm[Hg] Lolly Velazquez [facility] 8 16:35:15 Date Recorded Body height Body mass index (BMI) Body weight Heart rate Oxygen saturation Oxygen saturation in Arterial blood by Pulse oximetry Body temperature Systolic blood pressure Diastolic blood pressure Provider Name and Address Organization Details Last Updated DateTime 9 168.91 cm 28.9 kg/m2 09892.8 1 g 62 /min 97 % 97 % 97.5 [degF] 132 mm[Hg] 64 mm[Hg] Blaze Chasidy [facility] 9 15:59:42 Social History Question Answer Notes LastModified by Organizat ion Details LastModified Time Tobacco Smoking Status Former Smoker Anandavrildanielanica Cathy tate [facility] 04/17/2016 10:42:16 Do You Have An Advance Directive? Yes [facility] Information not available 09/06/2018 What Is Your Level Of Alcohol Consumption? None Information not available 03/30/2015 Is Blood Transfusion Acceptable In An Emergency? Yes Information not available 04/17/2016 What Is Your Level Of Caffeine Consumption? Moderate Coffee Information not available 03/30/2015 How Much Tobacco Do You Chew? None Information not available 04/17/2016 Are You Currently Employed? No Information not available 03/30/2015 What Type Of Diet Are You Following? REGULAR Information not available 03/30/2015 Which Illicit Or Recreational Drugs Have You Used? None Information not available 09/06/2018 What Is Your Occupation? Retired Information not available 09/06/2018 Live Alone Or With Others? With Others Information not available 03/30/2015 Do You Take Precautions To Prevent Distracted Driving? Yes Information not available 04/17/2016 How Often Do You Need To Have Someone Help You When You Read Instructions, Pamphlets, Or Other Written Material From Your Doctor Or Pharmacy? Never Information not available 04/17/2016 Have You Served In The ? No Information not available 02/17/2017 What Was The Date Of Your Most Recent Tobacco Screening? 03/07/2019 Information not available 05/19/2019 How Many Children Do You Have? 2 Information not available 03/30/2015 Seat Belts Used Routinely Yes Information not available 04/17/2016 Smoke Alarm In Home Yes Information not available 04/17/2016 At What Age Did You Start Smoking Tobacco? 0 Information not available 09/06/2018 Are You Passively Exposed To Smoke? No Information not available 04/17/2016 How Much Tobacco Do You Smoke? No Quit 1yr Ago Information not available 02/17/2017 Do You Use Sunscreen Routinely? Yes Information not available 04/17/2016 How Many Years Have You Smoked Tobacco? 0 Information not available 09/06/2018 Sex: Unknown Functional Status Question Answer Note LastModified by Organizat ion Details LastModified Time Are you able to care for yourself? Yes Information not available 04/17/2016 What is your exercise level? Occasional Information not available 03/30/2015 Mental Status None recorded. Family History Relationship Description Onset Age of this Age Resolved Age Notes LastModified by Organization Details LastModified Time Mother Essential hypertension [email or web address] Not available 04/17/2016 10:42:17 Mother Coronary arterioscler osis 64 [email or web address] Not available 10:42:17 Father 80 [email or web address] Not availab le 04/17/2016 10:42:17 Sister Coronary arterioscler osis [email or web address] Not available 10:42:17 Medical History Condition Response Muscle, Joint, or Bone Problems Y Other Y Hypertension Y Gynecological History Statement/Question Response Date of Last Pap Smear 04/22/2016 Date of Last Colonoscopy 06/22/2018 Most Recent Mammogram 09/10/2018 Most Recent Bone Density 05/05/2014 Obstetrics History GPAL:G 0 P 0 0 0 0 Immunizations Vaccine Type Date Status Note Provider Name and Address Organization Details Recorded Time Influenza, split virus, trivalent, PF 08/22/20 14 completed Iris Melchor bebeto, [facility] 08/16/2019 16:26:38 Influenza, split virus, trivalent, PF 08/02/20 15 completed Iris Melchor null, [facility] 08/16/2019 16:26:38 Pneumococcal conjugate PCV 13 09/07/20 16 completed Irisjose antonio Melchor null [facility] 08/16/2019 16:26:38 influenza, unspecified formulation 09/07/20 16 completed Irisjose antonio tate [facility] 08/16/2019 16:26:38 Influenza, high-dose, trivalent, PF 09/18/20 18 completed Iris Melchor null, [facility] 08/16/2019 16:26:38 Influenza, high-dose, trivalent, PF 08/15/20 19 completed Iris Melchor null, [facility] 08/16/2019 16:26:38 Influenza, high-dose, trivalent, PF 09/06/20 18 cancelled patient objection Not Available [facility] 11/12/2019 02:22:14 Influenza, split virus, trivalent, preservative 10/01/20 07 completed Iris Melchor null, [facility] 08/16/2019 16:26:38 Tdap 02/20/20 09 completed Iris Melchor null, [facility] 08/16/2019 16:26:38 Influenza, split virus, trivalent, preservative 08/21/20 10 completed Iris Melchor null, [facility] 08/16/2019 16:26:38 Influenza, split virus, trivalent, preservative 07/20/20 11 completed Iris Melchor null, [facility] 08/16/2019 16:26:38 Influenza, split virus, trivalent, preservative 08/25/20 13 completed Iris Melchor null, [facility] 08/16/2019 16:26:38 Past Encounters Encounter ID Performer Location Encounter Start Date Encounter Closed Date Diagnosis/Indication Diagnosis SNOMED-CT Code Diagnosis ICD10 Code Diagnosis Note [id number] auto[facility]Comm erce [address] [facility] [place] [address] 09/20/2007 00:00:00 [id number] autoEComm erce [address] [facility] [place] [address] 11/18/2007 00:00:00 [id number] autoEComm erce [address] [facility] [place] [address] 05/16/2008 00:00:00 [id number] autoEComm erce [address] [facility] [address] [place] [address] 10/16/2008 00:00:00 [id number] autoEComm erce [address] [facility] [address] [place], [place] [address] 02/19/2009 00:00:00 [id number] autoEComm erce [address] [facility] [address] [place], [place] [address] 10/23/2009 00:00:00 [id number] autoEComm erce [address] [facility] [address] [place], [place] [address] 05/07/2010 00:00:00 [id number] autoEComm erce [address] [facility] [address] [place], [place] [address] 09/23/2010 00:00:00 [id number] autoEComm erce [address] [facility] [address] [place] [address] 04/10/2011 00:00:00 [id number] autoEComm erce [address] [facility] [address] [place] [address] 10/07/2011 00:00:00 [id number] autoEComm rosemariee [address] [facility] [address] [place] [address] 04/09/2012 00:00:00 [id number] autoEComm erce [address] [facility] [address] [place] [address] 03/17/2014 00:00:00 [id number] [facility] Main Office [address] [facility] [address] [place] [address] 09/12/2014 13:19:35 09/12/2014 14:16:50 Essential hypertension 77498963 poor control/ recently poor control at home/ will order labs and refer. [id number] [facility] Main Office [address] [place] [address] [address] [place] [address] 02/09/2015 11:19:47 02/09/2015 11:57:08 Essential hypertension 27279329 Taking meds as prescribed , states BP was normal at home, she always has high BP when coming to Doctor's office. Upper resp iratory infection 28096363 Recent travel [place], will get CXR and start zpak today, robitussin with codeine as needed- no driving or alcohol with med. [id number] Main Office [address] [address] [place] [address] 03/30/2015 10:34:05 03/30/2015 11:24:45 Adult health examination 501616440 pt doing well w/ control of her risks At [facility] ed risk for falls 310207207 Essential hypertension 65638224 white coat htn/ home bp controlled in range of 130/80. Polyp of colon 04146299 Hyperlipidemia 01690629 Screening for malignant neoplasm of breast 228572654 [id number] Tnoy simon Main Office [address] [address] [place] [address] 11/20/2015 08:21:19 11/20/2015 17:10:20 [id number] Tony NobleDoloresNeyda simon Main Office [address] [address] [place] [address] 11/22/2015 08:45:11 11/22/2015 09:37:51 Transient cerebral ischemia 851937554 G45.9 CT initially showed lacunar infarct, MRI did not show acute stroke. Diagnosed with TIA On ASA, Lipitor and BP meds. Should you develop similar symptoms or have severe headache, dizziness, N/V, vision changes, changes in balance, High BP please go to ED. F/U at [facility] in March. Essential hypertension 44031260 I10 Continue current meds as prescribed . Bp today WNL. Hyperlipidemia 15644485 E78.5 Continue atorvastat in daily. [id number] Tony simon Main Office [address] [address] [place] [address] 12/03/2015 13:22:40 12/03/2015 14:08:48 Dehydration 52882117 E86.0 Dehydratio n due to viral infection. Pt. is recommende d to go to the ER to receive IV treatment and labs. Nausea 811401134 R11.0 [id number] Tony simon Main Office [address] [address] [place] [address] 12/11/2015 10:15:43 12/14/2015 16:12:21 [id number] Tony simon Main Office [address] [facility] [address] [place] [address] 12/14/2015 08:56:24 12/14/2015 09:43:28 Liver enzymes outside reference range 791339095 R94.5 pt plans to see Dr Jarquin dec 19 for f/u/pt needs w/u for unexplaine d hepatitis Transient cerebral ischemia 605789315 G45.9 Essential hypertension 87058307 I10 white coat htn/ home bp controlled in range of 130/80. Hyperlipidemia 72284612 E78.5 [id number] Tony simon Main Office [address] [address] [place] [address] 04/17/2016 10:23:53 04/17/2016 12:05:52 Essential hypertension 54367840 I10 white coat htn/ home bp controlled in range of 130/80. Hyperlipidemia 07196917 E78.5 Adult heal th examination 071584693 Z00.00 pt doing well w/ control of her risks [id number] Tony simon Main Office [address] [address] [place] [address] 08/19/2016 10:27:34 08/19/2016 11:42:51 Essential hypertension 06067565 I10 white coat htn/ home bp controlled in range of 130/80. Hyperlipidemia 78570448 E78.5 History of cerebrovascular accident 980951564 Z86.73 Gastroesop hageal reflux disease 614309506 K21.9 [id number] Tony simon Main Office [address] [address] [place] [address] 02/17/2017 09:22:23 02/17/2017 10:04:47 Essential hypertension 00411992 I10 white coat htn/ home bp controlled in range of 130/80. Hyperlipidemia 63788969 E78.5 goal LDL is 70-100 History of transient ischemic attack 670676804 Z86.73 contASA 81 [id number] Tony simon Main Office [address] [address] [place] [address] 04/24/2017 13:32:15 04/24/2017 14:41:37 [id number] Tony simon Main Office [address] [address] [place] [address] 04/30/2017 13:58:03 04/30/2017 15:12:28 Gastroenteritis 31989258 K52.9 see hosp notes Essential hypertension 84037527 I10 reduce bp meds and f/u home readings until PE in 6 weeks [id number] Tony NobleDoloresNeyda simon Main Office [address] [facility] [address] [place] [address] 07/30/2017 08:51:15 07/30/2017 09:34:00 Adult health examination 027024685 Z00.00 pt doing well w/ control of her risks Essential hypertension 47930533 I10 reduce bp meds and f/u home readings until PE in 6 weeks Hyperlipidemia 32162189 E78.5 goal LDL is 70-100 Hypertensive disorder 38 450220 I10 rare episodes of hypertensi ve urgency Anxiety 60291847 F41.9 [id number] Tony simon Main Office [address] [facility] [address] [place] [address] 12/07/2017 10:24:09 12/07/2017 11:17:06 Fever 011810956 R50.9 doubt flu but will check to r/o stop tyl and etoh d/t jaundice below - could use prn advil for short amount of time -- stay hydrated Nausea and vomiting 1693 2000 R11.2 cont prn zofran, consider flat mckinley poonam Jaundice 62048354 R17 most likely d/t re-trial of atorvastat in - advised pt to stop med pt states feels similar to how she did a few yrs ago p lipitor *will fwd this note to neph.* Dysuria 77590173 R30.0 dipstick + -- will wait for urine c&s results to formally come back - push fluids, drink cranberry juice - we will hold off on abx for now since they may hurt the liver as well - if she needs them in 2 days for certain after urine c&s results are back at least it will give more time for her liver to detoxify. Myalgia/my ositis - multiple 827781260 M79.1 [id number] Tony NobleBrian simon Main Office [address] [facility] [address] [place] [address] 12/17/2017 10:58:03 12/17/2017 12:10:13 Jaundice 34536239 R17 resolving [id number] Tony CoralNeyda alfred Main Office [address] [facility] [address] [place] [address] 03/15/2018 09:46:41 03/15/2018 10:38:11 Essential hypertension 87300010 I10 reduce bp meds and f/u home readings until PE in 6 weeks/ Arnaldo will refill bp meds Gastroesop hageal reflux disease 008043532 K21.9 Anxiety 51767138 F41.9 pt uses benzo per Arnaldo for anxiety around her bp issues Alanine aminotransferase above reference range 793416824 R74.0 Hyperlipidemia 96719116 E78.5 goal LDL is 70-100 [id number] Erlin Jacobsen MD Main Office [address] [facility] [address] [place] [address] 09/06/2018 15:48:47 09/07/2018 09:01:13 Adult health examination 357975368 Z00.00 Influenza vaccine needed 9225151939 106 Z23 Hyperlipidemia 32254013 E78.5 levels stable - h/o statin allergy, seeing endo - cont zetia as dir Essential hypertension 18694299 I10 bp and Cr are stable, cont meds as dir Leukocytosis 901058137 D 72.829 likely d/t infxn and / or pred use - recheck cbc next wk Cough 70298257 R05 ? postviral cough -- trial c tessalon and nasal saline spray prn already had [place] [facility] [place] - curr ~ 75% better - lungs clear today - unlikely to have pna Body mass index 25-29 - overweight 829726385 Z68.28 Overweight 100292605 E66 .3 [id number] Araceli Young PA-C Main Office [address] [facility] [address] [place] [address] 03/07/2019 15:40:22 03/07/2019 17:00:05 Essential hypertension 52223292 I10 bp stable, cont meds as dir, check bmp - see below h/o labile htn fol by renal - rev last note 12.18 pt admits to little water intake - rec increase water intake Gastroesop hageal reflux disease 859609406 K21.9 Hyperlipidemia 06389375 E78.5 levels stable - h/o statin allergy, seeing endo - cont zetia as dir Anxiety 06282827 F41.9 pt gets benzo from renal (as per pt) Transient cerebral ischemia 621920652 G45.9 cont baby asa qd as dir - advised of SE of bruising Chronic ki dney disease stage 3 118430131 N18.3 cont f/u c renal Liver enzy mes level above reference range 024135541 R74.8 Dyspnea 890040693 R06.00 as eval wrapping up - pt describes int dyspnea - no cp - can walk up stairs fine - but pt requests card eval in light of her family history Health Concerns Section Related Observation LastModified by Organization Detai ls LastModified Time None Recorded Concern Status LastModified by Organization Details LastModified Time None Recorded Advance Directives Directive Y: [facility] Payers Encounter Date Sequence Insurance Name Policy Number Policy Velasquez Covered Member ID Velasquez Member ID Guarantor Name 12/07/2017 1 [place] [employer] Funmi Janet [id number] 3 Funmi Janet 12/17/2017 1 [place] [employer] Funmi Janet [id number] Funmi Janet 03/15/2018 1 [place] [employer] Funmi Janet [id number] 3 Funmi Janet 09/06/2018 1 [place] [employer] Funmi Janet [id number] Funmi Janet 03/07/2019 1 [place] [employer] Funmi Janet [id number] 3 Funmi Janet Notes Date Note Type Note Provider Name and Address Organization Details Recorded Time 12/07/19 18 text/htm l + h/o hepatotoxicity d/t lipitor 2016, neg hep ABC as per pt -seen by Dr. Jarquin fol by Dr. Mcintosh for CKD - rev. note last month - did give re-trial of atorvastatin - she called her last week d/t nausea - zofran helping called us last w/e - labs stabe - no wbc ct, Cr stable pt c/o 1 wk of fever, malaise, nausea - last vomited 2 days ago no dysuria but urine was dark now is dark yellow pt has been jaundiced x 1 wk as well no cough, chest congestion, sob, cp Tony tate [facility] 12/07/2017 17:31:17 12/17/19 18 text/htm l Skin LesionReported bypatient.Location:face; chest; arms; legs Severity:moderate; pt had jaundice// this is most likely due to statins and pt has stopped statin and notes improvement in jaundice Duration:started 2 week(s) ago Onset/Timing:abrupt Associated Symptoms:no fever; no cold symptoms; no scabbing; no bruising; no lesions multiplying;nausea Tony tate [facility] 12/17/2017 12:36:16 03/15/20 18 text/htm l GERD RefluxReported bypatient.Symptomsno pain swallowing Severity:improving Duration:present 1-4 years; present 5 or more years Onset/Timing:gradual onset Context:no drug/alcohol abuse Associated Symptoms:no frequent coughingGeneric HPI TemplateReported bypatient.Severity:pt had mild TIA/ or stroke. see neuro notes/ see plan for risk factor reduction/ the main issue in 2018 is that pt has risks but cannot seem to tolerate statin so [facility] will help her decide planHyperlipidemiaReported bypatient.Type of hyperlipidemia:combined Duration:chronic; pt on statins now after her mild stroke/ no problems Control:improving Compliance:compliant Complications:no coronary artery disease Risk Factors:hypertension;smoking; pt quit smoking years agoHypertension F/UReported bypatient.Associated Symptoms:no dizziness; no lightheadedness; no chest pain; no shortness of breath; pt has labile HTN/ her hyperion developer prescribes benzo for her Lifestyle:limiting/avoiding salt;not exercising regularly Medications:taking medications as directed Tony tate [facility] 03/15/2018 10:39:07 09/06/20 18 text/htm l Medicare Annual Wellness VisitReported bypatient.Diet and Nutrition:healthy diet Fracture Risk:no history of fractures; no recent explained fracture; no sudden unexplained fractures; no previous musculoskeletal injuries Physical Activity:discussed exercise habits Depression Risk:never feels sad, empty, or tearful; no loss of interest in activities; no significant changes in weight; no sleep disturbances or insomnia; no agitation; no loss of energy; no feelings of worthlessness or guilt; no thoughts of suicide; no history of depression; no history of mood disorders Orientation:no disorientation to time; no disorientation to date; no disorientation to place Concentration and Memory:no decreased concentrating ability; no memory lapses or loss; does not forget words Speech/Motor difficulties:no speech difficulties; no difficulty expressing formulated concepts; no difficulty with fine manipulative tasks; no difficulty writing/copying; no slowed reaction time; does not knock things over when trying to pick them up Hearing:no loss of hearing Vision:no vision problems Activities of Daily Living:able to bathe with limited or no assistance; able to contol urination and bowels; able to dress with limited or no assistance; able to feed self with limited or no assistance; able to get out of chair or bed with limited or no assistance; able to groom with limited or no assistance; able to toilet with limited or no assistance Instrumental Activities of Daily Living:able to do house work with limited or no assistance; able to grocery shop with limited or no assistance; able to manage medications with limited or no assistance; able to manage money with limited or no assistance; able to prepare meals with limited or no assistance; able to use the phone with limited or no assistance Falls Risk Assessment:no frequent falls while walking; no fall in the past year; no fall since last visit; no dizziness/vertigo Home Safety:use of seatbelts; no fire arms; good lighting in the home Erlin Jacobsen MD [address], [address], [facility] 09/08/2018 20:54:09 03/07/20 19 text/htm l Hypertension F/UReported bypatient.Associated Symptoms:no dizziness; no lightheadedness; no chest pain; no shortness of breath; no palpitations; no edema; no calf pain with exertion Lifestyle:regular exercise; limiting/avoiding salt Medications:taking medications as directed; no side effects from medication; checks blood pressure at home, range: (100-130s/40-70s - no dizziness as per pt) Araceli Young PA-C [address] [address], [place], [address], [facility] 03/09/2019 13:11:56 OBGyn Episode No OBEpisode recorded.
--- NOTE | 2024-11-04 09:24 | MHC.OFFWIV ---
Intake Vital Signs 11/04/24 09: Weight 172 lb BP 138/80 Blood Pressure Location Rt brachial Position Sitting Pulse 59 Pulse Source Pulse Oximeter Pulse Oximetry (%) 98 Oxygen Delivery Method Room Air Intake Visit Reasons: EP ?bladder infection Intake Note: Patient here for frequent urination but only urinating a small amount, pain that has been present for 2 days. Patient Tobacco Use Status: Former Tobacco user Allergies acetaminophen [From PERCOCET] Allergy (Unknown, Verified 11/04/24:) UNKNOWN azithromycin Allergy (Unknown, Verified 11/04/24) hives oxycodone [From PERCOCET] Allergy (Unknown, Verified 11/04/24) UNKNOWN Cjaglfp-QXF-NmN Reductase Inhibitor [[id number] REDUCTASE INHIBITOR] Allergy (Unknown, Verified 11/04/24) liver failure, major liver problems nitrofurantoin [From Macrobid] Adverse Reaction (Severe, Verified 11/04/24) breathing atorvastatin [Lipitor] Adverse Reaction (Unknown, Verified 11/04/24) Liver issues z-pack Allergy (Unknown, Uncoded 11/04/24) hives Do you need a note to return to daycare/school/sports/work: No HPI EP ?bladder infection HPI Details This is a 74-year-old female patient who presents to the walk-in clinic today with a 2 day history of urinary frequency, urgency, pressure, dysuria. Denies any fever, chills, or flank pain. Has been trying to drink extra fluids. [facility] Medical History Cough Mammogram normal Dysuria CKD (chronic kidney disease), stage III TIA (transient ischemic attack) Liver hemangioma Hepatitis GERD (gastroesophageal reflux disease) HTN (hypertension) Hyperlipidemia Surgical History H/O colonoscopy Hx of cholecystectomy History of breast surgery History of back surgery History of hysterectomy Family History Father No problems noted. Mother No problems noted. Brother No problems noted. Brother No problems noted. Sister No problems noted. 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 Cognitive needs: No Hearing needs: No Vision needs: Yes Review of Systems Const All systems reviewed & are unremarkable except as noted in HPI and below Physical Exam Vital Signs: Last Vital Signs Pulse 59 11/04/24 09:27 BP 138/80 11/04/24 09:27 Pulse Ox 98 11/04/24 09:27 Oxygen Delivery Method Room Air 11/04/24 09:27 Const General: cooperative, healthy appearing, comfortable and no acute distress Neck Neck: Yes no lymphadenopathy Resp Effort & Inspection: normal respiratory effort Cardio Rate: regular rate Rhythm: regular rhythm General: Yes bladder normal to palpation and Yes no CVA tenderness Bimanual exam- vagina & uterus: bladder normal to palpation Back/Spine/Pelvis Back: no CVA tenderness Skin General skin exam: no rashes or lesions noted Extrem General: Yes no clubbing, cyanosis or edema Psych Appearance: grossly normal Mental Status: mental status grossly normal Speech and movement: Normal speech and movement present Results AMB Urinalysis, Automated UA Leukoctes 125 Tanisha/uL Last Edit by AARON Felder on 11/04/24 09:53 UA Nitrite Positive Last Edit by AARON Felder on 11/04/24 09:53 UA Urobilinogen 0.2 mg/dL Last Edit by AARON Felder on 11/04/24 09:53 UA Protein 30 mg/dL Last Edit by AARON Felder on 11/04/24 09:53 UA pH 5.5 Last Edit by AARON Felder on 11/04/24 09:53 UA Blood 200 Pedro/uL Last Edit by AARON Felder on 11/04/24 09:53 UA Specific Irving 1.030 Last Edit by AARON Felder on 11/04/24 09:53 UA Ketone Negative Last Edit by AARON Felder on 11/04/24 09:53 UA Bilirubin 1 mg/dL Last Edit by AARON Felder on 11/04/24 09:53 UA Glucose 0 mg/dL Last Edit by AARON Felder on 11/04/24 09:53 Assessment & Plan Assessment & Plan (1) Urinary tract infection: Code(s): N39.0 - Urinary tract infection, site not specified Qualifiers: Urinary tract infection type: acute cystitis Hematuria presence: with hematuria Qualified Code(s): N30.01 - Acute cystitis with hematuria Plan: Will start on Cefdinir due to multiple antibiotic allergies and med interactions. Will also prescribe phenazopyridine as patient states she has benefitted from this in the past with UTIs. We reviewed indications, use, possible side effects of these medications. Encouraged increase fluid intake and fully emptying bladder. Patient will return to the clinic if she does not improve with treatment, or if symptoms worsen/new symptoms develop. She verbalizes understanding and agrees to plan. Orders: Orders AMB Urinalysis Automated Today Z13.9 - Encounter for screening, unspecified Medications: New phenazopyridine Take one tablet up to 3 times a day by mouth for urinary discomfort. 200 mg PO TID PRN 6 tabs 0RF pain N30.01 - Acute cystitis with hematuria cefdinir 300 mg PO BID 7 days 14 caps 0RF N30.01 - Acute cystitis with hematuria Coding Level of Care Code Est Pt Level 4 (82391) Diagnoses Acute cystitis with hematuria N30.01 Urinary tract infection type: acute cystitis Hematuria presence: with hematuria
[2024-11-04 09:27] VITALS: BP 138/80; PULSE 59; O2SAT 98
== END 2024-11-04 10:01 | disposition home or self-care (01) ==
PROVIDERS: PCP Internal Medicine; Visit Provider Nurse Practitioner Family
DX: Z13.9 Encounter for screening, unspecified (principal); N30.01 Acute cystitis with hematuria

== ENCOUNTER → 2024-11-04 09:11 | Outpatient (BNVA) | payer MEDICARE, SELFPAY | PROVIDERS: PCP Internal Medicine; Visit Provider Nurse Practitioner Family | DX: N30.01 Acute cystitis with hematuria (principal) | CPT/HCPCS: 81003; 99212 ==

== ENCOUNTER 2024-12-16 07:15 | Outpatient (REF) | payer MEDICARE, SELFPAY ==
--- OUTSIDE RECORDS SUMMARY | 2024-12-16 07:17 | XMS_ITS | Encounter Summary ---
Author Organization [facility] Address [address] [facility] [address] [place] [address] Phone Care Team Providers Care Boom Master Name Role Phone Annelise Griffiths MD Primary Care Provider [phone] Encounter Details Date Type Department Care Team (Late Contact Info) Description 03/26/2021 Orders Only [facility] [address] [facility] [address] [place] [phone] Ivy Mcintosh MD Personal history of colon polyps Social History Tobacco Use Types Packs/Day Years Used Date Smoking Tobacco: Never Alcohol Use Standard Drinks/Week Comments No 0 (1 standard drink = 0.6 oz pur e alcohol) Comments Unknown Sex and Gender Information Value Date Recorded Sex Assigned at Not on file Legal Sex Female 5:25 PM EST Gender Identity Not on file Sexual Orientation Not on file documented as of this encounter Plan of Treatment Upcoming Encounters Date Type Department Care Team (Late st Contact Info) Description 04/05/2025 8:00 AM EDT Office Visit [facility] [address] [address] Мария Smith ARNP [address] [phone] documented as of this encounter Visit Diagnoses Diagnosis Personal history of colon polyps documented in this encounter Care Teams Boom Master Relationship Specialty Start Date End Date Annelise Griffiths MD [address] [place] [address] PCP - General Internal Medicine 03/19/21 documented as of this encounter
--- OUTSIDE RECORDS SUMMARY | 2024-12-16 07:18 | XMS_ITS | Encounter Summary ---
Author Organization [facility] Address [address] [facility] [address] [place] [address] Phone Care Team Providers Care Central Service Technician Name Role Phone Annelise Griffiths MD Primary Care Provider Encounter Details Date Type Department Care Team (Late Contact Info) Description 04/17/2024 Office Communication [facility] [address] [facility] [address] [place] [phone] Мария Smith ARNP [address] [address] Social History Tobacco Use Types Packs/Day Years Used Date Smoking Tobacco: Never Smokeless Tobacco: Never Alcohol Use Standard Drinks/Week Comments [...] Visit [facility] [address] [address] Мария Smith ARNP [address] [address] documented as of this encounter Visit Diagnoses Not on filedocumented in this encounter Care Teams Central Service Technician Relationship Specialty Start Date End Date Annelise Griffiths MD [address] [place] [address] PCP - General Internal Medicine 03/19/21 documented as of this encounter
--- OUTSIDE RECORDS SUMMARY | 2024-12-16 07:18 | XMS_ITS | Encounter Summary ---
Author Organization [employer] Address [address] [facility] 7 [place] [address] Care Team Providers Care Voice Teacher Name Role Phone Unavailable Primary Care Provider Unavailabl e Reason for Visit * Reason Comments Root canal Patient presents tod ay for rot canal # 19,20 Rebecca RODRIGUEZ Encounter Details Date Type Department Care Team (Late st Contact Info) Description 11/18/2024 1:00 PM EST Office Visit [facility] [address] [place], [place] [phone] Timo Hernandez DMD [address] [place], [place] [phone] Previously initiated endodontic therapy completed (Primary Dx) Social History Tobacco Use Types Packs/Day Years Used Date Smoking Tobacco: Former Cigarettes Passive Smoke Exposure: Past Smokeless Tobacco: Never Alcohol Use Standard Drinks/Week Comments Defer 0 (1 standard drink = 0.6 oz pur e alcohol) Comments Unknown Sex and Gender Information Value Date Recorded Sex Assigned at Female 09/19/2024 1:42 PM EST Legal Sex Female 1:42 PM EST Gender Identity Female 09/19/2024 1:42 PM EST Sexual Orientation Choose not to disclose 2023 3:01 PM EST documented as of this encounter Last Filed Vital Signs Vital Sign Reading Time Taken Comments Blood Pressure 120/80 11/18/2024 3:10 PM EST Pulse - - Temperature - - Respiratory Rate - - Oxygen Saturation - - Inhaled Oxygen Concentration - - Weight - - Height - - Body Mass Index - - documented in this encounter Progress Notes * Timo Hernandez DMD - 11/18/2024 1:00 PM EST Patient ID: Funmi Fraser is a 74 y.o. female. Time Out: Timeout Date: 11/18/24, Timeout Time: 114 (Root Canal #19,20) Location: [facility] Tooth: #19 and #20 Procedure: Root Canal Verified the above with patient, it administrative assistant, and provider. Confirmed via patient's chart, intraorally and by radiographs. Medical Staff Credentialing Coordinator: not applicable Chief Complaint Patient presents with Root canal Patient presents today for rot canal # 19,20 Rebecca RODRIGUEZ Medical Hx: Vitals: Blood pressure 120/80. Medications, Med Hx reviewed with patient and updated in chart. Consent Obtained: The risks, benefits, indications, potential complications, and alternatives were explained to the patient and informed consent was obtained with good understanding. Treatment Provided: Dental procedures in this visit D3320 - ENDODONTICS - ENDODONTIC THERAPY (INCLUDING TREATMENT PLAN, CLINICAL PROCEDURES AND FOLLOW-UP CARE) - ENDODONTIC THERAPY, PREMOLAR TOOTH (EXCLUDING FINAL MOSQUE) 20 (Completed) Service provider: Timo Hernandez DMD Billing provider: Timo Hernandez DMD D3330 - ENDODONTICS - ENDODONTIC THERAPY (INCLUDING TREATMENT PLAN, CLINICAL PROCEDURES AND FOLLOW-UP CARE) - ENDODONTIC THERAPY, MOLAR TOOTH (EXCLUDING FINAL MOSQUE) 19 (Completed) Service provider: Timo Hernandez DMD Billing provider: Timo Hernandez DMD [id number] - ADJUNCTIVE GENERAL SERVICES - PROFESSIONAL VISITS - CASE PRESENTATION, SUBSEQUENT TO DETAILED AND EXTENSIVE TREATMENT PLANNING (Completed) Service provider: Timo Hernandez DMD Billing provider: Timo Hernandez DMD Diagnosis: previously initiated RCT #19,20 Pt notes she had some discomfort for a couple weeks after last visit, but now is not in any pain Pt notes she is having pain at #32. Reviewed this is planned for EXT and we will complete at [facility]. Ptunderstands Topical: 20% Benzocaine Anesthesia: 2% Lidocaine (Xylocaine) w/ 1:100,000 epinephrine and 4% Septocaine (Articaine) w/ 1:200,000 epinephrine Number of Cartridges: 1 of each Injection Type: Buccal infiltration and Inferior alveolar nerve block Confirmed profound anesthesia. Isolation: [place] Created access preparation. Canals located: #20- 1 #19 - 4- MB, ML, DB, DL [place] hose maker used to determine working length. Final working length determined to be: #19: MB and ML: 20 mm using direct vision to mesial marginal ridge DB and DL: 19 mm using direct vision to D marginal ridge #20: 21 mm to buccal cusp tip Irrigated with: 6% NaOCl, RC Prep, and 17% EDTA Instrumented using: Hand files and Rotary Final File: F2 Master cone size: F2 Master cone radiograph taken. Note slightly short on #20. Attempted to instrument further but unable to make progress Note that cone ends within 2 mm of radiographic apex which is within acceptable range Final rinse of EDTA and NaOCl completed Dried canal(s) with paper points. Sealer: Bioceramic Sealer Obturation Material: Evgeny Percha Removed excess sealer and evgeny percha. Restorative Material: cotton pellet and Ionolux Ionofil Final radiograph taken. Total Radiographs taken: 3 (1 retake) Patient tolerated procedure well, no complications. Pt informed of slightly short fill on #20 and previous fracture of lingual cusp, and informed of reduced skilled nursing prognosis. Pt understands this, no concerns. Post op instructions given. Dismissed in good condition. NV: EXT #32 Sales Agent Trading Stamps: Rebecca Ramos Dentist: Timo Hernandez DMD documented in this encounter Plan of Treatment Upcoming Encounters Date Type Department Care Team (Late st Contact Info) Description 12/19/2024 1:00 PM EST Office Visit [facility] [address] [place] [address] Timo Hernandez DMD [address] [place] [address] documented as of this encounter Procedures Procedure Name Priority Date/Time Associated Diagnosis Comments 20 ENDODONTIC THERAPY, PREMOLAR TOOTH Routine 11/18/2024 1:00 PM EST Previously initiated endodontic therapy completed 19 ENDODONTIC THERAPY, MOLAR TOOTH Routine 11/18/2024 1:00 PM EST Previously initiated endodontic therapy completed CASE PRESENTATION, DETAILED AND EXTENSIVE TREATMENT PLANNING Routine 11/18/2024 1:00 PM EST Previously initiated endodontic therapy completed documented in this encounter Visit Diagnoses Diagnosis Previously initiated endodontic therapy completed- Primary documented in this encounter
--- OUTSIDE RECORDS SUMMARY | 2024-12-16 07:18 | XMS_ITS | Clinical Summary ---
Author Organization [facility] [address] [facility] Address [address] [place] [address] Phone Care Team Providers Care Hydraulic Operator Name Role Phone Annelise Griffiths MD Primary Care Provider [phone] Allergies Active Allergy Reactions Criticality Noted Date Comments Atorvastatin Unknown,Other 03/19/2021 Other Reaction(s): liver problem Nitrofurantoin Other 03/19/2021 Other Reaction(s): diff breathing Oxycodone 09/16/2024 Other Reaction(s): ? diff breathing Oxycodone-Acetaminophen Unknown,Other Other Reaction(s): N&V, dizziness Pravastatin Rash 09/17/2021 Rosuvastatin Rash 09/17/2021 Simvastatin Rash 09/17/2021 Ugvywbi-Dpz-Mof Reductase Inhibitors Other 03/19/2021 Other Reaction(s): liver problems Medications lisinopriL (PRINIVIL,ZESTR IL) 20 mg tablet Active LORazepam (ATIVAN) 0.5 mg tablet Take 1 tablet (0.5 mg total) by mouth 1 (one) time each day. Max Daily Amount: 0.5 mg 08/05/2021 Active omeprazole (PriLOSEC) [address] capsule Take 1 capsule (20 mg total) by mouth 1 (one) time each day. Active spironolactone (ALDACTONE) 25 mg tablet Take 1 tablet (25 mg total) by mouth 1 (one) time each day. Active amLODIPine (NORVASC) 5 mg tablet Take 1 tablet (5 mg total) by mouth 1 (one) time each day. 02/24/2024 Active cloNIDine (PGQRMSYA-ZFQ-4 ) 0.1 mg/[address] 1 patch on the skin 1 (one) time per week. Active Active Problems Problem Noted Date Diagnosed Date Abnormal liver enzymes 09/16/2024 History of adenomatous polyp of colon 09/16/2024 Encounters Date Type Department Care Team Description 09/29/2024 Telephone Gastroenterology - [address] [phone] Milka Call [place] 09/28/2024 7:33 AM EST - 09/28/2024 11:59 PM EST Hospital Encounter [facility] Ultrasound [address] [place] [phone] Abnormal liver enzymes Discharge Disposition: Home or Self Care 09/16/2024 9:30 AM EST Office Visit Gastroenterology - [address] [phone] Quentin Bliss MD Abnormal liver enzymes (Primary Dx); History of adenomatous polyp of colon from Last 3 Months Social History Tobacco Use Types Packs/Day Years Used Date Smoking Tobacco: Former Cigarettes Tobacco Cessation:Counseling Given: Not Answered Alcohol Use Standard Drinks/Week Comments Not Asked 0 (1 standard drink = 0.6 oz pur e alcohol) special occasion/wedding Comments Unknown Sex and Gender Information Value Date Recorded Sex Assigned at Not on file Legal Sex Female 1:45 AM EST Gender Identity Not on file Sexual Orientation Not on file Obstetrics History Last Filed Vital Signs Vital Sign Reading Time Taken Comments Blood Pressure - - Pulse - - Temperature - - Respiratory Rate - - Oxygen Saturation - - Inhaled Oxygen Concentration - - Weight 78.5 kg (173 lb) 09/16/2024 9:22 AM EST Height 170.2 cm (5' 7 ) 09/16/2024 9:22 AM EST Body Mass Index 27.1 09/16/2024 9:22 AM EST Plan of Treatment Health Maintenance Due Date Last Done Comments Hepatitis A Vaccines (1 of 2 - Risk 2-dose series) 1970 Zoster Vaccines (1 of 2) 1970 RSV Immunization Patients 60+ Years Old (1 - Risk 60-74 years 1-dose series) 2011 DTaP,Tdap,and Td Vaccines (2 - Td or Tdap) 02/19/2019 02/19/2009 Breast Cancer Screening 09/10/2020 09/10/2018 COVID-19 Vaccine (3 - Moderna risk series) 04/08/2021 03/11/2021, 02/10/2021 Cholesterol Screening (Lipid Panel) 09/28/2022 Colorectal Cancer Screening: Colonoscopy 09/28/2022 Depression Screening 09/28/2022 Falls Risk Assessment 09/28/2022 Hepatitis C Screening 09/28/2022 Medicare Annual Wellness Visit 09/28/2022 Osteoporosis Screening (Bone Density Screening) 09/28/2022 Social Influencers of Health Screening 09/28/2022 Hypertension/CHF/CAD Annual BMP Blood Test 09/16/2025 09/16/2024 Pneumococcal Vaccine: 50+ Years Completed 07/29/2021, 09/07/2016 Influenza Vaccine Completed 08/29/2024, , 08/18/2022, Additional history exists HIB Vaccines Aged Out No longer eligi ble based on patient's age to complete this topic HPV Vaccines Aged Out No longer eligi ble based on patient's age to complete this topic Hepatitis B Vaccines Aged Out No long er eligible based on patient's age to complete this topic IPV Vaccines Aged Out No longer eligi ble based on patient's age to complete this topic MMR Vaccines Aged Out No longer eligi ble based on patient's age to complete this topic Meningococcal ACWY Vaccine Aged Out N o longer eligible based on patient's age to complete this topic Meningococcal B Vacine Aged Out No lo nger eligible based on patient's age to complete this topic RSV Immunization Patients Under 20 months Aged Out No longer eligible based on patient's age to complete this topic Varicella Vaccines Aged Out No longer eligible based on patient's age to complete this topic Procedures Procedure Name Priority Date/Time Associated Diagnosis Comments US ABDOMEN LIMITED Routine 09/28/2024 9: 47 AM EST Abnormal liver enzymes PROTEIN AND CREATININE WITH RATIO, URINE Routine 09/16/2024 10:06 AM EST Chronic kidney disease (CKD) stage G3a/A1, moderately decreased glomerular filtration rate (GFR) between 45-59 mL/min/1.73 square meter and albuminuria creatinine ratio less than 30 mg/g (CMS/HCC) Essential hypertension, malignant Persistent proteinuria RENAL FUNCTION PANEL Routine 09/16/2024 10:06 AM EST Chronic kidney disease (CKD) stage G3a/A1, moderately decreased glomerular filtration rate (GFR) between 45-59 mL/min/1.73 square meter and albuminuria creatinine ratio less than 30 mg/g (CMS/HCC) Essential hypertension, malignant Persistent proteinuria PARATHYROID HORMONE INTACT Routine 09/16/2024 10:06 AM EST Chronic kidney disease (CKD) stage G3a/A1, moderately decreased glomerular filtration rate (GFR) between 45-59 mL/min/1.73 square meter and albuminuria creatinine ratio less than 30 mg/g (CMS/HCC) Essential hypertension, malignant Persistent proteinuria COMPLETE BLOOD COUNT Routine 09/16/2024 10:06 AM EST Chronic kidney disease (CKD) stage G3a/A1, moderately decreased glomerular filtration rate (GFR) between 45-59 mL/min/1.73 square meter and albuminuria creatinine ratio less than 30 mg/g (CMS/HCC) Essential hypertension, malignant Persistent proteinuria TIGER TOP URINE TUBE Routine 09/16/2024 10:03 AM EST Chronic kidney disease (CKD) stage G3a/A1, moderately decreased glomerular filtration rate (GFR) between 45-59 mL/min/1.73 square meter and albuminuria creatinine ratio less than 30 mg/g (CMS/HCC) Essential hypertension, malignant EXTRA TUBES Routine 09/16/2024 10:03 AM EST Chronic kidney disease (CKD) stage G3a/A1, moderately decreased glomerular filtration rate (GFR) between 45-59 mL/min/1.73 square meter and albuminuria creatinine ratio less than 30 mg/g (CMS/HCC) Essential hypertension, malignant from Last 3 Months Results * US Abdomen Limited (09/28/2024 9:47 AM EST) Anatomical Region Laterality Modality Body Ultrasound 09/28/2024 9:18 AM EST Impressions 09/28/2024 9:21 AM EST Fatty infiltration of the liver. -------- FINAL REPORT -------- Dictated By: Jovana Tripp Dictated Date: 09/28/2024 09:18 ET Assigned Physician: Jovana Tripp Reviewed and Electronically Signed By: Jovana Tripp Signed Date: 09/28/2024 09:21 ET Workstation ID: [id number] Transcribed By: Self Edit Transcribed Date: 09/28/2024 09:18 ET Narrative 09/28/2024 9:21 AM EST INDICATION: ??Abnormal liver function tests FINDINGS: Ultrasound of the liver was obtained. No prior studies available for comparison. Liver: 15 cm. Diffusely increased hepatic echotexture. No focal mass. 13 mm left lobe cyst. No solid mass or intrahepatic ductal dilatation. Portal vein patent with hepatopedal flow. Common bile duct: 6 mm Gallbladder: Surgically absent. Right kidney: Possible 17 mm upper pole cyst as well as 6 mm angiomyolipoma. Pancreas: Poorly visualized due to bowel gas. Procedure Note Jovana Tripp MD - 09/28/2024 INDICATION: Abnormal liver function tests FINDINGS: Ultrasound of the liver was obtained. No prior studies availablefor comparison. Liver: 15 cm. Diffusely increased hepatic echotexture. No focal mass. 13mm left lobe cyst. No solid mass or intrahepatic ductal dilatation. Portalvein patent with hepatopedal flow. Common bile duct: 6 mm Gallbladder: Surgically absent. Right kidney: Possible 17 mm upper pole cyst as well as 6 mmangiomyolipoma. Pancreas: Poorly visualized due to bowel gas. IMPRESSION: Fatty infiltration of the liver. -------- FINAL REPORT -------- Dictated By: Jovana Tripp Dictated Date: 09/28/2024 09:18 ET Assigned Physician: Jovana Tripp Reviewed and Electronically Signed By: Jovana Tripp Signed Date: 09/28/2024 09:21 ET Workstation ID: [id number] Transcribed By: Self Edit Transcribed Date: 09/28/2024 09:18 ET us Quentin Bliss MD IM US PROCEDURES Final Res ult * Protein and creatinine with ratio, urine (09/16/2024 10:06 AM EST) Protein, Urine 17 mg/dL LAB CHEMISTRY METHOD 09/16/2024 3:25 PM [facility] Prot/Creat, Ur 0.10 <=0.20 mg/mg creat LAB CHEMISTRY METHOD 09/16/2024 3:25 PM [facility] Creatinine, Urine 177.0 mg/dL LAB CHEMISTRY METHOD 09/16/2024 3:25 PM [facility] Urine Urine specimen obtained by clean catch procedure / Unknown Non-blood Collection / Unknown 09/16/2024 10:06 AM EST 09/16/2024 11:31 AM EST us Lalo Molina MD LAB URINE ORDERABLES Final Result [facility] [address] [place] [address], * (ABNORMAL) Complete blood count (09/16/2024 10:06 AM EST) [facility] WBC 7.8 4.8 - 10.8 K/mcL LAB HEMETOLOGY METHOD 09/16/2024 11:50 AM [facility] RBC 4.60 3.80 - 4.80 M/mcL LAB HEMETOLOGY METHOD 09/16/2024 11:50 AM [facility] Hemoglobin 13.6 11.5 - 16.0 g/dL LAB HEMETOLOGY METHOD 09/16/2024 11:50 AM [facility] Hematocrit 42.3 35.0 - 47.0 % LAB HEMETOLOGY METHOD 09/16/2024 11:50 AM [facility] MCV 91.6 79.0 - 98.0 FL LAB HEMETOLOGY METHOD 09/16/2024 11:50 AM [facility] MCH 29.4 27.0 - 32.0 pcg LAB HEMETOLOGY METHOD 09/16/2024 11:50 AM [facility] MCHC 32.2 32.0 - 37.0 g/dL LAB HEMETOLOGY METHOD 09/16/2024 11:50 AM EST [facility] RDW 13.9 11.0 - 15.0 % LAB HEMETOLOGY METHOD 09/16/2024 11:50 AM [facility] Platelets 263 130 - 400 K/mcL LAB HEMETOLOGY METHOD 09/16/2024 11:50 AM [facility] MPV 11.2(H) 7.0 - 11.0 FL LAB HEMETOLOGY METHOD 09/16/2024 11:50 AM [facility] NRBC 0.0 <1.0 % LAB HEMETOLOGY METHOD 09/16/2024 11:50 AM [facility] NRBC Absolute 0.00 <0.10 K/mcL LAB HEMETOLOGY METHOD 09/16/2024 11:50 AM [facility] Blood Venous blood specimen / Unknown Venipuncture / Unknown 09/16/2024 10:06 AM EST 09/16/2024 11:29 AM EST us Lalo Molina MD LAB BLOOD ORDERABLES Final Result [facility] [address] [place] [address], * Parathyroid hormone intact (09/16/2024 10:06 AM EST) PTH 19.3 18.5 - 88.0 pcg/mL LAB CHEMISTRY METHOD 09/16/2024 2:34 PM EST [facility] Blood Venous blood specimen / Unknown Venipuncture / Unknown 09/16/2024 10:06 AM EST 09/16/2024 11:28 AM EST us Lalo Molina MD LAB BLOOD ORDERABLES Final Result [facility] [address] [place] [address], * Renal function panel (09/16/2024 10:06 AM EST) Sodium 142 133 - 145 mmol/L LAB CHEMISTRY METHOD 09/16/2024 2:23 PM [facility] Potassium 4.0 3.5 - 5.5 mmol/L LAB CHEMISTRY METHOD 09/16/2024 2:23 PM [facility] Chloride 110 96 - 110 mmol/L LAB CHEMISTRY METHOD 09/16/2024 2:23 PM [facility] CO2 28 21 - 32 mmol/L LAB CHEMISTRY METHOD 09/16/2024 2:23 PM [facility] Anion Gap 4 3 - 11 LAB CHEMISTRY METHOD 09/16/2024 2:23 PM [facility] Glucose 74 70 - 100 mg/dL LAB CHEMISTRY METHOD 09/16/2024 2:23 PM [facility] BUN 18 5 - 25 mg/dL LAB CHEMISTRY METHOD 09/16/2024 2:23 PM [facility] Creatinine 0.99 0.50 - 1.10 mg/dL LAB CHEMISTRY METHOD 09/16/2024 2:23 PM [facility] eGFR 60 >=60 mL/min/1. 73m2 LAB CHEMISTRY METHOD 09/16/2024 2:23 PM [facility] Comment:Calculation based on the??Chronic Kidney Disease Epidemiology Collaboration (CKD-EPI) equation refit??without adjustment for race. BUN/Creatinine Ratio 18.2 LAB CHEMISTRY METHOD 09/16/2024 2:23 PM [facility] Albumin 3.4 3.2 - 5.0 g/dL LAB CHEMISTRY METHOD 09/16/2024 2:23 PM [facility] Calcium 9.2 8.5 - 10.5 mg/dL LAB CHEMISTRY METHOD 09/16/2024 2:23 PM EST [facility] Phosphorus 3.5 2.5 - 4.5 mg/dL LAB CHEMISTRY METHOD 09/16/2024 2:23 PM EST [facility] Blood Venous blood specimen / Unknown Venipuncture / Unknown 09/16/2024 10:06 AM EST 09/16/2024 11:28 AM EST us Lalo Molina MD LAB BLOOD ORDERABLES Final Result Performing Organization Address City/[facility]/ZIP Co de Phone Number [facility] [address] [place] [address], [place] [phone] * Jaffrey top urine tube (09/16/2024 10:03 AM EST) Extra Tube Hold for add-ons. 09/16/2024 1:01 PM EST [facility] Comment:Auto resulted. Urine Urine specimen obtained by clean catch procedure / Unknown 09/16/2024 10:03 AM EST 09/16/2024 11:33 AM EST us Lalo Molina MD LAB URINE ORDERABLES Final Result Performing Organization Address City/[facility]/ZIP Co de Phone Number [facility] [address] [place] [address], [place] [phone] from Last 3 Months Insurance [facility] MEDICARE Care Teams Hydraulic Operator Relationship Specialty Start Date End Date Annelise Griffiths MD [address] [place] [address] PCP - General Internal Medicine 08/13/24
--- OUTSIDE RECORDS SUMMARY | 2024-12-16 07:18 | XMS_ITS | Encounter Summary ---
Author Organization [facility] Address [address] [facility] [address] [place] [address] Phone Care Team Providers Care Alumni Secretary Name Role Phone Annelise Griffiths MD Primary Care Provider Encounter Details Date Type Department Care Team (Late Contact Info) Description 05/22/2024 Office Communication [facility] [address] [facility] [address] [place] [phone] Мария Smith ARNP [address] [phone] Social History Tobacco Use Types [...] Visit [facility] [address] [phone] Мария Smith ARNP [address] [phone] documented as of this encounter Visit Diagnoses Not on filedocumented in this encounter Care Teams Alumni Secretary Relationship Specialty Start Date End Date Annelise Griffiths MD [address] [place] [address] PCP - General Internal Medicine 03/19/21 documented as of this encounter
--- OUTSIDE RECORDS SUMMARY | 2024-12-16 07:18 | XMS_ITS | Data Portability ---
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 Plan of Treatment Reminders Order Date Submit Date Provider Last Modified By Organization Details Last Modified Time Details Appointments None recorded. Lab CMP, serum or plasma 2018 019 [facility], [address], [address], [place], [id number], 9 18:47:48 CBC w/ auto diff 2017 018 [facility], [address], [place], [address], 8 20:28:11 hepatic function panel, serum 2017 018 [facility], [address], [place], [address], 8 22:14:23 hepatic function panel, serum - copy all labs to Dr Syed Jarquin 2017 018 [facility], [address], [place], [address], 8 14:36:02 urinalysi s complete, reflex culture 2017 018 [facility], [address], [address], [place], [address], 8 21:21:44 hepatic function panel, serum 2017 018 [facility], [address], [address], [place], [address], 8 15:02:53 urinalysi s, dipstick 2017 018 pmadden In-Office Order, Internal Use Only DO Not Attach Compendium DO Not Attach Compendium, Do Not Delete/merge, [id number] 8 11:07:53 rapid flu (A+B) 2017 018 pmadden In-Office Order, Internal Use Only DO Not Attach Compendium DO Not Attach Compendium, Do Not Delete/merge, [id number] 8 11:07:53 CK (creatine kinase), total, serum 2017 018 [facility], [address], [address], [place], [address], 8 15:02:51 Referral cardiolog ist referral 2018 019 satish Wolff MD, [address], [address], [place], [address], 9 08:56:49 physical therapist referral - At risk for falling 2017 018 [facility], [address] [place], [address], 8 09:01:13 gastroent erologist referral - pt had episode of jaundice which is most likely due to statin reaction. Labs to be repeated next week. pt needs f/u appt w/GI in December 252017 018 lisa Bashiret, [address] [place], [address], 8 10:24:32 Procedures None recorded. Surgeries None recorded. Imaging None recorded. Medication Orders omeprazol e 20 mg capsule,d elayed release 2018 019 [facility], [address], [place], [id number], 9 17:44:15 lisinopri l 20 mg tablet 2018 019 [facility], [address], [place], [id number], 9 17:44:16 ezetimibe 10 mg tablet 2018 019 [facility], [address], [place], [id number], 9 17:44:14 Tessalon Perles 100 mg capsule 2017 018 [facility]ultz[facility], [address], [place], [id number], 9 16:02:00 omeprazol e 20 mg capsule,d elayed release 2017 018 abigby Not available 8 11:32:13 Patient Targets Encounter Date Encounter Id Patient Goals Patient Target Last Modified By Organization Details Last Modified Time 09/06/2018 [id number] salvage determiner goal of Blood Pressure 140 / 90 Not available Not available Not available salvage determiner goal of Exercise level Not available Not available Not available salvage determiner goal of Tobacco Smoking Status Not available Not available Not available salvage determiner goal of Excess Body Weight Loss % [...] goals. pmadden Not available 09/07/2018 20:10:28 03/07/2019 [id number] assisted goal of Blood Pressure 140 / 90 Not available Not available Not available assisted goal of Exercise level Not available Not available Not available assisted goal of Tobacco Smoking Status Not available [...] By Organization Details Last Modified Time 12/07/2017 [id number] jaundice: care instructions pmadden Not available 12/07/2017 11:08:02 nausea and vomiting: care instructions pmadden Not available 12/07/2017 11:07:53 dehydration: care instructions pmadden Not available 12/07/2017 11:07:53 Discussed risks for driving while using this medication.mm. I have reviewed the note and agree with the assessment and plan of care. quinn Not available 12/07/2017 17:31:03 09/06/2018 [id number] cough: care instructions pmadden Not available 09/06/2018 [...] medication. pmadden Not available 09/06/2018 17:20:45 03/07/2019 [id number] Medications (OTC, herbal therapies, supplements) reviewed and reconciled with patient and or caregiver, including potential side effects, drug interactions, instructions, and the consequences of not taking medication. Reviewed potential barriers to medication adherence, such as side effects from medication or cost of medication. Patient will follow up and keep appointment as scheduled. pmadden Not available 03/09/2019 13:07:44 Reason for Referral Shipping And Receiving Material Handler Referral for Jaundice pt had episode of jaundice which is most likely due to statin reaction. Labs to be repeated next week. pt needs f/u appt w/GI in December Referring Physician: Tony Mojica, Internal Medicine, Encounter Date: 12/17/2017 Physical Therapist Referral for Adult health examination At risk for falling Referring Physician: Araceli Young, Internal Medicine, Encounter Date: 09/06/2018 Checking Clerk Referral for Dy spnea Referring Physician: Araceli Young, Internal Medicine, Encounter Date: 03/07/2019 Results Created Date Observation Date Name Description Value Unit Range Abnormal Flag Note LastModifiedBy Organization Detail LastModifiedTime 12/05/19 18 12/05/2017 CBC w/ auto diff WBC 9.0 K/mm3 (4.0-1 1.0) Not Available [facility] [address], [place], [address], 12/05/2017 14:01:14 12/05/19 18 12/05/2017 CBC w/ auto diff RBC 4.53 M/mm3 (4.20- 5.40) Not Available [facility] [address] [place], [address], 12/05/2017 14:01:14 12/05/19 18 12/05/2017 CBC w/ auto diff HGB 13.4 gm/dL (12.0- 16.0) Not Available [facility] [address] [place], [address], 12/05/2017 14:01:14 12/05/19 18 12/05/2017 CBC w/ auto diff HCT 41.6 % (37.0- 47.0) Not Available [facility] [address] [place], [address], 12/05/2017 14:01:14 12/05/19 18 12/05/2017 CBC w/ auto diff MCV 91.8 fL (80.0- 100.0) Not Available [facility] [address] [place], [address], 12/05/2017 14:01:14 12/05/19 18 12/05/2017 CBC w/ auto diff MCH 29.6 pg (27.0- 34.0) Not Available [facility] [address] [place], [address], 12/05/2017 14:01:14 12/05/19 18 12/05/2017 CBC w/ auto diff MCHC 32.2 g/dL (33.0- 37.0) low Not Available [facility] [address] [place], [address], 12/05/2017 14:01:14 12/05/19 18 12/05/2017 CBC w/ auto diff plt 235 K/mm3 (150-4 60) Not Available [facility] [address] [place], [address], 12/05/2017 14:01:14 12/05/19 18 12/05/2017 CBC w/ auto diff RDW-SD 45.5 fL (<47.0 ) Not Available [facility] [address] [place], [address], 12/05/2017 14:01:14 12/05/19 18 12/05/2017 CBC w/ auto diff MPV 11.3 fL (9.4-1 2.4) Not Available [facility] [address] [place], [address], 12/05/2017 14:01:14 12/05/19 18 12/05/2017 CBC w/ auto diff automated NRBC 0.0 #/100 _WBC' s Not Available [facility] [address] [place], [address], 12/05/2017 14:01:14 12/05/19 18 12/05/2017 CBC w/ auto diff abs. NRBC 0.0 K/mm3 Not Available [facility] [address] [place], [address], 12/05/2017 14:01:14 12/05/19 18 12/05/2017 CBC w/ auto diff neut # 5.4 K/mm3 (1.3-7 .0) Not Available [facility] [address] [place], [address], 12/05/2017 14:01:14 12/05/19 18 12/05/2017 CBC w/ auto diff lymph # 1.8 K/mm3 (0.8-3 .1) Not Available [facility] [address] [place], [address], 12/05/2017 14:01:14 12/05/19 18 12/05/2017 CBC w/ auto diff mono# 0.4 K/mm3 (0.4-0 .9) Not Available [facility] [address] [place], [address], 12/05/2017 14:01:14 12/05/19 18 12/05/2017 CBC w/ auto diff eo # 1.1 K/mm3 (0.0-0 .4) high Not Available [facility] [address] [place], [address], 12/05/2017 14:01:14 12/05/19 18 12/05/2017 CBC w/ auto diff baso # 0.1 K/mm3 (0.0-0 .1) Not Available [facility] [address] [place], [address], 12/05/2017 14:01:14 12/05/19 18 12/05/2017 CBC w/ auto diff abs. imm gran 0.1 K/mm3 Not Available [facility] [address] [place], [address], 12/05/2017 14:01:14 12/05/19 18 12/05/2017 CBC w/ auto diff neut 60.5 % (44-76 ) Not Available [facility] [address] [place], [address], 12/05/2017 14:01:14 12/05/19 18 12/05/2017 CBC w/ auto diff lymph 19.9 % (15-43 ) Not Available [facility] [address] [place], [address], 12/05/2017 14:01:14 12/05/19 18 12/05/2017 CBC w/ auto diff monocyte 4.9 % (4.5-1 0.5) Not Available [facility] [address] [place], [address], 12/05/2017 14:01:14 12/05/19 18 12/05/2017 CBC w/ auto diff eo 12.6 % (0-6) high Not Available [facility] [address] [place], [address], 12/05/2017 14:01:14 12/05/19 18 12/05/2017 CBC w/ auto diff baso 0.7 % (0-2) Not Available [facility] [address] [place], [address], 12/05/2017 14:01:14 12/05/19 18 12/05/2017 CBC w/ auto diff imm gran 1.4 % (0.0-0 .6) high Not Available [facility] [address] [place], [address], 12/05/2017 14:01:14 12/05/19 18 12/05/2017 BMP, serum or plasm a glucose 83 mg/dL (70-99 ) Not Available [facility] [address] [place], [address], 12/05/2017 15:51:55 12/05/19 18 12/05/2017 BMP, serum or plasm a BUN 18 mg/dL (8-23) Not Available [facility] [address] [place], [address], 12/05/2017 15:51:55 12/05/19 18 12/05/2017 BMP, serum or plasm a creatinine 1.2 mg/dL (0.5-1 .0) high Not Available [facility] [address], [address], 12/05/2017 15:51:55 12/05/19 18 12/05/2017 BMP, serum or plasm a sodium 143 mmol/ L (133-1 45) Not Available [facility] [address], [address], 12/05/2017 15:51:55 12/05/19 18 12/05/2017 BMP, serum or plasm a potassium 4.5 mmol/ L (3.6-5 .2) Not Available [facility] [address], [address], 12/05/2017 15:51:55 12/05/19 18 12/05/2017 BMP, serum or plasm a chloride 103 mmol/ L (98-10 7) Not Available [facility] [address], [address], 12/05/2017 15:51:55 12/05/19 18 12/05/2017 BMP, serum or plasm a bicarbonate 28 mmol/ L (22-29 ) Not Available [facility] [address] [place], [address], 12/05/2017 15:51:55 12/05/19 18 12/05/2017 BMP, serum or plasm a anion gap 12 (4-17) Not Available [facility] [address] [place], [address], 12/05/2017 15:51:55 12/05/19 18 12/05/2017 BMP, serum or plasm a calcium 9.0 mg/dL (8.6-1 0.5) Not Available [facility] [address] [place], [address], 12/05/2017 15:51:55 12/05/19 18 12/05/2017 BMP, serum [...] Available [facility] [address] [place], [address], 12/05/2017 15:51:55 12/05/19 18 12/05/2017 BMP, serum [...] [facility] [address] [place], [address], 12/05/2017 15:51:55 12/07/19 18 12/07/2017 CK (crea irlanda kinas e), total , serum CK (creatine kinase) 38 U/L (0-190 ) TOTAL CPK MAXIM NTRAT ION TOO LOW FOR ISOEN ZYME RUBÉN SIS Not Available [facility] [address] [place], [address], 12/07/2017 15:02:51 12/07/19 18 12/07/2017 hepat ic funct ion panel , serum bilirubin,to yolie 4.7 mg/dL (0-1.2 ) high Not Available [facility] [address] [place], [address], 12/07/2017 15:02:53 12/07/19 18 12/07/2017 hepat ic funct ion panel , serum bilirubin, direct 3.9 mg/dL (0-0.3 ) high Not Available [facility] [address] [place], [address], 12/07/2017 15:02:53 12/07/19 18 12/07/2017 hepat ic funct ion panel , serum indirect bilirubin 0.8 mg/dL (0.0-0 .7) high Not Available [facility] [address] [place], [address], 12/07/2017 15:02:53 12/07/19 18 12/07/2017 hepat ic funct ion panel , serum albumin 3.6 gm/dL (3.4-4 .8) Not Available [facility] [address] [place], [address], 12/07/2017 15:02:53 12/07/19 18 12/07/2017 hepat ic funct ion panel , serum AST 205 U/L (0-32) high Not Available [facility] [address] [place], [address], 12/07/2017 15:02:53 12/07/19 18 12/07/2017 hepat ic funct ion panel , serum ALT 366 U/L (0-33) high Not Available [facility] [address] [place], [address], 12/07/2017 15:02:53 12/07/19 18 12/07/2017 hepat ic funct ion panel , serum alk phos 372 U/L (35-10 4) high Not Available [facility] [address] [place], [address], 12/07/2017 15:02:53 12/07/19 18 12/07/2017 hepat ic funct ion panel , serum total protein 6.5 gm/dL (6.2-8 .2) Not Available [facility] [address] [place], [address], 12/07/2017 15:02:53 12/07/19 18 12/07/2017 urina lysis compl ete, refle x cultu re appear/color DARK YELLO W CLEAR Not Available [facility] [address] [place], [address], 12/07/2017 21:21:44 12/07/19 18 12/07/2017 urina lysis compl ete, refle x cultu re sp. gravity 1.025 (1.002 -1.030 ) Not Available [facility] [address] [place], [address], 12/07/2017 21:21:44 12/07/19 18 12/07/2017 urina lysis compl ete, refle x cultu re urine pH 5.0 (4.0-8 .0) Not Available [facility] [address] [place], [address], 12/07/2017 21:21:44 12/07/19 18 12/07/2017 urina lysis compl ete, refle x cultu re urine albumin 1+ (neg) abnormal Not Available [facility] [address] [place], [address], 12/07/2017 21:21:44 12/07/19 18 12/07/2017 urina lysis compl ete, refle x cultu re urine glucose NEGATI VE (neg) Not Available [facility] [address] [place], [address], 12/07/2017 21:21:44 12/07/19 18 12/07/2017 urina lysis compl ete, refle x cultu re urine ketones NEGATI VE (neg) Not Available [facility] [address] [place], [address], 12/07/2017 21:21:44 12/07/19 18 12/07/2017 urina lysis compl ete, refle x cultu re urine bilirubin 2+ (neg) abnormal Not Available [facility] [address] [place], [address], 12/07/2017 21:21:44 12/07/19 18 12/07/2017 urina lysis compl ete, refle x cultu re urine hemoglobn 1+ (neg) abnormal Not Available [facility] [address] [place], [address], 12/07/2017 21:21:44 12/07/19 18 12/07/2017 urina lysis compl ete, refle x cultu re urine nitrite POSITI VE (neg) abnormal Not Available [facility] [address] [place], [address], 12/07/2017 21:21:44 12/07/19 18 12/07/2017 urina lysis compl ete, refle x cultu re urine leukocyte 2+ (neg) abnormal Not Available [facility] [address] [place], [address], 12/07/2017 21:21:44 12/07/19 18 12/07/2017 urina lysis compl ete, refle x cultu re urobilinogen 4 mg/dL (norm) abnormal Not Available [facility] [address] [place], [address], 12/07/2017 21:21:44 12/07/19 18 12/07/2017 urina lysis compl ete, refle x cultu re urine WBC's 39 /hpf (0-5) high Not Available [facility] [address] [place], [address], 12/07/2017 21:21:44 12/07/19 18 12/07/2017 urina lysis compl ete, refle x cultu re urine RBC's 1 /hpf (<3) Not Available [facility] [address] [place], [address], 12/07/2017 21:21:44 12/07/19 18 12/07/2017 urina lysis compl ete, refle x cultu re bacteria HEAVY hpf (neg) abnormal Not Available [facility] [address] [place], [address], 12/07/2017 21:21:44 12/07/19 18 12/07/2017 urina lysis compl ete, refle x cultu re mucus SLIGHT /lpf Not Available [facility] [address] [place], [address], 12/07/2017 21:21:44 12/07/19 18 12/07/2017 urina lysis compl ete, refle x cultu re squamous epith 9 /hpf Not Available [facility] [address] [place], [address], 12/07/2017 21:21:44 12/07/19 18 12/07/2017 urina lysis compl ete, refle x cultu re clarity CLEAR (clear ) Not Available [facility] [address] [place], [address], 12/07/2017 21:21:44 12/07/19 18 12/07/2017 urina lysis compl ete, refle x cultu re culture indication CULTUR E INDICA MARYLU Not Available [facility] [address] [place], [address], 12/07/2017 21:21:44 12/07/19 18 12/08/2017 cultu re, urine specimen description URINE Not Available [facility] [address] [place], [address], 12/09/2017 13:00:44 12/07/19 18 12/08/2017 cultu re, urine special requests NONE Not Available [facility] [address] [place], [address], 12/09/2017 13:00:44 12/07/19 18 12/09/2017 cultu re, urine culture >100,0 00 COL/ML ESCHER ICHIA COLI Not Available [facility] [address] [place], [address], 12/09/2017 13:00:44 12/07/19 18 12/09/2017 cultu re, urine report status FINAL 2017 Not Available [facility] [address] [place], [address], 12/09/2017 13:00:44 12/07/19 18 12/09/2017 cultu re, urine organism ORGANI SM >100,0 00 COL/ML ESCHER ICHIA COLI Not Available [facility] [address] [place], [address], 12/09/2017 13:00:44 12/07/19 18 12/09/2017 cultu re, urine method METHOD MIN. INHIB. CONC. (MCG/M L) Not Available [facility] [address] [place], [address], 12/09/2017 13:00:44 12/07/19 18 12/09/2017 cultu re, urine ampicillin AMPICI LLIN RESIST ANT resistant Not Available [facility] [address] [place], [address], 12/09/2017 13:00:44 12/07/19 18 12/09/2017 cultu re, urine ampicillin/s ulbactam AMPICI LLIN/S ULBACT AM RESIST ANT resistant Not Available [facility] [address] [place], [address], 12/09/2017 13:00:44 12/07/19 18 12/09/2017 cultu re, urine amoxicillin/ clavulanic acid AMOXIC ILLIN/ CLAVUL AN SUSCEP TIBLE susceptib le Not Available [facility] [address] [place], [address], 12/09/2017 13:00:44 12/07/19 18 12/09/2017 cultu re, urine cefazolin CEFAZO ADDISON SUSCEP TIBLE susceptib le Not Available [facility] [address] [place], [address], 12/09/2017 13:00:44 12/07/19 18 12/09/2017 cultu re, urine cefepime CEFEPI ME SUSCEP TIBLE susceptib le Not Available [facility] [address] [place], [address], 12/09/2017 13:00:44 12/07/19 18 12/09/2017 cultu re, urine ceftriaxone CEFTRI AXONE SUSCEP TIBLE susceptib le Not Available [facility] [address] [place], [address], 12/09/2017 13:00:44 12/07/19 18 12/09/2017 cultu re, urine ciprofloxaci n CIPROF LOXACI N SUSCEP TIBLE susceptib le Not Available [facility] [address] [place], [address], 12/09/2017 13:00:44 12/07/19 18 12/09/2017 cultu re, urine gentamicin GENTAM ICIN SUSCEP TIBLE susceptib le Not Available [facility] [address] [place], [address], 12/09/2017 13:00:44 12/07/19 18 12/09/2017 cultu re, urine levofloxacin LEVOFL OXACIN SUSCEP TIBLE susceptib le Not Available [facility] [address] [place], [address], 12/09/2017 13:00:44 02/12/20 18 12/09/2017 cultu re, urine meropenem MEROPE NEM SUSCEP TIBLE susceptib le Not Available [facility] [address] [place], [address], 12/09/2017 13:00:44 12/07/19 18 12/09/2017 cultu re, urine nitrofuranto in NITROF URANTO IN SUSCEP TIBLE susceptib le Not Available [facility] [address] [place], [address], 12/09/2017 13:00:44 12/07/19 18 12/09/2017 cultu re, urine piperacillin /tazobactam PIPERA CILLIN /TAZOB AC SUSCEP TIBLE susceptib le Not Available [facility] [address] [place], [address], 12/09/2017 13:00:44 12/07/19 18 12/09/2017 cultu re, urine trimeth/sulf amethox TRIMET H/SULF AMETHO X RESIST ANT resistant Not Available [facility] [address] [place], [address], 12/09/2017 13:00:44 12/07/19 18 12/09/2017 cultu re, 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 Not Available [facility] [address] [place], [address], 12/09/2017 13:00:44 12/07/19 18 12/07/2017 rapid flu (A+B) Flu A negati ve Not Available In-Office Order Internal Use Only DO Not Attach Compendium DO Not Attach Compendium, Do Not Delete/merge, [id number] 12/07/2017 10:54:49 12/07/19 18 12/07/2017 rapid flu (A+B) Flu B negati ve Not Available In-Office Order Internal Use Only DO Not Attach Compendium DO Not Attach Compendium, Do Not Delete/merge, [id number] 12/07/2017 10:54:49 12/07/19 18 12/07/2017 urina lysis [...] 12/07/2017 urina lysis , dipst ick Specific Yoder 1.030 Not Available In-Off ice Order Internal [...] DO Not Attach Compendium, Do Not Delete/merge, [id number] 12/07/2017 10:57:51 12/07/19 18 12/07/2017 urina lysis , dipst ick Glucose Negati ve Not Available In-Office Order Internal Use Only DO Not Attach Compendium DO Not Attach Compendium, Do Not Delete/merge, [id number] 12/07/2017 10:57:51 12/07/19 18 12/07/2017 urina lysis , dipst ick Color Bison Not Available In-Office Order Internal Use Only DO Not Attach Compendium DO Not Attach Compendium, Do Not Delete/merge, [id number] 12/07/2017 10:57:51 12/07/19 18 12/07/2017 urina lysis , dipst ick Appearance Cloudy Not Available In-Offi ce Order Internal Use Only DO Not Attach Compendium DO Not Attach Compendium, Do Not Delete/merge, [id number] 12/07/2017 10:57:51 12/22/19 18 12/22/2017 hepat ic funct ion panel , serum bilirubin,to yolie 0.7 mg/dL (0-1.2 ) Not Available [facility] [address] [place], [address], 12/22/2017 14:36:02 12/22/19 18 12/22/2017 hepat ic funct ion panel , serum bilirubin, direct 0.3 mg/dL (0-0.3 ) Not Available [facility] [address] [place], [address], 12/22/2017 14:36:02 12/22/19 18 12/22/2017 hepat ic funct ion panel , serum indirect bilirubin 0.4 mg/dL (0.0-0 .7) Not Available [facility] [address] [place], [address], 12/22/2017 14:36:02 12/22/19 18 12/22/2017 hepat ic funct ion panel , serum albumin 3.9 gm/dL (3.4-4 .8) Not Available [facility] [address] [place], [address], 12/22/2017 14:36:02 12/22/19 18 12/22/2017 hepat ic funct ion panel , serum AST 21 U/L (0-32) Not Available [facility] [address] [place], [address], 12/22/2017 14:36:02 12/22/19 18 12/22/2017 hepat ic funct ion panel , serum ALT 39 U/L (0-33) high Not Available [facility] [address] [place], [address], 12/22/2017 14:36:02 12/22/19 18 12/22/2017 hepat ic funct ion panel , serum alk phos 172 U/L (35-10 4) high Not Available [facility] [address], [address], 12/22/2017 14:36:02 12/22/19 18 12/22/2017 hepat ic funct ion panel , serum total protein 6.8 gm/dL (6.2-8 .2) Not Available [facility] [address], [address], 12/22/2017 14:36:02 03/15/20 18 03/15/2018 hepat ic funct ion panel , serum bilirubin,to yolie 0.4 mg/dL (0-1.2 ) Not Available [facility] [address], [address], 03/15/2018 22:14:22 03/15/20 18 03/15/2018 hepat ic funct ion panel , serum bilirubin, direct 0.1 mg/dL (0-0.3 ) Not Available [facility] [address], [address], 03/15/2018 22:14:22 03/15/20 18 03/15/2018 hepat ic funct ion panel , serum indirect bilirubin 0.3 mg/dL (0.0-0 .7) Not Available [facility] [address] [place], [address], 03/15/2018 22:14:22 03/15/20 18 03/15/2018 hepat ic funct ion panel , serum albumin 4.2 gm/dL (3.4-4 .8) Not Available [facility] [address] [place], [address], 03/15/2018 22:14:22 03/15/20 18 03/15/2018 hepat ic funct ion panel , serum AST 23 U/L (0-32) Not Available [facility] [address] [place], [address], 03/15/2018 22:14:22 03/15/20 18 03/15/2018 hepat ic funct ion panel , serum ALT 30 U/L (0-33) Not Available [facility] [address] [place], [address], 03/15/2018 22:14:22 03/15/20 18 03/15/2018 hepat ic funct ion panel , serum alk phos 120 U/L (35-10 4) high Not Available [facility] [address] [place], [address], 03/15/2018 22:14:22 03/15/20 18 03/15/2018 hepat ic funct ion panel , serum total protein 7.2 gm/dL (6.2-8 .2) Not Available [facility] [address] [place], [address], 03/15/2018 22:14:22 08/31/20 18 08/31/2018 CBC w/ auto diff WBC 12.9 K/mm3 (4.0-1 1.0) high Not Available [facility] [address] [place], [address], 08/31/2018 14:43:33 08/31/20 18 08/31/2018 CBC w/ auto diff RBC 4.65 M/mm3 (4.20- 5.40) Not Available [facility] [address] [place], [address], 08/31/2018 14:43:33 08/31/20 18 08/31/2018 CBC w/ auto diff HGB 13.8 gm/dL (11.7- 15.5) Not Available [facility] [address] [place], [id number], 08/31/2018 14:43:33 08/31/20 18 08/31/2018 CBC w/ auto diff HCT 42.3 % (35.7- 45.8) Not Available [facility] [address] [place], [id number], 08/31/2018 14:43:33 08/31/20 18 08/31/2018 CBC w/ auto diff MCV 91.0 fL (80.0- 100.0) Not Available [facility] [address] [place], [id number], 08/31/2018 14:43:33 08/31/20 18 08/31/2018 CBC w/ auto diff MCH 29.7 pg (27.0- 34.0) Not Available [facility] [address] [place], [id number], 08/31/2018 14:43:33 08/31/20 18 08/31/2018 CBC w/ auto diff MCHC 32.6 g/dL (33.0- 37.0) low Not Available [facility] [address] [place], [address], 08/31/2018 14:43:33 08/31/20 18 08/31/2018 CBC w/ auto diff plt 270 K/mm3 (150-4 60) Not Available [facility] [address] [place], [address], 08/31/2018 14:43:33 08/31/20 18 08/31/2018 CBC w/ auto diff RDW-SD 44.9 fL (<47.0 ) Not Available [facility] [address] [place], [address], 08/31/2018 14:43:33 08/31/20 18 08/31/2018 CBC w/ auto diff MPV 10.4 fL (9.4-1 2.4) Not Available [facility] [address] [place], [address], 08/31/2018 14:43:33 08/31/20 18 08/31/2018 CBC w/ auto diff automated NRBC 0.0 #/100 _WBC' s Not Available [facility] [address] [place], [address], 08/31/2018 14:43:33 08/31/20 18 08/31/2018 CBC w/ auto diff abs. NRBC 0.0 K/mm3 Not Available [facility] [address] [place], [address], 08/31/2018 14:43:33 08/31/20 18 08/31/2018 hepat itis C virus Ab, serum anti-hepatit is C NEGAT ALLYN Refer ence range : Negat allyn This test was perfo rmed on the Abbot t Archi tect immun oassa y syste m. Not Available [facility] [address] [place], [address], 08/31/2018 16:17:01 08/31/20 18 08/31/2018 CMP, serum or plasm a glucose 76 mg/dL (70-99 ) Not Available [facility] [address] [place], [address], 08/31/2018 20:51:23 08/31/20 18 08/31/2018 CMP, serum or plasm a BUN 20 mg/dL (8-23) Not Available [facility] [address] [place], [address], 08/31/2018 20:51:23 08/31/20 18 08/31/2018 CMP, serum or plasm a creatinine 1.2 mg/dL (0.5-1 .0) high Not Available [facility] [address] [place], [address], 08/31/2018 20:51:23 08/31/20 18 08/31/2018 CMP, serum or plasm a sodium 145 mmol/ L (133-1 45) Not Available [facility] [address] [place], [address], 08/31/2018 20:51:23 08/31/20 18 08/31/2018 CMP, serum or plasm a potassium 3.6 mmol/ L (3.6-5 .2) Not Available [facility] [address] [place], [address], 08/31/2018 20:51:23 08/31/20 18 08/31/2018 CMP, serum or plasm a chloride 107 mmol/ L (98-10 7) Not Available [facility] [address] [place], [address], 08/31/2018 20:51:23 08/31/20 18 08/31/2018 CMP, serum or plasm a bicarbonate 27 mmol/ L (22-29 ) Not Available [facility] [address] [place], [address], 08/31/2018 20:51:23 08/31/20 18 08/31/2018 CMP, serum or plasm a anion gap 11 (4-17) Not Available [facility] [address] [place], [address], 08/31/2018 20:51:23 08/31/20 18 08/31/2018 CMP, serum or plasm a albumin 4.0 gm/dL (3.4-4 .8) Not Available [facility] [address] [place], [address], 08/31/2018 20:51:23 08/31/20 18 08/31/2018 CMP, serum or plasm a calcium 8.7 mg/dL (8.6-1 0.5) Not Available [facility] [address] [place], [address], 08/31/2018 20:51:23 08/31/20 18 08/31/2018 CMP, serum or plasm a bilirubin,to oylie 0.4 mg/dL (0-1.2 ) Not Available [facility] [address] [place], [address], 08/31/2018 20:51:23 08/31/20 18 08/31/2018 CMP, serum or plasm a total protein 6.5 gm/dL (6.2-8 .2) Not Available [facility] [address] [place], [address], 08/31/2018 20:51:23 08/31/20 18 08/31/2018 CMP, serum or plasm a Ag ratio 1.6 Not Available [facility] [address] [place], [address], 08/31/2018 20:51:23 08/31/20 18 08/31/2018 CMP, serum or plasm a AST 30 U/L (0-32) Not Available [facility] [address] [place], [address], 08/31/2018 20:51:23 08/31/20 18 08/31/2018 CMP, serum or plasm a alk phos 97 U/L (35-10 4) Not Available [facility] [address] [place], [address], 08/31/2018 20:51:23 08/31/20 18 08/31/2018 CMP, serum or plasm a ALT 40 U/L (0-33) high Not Available [facility] [address] [place], [address], 08/31/2018 20:51:23 08/31/20 18 08/31/2018 CMP, serum [...] Available [facility] [address] [place], [address], 08/31/2018 20:51:23 08/31/20 18 08/31/2018 CMP, serum [...] Available [facility] [address] [place], [address], 08/31/2018 20:51:23 08/31/20 18 08/31/2018 lipid panel , serum cholesterol, total 197 mg/dL (<200) Not Available [facility] [address] [place], [address], 08/31/2018 20:51:24 08/31/20 18 08/31/2018 lipid panel , serum triglyceride 119 mg/dL (<150) Not Available [facility] [address] [place], [address], 08/31/2018 20:51:24 08/31/20 18 08/31/2018 lipid panel , serum HDL chol 53 mg/dL (>39) Not Available [facility] [address] [place], [address], 08/31/2018 20:51:24 08/31/20 18 08/31/2018 lipid panel , serum LDL cholesterol, calculated 120 mg/dL (0-130 ) Not Available [facility] [address] [place], [address], 08/31/2018 20:51:24 08/31/20 18 08/31/2018 lipid panel , serum non HDL cholesterol (calc) 144 mg/dL (<160) Not Available [facility] [address] [place], [address], 08/31/2018 20:51:24 08/31/20 18 08/31/2018 TSH, serum or plasm a TSH 1.72 mIU/m L (0.40- 4.00) Not Available [facility] [address] [place], [address], 08/31/2018 21:14:43 08/31/20 18 09/01/2018 vitam in D, 25-hy droxy , total , serum 25OH vitamin D 45.8 NG/mL (20-50 ) Serum 25OHD : 20 to 50 ng/mL : suffi cient in vitam in D. Refer ence: [facility] Data Brief : No.59 December: Vitam in D Statu s: Unite d State s: 2000- 2005 As of , Vitam in D, 25-Hy droxy assay has been gleason ed. In some [facility], the new assay may yield a highe r value (up to 15% incre ase) in ulis rison to the old assay . These incre ases would mainl y be notic eable at value s of great er than 50 ng/ml . Not Available [facility] [address] [place], [address], 09/01/2018 01:57:01 09/10/20 18 09/10/2018 CBC w/ auto diff WBC 10.7 K/mm3 (4.0-1 1.0) Not Available [facility] [address] [place], [address], 09/10/2018 20:28:11 09/10/20 18 09/10/2018 CBC w/ auto diff RBC 4.91 M/mm3 (4.20- 5.40) Not Available [facility] [address] [place], [address], 09/10/2018 20:28:11 09/10/20 18 09/10/2018 CBC w/ auto diff HGB 14.7 gm/dL (11.7- 15.5) Not Available [facility] [address] [place], [address], 09/10/2018 20:28:11 09/10/20 18 09/10/2018 CBC w/ auto diff HCT 46.3 % (35.7- 45.8) high Not Available [facility] [address] [place], [address], 09/10/2018 20:28:11 09/10/20 18 09/10/2018 CBC w/ auto diff MCV 94.3 fL (80.0- 100.0) Not Available [facility] [address] [place], [address], 09/10/2018 20:28:11 09/10/20 18 09/10/2018 CBC w/ auto diff MCH 29.9 pg (27.0- 34.0) Not Available [facility] [address] [place], [address], 09/10/2018 20:28:11 09/10/20 18 09/10/2018 CBC w/ auto diff MCHC 31.7 g/dL (33.0- 37.0) low Not Available [facility] [address] [place], [address], 09/10/2018 20:28:11 09/10/20 18 09/10/2018 CBC w/ auto diff plt 252 K/mm3 (150-4 60) Not Available [facility] [address] [place], [address], 09/10/2018 20:28:11 09/10/20 18 09/10/2018 CBC w/ auto diff RDW-SD 48.5 fL (<47.0 ) high Not Available [facility] [address] [place], [address], 09/10/2018 20:28:11 09/10/20 18 09/10/2018 CBC w/ auto diff MPV 10.5 fL (9.4-1 2.4) Not Available [facility] [address] [place], [address], 09/10/2018 20:28:11 09/10/20 18 09/10/2018 CBC w/ auto diff automated NRBC 0.0 #/100 _WBC' s Not Available [facility] [address] [place], [address], 09/10/2018 20:28:11 09/10/20 18 09/10/2018 CBC w/ auto diff abs. NRBC 0.0 K/mm3 Not Available [facility] [address] [place], [address], 09/10/2018 20:28:11 09/10/20 18 09/10/2018 CBC w/ auto diff neut # 5.8 K/mm3 (1.3-7 .0) Not Available [facility] [address] [place], [address], 09/10/2018 20:28:11 09/10/20 18 09/10/2018 CBC w/ auto diff lymph # 3.2 K/mm3 (0.8-3 .1) high Not Available [facility] [address] [place], [address], 09/10/2018 20:28:11 09/10/20 18 09/10/2018 CBC w/ auto diff mono# 0.7 K/mm3 (0.4-0 .9) Not Available [facility] [address] [place], [address], 09/10/2018 20:28:11 09/10/20 18 09/10/2018 CBC w/ auto diff eo # 1.0 K/mm3 (0.0-0 .4) high Not Available [facility] [address] [place], [address], 09/10/2018 20:28:11 09/10/20 18 09/10/2018 CBC w/ auto diff baso # 0.1 K/mm3 (0.0-0 .1) Not Available [facility] [address] [place], [address], 09/10/2018 20:28:11 09/10/20 18 09/10/2018 CBC w/ auto diff abs. imm gran 0.1 K/mm3 Not Available [facility] [address] [place], [address], 09/10/2018 20:28:11 09/10/20 18 09/10/2018 CBC w/ auto diff neut 54.0 % (44-76 ) Not Available [facility] [address] [place], [address], 09/10/2018 20:28:11 09/10/20 18 09/10/2018 CBC w/ auto diff lymph 29.4 % (15-43 ) Not Available [facility] [address] [place], [address], 09/10/2018 20:28:11 09/10/20 18 09/10/2018 CBC w/ auto diff monocyte 6.1 % (4.5-1 0.5) Not Available [facility] [address] [place], [address], 09/10/2018 20:28:11 09/10/20 18 09/10/2018 CBC w/ auto diff eo 9.1 % (0-6) high Not Available [facility] [address] [place], [address], 09/10/2018 20:28:11 09/10/20 18 09/10/2018 CBC w/ auto diff baso 0.7 % (0-2) Not Available [facility] [address] [place], [address], 09/10/2018 20:28:11 09/10/20 18 09/10/2018 CBC w/ auto diff imm gran 0.7 % (0.0-0 .6) high Not Available [facility] [address] [place], [address], 09/10/2018 20:28:11 07/15/20 19 07/15/2019 CMP, serum or plasm a glucose 83 mg/dL (70-99 ) Not Available [facility] [address] [place], [address], 07/15/2019 18:47:48 07/15/2007/15/2019 CMP, serum or plasm a BUN 22 mg/dL (8-23) Not Available [facility] [address] [place], [address], 07/15/2019 18:47:48 07/15/2007/15/2019 CMP, serum or plasm a creatinine 1.2 mg/dL (0.5-1 .0) high Not Available [facility] [address] [place], [address], 07/15/2019 18:47:48 07/15/20 19 07/15/2019 CMP, serum or plasm a sodium 139 mmol/ L (133-1 45) Not Available [facility] [address] [place], [address], 07/15/2019 18:47:48 07/15/2007/15/2019 CMP, serum or plasm a potassium 4.5 mmol/ L (3.6-5 .2) Not Available [facility] [address] [place], [address], 07/15/2019 18:47:48 07/15/2007/15/2019 CMP, serum or plasm a chloride 104 mmol/ L (98-10 7) Not Available [facility] [address] [place], [address], 07/15/2019 18:47:48 07/15/2007/15/2019 CMP, serum or plasm a bicarbonate 26 mmol/ L (22-29 ) Not Available [facility] [address] [place], [address], 07/15/2019 18:47:48 07/15/20 19 07/15/2019 CMP, serum or plasm a anion gap 9 (4-17) Not Available [facility] [address] [place], [address], 07/15/2019 18:47:48 07/15/20 19 07/15/2019 CMP, serum or plasm a albumin 4.1 gm/dL (3.4-4 .8) Not Available [facility] [address] [place], [address], 07/15/2019 18:47:48 07/15/20 19 07/15/2019 CMP, serum or plasm a calcium 9.2 mg/dL (8.6-1 0.5) Not Available [facility] [address] [place], [address], 07/15/2019 18:47:48 07/15/20 19 07/15/2019 CMP, serum or plasm a bilirubin,to yolie 0.4 mg/dL (0-1.2 ) Not Available [facility] [address] [place], [address], 07/15/2019 18:47:48 07/15/20 19 07/15/2019 CMP, serum or plasm a total protein 7.2 gm/dL (6.2-8 .2) Not Available [facility] [address] [place], [address], 07/15/2019 18:47:48 07/15/2007/15/2019 CMP, serum or plasm a Ag ratio 1.3 Not Available [facility] [address] [place], [address], 07/15/2019 18:47:48 07/15/2007/15/2019 CMP, serum or plasm a AST 23 U/L (0-32) Not Available [facility] [address] [place], [address], 07/15/2019 18:47:48 07/15/20 19 07/15/2019 CMP, serum or plasm a alk phos 117 U/L (35-10 4) high Not Available [facility] [address], [address], 07/15/2019 18:47:48 07/15/20 19 07/15/2019 CMP, serum or plasm a ALT 30 U/L (0-33) Not Available [facility] [address] [place], [address], 07/15/2019 18:47:48 07/15/20 19 07/15/2019 CMP, serum [...] Available [facility] [address] [place], [address], 07/15/2019 18:47:48 07/15/20 19 07/15/2019 CMP, serum [...] Not Available [facility] [address] [place], [address], 07/15/2019 18:47:48 09/10/20 18 09/10/2018 MAMMO , [...] Lay letter mailed to [place] augustin WSN: [id number] Dictat ed By: Teresa Bautista MD Dictat ed Date/T nadeen: 2:20 pm Review ed By: Teresa Bautista MD Signed By: Teresa Bautista MD Signed Date/T nadeen: 2:20 pm Transc ribed By: ELLIE Transc riptio n Date/T nadeen: 1:58 pm Birads : [place] augustin Class: Outpat ient [facility] (Outpt Imaging) [address] [place], [address], 03/07/2019 16:31:22 06/22/20 19 06/20/2019 NM, myoca rdial perfu marlo scan No observ ation record ed. [facility] [address] [place] [address], [place], [address], 06/22/2019 13:05:01 Result Notes None recorded. Problems Name Problem SNOMED Code Status Onset Date Resolution Date Notes Provider Name and Address Organization Details Recorded Time Benign neoplasm of breast 487859789 Completed 201302/17/2017 Alisson Pedersen MA null, [facility] 7 09:28:11 Screenin g for malignan t neoplasm of breast Completed 201105/09/2014 RECORDED 06/16/20 12 10:30AM BY NEIL SHELDON MA, ANNOTATI ON/ADDEN DUM Alisson Pedersen MA null, [facility] 7 09:27:58 Screenin g for malignan t neoplasm of cervix Completed 201105/09/2014 RECORDED 06/16/20 12 10:30AM BY NEIL SHELDON MA, ANNOTATI ON/ADDEN DUM Alisson Pedersen MA null, [facility] 7 09:27:52 Screenin g for malignan t neoplasm of colon Completed 201105/09/2014 RECORDED 06/16/20 12 10:30AM BY NEIL SHELDON MA, ANNOTATI ON/ADDEN DUM Iris Melchor null, [facility] 6 09:47:05 Cyst of oral soft tissue 326442540 Completed 201105/09/2014 RECORDED 06/16/20 12 10:30AM BY NEIL SHELDON MA, ANNOTATI ON/ADDEN DUM Iris Melchor null, [facility] 6 09:47:05 Disorder of skin 34090746 Completed 201105/09/2014 RECORDED 06/16/20 12 10:30AM BY NEIL SHELDON MA, ANNOTATI ON/ADDEN DUM Iris Melchor null, [facility] 6 09:47:05 Elevated level of transami nase and lactic acid dehydrog enase 989544559 Completed 201105/09/2014 RECORDED 06/16/20 12 10:30AM BY NEIL SHELDON MA, ANNOTATI ON/ADDEN DUM Iris Melchor null, [facility] 6 09:47:05 Essentia l hyperten marlo 38076511 Active 2013 Irisjose antonio tate [facility] 9 16:26:38 Weight finding 731960308 Completed 201105/09/2014 RECORDED 06/16/20 12 10:30AM BY NEIL SHELDON MA, ANNOTATI ON/ADDEN DUM Iris tate [facility] 6 09:47:05 Family history of polyp of colon 006725304 Completed 201302/17/2017 Alisson tate, [facility] 7 09:28:28 Influenz a vaccine needed 31535867242 06 Completed 200705/09/2014 RECORDED 10/16/20 08 7:39AM BY NEIL SHELDON MA, ANNOTATI ON/ADDEN DUM Iris tate [facility] 6 09:47:05 Hyperlip idemia 54830479 Active 2013 Iris tate [facility] 9 16:26:38 Essentia l hyperten marlo 05572263 Completed 201005/09/2014 RECORDED 05/28/20 11 11:12AM BY NEIL SHELDON MA, ANNOTATI ON/ADDEN DUM Alisson tate [facility] 7 09:28:36 Hypoglyc emia 080800475 Active 2013 Iris tate [facility] 9 16:26:38 Impaired fasting glycemia 993031814 Completed 201105/09/2014 RECORDED 06/16/20 12 10:30AM BY NEIL SHELDON MA, ANNOTATI ON/ADDEN DUM Iris tate [facility] 6 09:47:05 Glucose toleranc e test outside referenc e range 492895889 Completed 201302/17/2017 Alisson tate [facility] 7 09:28:08 Low back pain 083485477 Completed 201302/17/2017 Alisson tate [facility] 7 09:28:05 Malaise and fatigue 655993896 Completed 201105/09/2014 RECORDED 06/16/20 12 10:30AM BY NEIL SHELDON MA, ANNOTATI ON/ADDEN DUM Iris tate [facility] 6 09:47:05 Screenin g for malignan t neoplasm of breast Completed 201102/17/2017 Alisson tate [facility] 7 09:27:58 Fibromyo sitis 84440605 Active 2013 Iris tate [facility] 9 16:26:38 Administ ration of bacteria l and viral vaccine Completed 200805/09/2014 RECORDED 02/20/20 09 7:45AM BY NEIL SHELDON MA, OFFICE VISIT Iris tate [facility] 6 09:47:05 Disorder of oral soft tissues 45553749 Completed 201105/09/2014 RECORDED 06/16/20 12 10:30AM BY NEIL SHELDON MA, ANNOTATI ON/ADDEN DUM Iris tate [facility] 6 09:47:05 Tobacco user [id number] Completed 201105/09/2014 RECORDED 04/09/20 12 8:07AM BY NEIL SHELDON MA, ANNOTATI ON/ADDEN DUM Iris tate [facility] 6 09:47:05 History of clinical finding in subject 339165959 Completed 201102/17/2017 Alisson tate [facility] 7 09:28:17 Adult health examinat ion Completed 201105/09/2014 RECORDED 06/16/20 12 10:30AM BY NEIL SHELDON MA, ANNOTATI ON/ADDEN DUM Alisson tate, [facility] 7 09:28:02 Tobacco dependen ce syndrome 10872328 Active 2013 Iris tate, [facility] 9 16:26:38 Screenin g for malignan t neoplasm of breast Completed 201106/05/2014 RECORDED 06/16/20 12 10:30AM BY NEIL SHELDON MA, ANNOTATI ON/ADDEN DUM Alisson tate, [facility] 7 09:27:58 Screenin g for malignan t neoplasm of cervix Completed 201302/17/2017 Alisson tate, [facility] 7 09:27:52 Screenin g for malignan t neoplasm of colon Completed 201106/05/2014 RECORDED 06/16/20 12 10:30AM BY NEIL SHELDON MA, ANNOTATI ON/ADDEN DUM Iris tate, [facility] 6 09:47:05 Cyst of oral soft tissue 616440848 Completed 201106/05/2014 RECORDED 06/16/20 12 10:30AM BY NEIL SHELDON MA, ANNOTATI ON/ADDEN DUM Iris tate, [facility] 6 09:47:05 Excess skin of eyelid 261983904 Completed 201302/17/2017 lAisson tate, [facility] 7 09:27:55 Disorder of skin 11217731 Completed 201106/05/2014 RECORDED 06/16/20 12 10:30AM BY NEIL SHELDON MA, ANNOTATI ON/ADDEN DUM Iris tate, [facility] 6 09:47:05 Elevated level of transami nase and lactic acid dehydrog enase 669689173 Completed 201106/05/2014 RECORDED 06/16/20 12 10:30AM BY NEIL SHELDON MA, JOSE ALBERTO ON/ADDEN DUM Iris tate, [facility] 6 09:47:05 Weight finding 030309808 Completed 201106/05/2014 RECORDED 06/16/20 12 10:30AM BY NEIL SHELDON MA, JOSE ALBERTO ON/ADDEN DUM Iirs tate, [facility] 6 09:47:05 Influenz a vaccine needed 81217420140 06 Completed 200706/05/2014 RECORDED 10/16/20 08 7:39AM BY NEIL SHELDON MA, JOSE ALBERTO ON/ADDEN DUM Iris tate, [facility] 6 09:47:05 Adult health examinat ion Completed 201302/17/2017 Alisson tate, [facility] 7 09:28:02 Impaired fasting glycemia 215839800 Completed 201106/05/2014 RECORDED 06/16/20 12 10:30AM BY NEIL SHELDON MA, ANNOTATI ON/ADDEN DUM Iris tate [facility] 6 09:47:05 Malaise and fatigue 960437811 Completed 201106/05/2014 RECORDED 06/16/20 12 10:30AM BY NEIL SHELDON MA, ANNOTATI ON/ADDEN DUM Iris tate, [facility] 6 09:47:05 Menopaus al and postmeno pausal disorder s 992850820 Active 2013 Iris tate [facility] 9 16:26:38 Administ ration of bacteria l and viral vaccine Completed 200806/05/2014 RECORDED 02/20/20 09 7:45AM BY NEIL SHELDON MA, OFFICE VISIT Iris tate [facility] 6 09:47:05 Disorder of oral soft tissues 92525109 Completed 201106/05/2014 RECORDED 06/16/20 12 10:30AM BY NEIL SHELDON MA, ANNOTATI ON/ADDEN DUM Iris tate [facility] 6 09:47:05 Tobacco user [id number] Completed 201106/05/2014 RECORDED 04/09/20 12 8:07AM BY NEIL SHELDON MA, ANNOTATI ON/ADDEN DUM Iris tate [facility] 6 09:47:05 Adult health examinat ion Completed 201106/05/2014 RECORDED 06/16/20 12 10:30AM BY NEIL SHELDON MA, ANNOTATI ON/ADDEN DUM Alisson tate [facility] 7 09:28:02 Upper respirat ory infectio n 47790316 Completed 02/17/2017 Alisson tate [facility] 7 09:28:15 Polyp of colon 63282568 Active Iris tate [facility] 9 16:26:38 Transien t cerebral ischemia 177114838 Active Iris tate [facility] 9 16:26:38 Dehydrat ion 50150857 Completed 02/17/2017 Alisson tate [facility] 7 09:28:20 Nausea 323072054 Completed 02/17/2017 Alisson tate [facility] 7 09:28:23 Liver enzymes outside referenc e range 140224182 Completed 02/17/2017 Alisson tate [facility] 7 09:27:48 Overweig ht 602690013 Active 2017 Iris Melchorjose antonio tate [facility] 9 16:26:38 Problem Notes None recorded. Procedures Surgical History Date Name Laterality Status Provider Name and Address Organization Details Recorded Time 09/10/20 18 Most Recent Mammogram completed Fabienne Corrales [facility] 09/10/2018 14:32:27 09/10/20 18 Mammogram Screening completed Fabienne Antoni [facility] 09/10/2018 14:32:20 09/06/20 18 Mini-Cog Test completed Lolly Cisnerossury [facility] 09/06/2018 16:44:34 06/22/20 18 Date of Last Colonoscopy completed Lolly Blaynesury [facility] 09/07/2018 10:24:24 07/30/20 17 Fall Risk Assessment completed Alisson Pedersen MA [facility] 07/30/2017 09:01:50 07/30/20 17 Mini-Cog Test completed Alisson Pedersen MA [facility] 07/30/2017 09:05:40 04/22/20 16 Date of Last Pap Smear completed Iris Melchor [facility] 04/24/2016 09:46:33 06/22/20 15 Colonoscopy completed Alisson Pedersen MA [facility] 07/27/2017 11:24:09 05/05/20 14 Most Recent Bone Density completed Darrian Reyes [facility] 04/17/2016 10:42:16 Tonsillectomy completed Chanelle Padilla [facility] 09/12/2014 08:48:03 Cholecystectomy completed Chanellecharli Padilla [facility] 09/12/2014 08:48:03 Hysterectomy completed Chanelle [place] Leisenring [facility] 09/12/2014 08:48:03 Imaging Results Imaging Date Name Status LastModified by Organiz ation Details LastModified Time 09/10/2018 MAMMO, screening, digital, bilateral completed [facility] (Outpt Imaging) [address], [place], [address], 03/07/2019 16:31:22 06/20/2019 NM, myocardial perfusion scan completed [facility] [address] [facility], [place], [address], 06/22/2019 13:05:01 Procedure Notes None recorded. Medical Equipment None Reported. Allergies Allergen ID Allergen Name Allergen Category Reaction Reaction Severity Criticality Documentation Date Start Date Code Code System Note Provider Name and Address Organization Details Recorded Time 94889 acetamino phen / oxycodone medicatio n Not available Not available Not available 12/07/2017 17758 3 RxNorm Alisson tate [facility] 8 10:38:30 82913 Lipitor medicatio n Not available Not available Not available 12/07/2017 48524 5 RxNorm hepat itis - 2013, 8 Araceli Young PA-C [address], [place], [address] , [facility] 8 13:53:06 82380 atorvasta tin medicatio n Not available Not available Not available 12/17/2017 36527 RxNorm Alisson tate [facility] 8 11:18:40 67836 pravastat in medicatio n Not available Not available Not available 12/17/2017 18595 RxNorm Alisson tate [facility] 8 11:20:58 82965 rosuvasta tin medicatio n Not available Not available Not available 12/17/2017 89460 2 RxNorm Alisson tate [facility] 8 11:24:19 50569 simvastat in medicatio n Not available Not available Not available 12/17/2017 37523 RxNorm Alisson tate [facility] 8 11:24:38 98643 azithromy ghislaine medicatio n facial swelling severe Not available 09/06/20182017 68574 [facility] 16:[facility] Medications Name Sig Start Date [...] Updated DateTime 8 168.91 cm 28.3 kg/m2 25095.8 4 g 99.3 [degF] 96 % 96 % 88 /min 138 mm[Hg] 76 mm[Hg] Alissonsiva Pedersen [facility] 8 10:39:54 Date Recorded Body height Body mass index (BMI) Body weight Oxygen saturation Oxygen saturation in Arterial blood by Pulse oximetry Heart rate Systolic blood pressure Diastolic blood pressure Provider Name and Address Organization Details Last Updated DateTime 8 168.91 cm 28.7 kg/m2 66572.7 3 g 96 % 96 % 59 /min 132 mm[Hg] 80 mm[Hg] Alisson Pedersen [facility] 8 11:20:48 Date Recorded Body height Body mass index (BMI) Body weight Body temperature Oxygen saturation Oxygen saturation in Arterial blood by Pulse oximetry Heart rate Systolic blood pressure Diastolic blood pressure Provider Name and Address Organization Details Last Updated DateTime 8 168.91 cm 29 kg/m2 35460.2 1 g 97.7 [degF] 97 % 97 % 82 /min 138 mm[Hg] 78 mm[Hg] [facility]issonsiva [facility] 8 09:59:18 Date Recorded Body height Body mass index (BMI) Body weight Body temperature Heart rate Oxygen saturation Oxygen saturation in Arterial blood by Pulse oximetry Systolic blood pressure Diastolic blood pressure Provider Name and Address Organization Details Last Updated DateTime 8 168.91 cm 28.3 kg/m2 54520.1 4 g 98 [degF] 70 /min 97 % 97 % 122 mm[Hg] 72 mm[Hg] Lolly Velazquez [facility] 8 16:35:15 Date Recorded Body height Body mass index (BMI) Body weight Heart rate Oxygen saturation Oxygen saturation in Arterial blood by Pulse oximetry Body temperature Systolic blood pressure Diastolic blood pressure Provider Name and Address Organization Details Last Updated DateTime 9 168.91 cm 28.9 kg/m2 71131.8 1 g 62 /min 97 % 97 % 97.5 [degF] 132 mm[Hg] 64 mm[Hg] Blaze Chasidy [facility] 9 15:59:42 Social History Question Answer Notes LastModified by Organizat ion Details LastModified Time Tobacco Smoking Status Former Smoker Anandavrildanielanica Cathy tate [facility] 04/17/2016 10:42:16 Do You Have An Advance Directive? Yes [facility] Information not available 09/06/2018 What Is Your [...] PF 08/22/20 14 completed Iris Melchor bebeto, [facility] 08/16/2019 16:26:38 Influenza, split virus, trivalent, PF 08/02/20 15 completed Iris Melchor null, [facility] 08/16/2019 16:26:38 Pneumococcal conjugate PCV 13 09/07/20 16 completed Irisjose antonio Melchor null [facility] 08/16/2019 16:26:38 influenza, unspecified formulation 09/07/20 16 completed Irisjose antonio tate [facility] 08/16/2019 16:26:38 Influenza, high-dose, trivalent, PF 09/18/20 18 completed Iris Melchor null, [facility] 08/16/2019 16:26:38 Influenza, high-dose, trivalent, PF 08/15/20 19 completed Iris Melchor null, [facility] 08/16/2019 16:26:38 Influenza, high-dose, trivalent, PF 09/06/20 18 cancelled patient objection Not Available [facility] 11/12/2019 02:22:14 Influenza, split virus, trivalent, preservative 10/01/20 07 completed Iris Melchor null, [facility] 08/16/2019 16:26:38 Tdap 02/20/20 09 completed Iris Melchor null, [facility] 08/16/2019 16:26:38 Influenza, split virus, trivalent, preservative 08/21/20 10 completed Iris Melchor null, [facility] 08/16/2019 16:26:38 Influenza, split virus, trivalent, preservative 07/20/20 11 completed Iris Melchor null, [facility] 08/16/2019 16:26:38 Influenza, split virus, trivalent, preservative 08/25/20 13 completed Iris Melchor null, [facility] 08/16/2019 16:26:38 Past Encounters Encounter ID Performer Location Encounter Start Date Encounter Closed Date Diagnosis/Indication Diagnosis SNOMED-CT Code Diagnosis ICD10 Code Diagnosis Note [id number] autoEComm erce [address] [facility], [address] [place] [address] 09/20/2007 00:00:00 [id number] autoEComm erce [address] [facility], [address] [place] [address] 11/18/2007 00:00:00 [id number] autoEComm erce [address] [facility], [address] [place] [address] 05/16/2008 00:00:00 [id number] autoEComm erce [address] [facility],[place] [address] [place] [address] 10/16/2008 00:00:00 [id number] autoEComm erce [address] [facility],[place] [address] [place], [place] [address] 02/19/2009 00:00:00 [id number] autoEComm erce [address] [facility],[place] [address] [place], [place] [address] 10/23/2009 00:00:00 [id number] autoEComm erce [address] [facility],[place] [address] [place], [place] [address] 05/07/2010 00:00:00 [id number] autoEComm erce [address] [facility],[place] [address] [place], [place] [address] 09/23/2010 00:00:00 [id number] autoEComm erce [address] [facility],[place] [address] [place] [address] 04/10/2011 00:00:00 [id number] autoEComm erce [address] [facility],[place] [address] [place] [address] 10/07/2011 00:00:00 [id number] autoEComm rosemariee [address] [facility],[place] [address] [place] [address] 04/09/2012 00:00:00 [id number] autoEComm erce [address] [facility],[place] [address] [place] [address] 03/17/2014 00:00:00 [id number] [facility] Main Office [address] [facility] [address] [place] [address] 09/12/2014 13:19:35 09/12/2014 14:16:50 Essential hypertension 35820196 poor control/ recently poor control at home/ will order labs and refer. [id number] [facility] Main Office [address] [place] [address] [address] [place] [address] 02/09/2015 11:19:47 02/09/2015 11:57:08 Essential hypertension 23957040 Taking meds as prescribed , states BP was normal at home, she always has high BP when coming to Doctor's office. Upper resp iratory infection 52143330 [place] travel [place], will get CXR and start zpak today, robitussin with codeine as needed- no driving or alcohol with med. [id number] Main Office [address] [address] [place] [address] 03/30/2015 10:34:05 03/30/2015 11:24:45 Adult health examination 104457463 pt doing well w/ control of her risks [facility] risk for falls 091238716 Essential hypertension 38283832 white coat htn/ home bp controlled in range of 130/80. Polyp of colon 09546659 Hyperlipidemia 79980963 Screening for malignant neoplasm of breast 536670836 [id number] Tony simon Main Office [address] [address] [place] [address] 11/20/2015 08:21:19 11/20/2015 17:10:20 [id number] Tony NobleDoloresNeyda simon Main Office [address] [address] [place] [address] 11/22/2015 08:45:11 11/22/2015 09:37:51 Transient cerebral ischemia 949453545 G45.9 CT initially showed lacunar infarct, MRI did not show acute stroke. Diagnosed with TIA On ASA, Lipitor and BP meds. Should you develop similar symptoms or have severe headache, dizziness, N/V, vision changes, changes in balance, High BP please go to ED. F/U at [facility] in March. Essential hypertension 61249223 I10 Continue current meds as prescribed . Bp today WNL. Hyperlipidemia 20160390 E78.5 Continue atorvastat in daily. [id number] Tony simon Main Office [address] [address] [place] [address] 12/03/2015 13:22:40 12/03/2015 14:08:48 Dehydration 77686981 E86.0 Dehydratio n due to viral infection. Pt. is recommende d to go to the ER to receive IV treatment and labs. Nausea 853690985 R11.0 [id number] Tony simon Main Office [address] [address] [place] [address] 12/11/2015 10:15:43 12/14/2015 16:12:21 [id number] Tony simon Main Office [address] [facility] [address] [place] [address] 12/14/2015 08:56:24 12/14/2015 09:43:28 Liver enzymes outside reference range 216587798 R94.5 pt plans to see Dr Jarquin dec 19 for f/u/pt needs w/u for unexplaine d hepatitis Transient cerebral ischemia 118420889 G45.9 Essential hypertension 49743778 I10 white coat htn/ home bp controlled in range of 130/80. Hyperlipidemia 26407171 E78.5 [id number] Tony simon Main Office [address] [address] [place] [address] 04/17/2016 10:23:53 04/17/2016 12:05:52 Essential hypertension 82834913 I10 white coat htn/ home bp controlled in range of 130/80. Hyperlipidemia 07220326 E78.5 Adult heal th examination 088652827 Z00.00 pt doing well w/ control of her risks [id number] Tony simon Main Office [address] [address] [place] [address] 08/19/2016 10:27:34 08/19/2016 11:42:51 Essential hypertension 85609597 I10 white coat htn/ home bp controlled in range of 130/80. Hyperlipidemia 00054685 E78.5 History of cerebrovascular accident 474058882 Z86.73 Gastroesop hageal reflux disease 506000668 K21.9 [id number] Tony simon Main Office [address] [address] [place] [address] 02/17/2017 09:22:23 02/17/2017 10:04:47 Essential hypertension 65502313 I10 white coat htn/ home bp controlled in range of 130/80. Hyperlipidemia 67170347 E78.5 goal LDL is 70-100 History of transient ischemic attack 015456267 Z86.73 contASA 81 [id number] Tony simon Main Office [address] [address] [place] [address] 04/24/2017 13:32:15 04/24/2017 14:41:37 [id number] Tony simon Main Office [address] [address] [place] [address] 04/30/2017 13:58:03 04/30/2017 15:12:28 Gastroenteritis 04197534 K52.9 see hosp notes Essential hypertension 20775258 I10 reduce bp meds and f/u home readings until PE in 6 weeks [id number] Tony NobleDoloresNeyda simon Main Office [address] [facility] [address] [place] [address] 07/30/2017 08:51:15 07/30/2017 09:34:00 Adult health examination 456584232 Z00.00 pt doing well w/ control of her risks Essential hypertension 91487344 I10 reduce bp meds and f/u home readings until PE in 6 weeks Hyperlipidemia 22558371 E78.5 goal LDL is 70-100 Hypertensive disorder 38 731838 I10 rare episodes of hypertensi ve urgency Anxiety 92232567 F41.9 [id number] Tony simon Main Office [address] [facility] [address] [place] [address] 12/07/2017 10:24:09 12/07/2017 11:17:06 Fever 095922798 R50.9 doubt flu but will check to r/o stop tyl and etoh d/t jaundice below - could use prn advil for short amount of time -- stay hydrated Nausea and vomiting 1693 2000 R11.2 cont prn zofran, consider flat mckinley poonam Jaundice 38419229 R17 most likely d/t re-trial of atorvastat in - advised pt to stop med pt states feels similar to how she did a few yrs ago p lipitor *will fwd this note to neph.* Dysuria 11513832 R30.0 dipstick + -- will wait for [...] liver to detoxify. Myalgia/my ositis - multiple 757899376 M79.1 [id number] Tony NobleBrian simon Main Office [address] [facility] [address] [place] [address] 12/17/2017 10:58:03 12/17/2017 12:10:13 Jaundice 13226440 R17 resolving [id number] Tony CoralNeyda alfred Main Office [address] [facility] [address] [place] [address] 03/15/2018 09:46:41 03/15/2018 10:38:11 Essential hypertension 63160768 I10 reduce bp meds and f/u home readings until PE in 6 weeks/ Arnaldo will refill bp meds Gastroesop hageal reflux disease 045845837 K21.9 Anxiety 30980119 F41.9 pt uses benzo per Arnaldo for anxiety around her bp issues Alanine aminotransferase above reference range 454588382 R74.0 Hyperlipidemia 34936392 E78.5 goal LDL is 70-100 [id number] Erlin Jacobsen MD Main Office [address] [facility] [address] [place] [address] 09/06/2018 15:48:47 09/07/2018 09:01:13 Adult health examination 500214363 Z00.00 Influenza vaccine needed 7764390886 106 Z23 Hyperlipidemia 91193211 E78.5 levels stable - h/o statin allergy, seeing endo - cont zetia as dir Essential hypertension 04922320 I10 bp and Cr are stable, cont meds as dir Leukocytosis 292284477 D 72.829 likely d/t infxn and / or pred use - recheck cbc next wk Cough 32981546 R05 ? postviral cough -- trial c tessalon and nasal saline spray prn already had cxr at [facility] - curr ~ 75% better - lungs clear today - unlikely to have pna Body mass index 25-29 - overweight 319320253 Z68.28 Overweight 721837250 E66 .3 [id number] Araceli Young PA-C Main Office [address] [facility] [address] [place] [address] 03/07/2019 15:40:22 03/07/2019 17:00:05 Essential hypertension 91585466 I10 bp stable, cont meds as dir, check bmp - see below h/o labile htn fol by renal - rev last note 12.18 pt admits to little water intake - rec increase water intake Gastroesop hageal reflux disease 537170804 K21.9 Hyperlipidemia 86318142 E78.5 levels stable - h/o statin allergy, seeing endo - cont zetia as dir Anxiety 01391389 F41.9 pt gets benzo from renal (as per pt) Transient cerebral ischemia 335276895 G45.9 cont baby asa qd as dir - advised of SE of bruising Chronic ki dney disease stage 3 210869109 N18.3 cont f/u c renal Liver enzy mes level above reference range 294464494 R74.8 Dyspnea 381377653 R06.00 as eval wrapping up - pt describes int dyspnea - no cp - can walk up stairs fine - but pt requests card eval in light of her family history Health Concerns Section Related Observation LastModified by Organization Detai ls LastModified Time None Recorded Concern Status LastModified by Organization Details LastModified Time None Recorded Advance Directives Directive Y: [facility] Payers Encounter Date Sequence Insurance Name Policy Number Policy Velasquez Covered Member ID Velasquez Member ID Guarantor Name 12/07/2017 1 [place] [employer] Funmi Janet [id number] 3 Funmi Janet 12/17/2017 1 [place] [employer] Funmi Janet [id number] Funmi Janet 03/15/2018 1 [place] [employer] Funmi Janet [id number] 3 Funmi Janet 09/06/2018 1 [place] [employer] Funmi Janet [id number] Funmi Janet 03/07/2019 1 [place] [employer] Funmi Janet [id number] 3 Funmi Janet Notes Date Note Type [...] cough, chest congestion, sob, cp Tony tate [facility] 12/07/2017 17:31:17 12/17/19 18 text/htm l Skin LesionReported bypatient.Location:face; chest; arms; legs Severity:moderate; pt had jaundice// this is most likely due to statins and pt has stopped statin and notes improvement in jaundice Duration:started 2 week(s) ago Onset/Timing:abrupt Associated Symptoms:no fever; no cold symptoms; no scabbing; no bruising; no lesions multiplying;nausea Tony tate [facility] 12/17/2017 12:36:16 03/15/20 18 text/htm l GERD [...] seem to tolerate statin so End[facility] at [facility] will help her decide planHyperlipidemiaReported bypatient.Type of hyperlipidemia:combined Duration:chronic; pt on statins now after her mild stroke/ no problems Control:improving Compliance:compliant Complications:no coronary artery disease Risk Factors:hypertension;smoking; pt quit smoking years agoHypertension F/UReported bypatient.Associated Symptoms:no dizziness; no lightheadedness; no chest pain; no shortness of breath; pt has labile HTN/ her housing management officer prescribes benzo for her Lifestyle:limiting/avoiding salt;not exercising regularly Medications:taking medications as directed Tony tate [facility] 03/15/2018 10:39:07 09/06/20 18 text/htm l Medicare [...] lighting in the home Erlin Jacobsen MD [address], [address], [facility] 09/08/2018 20:54:09 03/07/20 19 text/htm l Hypertension F/UReported bypatient.Associated Symptoms:no dizziness; no lightheadedness; no chest pain; no shortness of breath; no palpitations; no edema; no calf pain with exertion Lifestyle:regular exercise; limiting/avoiding salt Medications:taking medications as directed; no side effects from medication; checks blood pressure at home, range: (100-130s/40-70s - no dizziness as per pt) Araceli Young PA-C [address] [address], [place], [address], [facility] 03/09/2019 13:11:56 OBGyn Episode No OBEpisode recorded.
--- OUTSIDE RECORDS SUMMARY | 2024-12-16 07:18 | XMS_ITS | Clinical Summary ---
Author Organization [employer] Address [address] [facility] [address] [place] [address] Care Team Providers Care Icu Staff Nurse Name Role Phone Unavailable Primary Care Provider Unavailabl e Allergies Active Allergy Reactions Criticality Noted Date Comments Azithromycin Hives,Swelling,Rash High 08/27/2018 Nitrofurantoin Anaphylaxis,Other High 03/19/2021 Other Reaction(s): diff breathing Oxycodone Dizziness 09/16/2024 Other Reaction(s): ? diff breathing Oxycodone-Acetaminophen Dizziness,Other, Unk nown 03/19/2021 Other Reaction(s): N&V, dizziness Statins Other,Rash,Unknown Low 03/19/2021 Other Reaction(s): liver problems Other Reaction(s): liver problem Medications amLODIPine (Norvasc) 5 MG tablet Take 5 mg by mouth Once per day. 02/24/2024 Active aspirin 81 MG EC tablet Take 1 tablet every day by oral route for 90 days. 08/19/2016 Active atorvastatin (Lipitor) 80 MG tablet Take 1 tablet every day by oral route as directed for 90 days. 11/22/2015 Active cloNIDine (Catapres-TTS) 0.1 MG/24HR Place 1 patch on the skin 1 (one) time per week. Active ezetimibe (Zetia) 10 MG tablet Take 1 tablet by mouth Once per day. 02/21/2021 Active LORazepam (Ativan) 0.5 MG tablet Take 1 tablet every day by oral route for 30 days. 08/05/2021 Active omeprazole (PriLOSEC) [address] capsule Take 20 mg by mouth Once per day. 04/24/2020 Active polyethylene glycol (GaviLyte-G) 236 g solution Activ e spironolactone (Aldactone) 25 MG tablet Take 1 tablet every day by oral route for 90 days. 07/06/2024 Active valsartan (Diovan) 160 MG tablet DAILY 05/07/2010 Active Active Problems Problem Noted Date Diagnosed Date Brain TIA 10/21/2024 Transient ischemic attack 10/21/2024 Dehydration 10/21/2024 Gastroenteritis 10/21/2024 Nausea 10/21/2024 Upper respiratory infection 10/21/2024 Abnormal liver enzymes 09/16/2024 History of adenomatous polyp of colon 09/16/2024 Persistent proteinuria 07/07/2024 Anxiety 05/30/2023 Hydronephrosis 10/29/2022 Flank pain 10/21/2022 Hypertensive urgency 04/17/2022 Atherosclerosis of renal artery 03/19/2021 Hypertensive disorder 03/19/2021 Polyp of colon 03/19/2021 Stage 3a chronic kidney disease 03/19/2021 Overweight 09/06/2018 Excess skin of eyelid 04/06/2014 Abnormal glucose tolerance test (GTT) 03/17/2014 Benign neoplasm of breast 03/17/2014 Family history of colonic polyps 03/17/2014 Fibromyositis 03/17/2014 Hyperlipidemia 03/17/2014 Hypoglycemia 03/17/2014 Tobacco dependence syndrome 03/17/2014 Cyst of oral soft tissue 06/16/2012 Overview (10/21/2024): RECORDED 06/16/2012 10:30AM BY NEIL SNOW [place], ANNOTATION/ADDENDUM Disorder of oral soft tissue 06/16/2012 Overview (10/21/2024): RECORDED 06/16/2012 10:30AM BY NEIL SNOW [place], ANNOTATION/ADDENDUM Elevation of level of transa minase and lactic acid dehydrogenase (LDH) 06/16/2012 Overview (10/21/2024): RECORDED 06/16/2012 10:30AM BY NEIL SNOW MA, ANNOTATION/ADDENDUM Disorder of skin 06/16/2012 Overview (10/21/2024): RECORDED 06/16/2012 10:30AM BY NEIL SNOW [place], ANNOTATION/ADDENDUM Impaired fasting glucose 06/16/2012 Overview (10/21/2024): RECORDED 06/16/2012 10:30AM BY NEIL SNOW [place], ANNOTATION/ADDENDUM Malaise and fatigue 06/16/2012 Overview (10/21/2024): RECORDED 06/16/2012 10:30AM BY NEIL SNOW MA, ANNOTATION/ADDENDUM Tobacco user 04/09/2012 Overview (10/21/2024): RECORDED 04/09/2012 8:07AM BY NEIL SNOW MA, ANNOTATION/ADDENDUM Essential hypertension 05/28/2011 Overview (10/21/2024): RECORDED 05/28/2011 11:12AM BY NEIL SNOW MA, ANNOTATION/ADDENDUM Encounters Date Type Department Care Team Description 11/18/2024 1:00 PM EST Office Visit [facility]ULT [facility] [address] [place] [address] Timo Hernandez DMD Previously initiated endodontic therapy completed (Primary Dx) 10/21/2024 8:00 AM EST Office Visit [facility] [address] [place] [address] Timo Hernandez DMD Symptomatic irreversible pulpitis (Primary Dx); Dental caries 09/21/2024 11:00 AM EST Office Visit [facility] [address] [place] [address] Miguelina Diciknson Dental calculus (Primary Dx) from Last 3 Months Social History Tobacco Use Types Packs/Day Years Used Date Smoking Tobacco: Former Cigarettes Passive Smoke Exposure: Past Smokeless Tobacco: Never Tobacco Cessation:Counseling Given: Not Answered Alcohol Use Standard Drinks/Week Comments Defer 0 (1 standard drink = 0.6 oz pur e alcohol) Comments Unknown Sex and Gender Information Value Date Recorded Sex Assigned at Female 09/19/2024 1:42 PM EST Legal Sex Female 1:42 PM EST Gender Identity Female 09/19/2024 1:42 PM EST Sexual Orientation Choose not to disclose 2023 3:01 PM EST Last Filed Vital Signs Vital Sign Reading Time Taken Comments Blood Pressure 120/80 11/18/2024 3:10 PM EST Pulse - - Temperature - - Respiratory Rate - - Oxygen Saturation - - Inhaled Oxygen Concentration - - Weight - - Height - - Body Mass Index - - Plan of Treatment Upcoming Encounters Date Type Department Care Team (Late st Contact Info) Description 12/19/2024 1:00 PM EST Office Visit [facility]ULT [facility] [address] [place] [address] Timo Hernandez, DMD [address] [place] [address] Health Maintenance Due Date Last Done Comments CT Colonography 1951 Colonoscopy 1951 Colorectal Cancer Screening 1951 Dental Prophylaxis 1951 Depression Screening 1951 FIT DNA/Cologuard 1951 FIT 1951 FOBT 1951 Lipid Panel 1951 SDOH Screening 1951 Sigmoidoscopy 1951 Alcohol/Substance Use Screening 1963 Hepatitis C Screening 1969 Hepatitis A Vaccines (1 of 2 - Risk 2-dose series) 1970 Mammogram 1991 Zoster Vaccines (1 of 2) 2001 RSV Patients and Patients Aged 60 years or older (1 - Risk 60-74 years 1-dose series) 2011 Pneumococcal Vaccine: 50+ Years (2 of 2 - PPSV23) 09/07/2017 09/07/2016 DTaP/Tdap/Td Vaccines (2 - Td or Tdap) 02/19/2019 02/19/2009 COVID-19 Vaccine ( - season) 2024 Influenza Vaccine (#1) 2024 9, 09/18/2018, 09/07/2016, Additional history exists Dental Oral Exam 03/22/2025 09/21/2024 Dental X-Ray: Bitewings 09/22/2025 09/21/2024 Tobacco Screening 11/18/2025 11/18/2024 Dental X-Ray: Full Mouth 09/22/2027 09/21/2024 HIB Vaccines Aged Out No longer eligi [...] patient's age to complete this topic Meningococcal Vaccine Aged Out No ector sharon eligible based on patient's age to complete this topic RSV under 20 months Aged Out No longe r eligible based on patient's age to complete this topic Rotavirus Vaccines Aged Out No longer eligible based on patient's age to complete this topic Procedures Procedure Name Priority Date/Time Associated Diagnosis Comments CASE PRESENTATION, DETAILED AND EXTENSIVE TREATMENT PLANNING Routine 11/18/2024 1:00 PM EST Previously initiated endodontic therapy completed 19 ENDODONTIC THERAPY, MOLAR TOOTH Routine 11/18/2024 1:00 PM EST Previously initiated endodontic therapy completed 20 ENDODONTIC THERAPY, PREMOLAR TOOTH Routine 11/18/2024 1:00 PM EST Previously initiated endodontic therapy completed CASE PRESENTATION, DETAILED AND EXTENSIVE TREATMENT PLANNING Routine 10/21/2024 8:00 AM EST Symptomatic irreversible pulpitis Dental caries 19,20 ENDO - CLEAN AND SHAPE Routine 10/21/2024 8:00 AM EST Symptomatic irreversible pulpitis Dental caries 17 EXTRACTION Routine 10/21/2024 12:00 AM EST 18 MOD AMALGAM FILLING Routine 12:00 AM EST COMPREHENSIVE ORAL EVALUATION - NEW OR ESTABLISHED PATIENT Routine 09/21/2024 11:00 AM EST ORAL HYGIENE INSTRUCTIONS Routine 09/21/2024 11:00 AM EST CASE PRESENTATION, DETAILED AND EXTENSIVE TREATMENT PLANNING Routine 09/21/2024 11:00 AM EST INTRAORAL - COMPLETE SERIES OF RADIOGRAPHIC IMAGES Routine 09/21/2024 11:00 AM EST 1 MO AMALGAM FILLING Routine 09/21/2024 12:00 AM EST 2 MOD AMALGAM FILLING Routine 09/21/2024 12:00 AM EST 3,4,5,7,10,11,12,13,14,1 5 PARTIAL DENTURE - RESIN Routine 09/21/2024 12:00 AM EST 30 EXTRACTION Routine 09/21/2024 12:00 AM EST 5 EXTRACTION Routine 09/21/2024 12:00 AM EST 4 EXTRACTION Routine 09/21/2024 12:00 AM EST 3 EXTRACTION Routine 09/21/2024 12:00 AM EST 6 CROWN - PORCELAIN/CERAMIC Routine 09/21/2024 12:00 AM EST 6 ROOT CANAL Routine 09/21/2024 12:00 AM EST 7 EXTRACTION Routine 09/21/2024 12:00 AM EST 13 EXTRACTION Routine 09/21/2024 12:00 AM EST 10 EXTRACTION Routine 09/21/2024 12:00 AM EST 11 EXTRACTION Routine 09/21/2024 12:00 AM EST 12 EXTRACTION Routine 09/21/2024 12:00 AM EST 14 EXTRACTION Routine 09/21/2024 12:00 AM EST 15 EXTRACTION Routine 09/21/2024 12:00 AM EST 8 CROWN - PORCELAIN/CERAMIC Routine 09/21/2024 12:00 AM EST 9 CROWN - PORCELAIN/CERAMIC Routine 09/21/2024 12:00 AM EST from Last 3 Months Insurance DENTAL - HSN FULL (MEDICAID)
--- OUTSIDE RECORDS SUMMARY | 2024-12-16 07:18 | XMS_ITS | Encounter Summary ---
Author Organization [facility] Address [address] [place] [address] Phone Care Team Providers Care Roofer Name Role Phone Annelise Griffiths MD Primary Care Provider [phone] Reason for Visit * Reason Comments Med Refill Encounter Details Date Type Department Care Team (Late Contact Info) Description 11/06/2023 Refill [facility] [address] [place] [address] Ivy Mcintosh MD Anxiety, not otherwise specified Social History Tobacco Use Types Packs/Day Years [...] the [facility] [address] [address] Мария Smith ARNP [address] [address] documented as of this encounter Visit Diagnoses Diagnosis Anxiety, not otherwise specified documented in this encounter Care Teams Roofer Relationship Specialty Start Date End Date Annelise Griffiths MD [address] [place] [address] PCP - General Internal Medicine 03/19/21 documented as of this encounter
--- OUTSIDE RECORDS SUMMARY | 2024-12-16 07:18 | XMS_ITS | Clinical Summary ---
Author Organization [facility] Address [address] [place] [address] Phone Care Team Providers Care Overnight Stocker Name Role Phone Annelise Griffiths MD Primary Care Provider [phone] Allergies Active Allergy Reactions Criticality Noted Date Comments Atorvastatin Other (see comments) 03/19/2021 Azithromycin Rash Low 03/19/2021 Nitrofurantoin Other (see comments) 03/19/2021 Oxycodone-Acetaminophen Other (see comments) Pravastatin 09/17/2021 Rosuvastatin 09/17/2021 Simvastatin 09/17/2021 Statins Other (see comments) 03/19/2021 Medications ezetimibe (ZETIA) 10 MG tablet Take 10 mg by mouth 1 (one) time each day 02/21/2021 Active omeprazole (PriLOSEC) [address] capsule Take 20 mg by mouth 1 (one) time each day 01/23/2021 Active cloNIDine (CATAPRES) 0.1 MG tabletIndicatio ns:Stage 3a chronic kidney disease (HCC),Hypertens jason disorder Take 1 tablet (0.1 mg total) by mouth in the morning and 1 tablet (0.1 mg total) in the evening. 180 tablet 3 12/28/2023 5 Active lisinopril 40 MG tabletIndicatio ns:Hypertensive disorder Take 1 tablet (40 mg total) by mouth 1 (one) time each day 90 tablet 3 04/04/2024 5 Active spironolactone (ALDACTONE) 25 MG tablet Take 2 tablets (50 mg total) by mouth 1 (one) time each day 90 tablet 3 07/06/2024 Active amLODIPine (Norvasc) 5 MG tablet Take 1 tablet (5 mg total) by mouth in the morning and 1 tablet (5 mg total) in the evening. 180 tablet 3 10/05/2024 Active Active Problems Problem Noted Date Diagnosed Date Persistent proteinuria 07/07/2024 Anxiety 05/30/2023 Hydronephrosis 10/29/2022 Flank pain 10/21/2022 Hypertensive urgency 04/17/2022 Atherosclerosis of renal artery 03/19/2021 Stage 3a chronic kidney disease 03/19/2021 Hypertensive disorder 03/19/2021 Polyp of colon 03/19/2021 Tobacco dependence syndrome 03/17/2014 Resolved Problems Problem Noted Date Diagnosed Date Resolved Date Transient cerebral ischemia 04/17/2022 04/17/2022 Fibromyositis 03/19/2021 04/17/2022 Hyperlipidemia 03/19/2021 04/17/2022 Hypoglycemia 03/19/2021 04/17/2022 Low back pain 03/19/2021 04/17/2022 Malignant tumor of breast 03/19/2021 Renovascular hypertension 03/19/2021 Encounters Date Type Department Care Team Description 10/05/2024 10:00 AM EST Office Visit [facility] [place] [address] [facility] [address] [place] [address] Мария Smith ARNP Stage 3a chronic kidney disease (HCC) (Primary Dx); Hypertensive disorder; Persistent proteinuria 09/25/2024 Orders Only [facility] [address] [place] [address] Мария Smith ARNP Stage 3a chronic kidney disease (HCC); Hypertensive disorder from Last 3 Months Family History Medical History Relation Comments Heart disease Mother Hypertension Mother Kidney disease Sibling brother Relation Status Comments Father Mother Sibling Social History Tobacco Use Types Packs/Day Years Used Date Smoking Tobacco: Never Smokeless Tobacco: Never Tobacco Cessation:Counseling Given: Not Answered Alcohol Use Standard Drinks/Week Comments No 0 (1 standard drink = 0.6 oz pur e alcohol) Comments Unknown Sex and Gender Information Value Date Recorded Sex Assigned at Not on file Legal Sex Female 5:25 PM EST Gender Identity Not on file Sexual Orientation Not on file Last Filed Vital Signs Vital Sign Reading Time Taken Comments Blood Pressure 138/78 10/05/2024 10:06 AM EST Pulse 75 10/05/2024 10:06 AM EST Temperature - - Respiratory Rate - - Oxygen Saturation 98% 10/05/2024 10:06 AM EST Inhaled Oxygen Concentration - - Weight 77.6 kg (171 lb) 10/05/2024 10:06 AM EST Height 170.2 cm (5' 7 ) 09/07/2023 4:22 PM EST Body Mass Index 26.78 09/07/2023 4:22 PM EST Plan of Treatment Upcoming Encounters Date Type Department Care Team (Late st Contact Info) Description 04/05/2025 8:00 AM EDT Office Visit [facility] [address] [address] Мария Smith ARNP [address] [address] Health Maintenance Due Date Last Done Comments Breast Cancer Screening 1950 Pneumococcal Vaccine: 65+ Years (1 of 2 - PCV) 1957 Colorectal Cancer Screening: Annual FOBT 2000 Colorectal Cancer Screening: Colonoscopy 2000 Colorectal Cancer Screening: Sigmoidoscopy 2000 Influenza Vaccine (#1) 2024 9, 09/18/2018 Hepatitis B Vaccine Aged Out No longe r eligible based on patient's age to complete this topic Procedures Procedure Name Priority Date/Time Associated Diagnosis Comments PROTEIN / CREATININE RATIO, URINE Routine 09/16/2024 10:06 AM EST Stage 3a chronic kidney disease (HCC) Hypertensive disorder RENAL FUNCTION PANEL Routine 09/16/2024 10:06 AM EST Stage 3a chronic kidney disease (HCC) Hypertensive disorder PTH, INTACT Routine 09/16/2024 10:06 AM EST Stage 3a chronic kidney disease (HCC) Hypertensive disorder CBC Routine 09/16/2024 10:06 AM EST Stage 3a chronic kidney disease (HCC) Hypertensive disorder from Last 3 Months Results * Urine Protein / creatinine ratio (09/16/2024 10:06 AM EST) Protein, Ur 17 mg/dL [facility] Urine Protein/Creati nine Ratio 0.10 <=0.20 mg/mg creat [facility] Creatinine, Urine 177.0 mg/dL [facility] Urine (Urine, Clean Catch) 09/16/2024 10:06 AM EST 09/16/2024 11:31 AM EST Мария Smith [facility] URINE ORDERABLES Final Result [facility] [address] [place] [address] * (ABNORMAL) CBC (09/16/2024 10:06 AM EST) [facility] WBC 7.8 4.8 - 10.8 K/mcL [facility] RBC 4.60 3.80 - 4.80 M/[facility] Hgb 13.6 11.5 - 16.0 g/dL [facility] Hematocrit 42.3 35.0 - 47.0 % [facility] MCV 91.6 79.0 - 98.0 FL [facility] MCH 29.4 27.0 - 32.0 pcg [facility] MCHC 32.2 32.0 - 37.0 g/dL [facility] RDW 13.9 11.0 - 15.0 % [facility] Platelets 263 130 - 400 K/mcL [facility] MPV 11.2(H) 7.0 - 11.0 FL [facility] nRBC Count 0.0 <1.0 % [facility] NRBC Absolute 0.00 <0.10 K/mcL [facility] Blood (Blood, Venous) 09/16/2024 10:06 AM EST 09/16/2024 11:29 AM EST [facility] BLOOD ORDERABLES Final Result Performing Organization Address City/[facility]/ZIP Co de Phone Number [facility] [address] [place] [address] * PTH, intact (09/16/2024 10:06 AM EST) Pathologist [facility] PTH 19.3 18.5 - 88.0 pcg/mL [facility] Blood (Blood, Venous) 09/16/2024 10:06 AM EST 09/16/2024 11:28 AM EST [facility] BLOOD ORDERABLES Final Result Performing Organization Address [facility] Co de Phone Number [facility] [address] [place] [address] * Renal function panel (09/16/2024 10:06 AM EST) Sodium 142 133 - 145 mmol/L [facility] Potassium 4.0 3.5 - 5.5 mmol/L [facility] Chloride 110 96 - 110 mmol/L [facility] Bicarbonate (CO2) 28 21 - 32 mmol/L [facility] Anion Gap 4 3 - 11 [facility] Glucose 74 70 - 100 mg/dL [facility] BUN 18 5 - 25 mg/dL [facility] Creatinine Serum 0.99 0.50 - 1.10 mg/dL [facility] eGFR 60 >=60 mL/min/1. 73m2 [facility] Comment:Calculation based on the?Chronic Kidney Disease Epidemiology Collaboration (CKD-EPI) equation refit?without adjustment for race. BUN/Creatinine Ratio 18.2 [facility] Albumin 3.4 3.2 - 5.0 g/dL [facility] Calcium 9.2 8.5 - 10.5 mg/dL [facility] Phosphorus 3.5 2.5 - 4.5 mg/dL [facility] Blood (Blood, Venous) 09/16/2024 10:06 AM EST 09/16/2024 11:28 AM EST us Мария BRAUN LAB BLOOD ORDERABLES Final Result [facility] [address] [place] [address] from Last 3 Months Insurance MEDICARE [facility] Care Teams Overnight Stocker Relationship Specialty Start Date End Date Annelise Griffiths MD [address] [place] [address] PCP - General Internal Medicine 03/19/21
--- OUTSIDE RECORDS SUMMARY | 2024-12-16 07:18 | XMS_ITS | Encounter Summary ---
Author Organization [facility] Address [address] [place] [address] Phone Care Team Providers Care Corner Block Cutter Name Role Phone Annelise Griffiths MD Primary Care Provider [phone] Reason for Visit * Reason Comments Med Refill Encounter Details Date Type Department Care Team (Late Contact Info) Description 11/02/2023 Refill [facility] [address] [place] [address] Ivy Mcintosh MD Anxiety, not [...] Visit [facility] [address] [address] Мария Smith ARNP [address] [address] documented as of this encounter Visit Diagnoses Diagnosis Anxiety, not otherwise specified documented in this encounter Care Teams Corner Block Cutter Relationship Specialty Start Date End Date Annelise Griffiths MD [address] [place] [address] PCP - General Internal Medicine 03/19/21 documented as of this encounter
--- OUTSIDE RECORDS SUMMARY | 2024-12-16 07:18 | XMS_ITS | Continuity of Care Document ---
Author Organization [facility] Address [address] [place] [address]- Care Team Providers Care Ethanol Operator Name Role Phone Annelise Griffiths MD Primary Care Physician [facility] [id number] Date(s): 10/05/24 - 11/26/24 [facility] [address] [place] [id number] Attending Physician: Luis LINDSEY, Мария [place] Admitting Physician: Мария Smith NP Referring Physician: Мария Smith NP Encounter Type: Pre-Outpt Allergies, Adverse Reactions, Alerts Substance Criticality Severity Reaction Reaction Severity Status azithromycin face burning Acti ve nitrofurantoin diff breathing Active oxyCODONE ? diff breathing Act jason statins liver problems Activ e Lipitor liver problem Active Percocet N&V, dizziness Active Medications cloNIDine 0.1 mg oral tablet 0.1 mg, By Mouth, 3 times a day, PRN, IF SBP >180., # 30 tablet, Refills 0, Tot. Refills 0, SoftStop, Blood Pressure, 04/23/17 11:20:08 AM EDT, Route to Pharmacy Electronically, [facility] Start Date: 04/23/17 Status: Ordered Quantity: 30.0 Unit: tablet Repeat number: 1 ezetimibe 10 mg oral tablet 1 tablet = 10 mg, By Mouth, Daily, # 90 tablet, 3 Refills, Maintenance, 04/16/18 9:11:43 AM EDT, Tablet, [facility] Start Date: 04/16/18 Stop Date: 04/11/19 Status: Ordered Quantity: 90.0 Unit: tablet Repeat number: 4 Lisinopril = 30 mg, By Mouth, Daily in AM, 0 Refills, Maintenance, 12/24/22 4:59:00 PM EST, Partial fill upon patient request if the prescription is for a schedule II opioid drug. Start Date: 12/24/22 Status: Ordered Repeat number: 1 LORazepam 0.5 mg oral tablet 1 tablet = 0.5 mg, By Mouth, Daily, 0 Refills, Maintenance, 08/05/21 12:48:00 PM EDT, Partial fill upon patient request if the prescription is for a schedule II opioid drug. Start Date: 08/05/21 Status: Ordered Repeat number: 1 omeprazole 20 mg oral enteric coated capsule 1 capsule = 20 mg, By Mouth, Daily, 0 Refills, 08/05/21 4:24:00 PM EDT, Partial fill upon patient request if the prescription is for a schedule II opioid drug. Start Date: 08/05/21 Status: Ordered Repeat number: 1 spironolactone 25 mg oral tablet 25 mg, By Mouth, Daily, # 30 tablet, Refills 0, Tot. Refills 0, Maintenance, 04/23/17 11:21:52 AM EDT, Route to Pharmacy Electronically, [facility] Start Date: 04/23/17 Stop Date: 05/23/17 Status: Ordered Quantity: 30.0 Unit: tablet Repeat number: 1 Problem List Condition Confirmation Course Effective Dates Status H ealth Status Informant Gastroenteritis Confirmed Active HTN (hypertension) Confirmed Active Hypertensive urgency Confirmed Active Brain TIA Confirmed Active Patient Care team information Care Team Personnel Name: Marlene Shah RN Position: [facility] SN RN Member Role: Primary Care Nurse Name: Mulu Bonilla Position: [facility] Outreach Member Role: Lifetime Consulting Physician Name: Mahi Shahid RN Position: [facility] RN Member Role: Primary Care Nurse Name: Annelise Griffiths MD Position: [facility] Physician - Primary Care Member Role: PCP Address: [address] Telecom: Name: Trey Son RN Position: [facility] Outreach Member Role: Primary Care Nurse Name: Riddhi Alcantar RN Position: [facility] ED RN W/OE and Tasks Member Role: Primary Care Nurse Care Team Related Persons Name: MOHINDER MCCAULEY Name: JOYCE DE LEON Insurance Providers Guarantor name: CARLOS HALEY Health Plan Information #: 1 Payer: MEDICARE PART B OUTPT Member Number: [id number] Policy Number: NA Group Number: NA Health Plan Information #: 2 Payer: MEDEX Member Number: [id number] Policy Number: NA Group Number: NA
[2024-12-16 11:15] LABS: Appearance Urine Cloudy; Color Urine Dark Yellow; Glucose Urine UA Negative (Negative); Leukocyte Esterase Urine Moderate (2+) (Negative); Nitrite Urine Positive (Negative); Specific Gravity - Urine 1.025 (1.005-1.025); UMIC TRIGGER UA YES; Urine Blood Trace (Negative); Urine Ketones Negative (Negative); Urine Protein Trace mg/dL (Neg-Trace)
[2024-12-16 11:36] LABS: Bacteria Urine 4+ (None Seen); Calcium Oxalate Crystals Urine Present; WBC Urine >50 /HPF (0-5)
== END 2024-12-16 07:16 | disposition home or self-care (01) ==
LOC: HO.HMGCLDS 07:15
PROVIDERS: PCP Internal Medicine; Visit Provider Internal Medicine
DX: R30.0 Dysuria (principal)
CPT/HCPCS: 81001; 87086; 87088; 87186

== ENCOUNTER 2025-03-14 09:01 | Outpatient (AMB) | payer MEDICARE, SELFPAY ==
[2025-03-14 09:11] VITALS: BP 136/76; PULSE 82; RESP 18; TEMP 36.8; O2SAT 98; BMI 26.6
--- NOTE | 2025-03-14 09:11 | A.OFFPC_ITS ---
Vital Signs 03/14/25 09:11 Height 5 ft 7 in Weight 170 lb BMI 26.6 BP 136/76 Blood Pressure Location Lt brachial Position Sitting Respiration 18 Pulse 82 Pulse Source Pulse Oximeter Temp 98.2 F Temp Source Oral Pulse Oximetry (%) 98 Oxygen Delivery Method Room Air Intake Visit Reasons: 6 months follow up Intake Note: Pt is here today for 6 months follow up visit. Allergies acetaminophen [From PERCOCET] Allergy (Unknown, Verified 03/14/25 09:12) UNKNOWN azithromycin Allergy (Unknown, Verified 03/14/25 09:12) hives oxycodone [From PERCOCET] Allergy (Unknown, Verified 03/14/25 09:12) UNKNOWN Pgzpimd-JTX-FwN Reductase Inhibitor [DAAZNTV-VIW-BBR REDUCTASE INHIBITOR] Allergy (Unknown, Verified 03/14/25 09:12) liver failure, major liver problems nitrofurantoin [From Macrobid] Adverse Reaction (Severe, Verified 03/14/25 09:12) breathing atorvastatin [Lipitor] Adverse Reaction (Unknown, Verified 03/14/25 09:12) Liver issues z-pack Allergy (Unknown, Uncoded 03/14/25 09:12) hives Medication List - Last Reconciled 03/14/25 by Annelise Griffiths MD albuterol sulfate 90 mcg/actuation 1 - 2 puffs PO Q4-6H PRN amlodipine 5 mg PO DAILY clonidine HCl 0.1 mg PO BID ezetimibe 10 mg PO DAILY lisinopril 40 mg PO DAILY lorazepam 0.5 mg PO DAILY PRN omeprazole 20 mg PO DAILY spironolactone 25 mg PO DAILY Tobacco use date assessed: 03/14/25 Fall risk assessment: No Falls in past year Last assessed Fall Risk: 03/14/25 Dental Screening Dental Screen Date: 03/14/25 Did you have a dental visit in the last 12 months?: Yes Did you have a dental problem in the last 6 months where you did not have access to dental care?: No Was dental information given to patient?: Patient has dentist HPI 6 months follow up HPI Details Patient presents for the follow-up on hypertension hyperlipidemia chronic GERD stable on current medications. [facility] Medical History (Updated 03/14/25 @ 09:48 by Annelise Griffiths MD) Mammogram normal CKD (chronic kidney disease), stage III TIA (transient ischemic attack) Liver hemangioma Hepatitis GERD (gastroesophageal reflux disease) HTN (hypertension) Hyperlipidemia Surgical History H/O colonoscopy Hx of cholecystectomy History of breast surgery History of back surgery History of hysterectomy Family History Father No problems noted. Mother No problems noted. Brother No problems noted. Brother No problems noted. Sister No problems noted. 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 1. Little interest or pleasure in doing things: not at all 2. Feeling down, depressed, or hopeless: not at all 3. Trouble falling or staying asleep, or sleeping too much: not at all 4. Feeling tired or having little energy: not at all 5. Poor appetite or overeating: not at all 6. Feeling bad about yourself - or that you are a failure or have let yourself or your family down: not at all 7. Trouble concentrating on things, such as reading the newspaper or watching television: not at all 8. Moving or speaking so slowly that other people could have noticed. Or the opposite - being so fidgety or restless that you have been moving around a lot more than usual: not at all 9. Thoughts that you would be better off or of hurting yourself in some way: not at all Total score: 0 Depression Screening Interpretation: Negative Depression Screening Done: Yes 24133 - PHQ-9 Billing: Yes Source: Developed by Drs. Jose Caba, Aurelia Arita, Juan A Juan and colleagues, with an educational denise from [employer]. Thrive Questionnaire Date Thrive assessed: 03/14/25 I am a: Patient What is your living situation today?: I have a steady place to live Within the past 12 months, did the food you bought not last and you didn't have the money to get more?: Never true Within the past 12 months, did you worry whether your food would run out before you got money to buy more?: Never true Do you have trouble paying for medicines?: No Do you have trouble getting transportation to medical appointments?: No Do you have trouble paying your heating and electricity bill?: No Do you have trouble taking care of your child, family member or friend?: No Do you have trouble with day-to-day activities such as bathing, preparing meals, shopping, managing finances, etc.?: No Are you currently unemployed and looking for a job?: No Are you interested in more education?: No Please select the resources that you would like help with: None THRIVE Score: 0 AUDIT C Alcohol Use Questionnaire (AUDIT-C) 1. How often do you have a drink containing alcohol?: Never 3. How often do you have six or more drinks on one occasion?: Never Total Score: 0 SOBEIDA-7 AMB Questionnaire SOBEIDA-7 Date SOBEIDA - 7 assessed: 03/14/25 Feeling nervous, anxious, or on edge: 0 = Not at all Not being able to stop or control worryin = Not at all Worrying too much about different things: 0 = Not at all Trouble relaxin = Not at all Being so restless that it is hard to sit still: 0 = Not at all Becoming easily annoyed or irritable: 0 = Not at all Feeling afraid as if something awful might happen: 0 = Not at all Total SOBEIDA-7 score (0-4 normal; 5-9 mild; 10-14 moderate; 15-21 severe): 0 Source: Developed by Drs. Jose Caba, Aurelia Arita, Juan A Juan and colleagues, with an educational denise from [employer]. SOBEIDA-7 Assessment Billing SOBEIDA-7 Assessment Tool: SOBEIDA-7 Assessment 01116 Review of Systems Const All systems reviewed & are unremarkable except as noted in HPI and below Eyes Reports no additional complaints ENT Reports no additional complaints Card Reports no additional complaints Resp Reports no additional complaints GI Reports no additional complaints Reports no additional complaints Physical exam (Primary Care) Vital Signs: Last Vital Signs Temp 98.2 F 03/14/25 09:11 Pulse 82 03/14/25 09:11 Resp 18 03/14/25 09:11 BP 136/76 03/14/25 09:11 Pulse Ox 98 03/14/25 09:11 Oxygen Delivery Method Room Air 03/14/25 09:11 BMI result Body Mass Index 26.6 Tobacco/Smoking Status: Tobacco use Status Tobacco use date assessed 03/14/25 03/14/25 09:13 Patient Tobacco Use Status Former Tobacco user 03/14/25 09:13 e-Cigarette/Vaping Use Never Used 03/14/25 09:13 PHQ-9: PHQ-9 Score PHQ-9: Total score 0 03/14/25 09:13 Depression Screening Interpretation: Negative Thrive Assessment: Date of Thrive Assessment Date Thrive assessed 03/14/25 03/14/25 09:13 Const General: no acute distress HENMT Head: Yes normal to inspection Eyes General: appearance normal, both eyes and all related structures Neck Neck: Yes supple Resp Effort & Inspection: normal respiratory effort Auscultation: clear to auscultation bilaterally Cardio Rhythm: regular rhythm Heart sounds: S1 normal heart sound present and S2 normal heart sound present GI Inspection: Yes normal to inspection Palpation (GI): Soft to palpation Percussion: Yes normal to percussion Auscultation: normal bowel sounds Coding Level of Care Code Est Pt Level 4 (24254) Complex EM visit Add On G2211 Diagnoses CKD (chronic kidney disease), stage III N18.30 Hyperlipidemia E78.5 HTN (hypertension) I10 Vitamin D deficiency E55.9 Vitamin B 12 deficiency E53.8 Additional Codes SOBEIDA-7 Assessment Billing - SOBEIDA-7 Assessment Tool: SOBEIDA-7 Assessment 24982 ([id number]) PHQ-9 - 37549 - PHQ-9 Billing: Yes ([id number]) Assessment & Plan Assessment & Plan (1) CKD (chronic kidney disease), stage III: Comment: f/u Dr. Fraser Code(s): N18.30 - Chronic kidney disease, stage 3 unspecified Category: Medical Plan: Monitor renal function avoid nephrotoxins (2) Hyperlipidemia: Comment: statins caused hepatitis [place] 2019, f/u with GI Code(s): E78.5 - Hyperlipidemia, unspecified Category: Medical Plan: Continue Zetia. Patient will return for fasting blood work (3) HTN (hypertension): Comment: BP goal less than 130/80, f/u prescribed lorazepam for anxiety, follow-up with nephrology Code(s): I10 - Essential (primary) hypertension Category: Medical Plan: Continue current medications (4) Vitamin D deficiency: Code(s): E55.9 - Vitamin D deficiency, unspecified Category: Medical Plan: Continue vitamin-D supplement (5) Vitamin B 12 deficiency: Code(s): E53.8 - Deficiency of other specified B group vitamins Category: Medical Plan: Continue vitamin B12, return for physical in 6 months Orders: Orders Complete Blood Count Auto Diff Today E53.8 - Deficiency of other specified B group vitamins, E55.9 - Vitamin D deficiency, unspecified, I10 - Essential (primary) hypertension, N18.30 - Chronic kidney disease, stage 3 unspecified Lipid Panel Today E53.8 - Deficiency of other specified B group vitamins, E55.9 - Vitamin D deficiency, unspecified, I10 - Essential (primary) hypertension, N18.30 - Chronic kidney disease, stage 3 unspecified Vitamin D 25-OH Total Today E53.8 - Deficiency of other specified B group vitamins, E55.9 - Vitamin D deficiency, unspecified, I10 - Essential (primary) hypertension, N18.30 - Chronic kidney disease, stage 3 unspecified Vitamin B12 and Folate Today E53.8 - Deficiency of other specified B group vitamins, E55.9 - Vitamin D deficiency, unspecified, I10 - Essential (primary) hypertension, N18.30 - Chronic kidney disease, stage 3 unspecified Comprehensive [place]. Panel Fast Today E53.8 - Deficiency of other specified B group vitamins, E55.9 - Vitamin D deficiency, unspecified, I10 - Essential (primary) hypertension, N18.30 - Chronic kidney disease, stage 3 unspecified TSH reflex Free T4 Today E53.8 - Deficiency of other specified B group vit amins, E55.9 - Vitamin D deficiency, unspecified, I10 - Essential (primary) hypertension, N18.30 - Chronic kidney disease, stage 3 unspecified Medications: Refilled ezetimibe 10 mg PO DAILY 90 tabs 3RF E78.5 - Hyperlipidemia, unspecified omeprazole 20 mg PO DAILY 90 caps 3RF
--- OUTSIDE RECORDS SUMMARY | 2025-03-14 09:36 | XMS_ITS | Encounter Summary ---
Author Organization [facility] Address [address] [place] [address] Phone Care Team Providers Care Stereoptic Projection Topographer Name Role Phone Annelise Griffiths MD Primary Care Provider [phone] Reason for Visit * Reason Comments Med Refill Encounter Details Date Type Department Care Team (Late Contact Info) Description 11/06/2023 Refill [facility] [address] [place] [address] Ivy Mcintosh MD Anxiety, not [...] Visit [facility] [address] [address] Мария Smith ARNP [address] [address] documented as of this encounter Visit Diagnoses Diagnosis Anxiety, not otherwise specified documented in this encounter Care Teams Stereoptic Projection Topographer Relationship Specialty Start Date End Date Annelise Griffiths MD [address] [place] [address] PCP - General Internal Medicine 03/19/21 documented as of this encounter
--- OUTSIDE RECORDS SUMMARY | 2025-03-14 09:36 | XMS_ITS | Encounter Summary ---
Author Organization [facility] Address [address] [facility] [address] [place] [address] Phone Care Team Providers Care Barrel Loader And Cleaner Name Role Phone Annelise Griffiths MD Primary Care Provider [phone] Encounter Details Date Type Department Care Team (Late Contact Info) Description 04/17/2024 Office Communication [facility] [address] [facility] [address] [place] [phone] Мария Smith ARNP [address] [address] Social History Tobacco Use Types [...] Visit [facility] [address] [address] Мария Smith ARNP [address] [address] documented as of this encounter Visit Diagnoses Not on filedocumented in this encounter Care Teams Barrel Loader And Cleaner Relationship Specialty Start Date End Date Annelise Griffiths MD [address] [place] [address] PCP - General Internal Medicine 03/19/21 documented as of this encounter
--- OUTSIDE RECORDS SUMMARY | 2025-03-14 09:36 | XMS_ITS | Encounter Summary ---
Author Organization [facility] Address [address] [facility] [address] [place] [address] Phone Care Team Providers Care Labor Contractor Name Role Phone Annelise Griffiths MD Primary Care Provider [phone] Encounter Details Date Type Department Care Team (Late Contact Info) Description 05/22/2024 Office Communication [facility] [address] [facility] [address] [place] [phone] Мария Smith ARNP [address] [address] Social History Tobacco Use Types [...] Visit [facility] [address] [address] Мария Smith ARNP [address] [address] documented as of this encounter Visit Diagnoses Not on filedocumented in this encounter Care Teams Labor Contractor Relationship Specialty Start Date End Date Annelise Griffiths MD [address] [place] [address] PCP - General Internal Medicine 03/19/21 documented as of this encounter
--- OUTSIDE RECORDS SUMMARY | 2025-03-14 09:36 | XMS_ITS | Clinical Summary ---
Author Organization [facility] [address] [facility] Address [address] [place] [address] Phone Care Team Providers Care Yarn Bleaching Machine Operator Name Role Phone Annelise Griffiths MD Primary Care Provider [phone] Allergies Active Allergy Reactions Criticality Noted Date Comments Atorvastatin Unknown,Other 03/19/2021 Other Reaction(s): liver problem Nitrofurantoin Other 03/19/2021 Other Reaction(s): diff breathing Oxycodone 09/16/2024 Other Reaction(s): ? diff breathing Oxycodone-Acetaminophen Unknown,Other Other Reaction(s): N&V, dizziness Pravastatin Rash 09/17/2021 Rosuvastatin Rash 09/17/2021 Simvastatin Rash 09/17/2021 Biupjcs-Ikj-Xmh Reductase Inhibitors Other 03/19/2021 Other Reaction(s): liver [...] (one) time each day. 02/24/2024 Active cloNIDine (JPXSLATD-BFH-9 ) 0.1 mg/[address] 1 patch on the skin 1 (one) time per week. Active Active Problems Problem Noted Date Diagnosed Date Abnormal liver enzymes 09/16/2024 History of adenomatous polyp of colon 09/16/2024 Social History Tobacco Use Types Packs/Day Years [...] Health Maintenance Due Date Last Done Comments Zoster Vaccines (1 of 2) 1970 DTaP,Tdap,and Td Vaccines (2 - Td or [...] Hypertension/CHF/CAD Annual BMP Blood Test 09/16/2025 09/16/2024 RSV Immunization Adult Patients (1 - 1-dose 75+ series) 2026 Pneumococcal Vaccine: 50+ Years Completed 07/29/2021, 09/07/2016 Influenza Vaccine Completed 08/29/2024, , 08/18/2022, Additional history exists HIB Vaccines Aged Out No longer eligi ble based on patient's age to complete this topic HPV Vaccines Aged Out No longer eligi ble based on patient's age to complete this topic Hepatitis A Vaccines Aged Out No long er eligible [...] age to complete this topic Meningococcal B Vaccine Aged Out No l onger eligible based on patient's age to complete this topic RSV Immunization Patients Under 20 months Aged Out No longer eligible based on patient's age to complete this topic Varicella Vaccines Aged Out No longer eligible based on patient's age to complete this topic Procedures Procedure Name Priority Date/Time Associated Diagnosis Comments RENAL FUNCTION PANEL Routine 09/16/2024 10:06 AM EST Chronic kidney disease (CKD) stage G3a/A1, moderately decreased glomerular filtration rate (GFR) between 45-59 mL/min/1.73 square meter and albuminuria creatinine ratio les* ([facility] V24, [facility] V28) Essential hypertension, malignant Persistent proteinuria from Last 3 Months or Most Recently Relevant to Health Maintenance Results * Renal function panel (09/16/2024 10:06 AM EST) Sodium 142 133 - 145 mmol/L LAB CHEMISTRY METHOD 09/16/2024 2:23 PM [facility] Potassium 4.0 3.5 - 5.5 mmol/L LAB CHEMISTRY METHOD 09/16/2024 2:23 PM [facility] Chloride 110 96 - 110 mmol/L LAB CHEMISTRY METHOD 09/16/2024 2:23 PM [facility] CO2 28 21 - 32 mmol/L LAB CHEMISTRY METHOD 09/16/2024 2:23 PM [facility] Anion Gap 4 3 - 11 LAB CHEMISTRY METHOD 09/16/2024 2:23 PM [facility] Glucose 74 70 - 100 mg/dL LAB CHEMISTRY METHOD 09/16/2024 2:23 PM [facility] BUN 18 5 - 25 mg/dL LAB CHEMISTRY METHOD 09/16/2024 2:23 PM [facility] Creatinine 0.99 0.50 - 1.10 mg/dL LAB CHEMISTRY METHOD 09/16/2024 2:23 PM [facility] eGFR 60 >=60 mL/min/1. 73m2 LAB CHEMISTRY METHOD 09/16/2024 2:23 PM [facility] Comment:Calculation based on the??Chronic Kidney Disease Epidemiology Collaboration (CKD-EPI) equation refit??without adjustment for race. BUN/Creatinine Ratio 18.2 LAB CHEMISTRY METHOD 09/16/2024 2:23 PM [facility] Albumin 3.4 3.2 - 5.0 g/dL LAB CHEMISTRY METHOD 09/16/2024 2:23 PM [facility] Calcium 9.2 8.5 - 10.5 mg/dL LAB CHEMISTRY METHOD 09/16/2024 2:23 PM [facility] Phosphorus 3.5 2.5 - 4.5 mg/dL LAB CHEMISTRY METHOD 09/16/2024 2:23 PM [facility] Blood Venous blood specimen / Unknown Venipuncture / Unknown 09/16/2024 10:06 AM EST 09/16/2024 11:28 AM EST us Lalo Molina MD LAB BLOOD ORDERABLES Final Result [facility] [address] [place] [address], from Last 3 Months or Most Recently Relevant to Health Maintenance Insurance [facility] MEDICARE Care Teams Yarn Bleaching Machine Operator Relationship Specialty Start Date End Date Annelise Griffiths MD [address] [place] [address] PCP - General Internal Medicine 08/13/24
--- OUTSIDE RECORDS SUMMARY | 2025-03-14 09:36 | XMS_ITS | Encounter Summary ---
Author Organization [facility] Address [address] [address] [place] [address] Phone Care Team Providers Care Automation Mechanic Name Role Phone Annelise Griffiths MD Primary Care Provider Reason for Visit * Reason Comments Med Refill Encounter Details Date Type Department Care Team (Late Contact Info) Description 11/02/2023 Refill [facility] [address] [place] [address] Ivy Mcintosh MD Anxiety, not [...] Visit [facility] [address] [address] Мария Smith ARNP [address] [address] documented as of this encounter Visit Diagnoses Diagnosis Anxiety, not otherwise specified documented in this encounter Care Teams Automation Mechanic Relationship Specialty Start Date End Date Annelise Griffiths MD [address] [place] [address] PCP - General Internal Medicine 03/19/21 documented as of this encounter
--- OUTSIDE RECORDS SUMMARY | 2025-03-14 09:36 | XMS_ITS | Encounter Summary ---
Author Organization [facility] Address [address] [facility] [address] [facility] [address] [place] [address] Phone Care Team Providers Care Butcher Helper Name Role Phone Annelise Griffiths MD Primary Care Provider [phone] Encounter Details Date Type Department Care Team (Late Contact Info) Description 03/26/2021 Orders Only [facility] [address] [facility] [facility] [address] [place] [phone] Ivy Mcintosh MD Personal history of colon [...] Visit [facility] [address] [address] Мария Smith ARNP [address] [phone] documented as of this encounter Visit Diagnoses Diagnosis Personal history of colon polyps documented in this encounter Care Teams Butcher Helper Relationship Specialty Start Date End Date Annelise Griffiths MD [address] [place] [address] PCP - General Internal Medicine 03/19/21 documented as of this encounter
--- OUTSIDE RECORDS SUMMARY | 2025-03-14 09:36 | XMS_ITS | Encounter Summary ---
Author Organization [facility] Address [address] [facility] [address] [place] [address] Care Team Providers Care Balance Staff Staker Name Role Phone Unavailable Primary Care Provider Unavailabl e Reason for Visit * Reason Onset Date Comments rs appt new date and time 01/18/2025 Encounter Details Date Type Department Care Team (Late st Contact Info) Description 01/18/2025 Telephone [facility] [address] [place] [address] Timo Hernandez, BUTCH [address] [place] [address] rs appt new date and time Social History Tobacco Use Types Packs/Day Years [...] PM EST documented as of this encounter Miscellaneous Notes * Telephone Encounter - Kendra Almanzar - 01/18/2025 1:10 PM EDT Patient was scheduled for 02/09 and it is not a good day. They are looking to for the morning. 01/25 was offered at 10am however the patient was unable to take that date. Remainder of schedule currently not open. Please reach out to patient for rescheduling DR documented in this encounter Plan of Treatment Upcoming Encounters Date Type Department Care Team (Late st Contact Info) Description 03/28/2025 8:30 AM EDT Office Visit [facility] [address] [place] [address] Timo Hernandez, DMD [address] [place] [address] 08/16/2025 10:00 AM EDT Office Visit [facility] [address] [place] [address] Miguelina Dickinson documented as of this encounter Visit Diagnoses Not on filedocumented in this encounter
--- OUTSIDE RECORDS SUMMARY | 2025-03-14 09:36 | XMS_ITS | Clinical Summary ---
Author Organization [facility] Address [address] [place] [phone] Phone Care Team Providers Care Bpm Developer Name Role Phone Annelise Griffiths MD Primary Care Provider [phone] Allergies Active Allergy Reactions Criticality Noted Date [...] in the evening. 180 tablet 3 12/28/2023 Active lisinopril 40 MG tabletIndicatio ns:Hypertensive disorder Take 1 tablet (40 mg total) by mouth 1 (one) time each day 90 tablet 3 04/04/2024 Active spironolactone (ALDACTONE) 25 MG tablet Take [...] Encounters Date Type Department Care Team Description 02/23/2025 Orders Only [facility] [address] [phone] Мария Smith ARNP Stage 3a chronic kidney disease (HCC); Hypertensive disorder; Persistent proteinuria; Renovascular hypertension from Last 3 Months Family History Medical [...] Visit [facility] [address] [phone] Мария Smith ARNP [address] [phone] Health Maintenance Due Date Last Done Comments Breast Cancer Screening 1950 Pneumococcal Vaccine: 50+ Years (1 of 2 - PCV) 1970 Colorectal Cancer Screening: Annual FOBT 2000 Colorectal Cancer Screening: Colonoscopy 2000 Colorectal Cancer Screening: Sigmoidoscopy 2000 Influenza Vaccine (Season Ended) 2025 08/15/2019, 09/18/2018 Hepatitis B Vaccine Aged Out No longe r eligible based on patient's age to complete this topic Insurance Medicare [facility] Medicare [facility] Care Teams Bpm Developer Relationship Specialty Start Date End Date Annelise Griffiths MD [address] [place] [address] PCP - General Internal Medicine 03/19/21
--- OUTSIDE RECORDS SUMMARY | 2025-03-14 09:36 | XMS_ITS | Clinical Summary ---
Author Organization [employer] Address [address] [facility] [address] [place] [address] Care Team Providers Care Ssrs Developer Name Role Phone Unavailable Primary Care Provider [...] Encounters Date Type Department Care Team Description 03/03/2025 10:00 AM EDT Office Visit [facility] [address] [place] [address] Timo Hernandez DMD Secondary dental caries associated with failed or defective dental christian (Primary Dx) 03/01/2025 9:00 AM EDT Office Visit [facility] [address] [place] [address] Timo Hernandez DMD Dental caries (Primary Dx) 02/09/2025 8:00 AM EDT Office Visit [facility] [address] [place] [address] Miguelina Dickinson 01/18/2025 10:00 AM EDT Office Visit [facility] [address] [place] [address] Timo Hernandez DMD Full coverage crown needed for root canal-treated tooth (Primary Dx) 01/18/2025 Telephone [facility] [address] [place] [address] Timo Hernandez DMD rs appt new date and time 12/19/2024 1:00 PM EST Office Visit [facility] [address] [place] [address] Timo Hernandez DMD Symptomatic irreversible pulpitis (Primary Dx); Dental caries from Last 3 Months Social History Tobacco [...] Sign Reading Time Taken Comments Blood Pressure 130/62 03/03/2025 10:03 AM EDT Pulse - - Temperature - - Respiratory Rate - - Oxygen Saturation - - Inhaled Oxygen Concentration - - Weight - - Height - - Body Mass Index - - Plan of Treatment Upcoming Encounters Date Type Department Care Team (Late st Contact Info) Description 03/28/2025 8:30 AM EDT Office Visit [facility] [address] [place] [address] Timo Hernandez, BUTCH [address] [place] [address] 08/16/2025 10:00 AM EDT Office Visit [facility] [address] [place] [address] Miguelina Dickinson Health Maintenance Due Date Last Done Comments CT Colonography 1951 Colonoscopy 1951 Colorectal Cancer Screening 1951 Depression Screening 1951 FIT DNA/Cologuard 1951 FIT 1951 FOBT 1951 Lipid Panel 1951 SDOH Screening 1951 Sigmoidoscopy 1951 Alcohol/Substance Use Screening 1963 Hepatitis C Screening 1969 Zoster Vaccines (1 of 2) 2001 RSV Patients and Patients Aged 60 years or older (1 - Risk 60-74 years 1-dose series) 2011 Pneumococcal Vaccine: 50+ Years (2 of 2 - PPSV23) 09/07/2017 09/07/2016 DTaP/Tdap/Td Vaccines (2 - Td or Tdap) 02/19/2019 02/19/2009 Mammogram 09/10/2020 09/10/2018 COVID-19 Vaccine (1 - season) 2024 Influenza Vaccine (#1) 2024 9, 09/18/2018, 09/07/2016, Additional history exists Dental Oral Exam 03/22/2025 09/21/2024 Dental Prophylaxis 08/12/2025 02/09/2025 Dental X-Ray: Bitewings 09/22/2025 09/21/2024 Tobacco Screening 03/01/2026 03/01/2025 Dental X-Ray: Full Mouth 09/22/2027 09/21/2024 HIB [...] PRESENTATION, DETAILED AND EXTENSIVE TREATMENT PLANNING Routine 03/03/2025 10:00 AM EDT Secondary dental caries associated with failed or defective dental christian 31 RESIN-BASED COMPOSITE - 3 SURF, POSTERIOR Routine 03/03/2025 10:00 AM EDT Secondary dental caries associated with failed or defective dental christian 29 B(V) RESIN-BASED COMPOSITE - 1 SURF, POSTERIOR Routine 03/03/2025 10:00 AM EDT Secondary dental caries associated with failed or defective dental christian 29 B(V) COMPOSITE FILLING Routine 03/03/2025 12:00 AM EDT 28 B(V) COMPOSITE FILLING Routine 03/03/2025 12:00 AM EDT CASE PRESENTATION, DETAILED AND EXTENSIVE TREATMENT PLANNING Routine 03/01/2025 9:00 AM EDT Dental caries 22 F(V) RESIN-BASED COMPOSITE - 1 SURF, ANTERIOR Routine 03/01/2025 9:00 AM EDT Dental caries ORAL HYGIENE INSTRUCTIONS Routine 02/09/2025 8:00 AM EDT CASE PRESENTATION, DETAILED AND EXTENSIVE TREATMENT PLANNING Routine 02/09/2025 8:00 AM EDT PROPHYLAXIS - ADULT Routine 02/09/2025 8 :00 AM EDT CASE PRESENTATION, DETAILED AND EXTENSIVE TREATMENT PLANNING Routine 01/18/2025 10:00 AM EDT Full coverage crown needed for root canal-treated tooth 19 CORE BUILDUP, INCL ANY PINS WHEN REQ Routine 01/18/2025 10:00 AM EDT Full coverage crown needed for root canal-treated tooth 20 PREFABRICATED POST AND CORE IN ADDITION TO CROWN Routine 01/18/2025 10:00 AM EDT Full coverage crown needed for root canal-treated tooth CASE PRESENTATION, DETAILED AND EXTENSIVE TREATMENT PLANNING Routine 12/19/2024 1:00 PM EST Symptomatic irreversible pulpitis Dental caries 32 EXTRACTION, ERUPTED TOOTH OR EXPOSED ROOT (ELEVATION/FORCEPS REMOVAL) Routine 12/19/2024 1:00 PM EST Symptomatic irreversible pulpitis Dental caries 32 AMALGAM FILLING Routine 12:00 AM EST INTRAORAL - COMPLETE SERIES OF RADIOGRAPHIC IMAGES Routine 09/21/2024 11:00 AM EST COMPREHENSIVE ORAL EVALUATION - NEW OR ESTABLISHED PATIENT Routine 09/21/2024 11:00 AM EST from Last 3 Months or Most Recently Relevant to Health Maintenance Insurance DENTAL - HSN FULL (MEDICAID)
== END 2025-03-14 09:49 | disposition home or self-care (01) ==
LOC: HO.HMCC 09:02
PROVIDERS: PCP Internal Medicine; Visit Provider Internal Medicine
DX: N18.30 Chronic kidney disease, stage 3 unspecified (principal); E78.5 Hyperlipidemia, unspecified; I10 Essential (primary) hypertension; E55.9 Vitamin D deficiency, unspecified; E53.8 Deficiency of other specified B group vitamins

== ENCOUNTER → 2025-03-14 09:01 | Outpatient (BNVA) | payer MEDICARE, SELFPAY | PROVIDERS: PCP Internal Medicine; Visit Provider Internal Medicine | DX: I12.9 Hypertensive chronic kidney disease with stage 1 through stage 4 chronic kidney disease, or unspecified chronic kidney disease (principal); N18.30 Chronic kidney disease, stage 3 unspecified; E78.5 Hyperlipidemia, unspecified; E55.9 Vitamin D deficiency, unspecified; E53.8 Deficiency of other specified B group vitamins | CPT/HCPCS: 96127; 99212 ==

== ENCOUNTER 2025-03-17 07:36 | Outpatient (REF) | payer MEDICARE, SELFPAY ==
--- OUTSIDE RECORDS SUMMARY | 2025-03-17 07:38 | XMS_ITS | Encounter Summary ---
Author Organization [facility] Address [address] [facility] [address] [place] [address] Phone Care Team Providers Care Mica Plate Layer Name Role Phone Annelise Griffiths MD Primary Care Provider [phone] Encounter Details Date Type Department Care Team (Late Contact Info) Description 03/26/2021 Orders Only [facility] [address] [facility] [address] [facility] [address] [place] [phone] Ivy Mcintosh MD Personal history of colon [...] [facility] [address] [phone] Мария Smith ARNP [address] [phone] documented as of this encounter Visit Diagnoses Diagnosis Personal history of colon polyps documented in this encounter Care Teams Mica Plate Layer Relationship Specialty Start Date End Date Annelise Griffiths MD [address] [place] [address] PCP - General Internal Medicine 03/19/21 documented as of this encounter
[2025-03-17 08:02] LABS: MANUAL DIFF FLAG NO
[2025-03-17 08:23] LABS: Basophils Absolute Auto 0.1 X10*3/uL (0.0-0.2); Eosinophils Absolute Auto 0.6 X10*3/uL (0.0-0.4); Eosinophils Percent Auto 8.8 % (0-4); Hematocrit 42.9 % (37.0-47.0); Hemoglobin 14.1 g/dl (12.0-16.0); Imm Gran Abs Auto 0.03 X10*3/uL (0.00-0.03); Imm Gran Pct Auto 0.4 % (0.0-0.4); Lymphocytes Absolute Auto 2.2 X10*3/uL (1.2-4.9); Lymphocytes Percent Auto 30.4 % (20-40); Mean Corpuscular HGB Conc 32.9 g/dl (31.0-35.0); Mean Corpuscular Hemoglobin 29.6 pg (27.0-33.0); Mean Corpuscular Volume 90.1 fL (80.0-98.0); Mean Platelet Volume 10.2 fL (9.4-12.3); Monocytes Absolute Auto 0.5 X10*3/uL (0.1-1.2); Monocytes Percent Auto 6.7 % (2-11); Neutrophils Absolute Auto 3.8 x10*3/uL (2.0-8.3); Neutrophils Percent Auto 52.7 % (45-73); Platelet Count 273 X10*3/uL (160-400); Red Blood Count 4.76 X10*6/uL (4.20-5.50); White Blood Count 7.3 X10*3/uL (4.8-10.8)
[2025-03-17 09:10] LABS: Alanine Aminotransferase 29 U/L (0-31); Alkaline Phosphatase 125 U/L (39-117); Anion Gap 12 (12-20); Aspartate Amino Transferase 25 U/L (5-31); Bilirubin Total 0.7 mg/dL (0.0-1.0); Blood Urea Nitrogen 18 mg/dL (9-16); Calcium 9.4 mg/dL (8.4-10.2); Carbon Dioxide 27 mmol/L (22-29); Chloride 109 mmol/L (96-108); Cholesterol 191 mg/dL (<200); Estimated Glomerular Filt Rate 51; Glucose Fasting 95 mg/dL (60-99); HDL Cholesterol 40 mg/dL (>40); LDL Cholesterol Calculated 126 mg/dL (<100); Potassium 4.5 mmol/L (3.3-5.1); Sodium 143 mmol/L (135-145); Total Protein 7.1 g/dL (6.5-8.0); Triglycerides 127 mg/dL (<150)
[2025-03-17 09:13] LABS: TSH reflex Free T4 2.31 uIU/mL (0.32-4.0); Vitamin D 25-OH Total 44.7 ng/mL (>30)
[2025-03-17 09:29] LABS: Folate 8.3 ng/mL (> or = 4.0); Vitamin B12 302 pg/mL (200-900)
== END 2025-03-17 07:37 | disposition home or self-care (01) ==
LOC: HO.LAB 07:36
PROVIDERS: PCP Internal Medicine; Visit Provider Internal Medicine
DX: I10 Essential (primary) hypertension (principal); N18.30 Chronic kidney disease, stage 3 unspecified; E55.9 Vitamin D deficiency, unspecified; E53.8 Deficiency of other specified B group vitamins
CPT/HCPCS: 36415; 80053; 80061; 82306; 82607; 82746; 84443; 85025

== ENCOUNTER 2025-06-06 14:53 | Outpatient (AMB) | payer MEDICARE, SELFPAY ==
--- OUTSIDE RECORDS SUMMARY | 2025-06-06 15:43 | XMS_ITS | Clinical Summary ---
Author Organization [facility] [address] [facility] Address [address] [place] [address] Phone Care Team Providers Care Cherry Cutter Name Role Phone Annelise Griffiths MD Primary Care Provider [phone] Allergies Active Allergy Reactions Criticality Noted Date Comments Atorvastatin Unknown,Other 03/19/2021 Other Reaction(s): liver problem Nitrofurantoin Other 03/19/2021 Other Reaction(s): diff breathing Oxycodone 09/16/2024 Other Reaction(s): ? diff breathing Oxycodone-Acetaminophen Unknown,Other Other Reaction(s): N&V, dizziness Pravastatin Rash 09/17/2021 Rosuvastatin Rash 09/17/2021 Simvastatin Rash 09/17/2021 Msnminx-Now-Vhv Reductase Inhibitors Other 03/19/2021 Other Reaction(s): liver [...] (one) time each day. 02/24/2024 Active cloNIDine ([id number]-4 ) 0.1 mg/[address] 1 patch [...] Panel) 09/28/2022 Colorectal Cancer Screening: Colonoscopy 09/28/2022 Falls Risk Assessment 09/28/2022 Hepatitis C Screening 09/28/2022 Medicare Annual Wellness Visit 09/28/2022 Osteoporosis Screening (Bone Density Screening) 09/28/2022 Social Influencers of Health Screening 09/28/2022 Depression Screening 10/26/2024 Influenza Vaccine (#1) 2025 , 09/11/2023, 08/18/2022, Additional history exists Hypertension/CHF/CAD Annual BMP Blood Test 09/16/2025 09/16/2024 RSV Immunization Adult Patients (1 - 1-dose 75+ series) 2026 Pneumococcal Vaccine: 50+ Years Completed 07/29/2021, 09/07/2016 HIB Vaccines Aged Out No longer eligi [...] square meter and albuminuria creatinine ratio les* ([facility] V24, [facility] V28) Essential hypertension, malignant Persistent proteinuria from Last 3 Months or Most Recently Relevant to Health Maintenance Results * Renal function panel (09/16/2024 10:06 AM EST) Sodium 142 133 - 145 mmol/L LAB CHEMISTRY METHOD 09/16/2024 2:23 PM [facility] Potassium 4.0 3.5 - 5.5 mmol/L LAB CHEMISTRY METHOD 09/16/2024 2:23 PM [facility] Chloride 110 96 - 110 mmol/L LAB CHEMISTRY METHOD 09/16/2024 2:23 PM [facility] CO2 28 21 - 32 mmol/L LAB CHEMISTRY METHOD 09/16/2024 2:23 PM [facility] Anion Gap 4 3 - 11 LAB CHEMISTRY METHOD 09/16/2024 2:23 PM [facility] Glucose 74 70 - 100 mg/dL LAB CHEMISTRY METHOD 09/16/2024 2:23 PM [facility] BUN 18 5 - 25 mg/dL LAB CHEMISTRY METHOD 09/16/2024 2:23 PM [facility] Creatinine 0.99 0.50 - 1.10 mg/dL LAB CHEMISTRY METHOD 09/16/2024 2:23 PM [facility] eGFR 60 >=60 mL/min/1. 73m2 LAB CHEMISTRY METHOD 09/16/2024 2:23 PM [facility] Comment:Calculation based on the Chronic Kidney Disease Epidemiology Collaboration (CKD-EPI) equation refit without adjustment for race. BUN/Creatinine Ratio 18.2 LAB CHEMISTRY METHOD 09/16/2024 2:23 PM [facility] Albumin 3.4 3.2 - 5.0 g/dL LAB CHEMISTRY METHOD 09/16/2024 2:23 PM [facility] Calcium 9.2 8.5 - 10.5 mg/dL LAB CHEMISTRY METHOD 09/16/2024 2:23 PM [facility] Phosphorus 3.5 2.5 - 4.5 mg/dL LAB CHEMISTRY METHOD 09/16/2024 2:23 PM [facility] Blood Venous blood specimen / Unknown Venipuncture / Unknown 09/16/2024 10:06 AM EST 09/16/2024 11:28 AM EST us Lalo Molina MD LAB BLOOD ORDERABLES Final Result [facility] [address] [place] [address], from Last 3 Months or Most Recently Relevant to Health Maintenance Insurance [facility] MEDICARE Care Teams Cherry Cutter Relationship Specialty Start Date End Date Annelise Griffiths MD [address] [place] [phone] PCP - General Internal Medicine 08/13/24
--- OUTSIDE RECORDS SUMMARY | 2025-06-06 15:43 | XMS_ITS | Encounter Summary ---
Author Organization [facility] Address [address] [facility] [address] [place] [address] Phone Care Team Providers Care Car Deliverer Name Role Phone Annelise Griffiths MD Primary Care Provider [phone] Encounter Details Date Type Department Care Team (Late Contact Info) Description 03/26/2021 Orders Only [facility] [address] [facility] [address] [place] [phone] Ivy Mcintosh MD Personal history of colon [...] Care Team (Late st Contact Info) Description 10/04/2025 9:00 AM EST Office Visit [facility] [address] [phone] Мария Smith ARNP [address] [phone] documented as of this encounter Visit Diagnoses Diagnosis Personal history of colon polyps documented in this encounter Care Teams Car Deliverer Relationship Specialty Start Date End Date Annelise Griffiths MD [address] [place] [address] PCP - General Internal Medicine 03/19/21 documented as of this encounter
--- OUTSIDE RECORDS SUMMARY | 2025-06-06 15:43 | XMS_ITS | Encounter Summary ---
Author Organization [facility] Address [address] [facility] 7[address] [place] [address] Care Team Providers Care Ditch Worker Name Role Phone Unavailable Primary Care Provider Unavailabl e Reason for Visit * Reason Onset Date Comments rs appt new date and time 01/18/2025 Encounter Details Date Type Department Care Team (Late st Contact Info) Description 01/18/2025 Telephone [facility] [address] [place] [address] Timo Hernandez, BUTCH [address] [place] [address] rs appt new date and time Social [...] Care Team (Late st Contact Info) Description 08/16/2025 10:00 AM EDT Office Visit [facility] [address] [place] [address] Miguelina Dickinson documented as of this encounter Visit Diagnoses Not on filedocumented in this encounter
[2025-06-06 15:57] VITALS: BP 132/78; PULSE 70; TEMP 36.8; O2SAT 97; BMI 26.8
--- NOTE | 2025-06-06 15:57 | MHC.OFFWIV ---
Intake Vital Signs 06/06/25 15:57 Height 5 ft 7 in Weight 171 lb 2 oz BMI 26.8 BP 132/78 Blood Pressure Location Lt brachial Position Sitting Pulse 70 Pulse Source Pulse Oximeter Temp 98.2 F Temp Source Oral Pulse Oximetry (%) 97 Oxygen Delivery Method Room Air Intake Visit Reasons: EP Fall, LT knee swelling Patient Tobacco Use Status: Former Tobacco user Dry Wall Nailer Required: No Is last menstrual period known: No Post menopausal: Yes Patient : No Allergies acetaminophen (From PERCOCET) Allergy (Unknown, Verified 06/06/25 16:04) UNKNOWN azithromycin Allergy (Unknown, Verified 06/06/25 16:04) hives oxycodone (From PERCOCET) Allergy (Unknown, Verified 06/06/25 16:04) UNKNOWN Bvqzcqd-KIX-FhF Reductase Inhibitor (DKFFGGW-DJJ-FNP REDUCTASE INHIBITOR) Allergy (Unknown, Verified 06/06/25 16:04) liver failure, major liver problems nitrofurantoin (From Macrobid) Adverse Reaction (Severe, Verified 06/06/25 16:04) breathing atorvastatin (Lipitor) Adverse Reaction (Unknown, Verified 06/06/25 16:04) Liver issues z-pack Allergy (Unknown, Uncoded 03/14/25 09:12) hives Do you need a note to return to daycare/school/sports/work: No HPI HPI Comments History of Present Illness Details History of Present Illness - The patient is a 75-year-old female presenting with right knee pain and swelling following a fall where she did the splits when she fell. - The fall occurred on a cruise due to a slippery surface, leading to a painful right knee. - Ice was applied immediately and consistently to manage swelling. - The patient experiences increased pain with movement, especially when lying on the left side. - A history of kidney problems limits the use of NSAIDs for pain management. Physical Exam General: Cooperative, healthy appearing, comfortable, no acute distress and well developed Orientation: Patient oriented x3 Limitations: No limitations Head: Normal to inspection Ears: Hearing grossly normal bilaterally Nose: Normal External nose present Face and sinus: Normal facial exam Eyes: Appearance normal, both eyes and all related structures Neck: Normal visual inspection and Yes full ROM Respiratory: Normal respiratory effort and able to speak in complete sentences. Skin: No rashes or lesions noted, but swelling noted in the right knee and both feet, with the right knee being more swollen. Neuro: Patient oriented x3 Extremities: right knee with medial ttp and slight edema, full ROM, no laxity, no patellar ballottement. no skin changes. [facility] Medical History (Updated 06/06/25 @ 16:14 by Nia Olson PA-C) Mammogram normal CKD (chronic kidney disease), stage III TIA (transient ischemic attack) Liver hemangioma Hepatitis GERD (gastroesophageal reflux disease) HTN (hypertension) Hyperlipidemia Surgical History H/O colonoscopy Hx of cholecystectomy History of breast surgery History of back surgery History of hysterectomy Family History Father No problems noted. Mother No problems noted. Brother No problems noted. Brother No problems noted. Sister No problems noted. 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 Cognitive needs: No Hearing needs: No Vision needs: Yes Review of Systems Const All systems reviewed & are unremarkable except as noted in HPI and below Physical Exam Vital Signs: Last Vital Signs Temp 98.2 F 06/06/25 15:57 Pulse 70 06/06/25 15:57 BP 132/78 06/06/25 15:57 Pulse Ox 97 06/06/25 15:57 Oxygen Delivery Method Room Air 06/06/25 15:57 BMI result Body Mass Index 26.8 Assessment & Plan Assessment & Plan (1) Strain of right knee: Code(s): S86.911A - Strain of unspecified muscle(s) and tendon(s) at lower leg level, right leg, initial encounter Qualifiers: Encounter type: initial encounter Qualified Code(s): S86.911A - Strain of unspecified muscle(s) and tendon(s) at lower leg level, right leg, initial encounter Plan: Plan - Perform an x-ray of the right knee to assess for fractures though more likely a sprain. - Continue icing and elevating the knee to manage swelling. - Use Aleve cautiously for inflammation, considering the patient's kidney history. - Send a referral to Dr. Richardson for further knee evaluation if needed. - CHRISTIN wrapped knee, advised rest and elevation. Patient was informed and verbally consented to the use of an ambient scribe for clinic note documentation during this visit. Orders: Orders XR knee RT 4V Today S86.911A - Strain of unspecified muscle(s) and tendon(s) at lower leg level, right leg, initial encounter Referrals Orthopedics Referral S86.911A - Strain of unspecified muscle(s) and tendon(s) at lower leg level, right leg, initial encounter Coding Level of Care Code Est Pt Level 4 (17271) Diagnoses Strain of right knee, initial encounter S86.911A Encounter type: initial encounter
== END 2025-06-06 16:17 | disposition home or self-care (01) ==
PROVIDERS: PCP Internal Medicine; Visit Provider Physician Assistant
DX: S86.911A Strain of unspecified muscle(s) and tendon(s) at lower leg level, right leg, initial encounter (principal)

== ENCOUNTER 2025-06-06 14:53 | Outpatient (REF) | payer MEDICARE, SELFPAY ==
--- NOTE | ~2025-06-06 | XR_ITS ---
EXAMINATION: XR KNEE, RIGHT CLINICAL INFORMATION: S86.911A - Strain of unspecified muscle(s) and tendon(s) at lower leg le... COMPARISON: None available. TECHNIQUE: Four views of the right knee. FINDINGS: There is mild reduction in medial and lateral compartment joint space with minimal suprapatellar joint effusion. No loose bodies seen. There is a small anterior spur patellar enthesophyte. No joint effusion seen. No visible fracture or dislocation. The soft tissues are normal. XR/XR knee RT 4V IMPRESSION: Mild degenerative arthritic changes. Mild suprapatellar joint effusion. No visible acute fracture or dislocations Electronically signed by: Alo Giang MD 06/06/2025 04:29 PM EDT
== END 2025-06-06 14:54 | disposition home or self-care (01) ==
LOC: HO.HMGCX 14:53
PROVIDERS: PCP Internal Medicine; Visit Provider Physician Assistant
DX: S86.911A Strain of unspecified muscle(s) and tendon(s) at lower leg level, right leg, initial encounter (principal); M25.561 Pain in right knee; M25.461 Effusion, right knee; W01.0XXA Fall on same level from slipping, tripping and stumbling without subsequent striking against object, initial encounter
CPT/HCPCS: 73564; 99212

== ENCOUNTER → 2025-06-06 16:17 | Outpatient (BNV) | payer MEDICARE, SELFPAY | PROVIDERS: PCP Internal Medicine; Visit Provider Radiology Diagnostic Radiology | DX: M17.11 Unilateral primary osteoarthritis, right knee (principal) | CPT/HCPCS: 73564 ==

== ENCOUNTER 2025-07-04 08:36 | Outpatient (AMB) | payer MEDICARE, SELFPAY ==
[2025-07-04 08:40] VITALS: BMI 26.8
--- NOTE | 2025-07-04 08:40 | MHC.OFFVIS ---
Vital Signs 07/04/25 08:40 Height 5 ft 7 in Weight 171 lb BMI 26.8 Intake Visit Reasons: OV-Dupuytren's contracture of left hand Intake Note: Funmi 75 yr old right hand dominant female presents today for her S/P left small finger partial fasciectomy and volar capsulectomy, DOS: 08/13/23. She was very pleased with the results of her surgery, and the fact that she can now fully extend her small finger and bring it to a fist. Currently states she has noticed a growth in her Enrique aspect of hand at her 4th and 5th MCP. States it has increase in size in the last 6 months and at times when squeezing she feels pain. Patient explained she feels like her dupuytrens is occurring again. Denies numbness or tingling in fingers. Hx of right dorsal ulnar sided-R wrist TFCC after a fall in late September 2023 s/p injection 01/06/[address] Rdz Allergies acetaminophen (From PERCOCET) Allergy (Unknown, Verified 07/04/25 08:44) UNKNOWN azithromycin Allergy (Unknown, Verified 07/04/25 08:44) hives oxycodone (From PERCOCET) Allergy (Unknown, Verified 07/04/25 08:44) UNKNOWN Neevcjp-XXB-KaS Reductase Inhibitor (PDKAUTX-RMC-TWY REDUCTASE INHIBITOR) Allergy (Unknown, Verified 07/04/25 08:44) liver failure, major liver problems nitrofurantoin (From Macrobid) Adverse Reaction (Severe, Verified 07/04/25 08:44) breathing atorvastatin (Lipitor) Adverse Reaction (Unknown, Verified 07/04/25 08:44) Liver issues z-pack Allergy (Unknown, Uncoded 07/04/25 08:44) hives HPI HPI OV-Dupuytren's contracture of left hand: Details: Funmi is a 75 year old right hand dominant woman who returns with complaints of a left palm mass. She complains of a mass at the base of her small finger. she says this has been increasing in size for ~6 months now, and causes her pain with gripping/squeezing activities. She says she feels this pulling her finger down when she extends her digits. She feels this is similar to her previous Dupuytrens disease and is concerned she is having a recurrence in her small finger. She has a Hx of small finger numbness, with no NCS. This was present prior to her partial fasciectomy. She denies any numbness or tingling today. She is S/P left small finger partial fasciectomy and volar capsulectomy, DOS: 08/13/23. She is very pleased with the results of her surgery, and the fact that she can now fully extend her small finger and bring it to a fist. She has a Hx of a right TFCC tear, which improved with injections & OT. Her son is undergoing open-heart surgery soon. [facility] Medical History (Updated 07/04/25 @ 09:14 by Porfirio Greco) Mammogram normal CKD (chronic kidney disease), stage III TIA (transient ischemic attack) Liver hemangioma Hepatitis GERD (gastroesophageal reflux disease) HTN (hypertension) Hyperlipidemia Surgical History H/O colonoscopy Hx of cholecystectomy History of breast surgery History of back surgery History of hysterectomy Family History Father No problems noted. Mother No problems noted. Brother No problems noted. Brother No problems noted. Sister No problems noted. 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 Cognitive needs: No Hearing needs: No Vision needs: Yes Review of Systems Const All systems reviewed & are unremarkable except as noted in HPI and below Physical Exam Vital Signs: BMI result Body Mass Index 26.8 Const General: no acute distress and alert Orientation/consciousness: patient oriented x3 Neuro General: patient oriented x3 Extrem Other: Evaluation of Left Upper Extremity: The patient is alert, oriented, and in no acute distress Sensation intact and sensation is normal to the tips of all digits Cap refill brisk ROM: She can make a fist and extend all her digits No locking or catching Dupuytrens contracture: Small finger: MCP 0/PIP 20/DIP 0 There is a Dupuytrens nodule just proximal to the palmar crease, in line with the small finger, measuring ~5mm in diameter There is a Dupuytrens nodule in the mid-palmar crease, in line with the small finger, measuring ~6-7mm in diameter Psych Appearance: grossly normal Affect: normal affect Attitude: cooperative Assessment & Plan Assessment & Plan (1) Dupuytren's contracture of left hand: Code(s): M72.0 - Palmar fascial fibromatosis [Dupuytren] Category: Medical (2) Dupuytren's disease of palm of left hand: Code(s): M72.0 - Palmar fascial fibromatosis [Dupuytren] Category: Medical Plan Assessment & Plan: 1. Left small finger Dupuytren's contracture, recurrence S/P partial fasciectomy & PIP joint volar capsulectomy DOS: 08/13/23 Post-operatively with full extension Now with: MCP 0/PIP 20/DIP 0 2. Left Dupuytrens disease, recurrence 2 Nodules in the palm, in line with the small finger Measuring ~5mm & ~6mm in diameter I educated her about this condition I discussed operative and non-operative treatment options No operative intervention indicated at this time. She still has full ROM of all her digits She should continue to work on ROM exercises, particularly placing her hand flat on a surface If her symptoms increase in frequency or severity she can follow up to discuss treatment options Otherwise she can follow up in 1 year to see how she is doing. 3. Left small finger numbness Continue numbness in the ulnar digital nerve distribution of the small finger, which was present pre-operatively. No complaints today 4. Right TFCC tear, likely partial, and possibly degenerative with an acute sprain, S/P injection After a fall in late September 2023 Date of injection: 01/06/24 Doing well, no complaints Scribed for Erin Rdz MD by Porfirio Greco, biomedical engineering internship, on 07/04/25 at 9:00 AM, EST. Coding Level of Care Code Est Pt Level 3 (29182) Diagnoses Dupuytren's contracture of left hand M72.0 Dupuytren's disease of palm of left hand M72.0
--- OUTSIDE RECORDS SUMMARY | 2025-07-04 09:39 | XMS_ITS | Encounter Summary ---
Author Organization [employer] Address [address] [facility] 7t [place] [address] Care Team Providers Care Plant Mechanic Name Role Phone Unavailable Primary Care Provider Unavailabl e Reason for Visit * Reason Onset Date Comments rs appt new date and time 01/18/2025 Encounter Details Date Type Department Care Team (Late st Contact Info) Description 01/18/2025 Telephone [facility] [address] [place], [place] [phone] Timo Hernandez, DMD [address] [place], [place] [phone] rs appt new date and time Social [...] documented in this encounter Plan of Treatment Not on file documented as of this encounter Visit Diagnoses Not on filedocumented in this encounter
--- OUTSIDE RECORDS SUMMARY | 2025-07-04 09:39 | XMS_ITS | Clinical Summary ---
Author Organization [facility] Address [address] [place] [phone] Phone Care Team Providers Care Customs Compliance Manager Name Role Phone Annelise Griffiths MD Primary Care Provider [phone] Allergies Active Allergy Reactions Criticality Noted Date Comments Atorvastatin Other (see comments) 03/19/2021 Azithromycin Rash Low 03/19/2021 Nitrofurantoin Other (see comments) 03/19/2021 Oxycodone-Acetaminophen Other (see comments) Pravastatin 09/17/2021 Rosuvastatin 09/17/2021 Simvastatin 09/17/2021 Statins Other (see comments) 03/19/2021 Medications ezetimibe (ZETIA) 10 MG tablet Take 10 mg by mouth 1 (one) time each day 1 Active omeprazole (PriLOSEC) [address] capsule Take 20 mg by mouth 1 (one) time each day 1 Active cloNIDine (CATAPRES) 0.1 MG tabletIndicatio ns:Stage 3a chronic kidney disease (HCC),Hypertens jason disorder Take 1 tablet (0.1 mg total) by mouth in the morning and 1 tablet (0.1 mg total) in the evening. 180 tablet 3 4 Active Additional Information Patient taking differently:0.1 mg OralDaily, Reported on 04/05/2025 spironolactone (ALDACTONE) 25 MG tablet Take 2 tablets (50 mg total) by mouth 1 (one) time each day 90 tablet 3 4 Active amLODIPine (Norvasc) 5 MG tablet Take 1 tablet (5 mg total) by mouth in the morning and 1 tablet (5 mg total) in the evening. 180 tablet 3 4 10/05/20 25 Active lisinopril 40 MG tabletIndicatio ns:Hypertensive disorder Take 1 tablet (40 mg total) by mouth 1 (one) time each day 90 tablet 3 5 05/05/20 26 Active Active Problems Problem Noted Date Diagnosed [...] Encounters Date Type Department Care Team Description 05/05/2025 Orders Only [facility] [address] [facility] [address] [place] [address] Mary Ellen Grande Hypertensive disorder 2025 Refill [facility] [address] [place] [address] Мария Smith ARNP Hypertensive disorder 04/05/2025 8:00 AM EDT Office Visit [facility] [address] [facility] [address] [place] [address] Мария Smith ARNP Stage 3a chronic kidney disease (HCC) (Primary Dx); Hypertensive disorder; Persistent proteinuria from Last 3 Months Family History Medical [...] Sign Reading Time Taken Comments Blood Pressure 126/76 04/05/2025 8:19 AM EDT Pulse 53 04/05/2025 8:19 AM EDT Temperature - - Respiratory Rate - - Oxygen Saturation 98% 10/05/2024 10:06 AM EST Inhaled Oxygen Concentration - - Weight 73.5 kg (162 lb) 04/05/2025 8:19 AM EDT Height 170.2 cm (5' 7 ) 09/07/2023 4:22 PM EST Body Mass Index 25.37 09/07/2023 4:22 PM EST Plan of Treatment Upcoming Encounters Date Type Department Care Team (Late st Contact Info) Description 10/04/2025 9:00 AM EST Office [facility] [address] [address] Мария Smith ARNP [address] [address] Health Maintenance Due Date Last Done Comments Breast Cancer Screening 1950 Pneumococcal Vaccine: 50+ Years (1 of 2 - PCV) 1970 Colorectal Cancer Screening: Annual FOBT 2000 Colorectal Cancer Screening: Colonoscopy 2000 Colorectal Cancer Screening: Sigmoidoscopy 2000 Influenza Vaccine (#1) 2025 9, 09/18/2018 Hepatitis B Vaccine Aged Out No longe r eligible based on patient's age to complete this topic Insurance Medicare [facility] Medicare [facility] Care Teams Customs Compliance Manager Relationship Specialty Start Date End Date Annelise Griffiths MD [address] [place] [address] PCP - General Internal Medicine 03/19/21
--- OUTSIDE RECORDS SUMMARY | 2025-07-04 09:39 | XMS_ITS | Encounter Summary ---
Author Organization [facility] Address [address] [facility] 200 [place] [address] Phone Care Team Providers Care Manager Internet Retails Sales Name Role Phone Annelise Griffiths MD Primary Care Provider [phone] Encounter Details Date Type Department Care Team (Late Contact Info) Description 04/17/2024 Office Communication [facility] [address] [facility] 200 [place] [phone] Мария Smith ARNP [address] [address] Social History Tobacco Use Types [...] Visit [facility] [address] [address] Мария Smith ARNP [address] [address] documented as of this encounter Visit Diagnoses Not on filedocumented in this encounter Care Teams Manager Internet Retails Sales Relationship Specialty Start Date End Date Annelise Griffiths MD [facility] [place] [address] PCP - General Internal Medicine 03/19/21 documented as of this encounter
--- OUTSIDE RECORDS SUMMARY | 2025-07-04 09:39 | XMS_ITS | Encounter Summary ---
Author Organization [facility] Address [address] [facility] [address] [place] [address] Phone Care Team Providers Care Conveyor Line Bakery Worker Name Role Phone Annelise Griffiths MD Primary Care Provider [phone] Reason for Visit * Reason Comments Med Refill Encounter Details Date Type Department Care Team (Late Contact Info) Description 11/06/2023 Refill [facility] [address] [place] [address] Ivy Mcintosh MD Anxiety, not [...] Visit [facility] [address] [address] Мария Smith ARNP [address] [address] documented as of this encounter Visit Diagnoses Diagnosis Anxiety, not otherwise specified documented in this encounter Care Teams Conveyor Line Bakery Worker Relationship Specialty Start Date End Date Annelise Griffiths MD [address] [place] [address] PCP - General Internal Medicine 03/19/21 documented as of this encounter
--- OUTSIDE RECORDS SUMMARY | 2025-07-04 09:39 | XMS_ITS | Encounter Summary ---
Author Organization [facility] Address [address] [facility] [address] [facility] 200 [place] [address] Phone Care Team Providers Care Software Engineer Backend Name Role Phone Annelise Griffiths MD Primary Care Provider [phone] Encounter Details Date Type Department Care Team (Late Contact Info) Description 03/26/2021 Orders Only [facility] [address] [facility] [address] [facility] 200 [place] [phone] Ivy Mcintosh MD Personal history of colon [...] Visit [facility] [address] [address] Мария Smith ARNP [address] [phone] documented as of this encounter Visit Diagnoses Diagnosis Personal history of colon polyps documented in this encounter Care Teams Software Engineer Backend Relationship Specialty Start Date End Date Annelise Griffiths MD [address] [place] [address] PCP - General Internal Medicine 03/19/21 documented as of this encounter
--- OUTSIDE RECORDS SUMMARY | 2025-07-04 09:39 | XMS_ITS | Clinical Summary ---
Author Organization [employer] Address [address] [facility] 7t [place] [address] Care Team Providers Care Coremaker Pipe Name Role Phone Unavailable Primary Care Provider [...] Encounters Date Type Department Care Team Description 05/23/2025 3:00 PM EDT Office Visit [facility] ADULT [facility] [address] [place] [address] Timo Hernandez, DMD Full coverage crown needed for root canal-treated tooth (Primary Dx) 05/11/2025 1:00 PM EDT Office Visit [facility] [address] [place] [address] Timo Hernandez, DMD Full coverage crown needed for root canal-treated tooth (Primary Dx) 04/21/2025 11:30 AM EDT Office Visit [facility] [address] [place] [address] Timo Hernandez, DMD Full coverage crown needed for root canal-treated tooth (Primary Dx) 04/10/2025 8:30 AM EDT Office Visit [facility] [address] [place] [address] Timo Hernandez, DMD Full coverage crown needed for root canal-treated tooth (Primary Dx) from Last 3 Months Social [...] Sign Reading Time Taken Comments Blood Pressure 150/68 04/10/2025 8:39 AM EDT Pulse - - Temperature - - Respiratory Rate - - Oxygen Saturation - - Inhaled Oxygen Concentration - - Weight - - Height - - Body Mass Index - - Plan of Treatment Health Maintenance Due Date [...] or Tdap) 02/19/2019 02/19/2009 Mammogram 09/10/2020 09/10/2018 Dental Oral Exam 03/22/2025 09/21/2024 COVID-19 Vaccine ( - season) 2025 Influenza Vaccine (#1) 2025 9, 09/18/2018, 09/07/2016, Additional history exists Dental Prophylaxis 08/12/2025 02/09/2025 Dental X-Ray: Bitewings 09/22/2025 09/21/2024 Tobacco Screening 05/11/2026 05/11/2025 Dental X-Ray: Full Mouth 09/22/2027 09/21/2024 HIB [...] PRESENTATION, DETAILED AND EXTENSIVE TREATMENT PLANNING Routine 05/23/2025 3:00 PM EDT Full coverage crown needed for root canal-treated tooth 19 CROWN - PORCELAIN/CERAMIC Routine 05/23/2025 3:00 PM EDT Full coverage crown needed for root canal-treated tooth CASE PRESENTATION, DETAILED AND EXTENSIVE TREATMENT PLANNING Routine 05/11/2025 1:00 PM EDT Full coverage crown needed for root canal-treated tooth 19 CROWN PREP Routine 05/11/2025 1:00 PM EDT Full coverage crown needed for root canal-treated tooth CASE PRESENTATION, DETAILED AND EXTENSIVE TREATMENT PLANNING Routine 04/21/2025 11:30 AM EDT Full coverage crown needed for root canal-treated tooth 20 CROWN - PORCELAIN/CERAMIC Routine 04/21/2025 11:30 AM EDT Full coverage crown needed for root canal-treated tooth CASE PRESENTATION, DETAILED AND EXTENSIVE TREATMENT PLANNING Routine 04/10/2025 8:30 AM EDT Full coverage crown needed for root canal-treated tooth 20,19 CROWN PREP Routine 04/10/2025 8:30 AM EDT Full coverage crown needed for root canal-treated tooth PROPHYLAXIS - ADULT Routine 02/09/2025 8 :00 AM EDT INTRAORAL - COMPLETE SERIES OF RADIOGRAPHIC IMAGES Routine 09/21/2024 11:00 AM EST COMPREHENSIVE ORAL EVALUATION - NEW OR ESTABLISHED PATIENT Routine 09/21/2024 11:00 AM EST from Last 3 Months or Most Recently Relevant to Health Maintenance Insurance DENTAL - HSN FULL (MEDICAID)
--- OUTSIDE RECORDS SUMMARY | 2025-07-04 09:39 | XMS_ITS | Encounter Summary ---
Author Organization [facility] Address [address] [address] Phone Care Team Providers Care Patent Paralegal Name Role Phone Annelise Griffiths MD Primary Care Provider [phone] Encounter Details Date Type Department Care Team (Late Contact Info) Description 05/22/2024 Office Communication [facility] 100 [facility] 200 [place] [phone] Мария Smith ARNP [address] [address] Social History Tobacco Use [...] Visit [facility] [address] [address] Мария Smith ARNP [address] [address] documented as of this encounter Visit Diagnoses Not on filedocumented in this encounter Care Teams Patent Paralegal Relationship Specialty Start Date End Date Annelise Griffiths MD [facility] [place] [address] PCP - General Internal Medicine 03/19/21 documented as of this encounter
--- OUTSIDE RECORDS SUMMARY | 2025-07-04 09:39 | XMS_ITS | Encounter Summary ---
Author Organization [facility] Address [address] [facility] [address] [place] [address] Phone Care Team Providers Care Varnish Maker Name Role Phone Annelise Griffiths MD Primary Care Provider [phone] Reason for Visit * Reason Comments Med Refill Encounter Details Date Type Department Care Team (Late Contact Info) Description 11/02/2023 Refill [facility] [address] [place] [address] Ivy Mcintosh MD Anxiety, not [...] Visit [facility] [address] [address] Мария Smith ARNP [address] [address] documented as of this encounter Visit Diagnoses Diagnosis Anxiety, not otherwise specified documented in this encounter Care Teams Varnish Maker Relationship Specialty Start Date End Date Annelise Griffiths MD [address] [place] [address] PCP - General Internal Medicine 03/19/21 documented as of this encounter
--- OUTSIDE RECORDS SUMMARY | 2025-07-04 09:40 | XMS_ITS | Clinical Summary ---
Author Organization [facility] [address] [facility] Address [address] [place] [address] Phone Care Team Providers Care Waredresser Name Role Phone Annelise Griffiths MD Primary Care Provider [phone] Allergies Active Allergy Reactions Criticality Noted Date Comments Atorvastatin Unknown,Other 03/19/2021 Other Reaction(s): liver problem Nitrofurantoin Other 03/19/2021 Other Reaction(s): diff breathing Oxycodone 09/16/2024 Other Reaction(s): ? diff breathing Oxycodone-Acetaminophen Unknown,Other Other Reaction(s): N&V, dizziness Pravastatin Rash 09/17/2021 Rosuvastatin Rash 09/17/2021 Simvastatin Rash 09/17/2021 Rxirkyn-Cud-Afl Reductase Inhibitors Other 03/19/2021 Other Reaction(s): liver [...] (one) time each day. 02/24/2024 Active cloNIDine (BJFFIKBX-DTP-7 ) 0.1 mg/[address] 1 patch [...] square meter and albuminuria creatinine ratio les* ([facility] V24, [facility] V28) Essential hypertension, malignant Persistent proteinuria from Last 3 Months or Most Recently Relevant to Health Maintenance Results * Renal function panel (09/16/2024 10:06 AM EST) Sodium 142 133 - 145 mmol/L LAB CHEMISTRY METHOD 09/16/2024 2:23 PM [facility] Potassium 4.0 3.5 - 5.5 mmol/L LAB CHEMISTRY METHOD 09/16/2024 2:23 PM [facility] Chloride 110 96 - 110 mmol/L LAB CHEMISTRY METHOD 09/16/2024 2:23 PM [facility] CO2 28 21 - 32 mmol/L LAB CHEMISTRY METHOD 09/16/2024 2:23 PM [facility] Anion Gap 4 3 - 11 LAB CHEMISTRY METHOD 09/16/2024 2:23 PM [facility] Glucose 74 70 - 100 mg/dL LAB CHEMISTRY METHOD 09/16/2024 2:23 PM [facility] BUN 18 5 - 25 mg/dL LAB CHEMISTRY METHOD 09/16/2024 2:23 PM [facility] Creatinine 0.99 0.50 - 1.10 mg/dL LAB CHEMISTRY METHOD 09/16/2024 2:23 PM [facility] eGFR 60 >=60 mL/min/1. 73m2 LAB CHEMISTRY METHOD 09/16/2024 2:23 PM [facility] Comment:Calculation based on the Chronic Kidney Disease Epidemiology Collaboration (CKD-EPI) equation refit without adjustment for race. BUN/Creatinine Ratio 18.2 LAB CHEMISTRY METHOD 09/16/2024 2:23 PM [facility] Albumin 3.4 3.2 - 5.0 g/dL LAB CHEMISTRY METHOD 09/16/2024 2:23 PM [facility] Calcium 9.2 8.5 - 10.5 mg/dL LAB CHEMISTRY METHOD 09/16/2024 2:23 PM [facility] Phosphorus 3.5 2.5 - 4.5 mg/dL LAB CHEMISTRY METHOD 09/16/2024 2:23 PM [facility] Blood Venous blood specimen / Unknown Venipuncture / Unknown 09/16/2024 10:06 AM EST 09/16/2024 11:28 AM EST us Lalo Molina MD LAB BLOOD ORDERABLES Final Result [facility] [address] [place] [address], from Last 3 Months or Most Recently Relevant to Health Maintenance Insurance [facility] MEDICARE Care Teams Waredresser Relationship Specialty Start Date End Date Annelise Griffiths MD [address] [phone] PCP - General Internal Medicine 08/13/24
== END 2025-07-04 09:24 | disposition home or self-care (01) ==
LOC: HO.HOS 08:36
PROVIDERS: PCP Internal Medicine; Visit Provider Orthopaedic Surgery
DX: M72.0 Palmar fascial fibromatosis [Dupuytren] (principal)
CPT/HCPCS: 99213

== ENCOUNTER → 2025-07-04 08:36 | Outpatient (BNVA) | payer MEDICARE, SELFPAY | PROVIDERS: PCP Internal Medicine; Visit Provider Orthopaedic Surgery | DX: M72.0 Palmar fascial fibromatosis [Dupuytren] (principal) | CPT/HCPCS: 99212 ==

== ENCOUNTER 2025-07-21 08:03 | Outpatient (REF) | payer MEDICARE, SELFPAY ==
--- NOTE | ~2025-07-21 | XR_ITS ---
CLINICAL HISTORY: M25.569 - Pain in unspecified knee --- Additional Notes or Special Instructions: ANISH garcía sunrise Exam: AP view of the bilateral knees with sunrise view of the right knee. Comparison: June 06, 2025. Findings: AP standing view of both knees was performed. Bony alignment is anatomic. Chondrocalcinosis is seen within the lateral compartments of both knees, more conspicuous on the left than on the right. Minor degenerative change of the medial compartment of the right knee. Minimal to mild degenerative change of the patellofemoral joint. Impression: Chondrocalcinosis of the lateral compartment of both knees. This document has been electronically signed by: Bayron Saldivar MD on 07/22/2025 11:46:00
== END 2025-07-21 08:04 | disposition home or self-care (01) ==
LOC: HO.HOSX 08:03
PROVIDERS: Visit Provider Physician Assistant
DX: M17.11 Unilateral primary osteoarthritis, right knee (principal)
CPT/HCPCS: 20610; 73560; 99212; J0665; J1100; J2003

== ENCOUNTER 2025-07-21 08:18 | Outpatient (AMB) | payer MEDICARE, SELFPAY ==
--- NOTE | 2025-07-21 08:25 | A.OFFVIS_ITS ---
Vital Signs 07/21/25 08:37 Height 5 ft 7 in Weight 171 lb BMI 26.8 Intake Visit Reasons: New prob- Effusion RT knee Intake Note: Funmi is a 75 year old female who presents today for a new problem visit for evaluation of right knee pain. Patient was seen at [facility] s/p fall, per walk in clinic note patient had a slip and fall over the summer on a cruise due to slippery surface. She expressed ice was applied immediately and consistently to manage the swelling. She has an increase in pain with movement and laying on her left side. Patient reports that she continues to have pain and swelling. States some improvement since injury. Her pain presents on certain movements of her leg. Denies numbness or tingling. Takes Tylenol as needed. No other treatment. Hx of kidney issues in past limits her use of NSAIDs. Allergies acetaminophen (From PERCOCET) Allergy (Unknown, Verified 07/21/25 08:32) UNKNOWN azithromycin Allergy (Unknown, Verified 07/21/25 08:32) hives oxycodone (From PERCOCET) Allergy (Unknown, Verified 07/21/25 08:32) UNKNOWN Erxmszs-LIA-DtN Reductase Inhibitor (CMRCJGT-QYV-IKZ REDUCTASE INHIBITOR) Allergy (Unknown, Verified 07/21/25 08:32) liver failure, major liver problems nitrofurantoin (From Macrobid) Adverse Reaction (Severe, Verified 07/21/25 08:32) breathing atorvastatin (Lipitor) Adverse Reaction (Unknown, Verified 07/21/25 08:32) Liver issues z-pack Allergy (Unknown, Uncoded 07/21/25 08:32) hives HPI HPI New prob- Effusion RT knee: Details: 75-year-old female presents to the office today for an injury she sustained to her right knee while on a cruise approximately 2 months ago. She states she was out by the pool when she slipped and fell. Since the incident she had pain along the lateral aspect and anterior aspect of the knee along with swelling. Her swelling has resolved but she continues to have discomfort with daily PFSH Medical History (Updated 07/21/25 @ 10:04 by Daniella Lyn PA-C) Mammogram normal CKD (chronic kidney disease), stage III TIA (transient ischemic attack) Liver hemangioma Hepatitis GERD (gastroesophageal reflux disease) HTN (hypertension) Hyperlipidemia Surgical History H/O colonoscopy Hx of cholecystectomy History of breast surgery History of back surgery History of hysterectomy Family History Father No problems noted. Mother No problems noted. Brother No problems noted. Brother No problems noted. Sister No problems noted. 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 No effusion present. She has full range of motion with tenderness along the lateral aspect of the patella and medial joint line. No ligamentous laxity. Calf is supple and nontender neurovascularly intact. Office Procedures AMB Joint Injection/Aspiration Joint Injection/Aspiration Primary Site: right knee Prep: site was prepped using aseptic technique, ethochloride spray was applied and injection warnings given Injected: 40 mg of, with 3 mL of, 1% plain lidocaine, 0.25% bupivacaine, in the joint and decadron Approach Used: anterolateral Procedure: The patient tolerated the procedure well and there was some relief with the local anesthesia Coding 55515 - Glenohumeral/Tronchanteric Bursa/Intraarticular Procedure code (CPT) selection complete Results Reviewed Results Reviewed: X-rays of the left knee obtained in the office today and reviewed by me show mild medial compartment arthritis with patellofemoral lateralization. Assessment & Plan Assessment & Plan (1) Primary osteoarthritis of left knee: Code(s): M17.12 - Unilateral primary osteoarthritis, left knee Category: Medical Plan: We discussed options today which includes conservative management with physical therapy anti-inflammatories and steroid injection. Because her discomfort is causing her some limitations with daily activities we will proceed with a steroid injection today. Left knee was injected with steroid which the patient tolerated well. I encouraged return to activities as tolerated and if symptoms persist or worsen over the next 6-8 weeks the patient will contact our office otherwise follow up as needed. Orders: Orders XR knee RT 2V Today M25.569 - Pain in unspecified knee Coding Level of Care Code Est Pt Level 3 (85267) Complex EM visit Add On G2211 Diagnoses Primary osteoarthritis of left knee M17.12 CPT Codes Coding - Joint 7: 66723 - Glenohumeral/Tronchanteric Bursa/Intraarticular ([id number])
--- OUTSIDE RECORDS SUMMARY | 2025-07-21 08:32 | XMS_ITS | Clinical Summary ---
Author Organization [facility] Address [address] [place] [address] Phone Care Team Providers Care Selling Manager Name Role Phone Annelise Griffiths MD Primary Care Provider [phone] Allergies Active Allergy Reactions Criticality Noted Date [...] disorder 03/19/2021 Polyp of colon 03/19/2021 Tobacco use disorder 03/17/2014 Resolved Problems Problem Noted Date Diagnosed Date Resolved Date Transient cerebral ischemia 04/17/2022 04/17/2022 Fibromyositis 03/19/2021 04/17/2022 Hyperlipidemia 03/19/2021 04/17/2022 Hypoglycemia 03/19/2021 04/17/2022 Low back pain 03/19/2021 04/17/2022 Malignant tumor of breast 03/19/2021 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 [address] [facility] [address] [place] [address] Mary Ellen Grande Hypertensive disorder 2025 Refill [facility] [address] [facility] 200 [place] [address] Мария Smith ARNP Hypertensive disorder from Last 3 Months Family [...] Office Visit [facility] [address] [phone] Мария Smith ARNP [address] [phone] Health Maintenance Due Date Last Done Comments Breast Cancer Screening 1950 Pneumococcal Vaccine: 50+ Years (1 of 2 - PCV) 1970 Colorectal Cancer Screening: Annual FOBT 2000 Colorectal Cancer Screening: Colonoscopy 2000 Colorectal Cancer Screening: Sigmoidoscopy 2000 Influenza Vaccine (#1) 2025 9, 09/18/2018 Hepatitis B Vaccine Aged Out No longe r eligible based on patient's age to complete this topic Insurance Medicare [facility] Medicare [facility] Care Teams Selling Manager Relationship Specialty Start Date End Date Annelise Griffiths MD [address] [place] [address] PCP - General Internal Medicine 03/19/21
--- OUTSIDE RECORDS SUMMARY | 2025-07-21 08:32 | XMS_ITS | Clinical Summary ---
Author Organization [employer] Address [address] [facility] 7[address] [place] [address] Care Team Providers Care Customer Technical Services Manager Name Role Phone Unavailable Primary Care Provider [...] Overview (10/21/2024): RECORDED 06/16/2012 10:30AM BY NEIL SONW MA, ANNOTATION/ADDENDUM Disorder of oral soft tissue [...] Description 05/23/2025 3:00 PM EDT Office Visit [facility] [address] [place] [address] Timo Hernandez, BUTCH Full coverage crown needed for root canal-treated tooth (Primary Dx) 05/11/2025 1:00 PM EDT Office Visit [facility] [address] [place] [address] Timo Hernandez, BUTCH Full coverage crown needed for root canal-treated tooth (Primary Dx) 04/21/2025 11:30 AM EDT Office Visit [facility] [address] [place] [address] Timo Hernandez, BUTCH Full coverage crown needed for root canal-treated [...] Oral Exam 03/22/2025 09/21/2024 COVID-19 Vaccine ( season) 2025 Influenza Vaccine (#1) 2025 9, [...]
--- OUTSIDE RECORDS SUMMARY | 2025-07-21 08:32 | XMS_ITS | Encounter Summary ---
Author Organization [facility] Address [address] [facility] [address] [place] [address] Phone Care Team Providers Care Inpatient Auditor Name Role Phone Annelise Griffiths MD Primary Care Provider [phone] Encounter Details Date Type Department Care Team (Late Contact Info) Description 04/17/2024 Office Communication [facility] [address] [facility] [address] [place] [phone] Мария Smith ARNP [address] [address] Social History Tobacco Use Types [...] [facility] [place] [address] [address] Мария Smith ARNP [address] [address] documented as of this encounter Visit Diagnoses Not on filedocumented in this encounter Care Teams Inpatient Auditor Relationship Specialty Start Date End Date Annelise Griffiths MD [address] [place] [address] PCP - General Internal Medicine 03/19/21 documented as of this encounter
--- OUTSIDE RECORDS SUMMARY | 2025-07-21 08:32 | XMS_ITS | Encounter Summary ---
Author Organization [facility] Address [address] [address] Phone Care Team Providers Care Summer Clerk Name Role Phone Annelise Griffiths MD Primary Care Provider [phone] Encounter Details Date Type Department Care Team (Late Contact Info) Description 05/22/2024 Office Communication [facility] [address] [facility] 200 [place] [phone] Мария Smith ARNP [address] [address] Social History Tobacco Use Types [...] [facility] [address] [address] Мария Smith ARNP [address] [address] documented as of this encounter Visit Diagnoses Not on filedocumented in this encounter Care Teams Summer Clerk Relationship Specialty Start Date End Date Annelise Griffiths MD [facility] [place] [address] PCP - General Internal Medicine 03/19/21 documented as of this encounter
--- OUTSIDE RECORDS SUMMARY | 2025-07-21 08:32 | XMS_ITS | Encounter Summary ---
Author Organization [facility] Address [address] [place] [address] Phone Care Team Providers Care Gage Designer Name Role Phone Annelise Griffiths MD Primary Care Provider [phone] Reason for Visit * Reason Comments Med Refill Encounter Details Date Type Department Care Team (Late Contact Info) Description 11/06/2023 Refill [facility] [address] [place] [address] Ivy Mcintosh MD Anxiety, not [...] Visit [facility] [address] [address] Мария Smith ARNP [address] [address] documented as of this encounter Visit Diagnoses Diagnosis Anxiety, not otherwise specified documented in this encounter Care Teams Gage Designer Relationship Specialty Start Date End Date Annelise Griffiths MD [address] [place] [address] PCP - General Internal Medicine 03/19/21 documented as of this encounter
--- OUTSIDE RECORDS SUMMARY | 2025-07-21 08:32 | XMS_ITS | Encounter Summary ---
Author Organization [facility] Address [address] [place] [address] Phone Care Team Providers Care Clam Shovel Operator Name Role Phone Annelise Griffiths MD Primary Care Provider [phone] Reason for Visit * Reason Comments Med Refill Encounter Details Date Type Department Care Team (Late Contact Info) Description 11/02/2023 Refill [facility] [address] [place] [address] Ivy Mcintosh MD Anxiety, not [...] [facility] [address] [address] Мария Smith ARNP [address] [address] documented as of this encounter Visit Diagnoses Diagnosis Anxiety, not otherwise specified documented in this encounter Care Teams Clam Shovel Operator Relationship Specialty Start Date End Date Annelise Griffiths MD [address] [place] [address] PCP - General Internal Medicine 03/19/21 documented as of this encounter
--- OUTSIDE RECORDS SUMMARY | 2025-07-21 08:32 | XMS_ITS | Encounter Summary ---
Author Organization [facility] Address [address] [facility] [address] [place] [address] Phone Care Team Providers Care Billing Machine Operator Name Role Phone Annelise Griffiths MD Primary Care Provider [phone] Encounter Details Date Type Department Care Team (Late Contact Info) Description 03/26/2021 Orders Only [facility] [address] [facility] [facility] [facility] [address] [facility] [address] [place] [phone] Ivy Mcintosh MD Personal history of colon [...] Visit [facility] [address] [address] Мария Smith ARNP [address] [phone] documented as of this encounter Visit Diagnoses Diagnosis Personal history of colon polyps documented in this encounter Care Teams Billing Machine Operator Relationship Specialty Start Date End Date Annelise Griffiths MD [address] [place] [address] PCP - General Internal Medicine 03/19/21 documented as of this encounter
--- OUTSIDE RECORDS SUMMARY | 2025-07-21 08:32 | XMS_ITS | Clinical Summary ---
Author Organization [facility] [address] [facility] Address [address] [place] [address] Phone Care Team Providers Care Supervisor Rose Grading Name Role Phone Annelise Griffiths MD Primary Care Provider [phone] Allergies Active Allergy Reactions Criticality Noted Date Comments Atorvastatin Unknown,Other 03/19/2021 Other Reaction(s): liver problem Nitrofurantoin Other 03/19/2021 Other Reaction(s): diff breathing Oxycodone 09/16/2024 Other Reaction(s): ? diff breathing Oxycodone-Acetaminophen Unknown,Other Other Reaction(s): N&V, dizziness Pravastatin Rash 09/17/2021 Rosuvastatin Rash 09/17/2021 Simvastatin Rash 09/17/2021 Wgzjodq-Elh-Dlq Reductase Inhibitors Other 03/19/2021 Other Reaction(s): liver [...] (one) time each day. 02/24/2024 Active cloNIDine (SSYZPEEU-PAX-9 ) 0.1 mg/[address] 1 patch [...] square meter and albuminuria creatinine ratio les* ([facility] V24, [facility] V28) Essential hypertension, malignant Persistent proteinuria from Last 3 Months or Most Recently Relevant to Health Maintenance Results * Renal function panel (09/16/2024 10:06 AM EST) Sodium 142 133 - 145 mmol/L LAB CHEMISTRY METHOD 09/16/2024 2:23 PM [facility] Potassium 4.0 3.5 - 5.5 mmol/L LAB CHEMISTRY METHOD 09/16/2024 2:23 PM [facility] Chloride 110 96 - 110 mmol/L LAB CHEMISTRY METHOD 09/16/2024 2:23 PM [facility] CO2 28 21 - 32 mmol/L LAB CHEMISTRY METHOD 09/16/2024 2:23 PM [facility] Anion Gap 4 3 - 11 LAB CHEMISTRY METHOD 09/16/2024 2:23 PM [facility] Glucose 74 70 - 100 mg/dL LAB CHEMISTRY METHOD 09/16/2024 2:23 PM [facility] BUN 18 5 - 25 mg/dL LAB CHEMISTRY METHOD 09/16/2024 2:23 PM [facility] Creatinine 0.99 0.50 - 1.10 mg/dL LAB CHEMISTRY METHOD 09/16/2024 2:23 PM [facility] eGFR 60 >=60 mL/min/1. 73m2 LAB CHEMISTRY METHOD 09/16/2024 2:23 PM [facility] Comment:Calculation based on the Chronic Kidney Disease Epidemiology Collaboration (CKD-EPI) equation refit without adjustment for race. BUN/Creatinine Ratio 18.2 LAB CHEMISTRY METHOD 09/16/2024 2:23 PM [facility] Albumin 3.4 3.2 - 5.0 g/dL LAB CHEMISTRY METHOD 09/16/2024 2:23 PM [facility] Calcium 9.2 8.5 - 10.5 mg/dL LAB CHEMISTRY METHOD 09/16/2024 2:23 PM [facility] Phosphorus 3.5 2.5 - 4.5 mg/dL LAB CHEMISTRY METHOD 09/16/2024 2:23 PM [facility] Blood Venous blood specimen / Unknown Venipuncture / Unknown 09/16/2024 10:06 AM EST 09/16/2024 11:28 AM EST us Lalo Molina MD LAB BLOOD ORDERABLES Final Result [facility] [address] [place] [address], from Last 3 Months or Most Recently Relevant to Health Maintenance Insurance [facility] MEDICARE Care Teams Supervisor Rose Grading Relationship Specialty Start Date End Date Annelise Griffiths MD [address] [place] [phone] PCP - General Internal Medicine 08/13/24
--- OUTSIDE RECORDS SUMMARY | 2025-07-21 08:32 | XMS_ITS | Encounter Summary ---
Author Organization [employer] Address [address] [facility] 7[address] [place] [address] Care Team Providers Care Pillar Man Name Role Phone Unavailable Primary Care Provider Unavailabl e Reason for Visit * Reason Onset Date Comments rs appt new date and time 01/18/2025 Encounter Details Date Type Department Care Team (Late st Contact Info) Description 01/18/2025 Telephone [facility] [address] [place], [place] [phone] Timo Hernandez, DMD [address] [place], [place] [phone] rs appt new date and time Social [...]
[2025-07-21 08:37] VITALS: BMI 26.8
== END 2025-07-21 09:02 | disposition home or self-care (01) ==
LOC: HO.HOS 08:18
PROVIDERS: PCP Internal Medicine; Visit Provider Physician Assistant
DX: M17.12 Unilateral primary osteoarthritis, left knee (principal)
CPT/HCPCS: 20610; 99213

== ENCOUNTER → 2025-07-21 08:21 | Outpatient (BNV) | payer MEDICARE, SELFPAY | PROVIDERS: Visit Provider Radiology Diagnostic Radiology | DX: M11.261 Other chondrocalcinosis, right knee (principal); M11.262 Other chondrocalcinosis, left knee | CPT/HCPCS: 73560 ==

== ENCOUNTER 2025-08-31 10:27 | Outpatient (AMB) | payer MEDICARE, BC, SELFPAY ==
--- NOTE | 2025-08-31 10:29 | MHC.OFFVIS ---
Intake Visit Reasons: OV-Right knee pain follow up Intake Note: Funmi is a 75 year old female who presents today for a follow up of her Right Knee. Hx of right knee injection in June of 2025 with Ta-Yolanda Mckeonuse. Patient reports that she is having continued pain and swelling. She explains that she never had pain in the right knee until she fell in May. Allergies acetaminophen (From PERCOCET) Allergy (Unknown, Verified 07/21/25 08:32) UNKNOWN azithromycin Allergy (Unknown, Verified 07/21/25 08:32) hives oxycodone (From PERCOCET) Allergy (Unknown, Verified 07/21/25 08:32) UNKNOWN Uludpnv-UJU-WtS Reductase Inhibitor (MNFWESN-BSL-CVA REDUCTASE INHIBITOR) Allergy (Unknown, Verified 07/21/25 08:32) liver failure, major liver problems nitrofurantoin (From Macrobid) Adverse Reaction (Severe, Verified 07/21/25 08:32) breathing atorvastatin (Lipitor) Adverse Reaction (Unknown, Verified 07/21/25 08:32) Liver issues z-pack Allergy (Unknown, Uncoded 07/21/25 08:32) hives HPI HPI OV-Right knee pain follow up: Details: Funmi is a 75 year old female who presents today for a follow up of her Right Knee. Hx of right knee injection in June of 2025 with Ta-Yolanda use. Patient reports that she is having continued pain and swelling. She explains that she never had pain in the right knee until she fell in May. Her symptoms are sharp and associated with twisting. She is not getting better. She has tried exercises, activity modification. [facility] Medical History (Updated 09/12/25 @ 11:33 by Giacomo Richardson MD) Mammogram normal CKD (chronic kidney disease), stage III TIA (transient ischemic attack) Liver hemangioma Hepatitis GERD (gastroesophageal reflux disease) HTN (hypertension) Hyperlipidemia Surgical History H/O colonoscopy Hx of cholecystectomy History of breast surgery History of back surgery History of hysterectomy Family History Father No problems noted. Mother No problems noted. Brother No problems noted. Brother No problems noted. Sister No problems noted. 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 Mild OA bialteral knees Mild chondrocalcinosis Assessment & Plan Assessment & Plan (1) Internal derangement of right knee: Code(s): M23.91 - Unspecified internal derangement of right knee Category: Medical Plan: Internal derangement of right knee suspicious for medial meniscus tear given presentation. She has not improved and is getting worse. I recommend an MRI to assess. Coding Level of Care Code Est Pt Level 3 (49764) Diagnoses Internal derangement of right knee M23.91
--- OUTSIDE RECORDS SUMMARY | 2025-08-31 12:25 | XMS_ITS | Data Portability ---
Author Organization [facility], Main Office Address [address] [place] [address] Care Team Providers Care Motor Setter Name Role Phone JUNIOR JARQUIN Fur Drummer EVELIN BEAL Communication And Outreach Manager DAMIEN YOUNG Primary Care Provider YAYA ARANA Dry Starch Supervisor Assessment No assessment recorded. Plan of Treatment Reminders Order Date Submit Date Provider Last Modified By Organization Details Last Modified Time Details Appointments None recorded. Lab CMP, serum or plasma 2018 019 [facility], [address], [place], [id number], 9 18:47:48 CBC w/ auto diff 2017 018 [facility], [address], [place], [address], 8 20:28:11 hepatic function panel, serum 2017 018 [facility], [address], [place], [address], 8 22:14:23 hepatic function panel, serum - copy all labs to Dr Syed Jarquin 2017 018 [facility], [address], [place], [address], 8 14:36:02 urinalysi s complete, reflex culture 2017 018 [facility], [address], [address], [place], [address], 8 21:21:44 hepatic function panel, serum 2017 018 [facility], [address], [address], [place], [address], 8 15:02:53 urinalysi s, dipstick 2017 018 pmadden In-Office Order, Internal Use Only DO Not Attach Compendium DO Not Attach Compendium, Do Not Delete/merge, [id number] 8 11:07:53 rapid flu (A+B) 2017 018 pmadden In-Office Order, Internal Use Only DO Not Attach Compendium DO Not Attach Compendium, Do Not Delete/merge, [id number] 8 11:07:53 CK (creatine kinase), total, serum 2017 018 [facility], [address], [address], [place], [place], [address], 8 15:02:51 Referral cardiolog ist referral 2018 019 satish Wolff MD, [address] [facility] [facility], [address], [place], [address], 9 08:56:49 physical therapist referral - At risk for falling 2017 018 [email or web address] [facility], [address] [place], [address], 8 09:01:13 gastroent erologist referral - pt had episode of jaundice which is most likely due to statin reaction. Labs to be repeated next week. pt needs f/u appt w/GI in December 252017 018 [email or web address] Junior Jarquin, [address] [place], [address], 8 10:24:32 Procedures None recorded. Surgeries None recorded. Imaging None recorded. Medication Orders omeprazol e 20 mg capsule,d elayed release 2018 019 [facility], [address] [place], [place], [id number], 9 17:44:15 lisinopri l 20 mg tablet 2018 019 [facility], [address], [place], [id number], 9 17:44:16 ezetimibe 10 mg tablet 2018 019 [facility], [address], [place], [id number], 9 17:44:14 Tessalon Perles 100 mg capsule 2017 [email or web address] [address], [place], [id number], 9 16:02:00 omeprazol e 20 mg capsule,d elayed release 2017 018 abigby Not available 8 11:32:13 Patient Targets Encounter Date Encounter Id Patient Goals Patient Target Last Modified By Organization Details Last Modified Time 09/06/2018 [id number] 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 terminal 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 Pt advised and agrees to eat a [...] as needed to reflect progress toward goal. Pt advised and agrees to work on self-monitoring behaviors; begin an appropriate diet for weight loss (such as a low carbohydrate diet), to do moderate exercise (such as walking) for approximately 150 minutes per week; and to identify desirable and timely rewards that will reinforce achievement of specific weight loss goals. pmadden Not available 09/07/2018 20:10:28 03/07/2019 [id number] care home goal of Blood Pressure 140 / 90 Not available Not available Not available care home goal of Exercise level Not available Not available Not available care home goal of Tobacco Smoking Status Not available Not available Not available 03/07/2019 [id number] Pt advised and agrees to eat a [...] By Organization Details Last Modified Time 12/07/2017 [id number] jaundice: care instructions pmadden Not available 12/07/2017 11:08:02 nausea and vomiting: care instructions pmadden Not available 12/07/2017 11:07:53 dehydration: care instructions pmadden Not available 12/07/2017 11:07:53 Discussed risks for driving while using this medication.mm. I have reviewed the note and agree with the assessment and plan of care. [email or web address] Not available 12/07/2017 17:31:03 09/06/2018 [id number] cough: care instructions pmadden Not available 09/06/2018 [...] medication. pmadden Not available 09/06/2018 17:20:45 03/07/2019 [id number] Medications (OTC, herbal therapies, supplements) reviewed and reconciled with patient and or caregiver, including potential side effects, drug interactions, instructions, and the consequences of not taking medication. Reviewed potential barriers to medication adherence, such as side effects from medication or cost of medication. Patient will follow up and keep appointment as scheduled. pmadden Not available 03/09/2019 13:07:44 Reason for Referral Fur Drummer Referral for Jaundice pt had episode of jaundice which is most likely due to statin reaction. Labs to be repeated next week. pt needs f/u appt w/GI in December Referring Physician: Tony Mojica, Internal Medicine, Encounter Date: 12/17/2017 Physical Therapist Referral for Adult health examination At risk for falling Referring Physician: Damien Young, Internal Medicine, Encounter Date: 09/06/2018 Pre Wave Assembler Referral for Dy spnea Referring Physician: Damien Young, Internal Medicine, Encounter Date: 03/07/2019 Results Created Date Observation Date Name Description Value Unit Range Abnormal Flag Note LastModifiedBy Organization Detail LastModifiedTime 12/05/19 18 12/05/2017 CBC w/ auto diff WBC 9.0 K/mm3 (4.0-1 1.0) Not Available [facility] (Centralized Electronic Ordering - All Locations) Patient Can Go To The Location Of Their Choice, 12/05/2017 14:01:12/05/1912/05/2017 CBC w/ auto diff RBC 4.53 M/mm3 (4.20- 5.40) Not Available [facility] (Centralized Electronic Ordering - All Locations) Patient Can Go To The Location Of Their Choice, 12/05/2017 14:01:12/05/1912/05/2017 CBC w/ auto diff HGB 13.4 gm/dL (12.0- 16.0) Not Available [facility] (Centralized Electronic Ordering - All Locations) Patient Can Go To The Location Of Their Choice, 12/05/2017 14:01:12/05/1912/05/2017 CBC w/ auto diff HCT 41.6 % (37.0- 47.0) Not Available [facility] (Centralized Electronic Ordering - All Locations) Patient Can Go To The Location Of Their Choice, 12/05/2017 14:01:12/05/1912/05/2017 CBC w/ auto diff MCV 91.8 fL (80.0- 100.0) Not Available [facility] (Centralized Electronic Ordering - All Locations) Patient Can Go To The Location Of Their Choice, 12/05/2017 14:01:12/05/1912/05/2017 CBC w/ auto diff MCH 29.6 pg (27.0- 34.0) Not Available [facility] (Centralized Electronic Ordering - All Locations) Patient Can Go To The Location Of Their Choice, 12/05/2017 14:01:12/05/1912/05/2017 CBC w/ auto diff MCHC 32.2 g/dL (33.0- 37.0) low Not Available [facility] (Centralized Electronic Ordering - All Locations) Patient Can Go To The Location Of Their Choice, 12/05/2017 14:01:12/05/1912/05/2017 CBC w/ auto diff plt 235 K/mm3 (150-4 60) Not Available [facility] (Centralized Electronic Ordering - All Locations) Patient Can Go To The Location Of Their Choice, 12/05/2017 14:01:12/05/1912/05/2017 CBC w/ auto diff RDW-SD 45.5 fL (<47.0 ) Not Available [facility] (Centralized Electronic Ordering - All Locations) Patient Can Go To The Location Of Their Choice, 12/05/2017 14:01:14 12/05/19 18 12/05/2017 CBC w/ auto diff MPV 11.3 fL (9.4-1 2.4) Not Available [facility] (Centralized Electronic Ordering - All Locations) Patient Can Go To The Location Of Their Choice, 12/05/2017 14:01:14 12/05/19 18 12/05/2017 CBC w/ auto diff automated NRBC 0.0 #/100 _WBC' s Not Available [facility] (Centralized Electronic Ordering - All Locations) Patient Can Go To The Location Of Their Choice, 12/05/2017 14:01:14 12/05/1912/05/2017 CBC w/ auto diff abs. NRBC 0.0 K/mm3 Not Available [facility] (Centralized Electronic Ordering - All Locations) Patient Can Go To The Location Of Their Choice, 12/05/2017 14:01:14 12/05/19 18 12/05/2017 CBC w/ auto diff neut # 5.4 K/mm3 (1.3-7 .0) Not Available [facility] (Centralized Electronic Ordering - All Locations) Patient Can Go To The Location Of Their Choice, 12/05/2017 14:01:14 12/05/19 18 12/05/2017 CBC w/ auto diff lymph # 1.8 K/mm3 (0.8-3 .1) Not Available [facility] (Centralized Electronic Ordering - All Locations) Patient Can Go To The Location Of Their Choice, 12/05/2017 14:01:14 12/05/19 18 12/05/2017 CBC w/ auto diff mono# 0.4 K/mm3 (0.4-0 .9) Not Available [facility] (Centralized Electronic Ordering - All Locations) Patient Can Go To The Location Of Their Choice, 12/05/2017 14:01:14 12/05/19 18 12/05/2017 CBC w/ auto diff eo # 1.1 K/mm3 (0.0-0 .4) high Not Available [facility] (Centralized Electronic Ordering - All Locations) Patient Can Go To The Location Of Their Choice, 12/05/2017 14:01:14 12/05/19 18 12/05/2017 CBC w/ auto diff baso # 0.1 K/mm3 (0.0-0 .1) Not Available [facility] (Centralized Electronic Ordering - All Locations) Patient Can Go To The Location Of Their Choice, 12/05/2017 14:01:12/05/19 18 12/05/2017 CBC w/ auto diff abs. imm gran 0.1 K/mm3 Not Available [facility] (Centralized Electronic Ordering - All Locations) Patient Can Go To The Location Of Their Choice, 12/05/2017 14:01:12/05/19 18 12/05/2017 CBC w/ auto diff neut 60.5 % (44-76 ) Not Available [facility] (Centralized Electronic Ordering - All Locations) Patient Can Go To The Location Of Their Choice, 12/05/2017 14:01:12/05/19 18 12/05/2017 CBC w/ auto diff lymph 19.9 % (15-43 ) Not Available [facility] (Centralized Electronic Ordering - All Locations) Patient Can Go To The Location Of Their Choice, 12/05/2017 14:01:12/05/19 18 12/05/2017 CBC w/ auto diff monocyte 4.9 % (4.5-1 0.5) Not Available [facility] (Centralized Electronic Ordering - All Locations) Patient Can Go To The Location Of Their Choice, 12/05/2017 14:01:12/05/19 18 12/05/2017 CBC w/ auto diff eo 12.6 % (0-6) high Not Available [facility] (Centralized Electronic Ordering - All Locations) Patient Can Go To The Location Of Their Choice, 12/05/2017 14:01:12/05/19 18 12/05/2017 CBC w/ auto diff baso 0.7 % (0-2) Not Available [facility] (Centralized Electronic Ordering - All Locations) Patient Can Go To The Location Of Their Choice, 12/05/2017 14:01:14 12/05/19 18 12/05/2017 CBC w/ auto diff imm gran 1.4 % (0.0-0 .6) high Not Available [facility] (Centralized Electronic Ordering - All Locations) Patient Can Go To The Location Of Their Choice, 12/05/2017 14:01:14 12/05/1912/05/2017 BMP, serum or plasm a glucose 83 mg/dL (70-99 ) Not Available [facility] (Centralized Electronic Ordering - All Locations) Patient Can Go To The Location Of Their Choice, 12/05/2017 15:51:55 12/05/1912/05/2017 BMP, serum or plasm a BUN 18 mg/dL (8-23) Not Available [facility] (Centralized Electronic Ordering - All Locations) Patient Can Go To The Location Of Their Choice, 12/05/2017 15:51:55 12/05/1912/05/2017 BMP, serum or plasm a creatinine 1.2 mg/dL (0.5-1 .0) high Not Available [facility] (Centralized Electronic Ordering - All Locations) Patient Can Go To The Location Of Their Choice, 12/05/2017 15:51:55 12/05/1912/05/2017 BMP, serum or plasm a sodium 143 mmol/ L (133-1 45) Not Available [facility] (Centralized Electronic Ordering - All Locations) Patient Can Go To The Location Of Their Choice, 12/05/2017 15:51:55 12/05/1912/05/2017 BMP, serum or plasm a potassium 4.5 mmol/ L (3.6-5 .2) Not Available [facility] (Centralized Electronic Ordering - All Locations) Patient Can Go To The Location Of Their Choice, 12/05/2017 15:51:55 12/05/1912/05/2017 BMP, serum or plasm a chloride 103 mmol/ L (98-10 7) Not Available [facility] (Centralized Electronic Ordering - All Locations) Patient Can Go To The Location Of Their Choice, 12/05/2017 15:51:55 12/05/1912/05/2017 BMP, serum or plasm a bicarbonate 28 mmol/ L (22-29 ) Not Available [facility] (Centralized Electronic Ordering - All Locations) Patient Can Go To The Location Of Their Choice, 12/05/2017 15:51:55 12/05/1912/05/2017 BMP, serum or plasm a anion gap 12 (4-17) Not Available [facility] (Centralized Electronic Ordering - All Locations) Patient Can Go To The Location Of Their Choice, 12/05/2017 15:51:55 12/05/1912/05/2017 BMP, serum or plasm a calcium 9.0 mg/dL (8.6-1 0.5) Not Available [facility] (Centralized Electronic Ordering - All Locations) Patient Can Go To The Location Of Their Choice, 12/05/2017 15:51:55 12/05/19 18 12/05/2017 BMP, serum [...] [place] [employer]. Not Available [facility] (Centralized Electronic Ordering - All Locations) Patient Can Go To The Location Of Their Choice, 12/05/2017 15:51:55 12/05/1912/05/2017 BMP, serum or plasm a est GFR [...] [employer]. Not Available [facility] (Centralized Electronic Ordering - All Locations) Patient Can Go To The Location Of Their Choice, 12/05/2017 15:51:55 12/07/1912/07/2017 CK (crea irlanda kinas e), total , serum CK (creatine kinase) 38 U/L (0-190 ) TOTAL CPK MAXIM NTRAT ION TOO LOW FOR ISOEN ZYME RUBÉN SIS Not Available [facility] (Centralized Electronic Ordering - All Locations) Patient Can Go To The Location Of Their Choice, 12/07/2017 15:02:51 12/07/19 18 12/07/2017 hepat ic funct ion panel , serum bilirubin,to yolie 4.7 mg/dL (0-1.2 ) high Not Available [facility] (Centralized Electronic Ordering - All Locations) Patient Can Go To The Location Of Their Choice, 12/07/2017 15:02:53 12/07/19 18 12/07/2017 hepat ic funct ion panel , serum bilirubin, direct 3.9 mg/dL (0-0.3 ) high Not Available [facility] (Centralized Electronic Ordering - All Locations) Patient Can Go To The Location Of Their Choice, 12/07/2017 15:02:53 12/07/19 18 12/07/2017 hepat ic funct ion panel , serum indirect bilirubin 0.8 mg/dL (0.0-0 .7) high Not Available [facility] (Centralized Electronic Ordering - All Locations) Patient Can Go To The Location Of Their Choice, 12/07/2017 15:02:53 12/07/19 18 12/07/2017 hepat ic funct ion panel , serum albumin 3.6 gm/dL (3.4-4 .8) Not Available [facility] (Centralized Electronic Ordering - All Locations) Patient Can Go To The Location Of Their Choice, 12/07/2017 15:02:53 12/07/19 18 12/07/2017 hepat ic funct ion panel , serum AST 205 U/L (0-32) high Not Available [facility] (Centralized Electronic Ordering - All Locations) Patient Can Go To The Location Of Their Choice, 12/07/2017 15:02:53 12/07/19 18 12/07/2017 hepat ic funct ion panel , serum ALT 366 U/L (0-33) high Not Available [facility] (Centralized Electronic Ordering - All Locations) Patient Can Go To The Location Of Their Choice, 12/07/2017 15:02:53 12/07/19 18 12/07/2017 hepat ic funct ion panel , serum alk phos 372 U/L (35-10 4) high Not Available [facility] (Centralized Electronic Ordering - All Locations) Patient Can Go To The Location Of Their Choice, 12/07/2017 15:02:53 12/07/19 18 12/07/2017 hepat ic funct ion panel , serum total protein 6.5 gm/dL (6.2-8 .2) Not Available [facility] (Centralized Electronic Ordering - All Locations) Patient Can Go To The Location Of Their Choice, 12/07/2017 15:02:53 12/07/19 18 12/07/2017 urina lysis compl ete, refle x cultu re appear/color DARK YELLO W CLEAR Not Available [facility] (Centralized Electronic Ordering - All Locations) Patient Can Go To The Location Of Their Choice, 12/07/2017 21:21:44 12/07/19 18 12/07/2017 urina lysis compl ete, refle x cultu re sp. gravity 1.025 (1.002 -1.030 ) Not Available [facility] (Centralized Electronic Ordering - All Locations) Patient Can Go To The Location Of Their Choice, 12/07/2017 21:21:44 12/07/19 18 12/07/2017 urina lysis compl ete, refle x cultu re urine pH 5.0 (4.0-8 .0) Not Available [facility] (Centralized Electronic Ordering - All Locations) Patient Can Go To The Location Of Their Choice, 12/07/2017 21:21:44 12/07/19 18 12/07/2017 urina lysis compl ete, refle x cultu re urine albumin 1+ (neg) abnormal Not Available [facility] (Central[facility] Ordering - All Locations) Patient Can Go To The Location Of Their Choice, 12/07/2017 21:21:44 12/07/19 18 12/07/2017 urina lysis compl ete, refle x cultu re urine glucose NEGATI VE (neg) Not Available [facility] (Centralized Electronic Ordering - All Locations) Patient Can Go To The Location Of Their Choice, 12/07/2017 21:21:44 12/07/19 18 12/07/2017 urina lysis compl ete, refle x cultu re urine ketones NEGATI VE (neg) Not Available [facility] (Centralized Electronic Ordering - All Locations) Patient Can Go To The Location Of Their Choice, 12/07/2017 21:21:44 12/07/19 18 12/07/2017 urina lysis compl ete, refle x cultu re urine bilirubin 2+ (neg) abnormal Not Available [facility] ([facility] Ordering - All Locations) Patient Can Go To The Location Of Their Choice, 12/07/2017 21:21:44 12/07/19 18 12/07/2017 urina lysis compl ete, refle x cultu re urine hemoglobn 1+ (neg) abnormal Not Available [facility] (Centralized [facility] Ordering - All Locations) Patient Can Go To The Location Of Their Choice, 12/07/2017 21:21:44 12/07/1912/07/2017 urina lysis compl ete, refle x cultu re urine nitrite POSITI VE (neg) abnormal Not Available [facility] (Centralized Electronic Ordering - All Locations) Patient Can Go To The Location Of Their Choice, 12/07/2017 21:21:44 12/07/19 18 12/07/2017 urina lysis compl ete, refle x cultu re urine leukocyte 2+ (neg) abnormal Not Available [facility] ([facility] Ordering - All Locations) Patient Can Go To The Location Of Their Choice, 12/07/2017 21:21:44 12/07/19 18 12/07/2017 urina lysis compl ete, refle x cultu re urobilinogen 4 mg/dL (norm) abnormal Not Available [facility] ([facility] - All Locations) Patient Can Go To The Location Of Their Choice, 12/07/2017 21:21:44 12/07/1912/07/2017 urina lysis compl ete, refle x cultu re urine WBC's 39 /hpf (0-5) high Not Available [facility] (Centralized [facility] Ordering - All Locations) Patient Can Go To The Location Of Their Choice, 12/07/2017 21:21:44 12/07/1912/07/2017 urina lysis compl ete, refle x cultu re urine RBC's 1 /hpf (<3) Not Available [facility] ([facility]ized [facility] Ordering - All Locations) Patient Can Go To The Location Of Their Choice, 12/07/2017 21:21:44 12/07/19 18 12/07/2017 urina lysis compl ete, refle x cultu re bacteria HEAVY hpf (neg) abnormal Not Available [facility] (Centralized Electronic Ordering - All Locations) Patient Can Go To The Location Of Their Choice, [facility] 12/07/2017 21:21:44 12/07/19 18 12/07/2017 urina lysis compl ete, refle x cultu re mucus SLIGHT /lpf Not Available [facility] (Centralized Electronic Ordering - All Locations) Patient Can Go To The Location Of Their Choice, [id number] 12/07/2017 21:21:44 12/07/19 18 12/07/2017 urina lysis compl ete, refle x cultu re squamous epith 9 /hpf Not Available [facility] (Centralized [facility] Ordering - All Locations) Patient Can Go To The Location Of Their Choice, 12/07/2017 21:21:44 12/07/19 18 12/07/2017 urina lysis compl ete, refle x cultu re clarity CLEAR (clear ) Not Available [facility] (Centralized Electronic Ordering - All Locations) Patient Can Go To The Location Of Their Choice, [id number] 12/07/2017 21:21:44 12/07/19 18 12/07/2017 urina lysis compl ete, refle x cultu re culture indication CULTUR E INDICA MARYLU Not Available [facility] (Centralized Electronic Ordering - All Locations) Patient Can Go To The Location Of Their Choice, [id number] 12/07/2017 21:21:44 12/07/19 18 12/08/2017 cultu re, urine specimen description URINE Not Available [facility] ([facility] - All Locations) Patient Can Go To The Location Of Their Choice, 12/09/2017 13:00:44 12/07/19 18 12/08/2017 cultu re, urine special requests NONE Not Available [facility] (Central[facility] Ordering - All Locations) Patient Can Go To The Location Of Their Choice, 12/09/2017 13:00:44 12/07/19 18 12/09/2017 cultu re, urine culture >100,0 00 COL/ML ESCHER ICHIA COLI Not Available [facility] (Centralized Electronic Ordering - All Locations) Patient Can Go To The Location Of Their Choice, 12/09/2017 13:00:44 12/07/19 18 12/09/2017 cultu re, urine report status FINAL 2017 Not Available [facility] (Centralized Electronic Ordering - All Locations) Patient Can Go To The Location Of Their Choice, 12/09/2017 13:00:44 12/07/19 18 12/09/2017 cultu re, urine organism ORGANI SM >100,0 00 COL/ML ESCHER ICHIA COLI Not Available [facility] (Centralized Electronic Ordering - All Locations) Patient Can Go To The Location Of Their Choice, 12/09/2017 13:00:44 12/07/19 18 12/09/2017 cultu re, urine method METHOD MIN. INHIB. CONC. (MCG/M L) Not Available [facility] (Centralized Electronic Ordering - All Locations) Patient Can Go To The Location Of Their Choice, 12/09/2017 13:00:44 12/07/19 18 12/09/2017 cultu re, urine ampicillin AMPICI LLIN RESIST ANT resistant Not Available [facility] (Centralized Electronic Ordering - All Locations) Patient Can Go To The Location Of Their Choice, 12/09/2017 13:00:44 12/07/19 18 12/09/2017 cultu re, urine ampicillin/s ulbactam AMPICI LLIN/S ULBACT AM RESIST ANT resistant Not Available [facility] (Centralized Electronic Ordering - All Locations) Patient Can Go To The Location Of Their Choice, 12/09/2017 13:00:44 12/07/19 18 12/09/2017 cultu re, urine amoxicillin/ clavulanic acid AMOXIC ILLIN/ CLAVUL AN SUSCEP TIBLE susceptib le Not Available [facility] (Centralized Electronic Ordering - All Locations) Patient Can Go To The Location Of Their Choice, 12/09/2017 13:00:44 12/07/19 18 12/09/2017 cultu re, urine cefazolin CEFAZO ADDISON SUSCEP TIBLE susceptib le Not Available [facility] (Centralized Electronic Ordering - All Locations) Patient Can Go To The Location Of Their Choice, 12/09/2017 13:00:44 12/07/19 18 12/09/2017 cultu re, urine cefepime CEFEPI ME SUSCEP TIBLE susceptib le Not Available [facility] (Centralized Electronic Ordering - All Locations) Patient Can Go To The Location Of Their Choice, 12/09/2017 13:00:44 12/07/1912/09/2017 cultu re, urine ceftriaxone CEFTRI AXONE SUSCEP TIBLE susceptib le Not Available [facility] (Centralized Electronic Ordering - All Locations) Patient Can Go To The Location Of Their Choice, 12/09/2017 13:00:44 12/07/1912/09/2017 cultu re, urine ciprofloxaci n CIPROF LOXACI N SUSCEP TIBLE susceptib le Not Available [facility] (Centralized Electronic Ordering - All Locations) Patient Can Go To The Location Of Their Choice, 12/09/2017 13:00:44 12/07/1912/09/2017 cultu re, urine gentamicin GENTAM ICIN SUSCEP TIBLE susceptib le Not Available [facility] (Centralized Electronic Ordering - All Locations) Patient Can Go To The Location Of Their Choice, 12/09/2017 13:00:44 12/07/1912/09/2017 cultu re, urine levofloxacin LEVOFL OXACIN SUSCEP TIBLE susceptib le Not Available [facility] (Centralized Electronic Ordering - All Locations) Patient Can Go To The Location Of Their Choice, 12/09/2017 13:00:44 12/07/1912/09/2017 cultu re, urine meropenem MEROPE NEM SUSCEP TIBLE susceptib le Not Available [facility] (Centralized Electronic Ordering - All Locations) Patient Can Go To The Location Of Their Choice, 12/09/2017 13:00:44 12/07/1912/09/2017 cultu re, urine nitrofuranto in NITROF URANTO IN SUSCEP TIBLE susceptib le Not Available [facility] (Centralized Electronic Ordering - All Locations) Patient Can Go To The Location Of Their Choice, 12/09/2017 13:00:44 12/07/1912/09/2017 cultu re, urine piperacillin /tazobactam PIPERA CILLIN /TAZOB AC SUSCEP TIBLE susceptib le Not Available [facility] (Centralized Electronic Ordering - All Locations) Patient Can Go To The Location Of Their Choice, 12/09/2017 13:00:44 12/07/1912/09/2017 cultu re, urine trimeth/sulf amethox TRIMET H/SULF AMETHO X RESIST ANT resistant Not Available [facility] (Centralized Electronic Ordering - All Locations) Patient Can Go To The Location Of Their Choice, [id number] 12/09/2017 13:00:44 12/07/19 18 12/09/2017 cultu re, 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 Not Available [facility] (Centralized Electronic Ordering - All Locations) Patient Can Go To The Location Of Their Choice, [id number] 12/09/2017 13:00:44 12/07/19 18 12/07/2017 rapid flu (A+B) Flu A negati ve Not Available In-Office Order Internal Use Only DO Not Attach Compendium DO Not Attach Compendium, Do Not Delete/merge, 12/07/2017 10:54:49 12/07/19 18 12/07/2017 rapid flu (A+B) Flu B negati ve Not Available In-Office Order Internal Use Only DO Not Attach Compendium DO Not Attach Compendium, Do Not Delete/merge, 12/07/2017 10:54:49 12/07/19 18 12/07/2017 urina lysis [...] Attach Compendium, Do Not Delete/merge, 12/07/2017 10:57:51 12/07/1912/07/2017 urina lysis , dipst ick Urobilinogen 4 Not Available In-Of fice Order Internal Use Only DO Not Attach Compendium DO Not Attach Compendium, Do Not Delete/merge, 12/07/2017 10:57:51 12/07/1912/07/2017 urina lysis , dipst ick Protein Negati ve Not Available In-Office Order Internal Use Only DO Not Attach Compendium DO Not Attach Compendium, Do Not Delete/merge, 12/07/2017 10:57:51 12/07/19 18 12/07/2017 urina lysis , dipst ick pH 6.0 Not Available In-Office Order Internal Use Only DO Not Attach Compendium DO Not Attach Compendium, Do Not Delete/merge, [id number] 12/07/2017 10:57:51 12/07/19 18 12/07/2017 urina lysis , dipst ick Blood Negati ve Not Available In-Office Order Internal Use Only DO Not Attach Compendium DO Not Attach Compendium, Do Not Delete/merge, [id number] 12/07/2017 10:57:51 12/07/19 18 12/07/2017 urina lysis , dipst ick Specific [place] 1.030 Not Available In-Off ice Order Internal Use Only DO Not Attach Compendium DO Not Attach Compendium, Do Not Delete/merge, [id number] 12/07/2017 10:57:51 12/07/19 18 12/07/2017 urina lysis , dipst ick Ketone Negati ve Not Available In-Office Order Internal Use Only DO Not Attach Compendium DO Not Attach Compendium, Do Not Delete/merge, [id number] 12/07/2017 10:57:51 12/07/19 18 12/07/2017 urina lysis , dipst ick Bilirubin Negati ve Not Available In-Office Order Internal Use Only DO Not Attach Compendium DO Not Attach Compendium, Do Not Delete/merge, [id number] 12/07/2017 10:57:51 12/07/19 18 12/07/2017 urina lysis , dipst ick Glucose Negati ve Not Available In-Office Order Internal Use Only DO Not Attach Compendium DO Not Attach Compendium, Do Not Delete/merge, [id number] 12/07/2017 10:57:51 12/07/19 18 12/07/2017 urina lysis , dipst ick Color Yell Not Available In-Office Order Internal Use Only DO Not Attach Compendium DO Not Attach Compendium, Do Not Delete/merge, 12/07/2017 10:57:51 12/07/19 18 12/07/2017 urina lysis , dipst ick Appearance Cloudy Not Available In-Offi ce Order Internal Use Only DO Not Attach Compendium DO Not Attach Compendium, Do Not Delete/merge, [id number] 12/07/2017 10:57:51 12/22/19 18 12/22/2017 hepat ic funct ion panel , serum bilirubin,to yolie 0.7 mg/dL (0-1.2 ) Not Available [facility] (Centralized Electronic Ordering - All Locations) Patient Can Go To The Location Of Their Choice, 12/22/2017 14:36:12/22/19 18 12/22/2017 hepat ic funct ion panel , serum bilirubin, direct 0.3 mg/dL (0-0.3 ) Not Available [facility] (Centralized Electronic Ordering - All Locations) Patient Can Go To The Location Of Their Choice, 12/22/2017 14:36:12/22/19 18 12/22/2017 hepat ic funct ion panel , serum indirect bilirubin 0.4 mg/dL (0.0-0 .7) Not Available [facility] (Centralized Electronic Ordering - All Locations) Patient Can Go To The Location Of Their Choice, 12/22/2017 14:36:12/22/19 18 12/22/2017 hepat ic funct ion panel , serum albumin 3.9 gm/dL (3.4-4 .8) Not Available [facility] (Centralized Electronic Ordering - All Locations) Patient Can Go To The Location Of Their Choice, 12/22/2017 14:36:12/22/19 18 12/22/2017 hepat ic funct ion panel , serum AST 21 U/L (0-32) Not Available [facility] (Centralized Electronic Ordering - All Locations) Patient Can Go To The Location Of Their Choice, 12/22/2017 14:36:12/22/19 18 12/22/2017 hepat ic funct ion panel , serum ALT 39 U/L (0-33) high Not Available [facility] (Centralized Electronic Ordering - All Locations) Patient Can Go To The Location Of Their Choice, 12/22/2017 14:36:12/22/19 18 12/22/2017 hepat ic funct ion panel , serum alk phos 172 U/L (35-10 4) high Not Available [facility] (Centralized Electronic Ordering - All Locations) Patient Can Go To The Location Of Their Choice, 12/22/2017 14:36:12/22/19 18 12/22/2017 hepat ic funct ion panel , serum total protein 6.8 gm/dL (6.2-8 .2) Not Available [facility] (Centralized Electronic Ordering - All Locations) Patient Can Go To The Location Of Their Choice, 12/22/2017 14:36:02 03/15/20 18 03/15/2018 hepat ic funct ion panel , serum bilirubin,to yolie 0.4 mg/dL (0-1.2 ) Not Available [facility] (Centralized Electronic Ordering - All Locations) Patient Can Go To The Location Of Their Choice, 03/15/2018 22:14:22 03/15/20 18 03/15/2018 hepat ic funct ion panel , serum bilirubin, direct 0.1 mg/dL (0-0.3 ) Not Available [facility] (Centralized Electronic Ordering - All Locations) Patient Can Go To The Location Of Their Choice, 03/15/2018 22:14:22 03/15/20 18 03/15/2018 hepat ic funct ion panel , serum indirect bilirubin 0.3 mg/dL (0.0-0 .7) Not Available [facility] (Centralized Electronic Ordering - All Locations) Patient Can Go To The Location Of Their Choice, 03/15/2018 22:14:22 03/15/20 18 03/15/2018 hepat ic funct ion panel , serum albumin 4.2 gm/dL (3.4-4 .8) Not Available [facility] (Centralized Electronic Ordering - All Locations) Patient Can Go To The Location Of Their Choice, 03/15/2018 22:14:22 03/15/20 18 03/15/2018 hepat ic funct ion panel , serum AST 23 U/L (0-32) Not Available [facility] (Centralized Electronic Ordering - All Locations) Patient Can Go To The Location Of Their Choice, 03/15/2018 22:14:22 03/15/2003/15/2018 hepat ic funct ion panel , serum ALT 30 U/L (0-33) Not Available [facility] (Centralized Electronic Ordering - All Locations) Patient Can Go To The Location Of Their Choice, 03/15/2018 22:14:22 03/15/20 18 03/15/2018 hepat ic funct ion panel , serum alk phos 120 U/L (35-10 4) high Not Available [facility] (Centralized Electronic Ordering - All Locations) Patient Can Go To The Location Of Their Choice, 03/15/2018 22:14:22 03/15/20 18 03/15/2018 hepat ic funct ion panel , serum total protein 7.2 gm/dL (6.2-8 .2) Not Available [facility] (Centralized Electronic Ordering - All Locations) Patient Can Go To The Location Of Their Choice, 03/15/2018 22:14:22 08/31/20 18 08/31/2018 CBC w/ auto diff WBC 12.9 K/mm3 (4.0-1 1.0) high Not Available [facility] (Centralized Electronic Ordering - All Locations) Patient Can Go To The Location Of Their Choice, 08/31/2018 14:43:33 08/31/20 18 08/31/2018 CBC w/ auto diff RBC 4.65 M/mm3 (4.20- 5.40) Not Available [facility] (Centralized Electronic Ordering - All Locations) Patient Can Go To The Location Of Their Choice, 08/31/2018 14:43:33 08/31/20 18 08/31/2018 CBC w/ auto diff HGB 13.8 gm/dL (11.7- 15.5) Not Available [facility] (Centralized Electronic Ordering - All Locations) Patient Can Go To The Location Of Their Choice, 08/31/2018 14:43:33 08/31/20 18 08/31/2018 CBC w/ auto diff HCT 42.3 % (35.7- 45.8) Not Available [facility] (Centralized Electronic Ordering - All Locations) Patient Can Go To The Location Of Their Choice, 08/31/2018 14:43:33 08/31/20 18 08/31/2018 CBC w/ auto diff MCV 91.0 fL (80.0- 100.0) Not Available [facility] (Centralized Electronic Ordering - All Locations) Patient Can Go To The Location Of Their Choice, 08/31/2018 14:43:33 08/31/20 18 08/31/2018 CBC w/ auto diff MCH 29.7 pg (27.0- 34.0) Not Available [facility] (Centralized Electronic Ordering - All Locations) Patient Can Go To The Location Of Their Choice, 08/31/2018 14:43:33 08/31/20 18 08/31/2018 CBC w/ auto diff MCHC 32.6 g/dL (33.0- 37.0) low Not Available [facility] (Centralized Electronic Ordering - All Locations) Patient Can Go To The Location Of Their Choice, 08/31/2018 14:43:33 08/31/20 18 08/31/2018 CBC w/ auto diff plt 270 K/mm3 (150-4 60) Not Available [facility] (Centralized Electronic Ordering - All Locations) Patient Can Go To The Location Of Their Choice, 08/31/2018 14:43:33 08/31/20 18 08/31/2018 CBC w/ auto diff RDW-SD 44.9 fL (<47.0 ) Not Available [facility] (Centralized Electronic Ordering - All Locations) Patient Can Go To The Location Of Their Choice, 08/31/2018 14:43:33 08/31/20 18 08/31/2018 CBC w/ auto diff MPV 10.4 fL (9.4-1 2.4) Not Available [facility] (Centralized Electronic Ordering - All Locations) Patient Can Go To The Location Of Their Choice, 08/31/2018 14:43:33 08/31/20 18 08/31/2018 CBC w/ auto diff automated NRBC 0.0 #/100 _WBC' s Not Available [facility] (Centralized Electronic Ordering - All Locations) Patient Can Go To The Location Of Their Choice, 08/31/2018 14:43:33 08/31/20 18 08/31/2018 CBC w/ auto diff abs. NRBC 0.0 K/mm3 Not Available [facility] (Centralized Electronic Ordering - All Locations) Patient Can Go To The Location Of Their Choice, 08/31/2018 14:43:33 08/31/20 18 08/31/2018 hepat itis C virus Ab, serum anti-hepatit is C NEGAT ALLYN Refer ence range : Negat allyn This test was perfo rmed on the Abbot t Archi tect immun oassa y syste m. Not Available [facility] (Centralized Electronic Ordering - All Locations) Patient Can Go To The Location Of Their Choice, 08/31/2018 16:17:01 08/31/20 18 08/31/2018 CMP, serum or plasm a glucose 76 mg/dL (70-99 ) Not Available [facility] (Centralized Electronic Ordering - All Locations) Patient Can Go To The Location Of Their Choice, 08/31/2018 20:51:23 08/31/20 18 08/31/2018 CMP, serum or plasm a BUN 20 mg/dL (8-23) Not Available [facility] (Centralized Electronic Ordering - All Locations) Patient Can Go To The Location Of Their Choice, 08/31/2018 20:51:23 08/31/20 18 08/31/2018 CMP, serum or plasm a creatinine 1.2 mg/dL (0.5-1 .0) high Not Available [facility] (Centralized Electronic Ordering - All Locations) Patient Can Go To The Location Of Their Choice, 08/31/2018 20:51:23 08/31/20 18 08/31/2018 CMP, serum or plasm a sodium 145 mmol/ L (133-1 45) Not Available [facility] (Centralized Electronic Ordering - All Locations) Patient Can Go To The Location Of Their Choice, 08/31/2018 20:51:23 08/31/20 18 08/31/2018 CMP, serum or plasm a potassium 3.6 mmol/ L (3.6-5 .2) Not Available [facility] (Centralized Electronic Ordering - All Locations) Patient Can Go To The Location Of Their Choice, 08/31/2018 20:51:23 08/31/20 18 08/31/2018 CMP, serum or plasm a chloride 107 mmol/ L (98-10 7) Not Available [facility] (Centralized Electronic Ordering - All Locations) Patient Can Go To The Location Of Their Choice, 08/31/2018 20:51:23 08/31/20 18 08/31/2018 CMP, serum or plasm a bicarbonate 27 mmol/ L (22-29 ) Not Available [facility] (Centralized Electronic Ordering - All Locations) Patient Can Go To The Location Of Their Choice, 08/31/2018 20:51:23 08/31/20 18 08/31/2018 CMP, serum or plasm a anion gap 11 (4-17) Not Available [facility] (Centralized Electronic Ordering - All Locations) Patient Can Go To The Location Of Their Choice, [id number] 08/31/2018 20:51:23 08/31/20 18 08/31/2018 CMP, serum or plasm a albumin 4.0 gm/dL (3.4-4 .8) Not Available [facility] (Centralized Electronic Ordering - All Locations) Patient Can Go To The Location Of Their Choice, 08/31/2018 20:51:23 08/31/20 18 08/31/2018 CMP, serum or plasm a calcium 8.7 mg/dL (8.6-1 0.5) Not Available [facility] (Centralized Electronic Ordering - All Locations) Patient Can Go To The Location Of Their Choice, 08/31/2018 20:51:23 08/31/20 18 08/31/2018 CMP, serum or plasm a bilirubin,to yolie 0.4 mg/dL (0-1.2 ) Not Available [facility] (Centralized Electronic Ordering - All Locations) Patient Can Go To The Location Of Their Choice, 08/31/2018 20:51:23 08/31/20 18 08/31/2018 CMP, serum or plasm a total protein 6.5 gm/dL (6.2-8 .2) Not Available [facility] (Centralized Electronic Ordering - All Locations) Patient Can Go To The Location Of Their Choice, 08/31/2018 20:51:23 08/31/20 18 08/31/2018 CMP, serum or plasm a Ag ratio 1.6 Not Available [facility] (Centralized Electronic Ordering - All Locations) Patient Can Go To The Location Of Their Choice, 08/31/2018 20:51:23 08/31/20 18 08/31/2018 CMP, serum or plasm a AST 30 U/L (0-32) Not Available [facility] (Centralized Electronic Ordering - All Locations) Patient Can Go To The Location Of Their Choice, 08/31/2018 20:51:23 08/31/20 18 08/31/2018 CMP, serum or plasm a alk phos 97 U/L (35-10 4) Not Available [facility] (Centralized Electronic Ordering - All Locations) Patient Can Go To The Location Of Their Choice, 08/31/2018 20:51:23 08/31/20 18 08/31/2018 CMP, serum or plasm a ALT 40 U/L (0-33) high Not Available [facility] (Centralized Electronic Ordering - All Locations) Patient Can Go To The Location Of Their Choice, 08/31/2018 20:51:23 08/31/20 18 08/31/2018 CMP, serum [...] [employer]. Not Available [facility] (Centralized Electronic Ordering - All Locations) Patient Can Go To The Location Of Their Choice, 08/31/2018 20:51:23 08/31/20 18 08/31/2018 CMP, serum [...] [employer]. Not Available [facility] (Centralized Electronic Ordering - All Locations) Patient Can Go To The Location Of Their Choice, 08/31/2018 20:51:23 08/31/20 18 08/31/2018 lipid panel , serum cholesterol, total 197 mg/dL (<200) Not Available [facility] (Centralized Electronic Ordering - All Locations) Patient Can Go To The Location Of Their Choice, 08/31/2018 20:51:24 08/31/20 18 08/31/2018 lipid panel , serum triglyceride 119 mg/dL (<150) Not Available [facility] (Central[facility] Ordering - All Locations) Patient Can Go To The Location Of Their Choice, 08/31/2018 20:51:24 08/31/20 18 08/31/2018 lipid panel , serum HDL chol 53 mg/dL (>39) Not Available [facility] (Centralized Electronic Ordering - All Locations) Patient Can Go To The Location Of Their Choice, [id number] 08/31/2018 20:51:24 08/31/20 18 08/31/2018 lipid panel , serum LDL cholesterol, calculated 120 mg/dL (0-130 ) Not Available [facility] (Centralized Electronic Ordering - All Locations) Patient Can Go To The Location Of Their Choice, [id number] 08/31/2018 20:51:24 08/31/20 18 08/31/2018 lipid panel , serum non HDL cholesterol (calc) 144 mg/dL (<160) Not Available [facility] (Centralized Electronic Ordering - All Locations) Patient Can Go To The Location Of Their Choice, [id number] 08/31/2018 20:51:24 08/31/20 18 08/31/2018 TSH, serum or plasm a TSH 1.72 mIU/m L (0.40- 4.00) Not Available [facility] (Centralized Electronic Ordering - All Locations) Patient Can Go To The Location Of Their Choice, [id number] 08/31/2018 21:14:43 08/31/20 18 09/01/2018 vitam in D, 25-hy droxy , total , serum 25OH vitamin D 45.8 NG/mL (20-50 ) Serum 25OHD : 20 to 50 ng/mL : suffi cient in vitam in D. Refer ence: [facility] Data Brief : No.59 December: Vitam in D Statu s: Unite d State s: 2000- 2005 As of , Vitam in D, 25-Hy droxy assay has been gleason ed. In some [facility], the new assay may yield a highe r value (up to 15% incre ase) in luis rison to the old assay . These incre ases would mainl y be notic eable at value s of great er than 50 ng/ml . Not Available [facility] (Centralized Electronic Ordering - All Locations) Patient Can Go To The Location Of Their Choice, [id number] 09/01/2018 01:57:01 09/10/20 18 09/10/2018 CBC w/ auto diff WBC 10.7 K/mm3 (4.0-1 1.0) Not Available [facility] (Centralized Electronic Ordering - All Locations) Patient Can Go To The Location Of Their Choice, 09/10/2018 20:28:11 09/10/20 18 09/10/2018 CBC w/ auto diff RBC 4.91 M/mm3 (4.20- 5.40) Not Available [facility] (Centralized Electronic Ordering - All Locations) Patient Can Go To The Location Of Their Choice, 09/10/2018 20:28:11 09/10/20 18 09/10/2018 CBC w/ auto diff HGB 14.7 gm/dL (11.7- 15.5) Not Available [facility] (Centralized Electronic Ordering - All Locations) Patient Can Go To The Location Of Their Choice, 09/10/2018 20:28:11 09/10/20 18 09/10/2018 CBC w/ auto diff HCT 46.3 % (35.7- 45.8) high Not Available [facility] (Centralized Electronic Ordering - All Locations) Patient Can Go To The Location Of Their Choice, 09/10/2018 20:28:11 09/10/20 18 09/10/2018 CBC w/ auto diff MCV 94.3 fL (80.0- 100.0) Not Available [facility] (Centralized Electronic Ordering - All Locations) Patient Can Go To The Location Of Their Choice, 09/10/2018 20:28:11 09/10/20 18 09/10/2018 CBC w/ auto diff MCH 29.9 pg (27.0- 34.0) Not Available [facility] (Centralized Electronic Ordering - All Locations) Patient Can Go To The Location Of Their Choice, 09/10/2018 20:28:11 09/10/20 18 09/10/2018 CBC w/ auto diff MCHC 31.7 g/dL (33.0- 37.0) low Not Available [facility] (Centralized Electronic Ordering - All Locations) Patient Can Go To The Location Of Their Choice, 09/10/2018 20:28:11 09/10/20 18 09/10/2018 CBC w/ auto diff plt 252 K/mm3 (150-4 60) Not Available [facility] (Centralized Electronic Ordering - All Locations) Patient Can Go To The Location Of Their Choice, 09/10/2018 20:28:11 09/10/20 18 09/10/2018 CBC w/ auto diff RDW-SD 48.5 fL (<47.0 ) high Not Available [facility] (Centralized Electronic Ordering - All Locations) Patient Can Go To The Location Of Their Choice, 09/10/2018 20:28:11 09/10/20 18 09/10/2018 CBC w/ auto diff MPV 10.5 fL (9.4-1 2.4) Not Available [facility] (Centralized Electronic Ordering - All Locations) Patient Can Go To The Location Of Their Choice, 09/10/2018 20:28:11 09/10/20 18 09/10/2018 CBC w/ auto diff automated NRBC 0.0 #/100 _WBC' s Not Available [facility] (Centralized Electronic Ordering - All Locations) Patient Can Go To The Location Of Their Choice, 09/10/2018 20:28:11 09/10/20 18 09/10/2018 CBC w/ auto diff abs. NRBC 0.0 K/mm3 Not Available [facility] (Centralized Electronic Ordering - All Locations) Patient Can Go To The Location Of Their Choice, 09/10/2018 20:28:11 09/10/20 18 09/10/2018 CBC w/ auto diff neut # 5.8 K/mm3 (1.3-7 .0) Not Available [facility] (Centralized Electronic Ordering - All Locations) Patient Can Go To The Location Of Their Choice, 09/10/2018 20:28:11 09/10/20 18 09/10/2018 CBC w/ auto diff lymph # 3.2 K/mm3 (0.8-3 .1) high Not Available [facility] (Centralized Electronic Ordering - All Locations) Patient Can Go To The Location Of Their Choice, 09/10/2018 20:28:11 09/10/20 18 09/10/2018 CBC w/ auto diff mono# 0.7 K/mm3 (0.4-0 .9) Not Available [facility] (Centralized Electronic Ordering - All Locations) Patient Can Go To The Location Of Their Choice, 09/10/2018 20:28:11 09/10/20 18 09/10/2018 CBC w/ auto diff eo # 1.0 K/mm3 (0.0-0 .4) high Not Available [facility] (Centralized Electronic Ordering - All Locations) Patient Can Go To The Location Of Their Choice, 09/10/2018 20:28:11 09/10/2009/10/2018 CBC w/ auto diff baso # 0.1 K/mm3 (0.0-0 .1) Not Available [facility] (Centralized Electronic Ordering - All Locations) Patient Can Go To The Location Of Their Choice, 09/10/2018 20:28:11 09/10/20 18 09/10/2018 CBC w/ auto diff abs. imm gran 0.1 K/mm3 Not Available [facility] (Centralized Electronic Ordering - All Locations) Patient Can Go To The Location Of Their Choice, 09/10/2018 20:28:11 09/10/20 18 09/10/2018 CBC w/ auto diff neut 54.0 % (44-76 ) Not Available [facility] (Centralized Electronic Ordering - All Locations) Patient Can Go To The Location Of Their Choice, 09/10/2018 20:28:11 09/10/20 18 09/10/2018 CBC w/ auto diff lymph 29.4 % (15-43 ) Not Available [facility] (Centralized Electronic Ordering - All Locations) Patient Can Go To The Location Of Their Choice, 09/10/2018 20:28:11 09/10/20 18 09/10/2018 CBC w/ auto diff monocyte 6.1 % (4.5-1 0.5) Not Available [facility] (Centralized Electronic Ordering - All Locations) Patient Can Go To The Location Of Their Choice, 09/10/2018 20:28:11 09/10/20 18 09/10/2018 CBC w/ auto diff eo 9.1 % (0-6) high Not Available [facility] (Centralized Electronic Ordering - All Locations) Patient Can Go To The Location Of Their Choice, 09/10/2018 20:28:11 09/10/20 18 09/10/2018 CBC w/ auto diff baso 0.7 % (0-2) Not Available [facility] (Centralized Electronic Ordering - All Locations) Patient Can Go To The Location Of Their Choice, 09/10/2018 20:28:11 09/10/20 18 09/10/2018 CBC w/ auto diff imm gran 0.7 % (0.0-0 .6) high Not Available [facility] (Centralized Electronic Ordering - All Locations) Patient Can Go To The Location Of Their Choice, 09/10/2018 20:28:11 07/15/2007/15/2019 CMP, serum or plasm a glucose 83 mg/dL (70-99 ) Not Available [facility] (Centralized Electronic Ordering - All Locations) Patient Can Go To The Location Of Their Choice, 07/15/2019 18:47:48 07/15/2007/15/2019 CMP, serum or plasm a BUN 22 mg/dL (8-23) Not Available [facility] (Centralized Electronic Ordering - All Locations) Patient Can Go To The Location Of Their Choice, 07/15/2019 18:47:48 07/15/2007/15/2019 CMP, serum or plasm a creatinine 1.2 mg/dL (0.5-1 .0) high Not Available [facility] (Centralized Electronic Ordering - All Locations) Patient Can Go To The Location Of Their Choice, 07/15/2019 18:47:48 07/15/2007/15/2019 CMP, serum or plasm a sodium 139 mmol/ L (133-1 45) Not Available [facility] (Centralized Electronic Ordering - All Locations) Patient Can Go To The Location Of Their Choice, 07/15/2019 18:47:48 07/15/2007/15/2019 CMP, serum or plasm a potassium 4.5 mmol/ L (3.6-5 .2) Not Available [facility] (Centralized Electronic Ordering - All Locations) Patient Can Go To The Location Of Their Choice, 07/15/2019 18:47:48 07/15/2007/15/2019 CMP, serum or plasm a chloride 104 mmol/ L (98-10 7) Not Available [facility] (Centralized Electronic Ordering - All Locations) Patient Can Go To The Location Of Their Choice, 07/15/2019 18:47:48 07/15/2007/15/2019 CMP, serum or plasm a bicarbonate 26 mmol/ L (22-29 ) Not Available [facility] (Centralized Electronic Ordering - All Locations) Patient Can Go To The Location Of Their Choice, 07/15/2019 18:47:48 07/15/2007/15/2019 CMP, serum or plasm a anion gap 9 (4-17) Not Available [facility] (Centralized Electronic Ordering - All Locations) Patient Can Go To The Location Of Their Choice, 07/15/2019 18:47:48 07/15/2007/15/2019 CMP, serum or plasm a albumin 4.1 gm/dL (3.4-4 .8) Not Available [facility] (Centralized Electronic Ordering - All Locations) Patient Can Go To The Location Of Their Choice, 07/15/2019 18:47:48 07/15/2007/15/2019 CMP, serum or plasm a calcium 9.2 mg/dL (8.6-1 0.5) Not Available [facility] (Centralized Electronic Ordering - All Locations) Patient Can Go To The Location Of Their Choice, 07/15/2019 18:47:48 07/15/2007/15/2019 CMP, serum or plasm a bilirubin,to yolie 0.4 mg/dL (0-1.2 ) Not Available [facility] (Centralized Electronic Ordering - All Locations) Patient Can Go To The Location Of Their Choice, 07/15/2019 18:47:48 07/15/2007/15/2019 CMP, serum or plasm a total protein 7.2 gm/dL (6.2-8 .2) Not Available [facility] (Centralized Electronic Ordering - All Locations) Patient Can Go To The Location Of Their Choice, 07/15/2019 18:47:48 07/15/2007/15/2019 CMP, serum or plasm a Ag ratio 1.3 Not Available [facility] (Centralized Electronic Ordering - All Locations) Patient Can Go To The Location Of Their Choice, 07/15/2019 18:47:48 07/15/2007/15/2019 CMP, serum or plasm a AST 23 U/L (0-32) Not Available [facility] (Centralized Electronic Ordering - All Locations) Patient Can Go To The Location Of Their Choice, 07/15/2019 18:47:48 07/15/2007/15/2019 CMP, serum or plasm a alk phos 117 U/L (35-10 4) high Not Available [facility] (Centralized Electronic Ordering - All Locations) Patient Can Go To The Location Of Their Choice, [id number] 07/15/2019 18:47:48 07/15/2007/15/2019 CMP, serum or plasm a ALT 30 U/L (0-33) Not Available [facility] (Centralized Electronic Ordering - All Locations) Patient Can Go To The Location Of Their Choice, [id number] 07/15/2019 18:47:48 07/15/2007/15/2019 CMP, serum or plasm a est GFR [...] [employer]. Not Available [facility] (Centralized Electronic Ordering - All Locations) Patient Can Go To The Location Of Their Choice, [id number] 07/15/2019 18:47:48 07/15/20 19 07/15/2019 CMP, serum [...] [employer]. Not Available [facility] (Centralized Electronic Ordering - All Locations) Patient Can Go To The Location Of Their Choice, [id number] 07/15/2019 18:47:48 09/10/20 18 09/10/2018 MAMMO , [...] breast to sugges t malign devi. IMPRES YEISON: No mammog raphic eviden ce of malign devi. RECOMM ENDATI ON: Annual mammog raphic screen ing BI-RAD S: 1 (Negat allyn) Lay letter mailed to kurt augustin WSN: [id number] Dictat ed By: Teresa Bautista MD Dictat ed Date/T nadeen: 2:20 pm Review ed By: Teresa Bautista MD Signed By: Teresa Bautista MD Signed Date/T nadeen: 2:20 pm Transc ribed By: ELLIE Transc riptio emily Date/T nadeen: 1:58 pm Birads : Kurt charli Class: Outpat ient [facility] (Outpt Imaging) [address] [place], [address], 03/07/2019 16:31:22 06/22/20 19 06/20/2019 NM, myoca rdial perfu yeison scan No observ ation record ed. [facility] [address] [place] [address], [place], [address], 06/22/2019 13:05:01 Result Notes Documentation Provider Name and Address Organization Details Recorded Time Mammo, Screening, Digital, Bilateral : PROCEDURE: MM Digital Mammo Screening INDICATION: Screening. No known palpable abnormalities. COMPARISON: Multiple priors, most recent dated 09/07/2017. TECHNIQUE: Full-field digital CC and MLO 3D tomosynthesis images of both breasts were acquired. Computer-aided detection (CAD) was utilized in the interpretation of this study. DENSITY: The breast tissue contains scattered areas of fibroglandular density. FINDINGS: No suspicious masses, suspicious microcalcifications, or areas of architectural distortion are seen in either breast to suggest malignancy. IMPRESSION: No mammographic evidence of malignancy. RECOMMENDATION: Annual mammographic screening BI-RADS: 1 (Negative) Lay letter mailed to patient WSN: [id number] Dictated By: Teresa Muir MD Dictated Date/Time: 09/10/18 2:20 pm Reviewed By: Teresa Muir MD Signed By: Teresa Muir MD Signed Date/Time: 09/10/18 2:20 pm Transcribed By: ELLIE Telephone Lineman Date/Time: 09/10/18 1:58 pm Birads: Patient Class: Outpatient Damien Young PA-C [address], [address], [facility] 03/07/2019 16:31:22 Problems Name Problem SNOMED Code Status Onset Date Resolution Date Notes Provider Name and Address Organization Details Recorded Time Upper respirat ory infectio n 72345768 Completed 02/17/2017 Alisson tate [facility] 7 09:28:15 Polyp of colon 93443785 Active [facility] 9 16:26:38 Transien t cerebral ischemia 925319856 Active Iris tate [facility] 9 16:26:38 Dehydrat ion 22505970 Completed 02/17/2017 Alisson tate [facility] 7 09:28:20 Nausea 313300185 Completed 02/17/2017 Alisson tate [facility] 7 09:28:23 Liver enzymes outside referenc e range 001387286 Completed 02/17/2017 Alisson tate [facility] 7 09:27:48 Influenz a vaccine needed 62924953964 06 Completed 200705/09/2014 RECORDED 10/16/20 08 7:39AM BY NEIL SHELDON MA, ANNOTATI ON/ADDEN DUM Irisjose antonio tate, [facility] 6 09:47:05 Influenz a vaccine needed 06323572858 06 Completed 200706/05/2014 RECORDED 10/16/20 08 7:39AM BY NEIL SHELDON MA, ANNOTATI ON/ADDEN DUM rIis tate, [facility] 6 09:47:05 Administ ration of bacteria l and viral vaccine Completed 200805/09/2014 RECORDED 02/20/20 09 7:45AM BY NEIL SHELDON MA, OFFICE VISIT Iris tate, [facility] 6 09:47:05 Administ ration of bacteria l and viral vaccine Completed 200806/05/2014 RECORDED 02/20/20 09 7:45AM BY NEIL SHELDON MA, OFFICE VISIT Iris tate, [facility] 6 09:47:05 Essentia l hyperten yeison 28289082 Completed 201005/09/2014 RECORDED 05/28/20 11 11:12AM BY NEIL SHELDON MA, ANNOTATI ON/ADDEN DUM Alisson tate, [facility] 7 09:28:36 Tobacco user 122943319 Completed 201105/09/2014 RECORDED 04/09/20 12 8:07AM BY NEIL SHELDON MA, ANNOTATI ON/ADDEN DUM Iris tate, [facility] 6 09:47:05 History of clinical finding in subject 893754759 Completed 201102/17/2017 Alisson tate, [facility] 7 09:28:17 Tobacco user 733052000 Completed 201106/05/2014 RECORDED 04/09/20 12 8:07AM BY NEIL SHELDON MA, ANNOTATI ON/ADDEN DUM Iris Melchor null, [facility] 6 09:47:05 Screenin g for malignan t neoplasm of breast Completed 201105/09/2014 RECORDED 06/16/20 12 10:30AM BY NEIL SHELDON MA, ANNOTATI ON/ADDEN DUM Alisson Pedersen MA null, [facility] 7 09:27:58 Screenin g for malignan t neoplasm of cervix Completed 201105/09/2014 RECORDED 06/16/20 12 10:30AM BY NEIL SHELDON MA, ANNOTATI ON/ADDEN DUM Alisson Pedersen MA null, [facility] 7 09:27:52 Screenin g for malignan t neoplasm of colon Completed 201105/09/2014 RECORDED 06/16/20 12 10:30AM BY NEIL SHELDON MA, ANNOTATI ON/ADDEN DUM Iris Melchor null, [facility] 6 09:47:05 Cyst of oral soft tissue 650929281 Completed 201105/09/2014 RECORDED 06/16/20 12 10:30AM BY NEIL SHELDON MA, ANNOTATI ON/ADDEN DUM Iris Melchor null, [facility] 6 09:47:05 Disorder of skin 94923125 Completed 201105/09/2014 RECORDED 06/16/20 12 10:30AM BY NEIL SHELDON MA, ANNOTATI ON/ADDEN DUM Iris Melchor null, [facility] 6 09:47:05 Elevated level of transami nase and lactic acid dehydrog enase 438304851 Completed 201105/09/2014 RECORDED 06/16/20 12 10:30AM BY NEIL SHELDON MA, ANNOTATI ON/ADDEN DUM Iris Melchor null, [facility] 6 09:47:05 Weight finding Completed 201105/09/2014 RECORDED 06/16/20 12 10:30AM BY NEIL SHELDON MA, ANNOTATI ON/ADDEN DUM Iris Melchor null, [facility] 6 09:47:05 Impaired fasting glycemia 071570813 Completed 201105/09/2014 RECORDED 06/16/20 12 10:30AM BY NEIL SHELDON MA, ANNOTATI ON/ADDEN DUM Iris Melchor null, [facility] 6 09:47:05 Malaise and fatigue 289776833 Completed 201105/09/2014 RECORDED 06/16/20 12 10:30AM BY NEIL SHELDON MA, ANNOTATI ON/ADDEN DUM Iris Melchor null, [facility] 6 09:47:05 Screenin g for malignan t neoplasm of breast Completed 201102/17/2017 Alisson Pedersen MA null, [facility] 7 09:27:58 Disorder of oral soft tissues 66925268 Completed 201105/09/2014 RECORDED 06/16/20 12 10:30AM BY NEIL SHELDON MA, ANNOTLEIGHA ON/ADDEN DUM Iris Melchor null, [facility] 6 09:47:05 Adult health examinat ion Completed 201105/09/2014 RECORDED 06/16/20 12 10:30AM BY NEIL SHELDON MA, ANNOTATI ON/ADDEN DUM Alisson Pedersen MA null, [facility] 7 09:28:02 Screenin g for malignan t neoplasm of breast Completed 201106/05/2014 RECORDED 06/16/20 12 10:30AM BY NEIL SHELDON MA, ANNOTATI ON/ADDEN DUM Alisson Pedersen MA null, [facility] 7 09:27:58 Screenin g for malignan t neoplasm of colon Completed 201106/05/2014 RECORDED 06/16/20 12 10:30AM BY NEIL SHELDON MA, ANNOTATI ON/ADDEN DUM Iris Melchor null, [facility] 6 09:47:05 Cyst of oral soft tissue 066091850 Completed 201106/05/2014 RECORDED 06/16/20 12 10:30AM BY NEIL SHELDON MA, ANNOTLEIGHA ON/ADDEN DUM Irisjose antonio Melchor null, [facility] 6 09:47:05 Disorder of skin 19216653 Completed 201106/05/2014 RECORDED 06/16/20 12 10:30AM BY NEIL SHELDON MA, ANNOTATI ON/ADDEN DUM Iris Melchor null, [facility] 6 09:47:05 Elevated level of transami nase and lactic acid dehydrog enase 086675968 Completed 201106/05/2014 RECORDED 06/16/20 12 10:30AM BY NEIL SHELDON MA, ANNOTATI ON/ADDEN DUM Iris Melchor null, [facility] 6 09:47:05 Weight finding Completed 201106/05/2014 RECORDED 06/16/20 12 10:30AM BY NEIL SHELDON MA, ANNOTATI ON/ADDEN DUM Iris Melchor null, [facility] 6 09:47:05 Impaired fasting glycemia 083178491 Completed 201106/05/2014 RECORDED 06/16/20 12 10:30AM BY NEIL SHELDON MA, ANNOTATI ON/ADDEN DUM Iris Melchor null, [facility] 6 09:47:05 Malaise and fatigue 832011404 Completed 201106/05/2014 RECORDED 06/16/20 12 10:30AM BY NEIL SHELDON MA, ANNOTATI ON/ADDEN DUM Iris tate [facility] 6 09:47:05 Disorder of oral soft tissues 32762174 Completed 201106/05/2014 RECORDED 06/16/20 12 10:30AM BY NEIL SHELDON MA, ANNOTATI ON/ADDEN DUM Iris tate [facility] 6 09:47:05 Adult health examinat ion Completed 201106/05/2014 RECORDED 06/16/20 12 10:30AM BY NEIL SHELDON MA, ANNOTATI ON/ADDEN DUM Alisson tate [facility] 7 09:28:02 Benign neoplasm of breast 333791318 Completed 201302/17/2017 Alisson tate [facility] 7 09:28:11 Essentia l hyperten yeison 05963440 Active 2013 Iris tate [facility] 9 16:26:38 Family history of polyp of colon 526101056 Completed 201302/17/2017 Alisson tate [facility] 7 09:28:28 Hyperlip idemia 46769502 Active 2013 Iris tate [facility] 9 16:26:38 Hypoglyc emia 827672526 Active 2013 Iris tate [facility] 9 16:26:38 Glucose toleranc e test outside referenc e range 514013027 Completed 201302/17/2017 Alisson tate [facility] 7 09:28:08 Low back pain 337990297 Completed 201302/17/2017 Alisson tate [facility] 7 09:28:05 Fibromyo sitis 28819911 Active 2013 Iris tate [facility] 9 16:26:38 Tobacco dependen ce syndrome 35991807 Active 2013 Iris tate [facility] 9 16:26:38 Adult health examinat ion Completed 201302/17/2017 Alisson tate 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 9 16:26:38 Screenin g for malignan t neoplasm of cervix Completed 201302/17/2017 Alisson tate [facility] 7 09:27:52 Excess skin of eyelid 713458981 Completed 201302/17/2017 Alisson tate [facility] 7 09:27:55 Overweig ht 559809850 Active 2017 Iris tate [facility] 9 16:26:38 Problem Notes None recorded. Procedures Surgical History Date Name Laterality Status Provider Name and Address Organization Details Recorded Time 09/10/20 18 Most Recent Mammogram completed Fabienne Antoni [facility] 09/10/2018 14:32:27 09/10/20 18 Mammogram Screening completed Fabienne Antoni [facility] 09/10/2018 14:32:20 09/06/20 18 Mini-Cog Test completed Lolly Velazquez [facility] 09/06/2018 16:44:34 06/22/20 18 Date of Last Colonoscopy completed Lolly Velazquez [facility] 09/07/2018 10:24:24 07/30/20 17 Fall Risk Assessment completed Alisson Pedersen MA [facility] 07/30/2017 09:01:50 07/30/20 17 Mini-Cog Test completed Alisson Pedersen MA [facility] 07/30/2017 09:05:40 04/22/20 16 Date of Last Pap Smear completed Irisjose antonio Melchor [facility] 04/24/2016 09:46:33 06/22/20 15 Colonoscopy completed Alisson Pedersen MA [facility] 07/27/2017 11:24:09 05/05/20 14 Most Recent Bone Density completed Darrian Reyes [facility] 04/17/2016 10:42:16 Tonsillectomy completed Chanelle Santanaoit [facility] 09/12/2014 08:48:03 Cholecystectomy completed [facility] 09/12/2014 08:48:03 Hysterectomy completed [facility] 09/12/2014 08:48:03 Imaging Results None recorded. Procedure Notes None recorded. Medical Equipment None Reported. Allergies Allergen ID Allergen Name Allergen Category Reaction Reaction Severity Criticality Documentation Date Start Date Code Code System Note Provider Name and Address Organization Details Recorded Time 78466 acetamino phen / oxycodone medicatio n Not available Not available Not available 12/07/2017 09230 3 RxNorm Alisson tate [facility] 8 10:38:30 92838 Lipitor medicatio n Not available Not available Not available 12/07/2017 94821 5 RxNorm [facility] - 8 Damien Young PA-C [address] [facility] [address], [place], [address], [facility] 8 13:53:06 19712 atorvasta tin medicatio n Not available Not available Not available 12/17/2017 58462 RxNorm Alisson tate [facility] 8 11:18:40 50332 pravastat in medicatio n Not available Not available Not available 12/17/2017 05506 RxNorm Alisson tate [facility] 8 11:20:58 73117 rosuvasta tin medicatio n Not available Not available Not available 12/17/2017 42133 2 RxNorm Alisson tate, [facility] 8 11:24:19 57285 simvastat in medicatio n Not available Not available Not available 12/17/2017 73353 RxNorm Alisson tate, [facility] 8 11:24:38 72875 azithromy ghislaine medicatio n facial swelling severe Not available 09/06/20182017 76538 RxNorm Lolly tate, [facility] 8 16:30:07 Medications Name Sig Start Date [...] 10 8:15AM BY TONY RUELAS MD, ANNOTATI ON/JOLENE RAPP; Not Available Not Available Not Available ezetimibe [...] blood by Pulse oximetry Heart rate Systolic And Diastolic Provider Name and Address Organization Details Last Updated DateTime 8 168.91 cm 28.3 kg/m2 50149.8 4 g 99.3 [degF] 96 % 96 % 88 /min 138/76 mm[Hg] [facility] 8 10:39:54 Date Recorded Body height Body mass index (BMI) Body weight Oxygen saturation Oxygen saturation in Arterial blood by Pulse oximetry Heart rate Systolic And Diastolic Provider Name and Address Organization Details Last Updated DateTime 8 168.91 cm 28.7 kg/m2 47753.7 3 g 96 % 96 % 59 /min 132/80 mm[Hg] [facility] 8 11:20:48 Date Recorded Body height Body mass index (BMI) Body weight Heart rate Oxygen saturation Oxygen saturation in Arterial blood by Pulse oximetry Body temperature Systolic And Diastolic Provider Name and Address Organization Details Last Updated DateTime 9 168.91 cm 28.9 kg/m2 63416.8 1 g 62 /min 97 % 97 % 97.5 [degF] 132/64 mm[Hg] Blaze Umaña [facility] 9 15:59:42 Date Recorded Body height Body mass index (BMI) Body weight Body temperature Oxygen saturation Oxygen saturation in Arterial blood by Pulse oximetry Heart rate Systolic And Diastolic Provider Name and Address Organization Details Last Updated DateTime 8 168.91 cm 29 kg/m2 47613.2 1 g 97.7 [degF] 97 % 97 % 82 /min 138/78 mm[Hg] Alisson Bigby MA [facility] 8 09:59:18 Date Recorded Body height Body mass index (BMI) Body weight Body temperature Heart rate Oxygen saturation Oxygen saturation in Arterial blood by Pulse oximetry Systolic And Diastolic Provider Name and Address Organization Details Last Updated DateTime 8 168.91 cm 28.3 kg/m2 56047.1 4 g 98 [degF] 70 /min 97 % 97 % 122/72 mm[Hg] Lolly Velazquez [facility] 8 16:35:15 Social History Question Answer Notes LastModified by Organizat ion Details LastModified Time Tobacco Smoking Status Former Smoker Darrian tate [facility] 04/17/2016 10:42:16 Do You Have An Advance Directive? Yes [facility] Information not available 09/06/2018 Is Blood Transfusion Acceptable In An Emergency? Yes Information not available 04/17/2016 What Is Your Level Of Caffeine Consumption? Moderate Coffee Information not available 03/30/2015 How Much Tobacco Do You Chew? None Information not available 04/17/2016 What Type Of Diet Are You Following? REGULAR Information not available 03/30/2015 Which Illicit Or Recreational Drugs Have You Used? None Information not available 09/06/2018 Live Alone Or [...] LastModified by Organizat ion Details LastModified Time What is your level of alcohol consumption? None Information not available 03/30/2015 Are you currently employed? No Information not available 03/30/2015 Are you able to care for yourself independently? Yes Information not available 04/17/2016 What is your occupation? Retired Information not available 09/06/2018 What is your exercise level? Occasional Information [...] virus, trivalent, PF 08/22/20 [facility] 16:26:38 Influenza, split virus, trivalent, PF 08/02/20 15 completed Iris Melchor null, [facility] 08/16/2019 16:26:38 Pneumococcal conjugate PCV 13 09/07/20 16 completed Iris Melchor null, [facility] 08/16/2019 16:26:38 influenza, unspecified formulation 09/07/20 16 completed Iris Melchor null, [facility] 08/16/2019 16:26:38 Influenza, high-dose, trivalent, PF 09/18/20 18 completed Iris Melchor null, [facility] 08/16/2019 16:26:38 Influenza, high-dose, trivalent, PF 08/15/20 19 completed Iris Melchor null, [facility] 08/16/2019 16:26:38 Influenza, high-dose, trivalent, PF 09/06/20 18 cancelled patient objection Not Available [facility] 11/12/2019 02:22:14 Influenza, split virus, trivalent, preservative 10/01/20 07 completed Iris Melchor null, [facility] 08/16/2019 16:26:38 Tdap 02/20/20 09 completed Iris Melchor null, [facility] 08/16/2019 16:26:38 Influenza, split virus, trivalent, preservative 08/21/20 10 completed Iris Melchor null, [facility] 08/16/2019 16:26:38 Influenza, split virus, trivalent, preservative 07/20/20 11 completed Iris Melchor null, [facility] 08/16/2019 16:26:38 Influenza, split virus, trivalent, preservative 08/25/20 13 completed Iris Melchor null, [facility] 08/16/2019 16:26:38 Past Encounters Encounter ID Performer Location Encounter Start Date Encounter Closed Date Diagnosis/Indication Diagnosis SNOMED-CT Code Diagnosis ICD10 Code Diagnosis IMO Codes Diagnosis Note [id number] autoEComm erce [address] [facility] [address] [place] [address] 09/20/2007 00:00:00 [id number] autoEComm erce [address] [facility] [place] [address] 11/18/2007 00:00:00 [id number] autoEComm erce [address] [facility] [place] [address] 05/16/2008 00:00:00 [id number] autoEComm erce [address] [facility] [place] [address] 10/16/2008 00:00:00 [id number] autoEComm erce [address] [facility] [place] [address] 02/19/2009 00:00:00 [id number] autoEComm erce [address] [facility] [place] [address] 10/23/2009 00:00:00 [id number] autoEComm erce [address] [facility] [place] [address] 05/07/2010 00:00:00 [id number] autoEComm erce [address] [facility] [place] [address] 09/23/2010 00:00:00 [id number] autoEComm erce [address] [facility] [place] [address] 04/10/2011 00:00:00 [id number] autoEComm erce [address] [facility] [place] [address] 10/07/2011 00:00:00 [id number] autoEComm erce [address] [facility] [place] [address] 04/09/2012 00:00:00 [id number] autoEComm erce [address] [facility] [place] [address] 03/17/2014 00:00:00 [id number] Tony simon MD Main Office [address] [facility] [address] [place] [address] 09/12/2014 13:19:35 09/12/2014 14:16:50 Essential hypertension 82961220 poor control/ recently poor control at home/ will order labs and refer. [id number] CODY Harper Main Office [address] [address] [place] [address] 02/09/2015 11:19:47 02/09/2015 11:57:08 Essential hypertension 58228221 Taking meds as prescribed , states BP was normal at home, she always has high BP when coming to Doctor's office. Upper resp iratory infection 44319023 Recent travel to the [facility], will get CXR and start zpak today, robitussin with codeine as needed- no driving or alcohol with med. [id number] Tony simon MD Main Office [address] [address] [place] [address] 03/30/2015 10:34:05 03/30/2015 11:24:45 Adult health examination 436784964 pt doing well w/ control of her risks At [facility] ed risk for falls 932973010 Essential hypertension 37360296 white coat htn/ home bp controlled in range of 130/80. Polyp of colon 47867628 Hyperlipidemia 84770079 Screening for malignant neoplasm of breast 929575854 [id number] Tony simon MD Main Office [address] [address] [place] [address] 11/20/2015 08:21:19 11/20/2015 17:10:20 [id number] CODY Harper Main Office [address] [place], [place] [address] [address] 11/22/2015 08:45:11 11/22/2015 09:37:51 Transient cerebral ischemia 755081032 G45.9 CT initially showed lacunar infarct, MRI did not show acute stroke. Diagnosed with TIA On ASA, Lipitor and BP meds. Should you develop similar symptoms or have severe headache, dizziness, N/V, vision changes, changes in balance, High BP please go to ED. F/U at [facility] in March. Essential hypertension 11128615 I10 Continue current meds as prescribed . Bp today WNL. Hyperlipidemia 52006256 E78.5 Continue atorvastat in daily. [id number] Yas Young PA-C Main Office [address] [address] [place] [address] 12/03/2015 13:22:40 12/03/2015 14:08:48 Dehydration 73267754 E86.0 Dehydratio n due to viral infection. Pt. is recommende d to go to the ER to receive IV treatment and labs. Nausea 843807385 R11.0 [id number] Tony simon MD Main Office [address] [address] [place] [address] 12/11/2015 10:15:43 12/14/2015 16:12:21 [id number] Tony simon MD Main Office [address] [address] [place] [address] 12/14/2015 08:56:24 12/14/2015 09:43:28 Liver enzymes outside reference range 161218432 R94.5 pt plans to see Dr Jarquin dec 19 for f/u/pt needs w/u for unexplaine d hepatitis Transient cerebral ischemia 223458309 G45.9 Essential hypertension 28600953 I10 white coat htn/ home bp controlled in range of 130/80. Hyperlipidemia 76487415 E78.5 [id number] Tony simon MD Main Office [address] [address] [place] [address] 04/17/2016 10:23:53 04/17/2016 12:05:52 Essential hypertension 66664295 I10 white coat htn/ home bp controlled in range of 130/80. Hyperlipidemia 68550788 E78.5 Adult heal th examination 832308286 Z00.00 pt doing well w/ control of her risks [id number] Tony simon MD Main Office [address] [address] [place] [address] 08/19/2016 10:27:34 08/19/2016 11:42:51 Essential hypertension 84319916 I10 white coat htn/ home bp controlled in range of 130/80. Hyperlipidemia 52812341 E78.5 History of cerebrovascular accident 441691717 Z86.73 Gastroesop hageal reflux disease 085959214 K21.9 [id number] Tony simon MD Main Office [address] [address] [place] [address] 02/17/2017 09:22:23 02/17/2017 10:04:47 Essential hypertension 18798777 I10 white coat htn/ home bp controlled in range of 130/80. Hyperlipidemia 11701002 E78.5 goal LDL is 70-100 History of transient ischemic attack 861235476 Z86.73 contASA 81 [id number] Tony simon MD Main Office [address] [address] [place] [address] 04/24/2017 13:32:15 04/24/2017 14:41:37 [id number] Tony simon MD Main Office [address] [address] [place] [address] 04/30/2017 13:58:03 04/30/2017 15:12:28 Gastroenteritis 17952741 K52.9 see hosp notes Essential hypertension 87184964 I10 reduce bp meds and f/u home readings until PE in 6 weeks [id number] Tony simon MD Main Office [address] [address] [place] [address] 07/30/2017 08:51:15 07/30/2017 09:34:00 Adult health examination 371113419 Z00.00 pt doing well w/ control of her risks Essential hypertension 30698046 I10 reduce bp meds and f/u home readings until PE in 6 weeks Hyperlipidemia 19208335 E78.5 goal LDL is 70-100 Hypertensive disorder 38 990993 I10 rare episodes of hypertensi ve urgency Anxiety 62821775 F41.9 [id number] Damien Young PA-C Main Office [address] [address] [place] [address] 12/07/2017 10:24:09 12/07/2017 11:17:06 Fever [id number] R50.9 doubt flu but will check to r/o stop tyl and etoh d/t jaundice below - could use prn advil for short amount of time -- stay hydrated Nausea and vomiting 1693 1999 R11.2 cont prn zofran, consider flat mckinley poonam Jaundice [id number] R17 most likely d/t re-trial of atorvastat in - advised pt to stop med pt states feels similar to how she did a few yrs ago p lipitor *will fwd this note to neph.* Dysuria 90274030 R30.0 dipstick + -- will wait for [...] liver to detoxify. Myalgia/my ositis - multiple 741903673 M79.1 [id number] Tony simon MD Main Office [address] [place] [address] 12/17/2017 10:58:03 12/17/2017 12:10:13 Jaundice 28480747 R17 resolving [id number] Tony simon MD Main Office [address] [address] [place] [address] 03/15/2018 09:46:41 03/15/2018 10:38:11 Essential hypertension 69746888 I10 reduce bp meds and f/u home readings until PE in 6 weeks/ Arnaldo will refill bp meds Gastroesop hageal reflux disease 170042053 K21.9 Anxiety 59026749 F41.9 pt uses benzo per Arnaldo for anxiety around her bp issues Alanine aminotransferase above reference range 423214414 R74.0 Hyperlipidemia 68571177 E78.5 goal LDL is 70-100 [id number] Damien Young PA-C Main Office [address] [place] [address] 09/06/2018 15:48:47 09/07/2018 09:01:13 Adult health examination 654957643 Z00.00 Influenza vaccine needed [id number] 106 Z23 Hyperlipidemia 71718374 E78.5 levels stable - h/o statin allergy, seeing endo - cont zetia as dir Essential hypertension 16264405 I10 bp and Cr are stable, cont meds as dir Leukocytosis 394870597 D 72.829 likely d/t infxn and / or pred use - recheck cbc next wk Cough 38487374 R05 ? postviral cough -- trial c tessalon and nasal saline spray prn already [facility] - curr ~ 75% better - lungs clear today - unlikely to have pna Body mass index 25-29 - overweight 763155254 Z68.28 Overweight 179770421 E66 .3 [id number] Noel Gallardo MD Main Office [address] [facility] [address] [facility] [place] [address] 03/07/2019 15:40:22 03/07/2019 17:00:05 Essential hypertension 85064293 I10 bp stable, cont meds as dir, check bmp - see below h/o labile htn fol by renal - rev last note 12.18 pt admits to little water intake - rec increase water intake Gastroesop hageal reflux disease 986079919 K21.9 Hyperlipidemia 72050972 E78.5 levels stable - h/o statin allergy, seeing endo - cont zetia as dir Anxiety 92492303 F41.9 pt gets benzo from renal (as per pt) Transient cerebral ischemia 118601173 G45.9 cont baby asa qd as dir - advised of SE of bruising Chronic ki dney disease stage 3 595259099 N18.3 cont f/u c renal Liver enzy mes level above reference range 505855439 R74.8 Dyspnea 713450470 R06.00 as eval wrapping up - pt describes int dyspnea - no cp - can walk up stairs fine - but pt requests card eval in light of her family history Health Concerns Section Related Observation LastModified by Organization Detai ls LastModified Time None Recorded Concern Status LastModified by Organization Details LastModified Time None Recorded Advance Directives Directive Y: [facility] Payers Insurance Date Sequence Insurance Name Policy Number Policy Velasquez Covered Member ID Velasquez Member ID Guarantor Name 03/07/2019 1 MEDICARE B-[place]: [facility] [employer] Funmi Janet [id number] Funmi Janet Notes Date Note Type Note Provider Name and Address Organization Details Recorded Time 12/07/19 18 text/htm l + h/o hepatotoxicity d/t lipitor 2015, neg hep ABC as per pt -seen [...] no cough, chest congestion, sob, cp Tony tate, [facility] 12/07/2017 17:31:17 12/17/19 18 text/htm l Skin LesionReported by PatientHPIFor associated symptoms, patient reportsnauseabut reportsno fever,no cold symptoms,no scabbing,no bruising, andno lesions multiplying. For location, patient reportsface,chest,arms, andlegs. For severity, patient reportsmoderate(pt had jaundice// this is most likely due to statins and pt has stopped statin and notes improvement in jaundice). For duration, patient reportsstarted 2 week(s) ago. For onset/timing, patient reportsabrupt. Tony tate, [facility] 12/17/2017 12:36:16 03/15/20 18 text/htm l HyperlipidemiaReported by PatientHPIFor type of hyperlipidemia, patient reportscombined. For duration, patient reportschronic(pt on statins now after her mild stroke/ no problems). For risk factors, patient reportshypertensionandsmoking(pt quit smoking years ago). For control, patient reportsimproving. For compliance, patient reportscompliant. For complications, patient reportsno coronary artery disease. Hypertension F/UReported by PatientHPIFor lifestyle, patient reportsnot exercising regularlybut reportslimiting/avoiding salt. 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 For medications, patient reportstaking medications as directed. GERD RefluxReported by PatientHPIFor symptoms, patient reportsno pain swallowing. For severity, patient reportsimproving. For duration, patient reportspresent 1-4 yearsandpresent 5 or more years. For onset/timing, patient reportsgradual onset. For context, patient reportsno drug/alcohol abuse. For associated symptoms, patient reportsno frequent coughing. Generic HPI TemplateReported by PatientHPIFor severity, (pt had mild tia/ or stroke. see neuro notes/ see plan for risk factor reduction/ the main issue in 2018 is that pt has risks but cannot seem to tolerate statin so endo at [facility] will help her decide plan).ROS as noted in the HPI Tony tate [facility] 03/15/2018 10:39:07 09/06/20 18 text/htm l Medicare Annual Wellness VisitReported by PatientSocial/Behavioral HistoryFor diet and nutrition, patient reportshealthy diet. For fracture risk, patient reportsno history of fractures,no recent explained fracture,no sudden unexplained fractures, andno previous musculoskeletal injuries. For physical activity, patient reportsdiscussed exercise habits.Mental Status:For depression risk, patient reportsnever feels sad, empty, or tearful,no loss of interest in activities,no significant changes in weight,no sleep disturbances or insomnia,no agitation,no loss of energy,no feelings of worthlessness or guilt,no thoughts of suicide,no history of depression, andno history of mood disorders. For orientation, patient reportsno disorientation to time,no disorientation to date, andno disorientation to place. For concentration and memory, patient reportsno decreased concentrating ability,no memory lapses or loss, anddoes not forget words. For speech/motor difficulties, patient reportsno speech difficulties,no difficulty expressing formulated concepts,no difficulty with fine manipulative tasks,no difficulty writing/copying,no slowed reaction time, anddoes not knock things over when trying to pick them up.Functional AbilityFor hearing, patient reportsno loss of hearing. For vision, patient reportsno vision problems. For activities of daily living, patient reportsable to bathe with limited or no assistance,able to contol urination and bowels,able to dress with limited or no assistance,able to feed self with limited or no assistance,able to get out of chair or bed with limited or no assistance,able to groom with limited or no assistance, andable to toilet with limited or no assistance. For instrumental activities of daily living, patient reportsable to do house work with limited or no assistance,able to grocery shop with limited or no assistance,able to manage medications with limited or no assistance,able to manage money with limited or no assistance,able to prepare meals with limited or no assistance, andable to use the phone with limited or no assistance. For falls risk assessment, patient reportsno frequent falls while walking,no fall in the past year,no fall since last visit, andno dizziness/vertigo. For home safety, patient reportsuse of seatbelts,no fire arms, andgood lighting in the home. Generic HPI TemplateReported by Patient Erlin Jacobsen MD [address] [address], [place], [address], [facility] 09/08/2018 20:54:09 03/07/20 19 text/htm l Hypertension F/UReported by PatientHPIFor associated symptoms, patient reportsno dizziness,no lightheadedness,no chest pain,no shortness of breath,no palpitations,no edema, andno calf pain with exertion. For lifestyle, patient reportsregular exerciseandlimiting/avoiding salt. For medications, patient reportstaking medications as directed,no side effects from medication, andchecks blood pressure at home, range: (100-130s/40-70s - no dizziness as per pt). Damien Young PA-C [address] [address], [place], [address], [facility] 03/09/2019 13:11:56 OBGyn Episode No OBEpisode recorded.
== END 2025-08-31 11:00 | disposition home or self-care (01) ==
LOC: HO.HOS 10:27
PROVIDERS: Visit Provider Orthopaedic Surgery
DX: M25.561 Pain in right knee (principal); M23.91 Unspecified internal derangement of right knee
CPT/HCPCS: 99213

== ENCOUNTER → 2025-08-31 10:27 | Outpatient (BNVA) | payer MEDICARE, BC, SELFPAY | PROVIDERS: Visit Provider Orthopaedic Surgery | DX: M25.561 Pain in right knee (principal); M23.91 Unspecified internal derangement of right knee | CPT/HCPCS: 99212 ==

== ENCOUNTER 2025-09-14 08:52 | Outpatient (AMB) | payer MEDICARE, SELFPAY ==
--- NOTE | 2025-09-14 08:54 | AM.OFFVISMDC ---
Intake Vital Signs 09/14/25 09:01 Height 5 ft 7 in Weight 164 lb BMI 25.7 BP 118/70 Blood Pressure Location Rt brachial Position Sitting Pulse 72 Pulse Source Pulse Oximeter Temp 98.5 F Temp Source Oral Pulse Oximetry (%) 97 Intake Visit Reasons: 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: No Accompanied by: Self / Same As Patient Allergies acetaminophen (From PERCOCET) Allergy (Unknown, Verified 09/14/25 09:02) UNKNOWN azithromycin Allergy (Unknown, Verified 09/14/25 09:02) hives oxycodone (From PERCOCET) Allergy (Unknown, Verified 09/14/25 09:02) UNKNOWN Jxmtvtb-DJT-SlZ Reductase Inhibitor (VLWBRJH-VGX-OIQ REDUCTASE INHIBITOR) Allergy (Unknown, Verified 09/14/25 09:02) liver failure, major liver problems nitrofurantoin (From Macrobid) Adverse Reaction (Severe, Verified 09/14/25 09:02) breathing atorvastatin (Lipitor) Adverse Reaction (Unknown, Verified 09/14/25 09:02) Liver issues z-pack Allergy (Unknown, Uncoded 07/21/25 08:32) hives Medication List - Last Reconciled 09/14/25 by Annelise Griffiths MD albuterol sulfate 90 mcg/actuation 1 - 2 puffs PO Q4-6H PRN amlodipine 5 mg PO DAILY clonidine HCl 0.1 mg PO BID ezetimibe 10 mg PO DAILY lisinopril 40 mg PO DAILY lorazepam 0.5 mg PO DAILY PRN omeprazole 20 mg PO DAILY spironolactone 25 mg PO DAILY Do you need a note to return to daycare/school/sports/work: No HPI [facility] G0439 HPI Details Initiated the conversation about Advanced Directives. Advanced Directives help? patients prepare for current and future decisions about their medical treatment? and place of care. Discussed with patient that it is a process where a patients? current condition and prognosis are reviewed, their wishes for information? regarding their illness are elicited, and likely medical dilemmas are presented? and options discussed. The form can be amended as needed, reviewed yearly and? make changes as needed IPPE/AWV ? year old presents? for her ? Annual? Wellness Visit, initial visit.? Medical / Social History Reviewed? Past Medical History ?Yes? . ? [place]? of Care / Care Team list updated ?Yes . ? Surgical/Hospitalization? History ?Yes . ? Current Medications? (including OTC and supplements) ?Yes . ? Family History ?Yes? . ? Tobacco? Control form ?Yes . ? AUDIT-C (Alcohol use) form? ?Yes . ? Illicit drug use in Social? History ?Yes . ? Current diagnosis of? depression? ?No ? Appropriate PHQ2/PHQ9? completed ?Yes . ? Data entered by ?Medical? Mechanical Engineering Professor and reviewed by provider ? Fall Risk ? Fall? History? Have you had any falls with? injury in the past year? ?No . ? Have you had two or more? falls in the past year? ?No . ? Fall Risk Assessment: ?No? falls in the past year . ? HRA filled out by? the patient, reviewed by Provider and scanned. ? IPPE/AWV ? Balance? Romberg? ?Yes . ? Tandem? walk ?Yes . ? Walk and? Turn ?Yes . ? Rise from? sit to stand ?Yes . ?Vision? Corrective? lens ?Yes ? Vision? screen ? Up-to-date, has an appointment [] for vision? screening and glaucoma screening ?Hearing? Whisper? test ?pass .? Initiated the conversation about Advanced Directives. Advanced Directives help? patients prepare for current and future decisions about their medical treatment? and place of care. Discussed with patient that it is a process where a patients? current condition and prognosis are reviewed, their wishes for information? regarding their illness are elicited, and likely medical dilemmas are presented? and options discussed. The form can be amended as needed, reviewed yearly and? make changes as needed Written? Plan?Completed. See Patient? Documents. [facility] Medical History Mammogram normal CKD (chronic kidney disease), stage III TIA (transient ischemic attack) Liver hemangioma Hepatitis GERD (gastroesophageal reflux disease) HTN (hypertension) Hyperlipidemia Surgical History H/O colonoscopy Hx of cholecystectomy History of breast surgery History of back surgery History of hysterectomy Family History Father No problems noted. Mother No problems noted. Brother No problems noted. Brother No problems noted. Sister No problems noted. 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 Cognitive needs: No Hearing needs: No Vision needs: Yes Questionnaire Medicare Wellness Checkup [age] What gender do you identify with?: female During the past 4 weeks, how much have you been bothered by emotional problems such as feeling anxious, depressed, irritable, sad or downhearted, and blue?: not at all During the past 4 weeks, has your physical & emotional health limited your social activities with family, friends, neighbors, or groups?: not at all During the past 4 weeks, how much bodily pain have you generally had?: moderate pain During the past 4 weeks, was someone available to help you if you needed & wanted help?: yes, as much as I wanted During the past 4 weeks, what was the hardest physical activity you could do for at least 2 minutes?: moderate Can you get to places out of walking distance without help? (For eg., can you travel alone on buses, taxis or drive your car?): Yes Can you go shopping for groceries or clothes without someone's help?: Yes Can you prepare your own meals?: Yes Can you do your housework without help?: Yes Because of any health problems, do you need the help of another person with your personal care needs such as eating, bathing, dressing or getting around the house?: No Can you handle your own money without help?: Yes During the past 4 weeks, how would you rate your health in general?: good During the past 4 weeks how have things been going for you?: pretty well Are you having difficulties driving your car?: no Do you always fasten your seat belt when you are in a car?: yes, usually During past 4 weeks, have you been bothered by the following: never: Falling or dizzy when standing up, Sexual problems?, Trouble eating well?, Teeth or denture problems? and Problems using the telephone? and sometimes: Tiredness or fatigue? Have you fallen 2 or more times in the past year?: No Are you afraid of falling?: No Are you a smoker?: no During the past 4 weeks, how many drinks of wine, beer, or other alcoholic beverages did you have?: no alcohol at all Do you exercise for about 20 minutes 3 or more times a week?: yes, some of the time Have you been given information to help with the following?: yes: Keeping track of your medications? and no: Hazards in your house that might hurt you? How often do you have trouble taking medicines the way you have been told to take them?: I always take medicine as prescribed How confident are you that you can control & manage most of your health problems?: I do not have any health problems What is your race?: White Mini Mental State Exam (MMSE) Orientation What is the (year) (season) (date) (day) (month)?: year, season, date, day and month Where are we (state) (county) (town or city) (hospital) (floor)?: state, county, town or city, hospital/clinic and floor Registration Name of 3 unrelated objects clearly and slowly, then ask patient to repeat all 3 of them. (1st repeat determines score. Make sure they can repeat all three): object 1, object 2 and object 3 Attention & Calculation (CHOOSE ONE) Spell WORLD backwards (DLROW): 5 letters Recall Ask patient to repeat the 3 items from question #3.: object 1, object 2 and object 3 Language Show patient a wristwatch & ask what it is. Repeat for pencil.: watch and pencil Ask the patient to repeat the phrase 'No ifs, ands, or buts' after you.: correct Ask the patient to 'take a piece of paper with their right hand' 'fold paper in half' 'place paper on floor': take paper in right hand, fold paper in half and place paper on floor Print the sentence 'CLOSE YOUR EYES' on a piece. If patient actually closes eyes then score.: followed written direction Give patient a blank piece of paper & ask to write a sentence. Score if it contains a noun & verb.: sentence contains subject and verb Score Score: 29 PHQ-9 Over the last 2 weeks, how often have you been bothered by any of the following problems? 1. Little interest or pleasure in doing things: not at all 2. Feeling down, depressed, or hopeless: not at all 3. Trouble falling or staying asleep, or sleeping too much: several days 4. Feeling tired or having little energy: several days 5. Poor appetite or overeating: not at all 6. Feeling bad about yourself - or that you are a failure or have let yourself or your family down: not at all 7. Trouble concentrating on things, such as reading the newspaper or watching television: not at all 8. Moving or speaking so slowly that other people could have noticed. Or the opposite - being so fidgety or restless that you have been moving around a lot more than usual: not at all 9. Thoughts that you would be better off or of hurting yourself in some way: not at all Total score: 2 Depression Screening Interpretation: Negative Depression Screening Done: Yes 66679 - PHQ-9 Billing: Yes Source: Developed by Drs. Jose Caba, Aurelia Arita, Juan A Juan and colleagues, with an educational denise from [employer]. Review of Systems Const All systems reviewed & are unremarkable except as noted in HPI and below Eyes Reports no additional complaints ENT Reports no additional complaints Card Reports no additional complaints Resp Reports no additional complaints GI Reports no additional complaints Reports no additional complaints Physical Exam Vital Signs: Last Vital Signs Temp 98.5 F 09/14/25 09:01 Pulse 72 09/14/25 09:01 BP 118/70 09/14/25 09:01 Pulse Ox 97 09/14/25 09:01 BMI result Body Mass Index 25.7 Const General: no acute distress HEENT Head: Yes normal to inspection Eyes General: appearance normal, both eyes and all related structures Neck Neck: Yes no lymphadenopathy and Yes supple Resp Effort & Inspection: normal respiratory effort Auscultation: clear to auscultation bilaterally Cardio Rhythm: regular rhythm Heart sounds: S1 normal heart sound present and S2 normal heart sound present GI Inspection: Yes normal to inspection Palpation (GI): Soft to palpation Percussion: Yes normal to percussion Auscultation: normal bowel sounds Extrem General: Yes no clubbing, cyanosis or edema Assessment & Plan Assessment & Plan (1) Hyperlipidemia: Comment: statins caused hepatitis [place] 2019, f/u with GI Code(s): E78.5 - Hyperlipidemia, unspecified Plan: Continue Zetia (2) HTN (hypertension): Comment: BP goal less than 130/80, f/u prescribed lorazepam for anxiety, follow-up with nephrology Code(s): I10 - Essential (primary) hypertension Plan: Continue current medications (3) CKD (chronic kidney disease), stage III: Comment: f/u Dr. Fraser Code(s): N18.30 - Chronic kidney disease, stage 3 unspecified Plan: Established with Nephrology avoid nephrotoxins monitor renal function Orders: Orders UA w Microscopic Today E53.8 - Deficiency of other specified B group vitamins, E55.9 - Vitamin D deficiency, unspecified, E78.5 - Hyperlipidemia, unspecified, I10 - Essential (primary) hypertension, N18.30 - Chronic kidney disease, stage 3 unspecified TSH reflex Free T4 Today E53.8 - Deficiency of other specified B group vitamins, E55.9 - Vitamin D deficiency, unspecified, E78.5 - Hyperlipidemia, unspecified, I10 - Essential (primary) hypertension, N18.30 - Chronic kidney disease, stage 3 unspecified Comprehensive [place]. Panel Fast Today E53.8 - Deficiency of other specified B group vitamins, E55.9 - Vitamin D deficiency, unspecified, E78.5 - Hyperlipidemia, unspecified, I10 - Essential (primary) hypertension, N18.30 - Chronic kidney disease, stage 3 unspecified Complete Blood Count Auto Diff Today E53.8 - Deficiency of other specified B group vitamins, E55.9 - Vitamin D deficiency, unspecified, E78.5 - Hyperlipidemia, unspecified, I10 - Essential (primary) hypertension, N18.30 - Chronic kidney disease, stage 3 unspecified Vitamin D 25-OH Total Today E53.8 - Deficiency of other specified B group vitamins, E55.9 - Vitamin D deficiency, unspecified, E78.5 - Hyperlipidemia, unspecified, I10 - Essential (primary) hypertension, N18.30 - Chronic kidney disease, stage 3 unspecified Lipid Panel Today E78.5 - Hyperlipidemia, unspecified Quality Reporting (2019) Depression/Bipolar (159/160/161/177) PHQ-9: Total score: 2 Coding Level of Care Code Medicare Subsequent (G0439) Diagnoses Hyperlipidemia E78.5 HTN (hypertension) I10 CKD (chronic kidney disease), stage III N18.30 CPT Codes Advance Care Planning - Time spent: 1-15 minutes, on File ([id number]) Additional Codes PHQ-9 - 24656 - PHQ-9 Billing: Yes ([id number]) Advance Care Planning Advance Care Planning discussion: Exists, not on file Forms completed: Health Care Proxy Time spent: 1-15 minutes, on File
[2025-09-14 09:01] VITALS: BP 118/70; PULSE 72; TEMP 36.9; O2SAT 97; BMI 25.7
--- OUTSIDE RECORDS SUMMARY | 2025-09-14 10:31 | XMS_ITS | Data Portability ---
Author Organization [facility], Main Office Address [address] [facility] [address] [place] [address] Care Team Providers Care Bank Representative Name Role Phone JUNIOR JARQUIN Arresting Gear Operator [phone] EVELIN BEAL Pharmacy Coordinator DAMIEN YOUNG Primary Care Provider YAYA ARANA Hand Clerical Verifier Assessment No assessment recorded. Plan of Treatment Reminders Order Date Submit Date Provider Last Modified By Organization Details Last Modified Time Details Appointments None recorded. Lab CMP, serum or plasma 2018 019 [facility], [address], [place], [address], 9 18:47:48 CBC w/ auto diff 2017 018 [facility], [address], [place], [address], 8 20:28:11 hepatic function panel, serum 2017 018 [facility], [address], [place], [address], 8 22:14:23 hepatic function panel, serum - copy all labs to Dr Syed Jarquin 2017 018 [facility], [address], [place], [address], 8 14:36:02 urinalysi s complete, reflex culture 2017 018 [facility], [address], [address], [place], [address], 8 21:21:44 hepatic function panel, serum 2017 018 [facility], [address], [address], [place], [address], 8 15:02:53 urinalysi s, dipstick 2017 018 pmadden In-Office Order, Internal Use Only DO Not Attach Compendium DO Not Attach Compendium, Do Not Delete/merge, [id number] 8 11:07:53 rapid flu (A+B) 2017 018 pmadden In-Office Order, Internal Use Only DO Not Attach Compendium DO Not Attach Compendium, Do Not Delete/merge, [id number] 8 11:07:53 CK (creatine kinase), total, serum 2017 018 [facility], [address], [address], [place], [place], [address], 8 15:02:51 Referral cardiolog ist referral 2018 019 satish Wolff MD, [address] [facility], [address], [place], [address], 9 08:56:49 physical therapist referral - At risk for falling 2017 018 [email or web address] [facility], [address] [place], [address], 8 09:01:13 gastroent erologist referral - pt had episode of jaundice which is most likely due to statin reaction. Labs to be repeated next week. pt needs f/u appt w/GI in December 252017 018 loisezequiel Junior Jarquin, [address] [place], [address], 8 10:24:32 Procedures None recorded. Surgeries None recorded. Imaging None recorded. Medication Orders omeprazol e 20 mg capsule,d elayed release 2018 019 [facility], [address], [place], [id number], 9 17:44:15 lisinopri l 20 mg tablet 2018 019 [facility], [address], [place], [id number], 9 17:44:16 ezetimibe 10 mg tablet 2018 019 [facility], [address], [place], [id number], 9 17:44:14 Tessalon Perles 100 mg capsule 2017 [facility] [address], [place], [id number], 9 16:02:00 omeprazol e 20 mg capsule,d elayed release 2017 018 abigby Not available 8 11:32:13 Patient Targets Encounter Date Encounter Id Patient Goals Patient Target Last Modified By Organization Details Last Modified Time 09/06/2018 [id number] terminal gauger supervisor goal of Blood Pressure 140 / 90 Not available Not available Not available terminal gauger supervisor goal of Exercise level Not available Not available Not available custodial goal of Tobacco Smoking Status Not available Not available Not available custodial goal of Excess Body Weight Loss % 5 Not available Not available Not available Ongoing of LDL Direct yearly Not available Not available Not available Ongoing of LDL Direct <100 Not available Not available Not available 09/06/2018 [id number] Pt agrees to follow low fat diet, [...] goals. pmadden Not available 09/07/2018 20:10:28 03/07/2019 [id number] terminal gauger supervisor goal of Blood Pressure 140 / 90 Not available Not available Not available terminal gauger supervisor goal of Exercise level Not available Not available Not available custodial goal of Tobacco Smoking Status Not available Not available Not available 03/07/2019 [id number] Pt advised and agrees to eat a [...] By Organization Details Last Modified Time 12/07/2017 [id number] jaundice: care instructions pmadden Not available 12/07/2017 11:08:02 nausea and vomiting: care instructions pmadden Not available 12/07/2017 11:07:53 dehydration: care instructions pmadden Not available 12/07/2017 11:07:53 Discussed risks for driving while using this medication.mm. I have reviewed the note and agree with the assessment and plan of care. mdalessandro Not available 12/07/2017 17:31:03 09/06/2018 [id number] cough: care instructions pmadden Not available 09/06/2018 [...] medication. pmadden Not available 09/06/2018 17:20:45 03/07/2019 [id number] Medications (OTC, herbal therapies, supplements) reviewed and reconciled with patient and or caregiver, including potential side effects, drug interactions, instructions, and the consequences of not taking medication. Reviewed potential barriers to medication adherence, such as side effects from medication or cost of medication. Patient will follow up and keep appointment as scheduled. pmadden Not available 03/09/2019 13:07:44 Reason for Referral Arresting Gear Operator Referral for Jaundice pt had episode of jaundice which is most likely due to statin reaction. Labs to be repeated next week. pt needs f/u appt w/GI in December Referring Physician: Tony Mojica, Internal Medicine, Encounter Date: 12/17/2017 Physical Therapist Referral for Adult health examination At risk for falling Referring Physician: Damien Young, Internal Medicine, Encounter Date: 09/06/2018 Animal Anatomist Referral for Dy spnea Referring Physician: Damien [...] Go To The Location Of Their Choice, Formerly named [facility] 12/07/2017 21:21:44 12/07/19 18 12/07/2017 urina lysis compl ete, refle x cultu re mucus SLIGHT /lpf Not Available [facility] (Centralized Electronic Ordering - All Locations) Patient Can Go To The Location Of Their Choice, [id number] 12/07/2017 21:21:44 12/07/19 18 12/07/2017 urina lysis [...] Go To The Location Of Their Choice, [id number] 12/07/2017 21:21:44 12/07/19 18 12/07/2017 urina lysis compl ete, refle x cultu re culture indication CULTUR E INDICA MARYLU Not Available [facility] (Centralized Electronic Ordering - All Locations) Patient Can Go To The Location Of Their Choice, [id number] 12/07/2017 21:21:44 12/07/19 18 12/08/2017 cultu re, [...] Go To The Location Of Their Choice, [id number] 12/09/2017 13:00:44 12/07/19 18 12/09/2017 cultu re, 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 Not Available [facility] (Centralized Electronic Ordering - All Locations) Patient Can Go To The Location Of Their Choice, [id number] 12/09/2017 13:00:44 12/07/19 18 12/07/2017 rapid flu [...] DO Not Attach Compendium, Do Not Delete/merge, [id number] 12/07/2017 10:57:51 12/07/19 18 12/07/2017 urina lysis , dipst ick Blood Negati ve Not Available In-Office Order Internal Use Only DO Not Attach Compendium DO Not Attach Compendium, Do Not Delete/merge, [id number] 12/07/2017 10:57:51 12/07/19 18 12/07/2017 urina lysis , dipst ick Specific [place] 1.030 Not Available In-Off ice Order Internal Use Only DO Not Attach Compendium DO Not Attach Compendium, Do Not Delete/merge, [id number] 12/07/2017 10:57:51 12/07/19 18 12/07/2017 urina lysis , dipst ick Ketone Negati ve Not Available In-Office Order Internal Use Only DO Not Attach Compendium DO Not Attach Compendium, Do Not Delete/merge, [id number] 12/07/2017 10:57:51 12/07/19 18 12/07/2017 urina lysis , dipst ick Bilirubin Negati ve Not Available In-Office Order Internal Use Only DO Not Attach Compendium DO Not Attach Compendium, Do Not Delete/merge, [id number] 12/07/2017 10:57:51 12/07/19 18 12/07/2017 urina lysis , dipst ick Glucose Negati ve Not Available In-Office Order Internal Use Only DO Not Attach Compendium DO Not Attach Compendium, Do Not Delete/merge, [id number] 12/07/2017 10:57:51 12/07/19 18 12/07/2017 urina lysis , dipst ick Color Alpine Not Available In-Office Order Internal Use Only DO Not Attach Compendium DO Not Attach Compendium, Do Not Delete/merge, 12/07/2017 10:57:51 12/07/19 18 12/07/2017 urina lysis , dipst ick Appearance Cloudy Not Available In-Offi ce Order Internal Use Only DO Not Attach Compendium DO Not Attach Compendium, Do Not Delete/merge, [id number] 12/07/2017 10:57:51 12/22/19 18 12/22/2017 hepat ic [...] Go To The Location Of Their Choice, [id number] 08/31/2018 20:51:23 08/31/20 18 08/31/2018 CMP, serum [...] Go To The Location Of Their Choice, [address] 08/31/2018 20:51:24 08/31/20 18 08/31/2018 lipid panel , serum LDL cholesterol, calculated 120 mg/dL (0-130 ) Not Available [facility] (Centralized Electronic Ordering - All Locations) Patient Can Go To The Location Of Their Choice, [id number] 08/31/2018 20:51:24 08/31/20 18 08/31/2018 lipid panel , serum non HDL cholesterol (calc) 144 mg/dL (<160) Not Available [facility] (Centralized Electronic Ordering - All Locations) Patient Can Go To The Location Of Their Choice, [id number] 08/31/2018 20:51:24 08/31/20 18 08/31/2018 TSH, serum or plasm a TSH 1.72 mIU/m L (0.40- 4.00) Not Available [facility] (Centralized Electronic Ordering - All Locations) Patient Can Go To The Location Of Their Choice, [id number] 08/31/2018 21:14:43 08/31/20 18 09/01/2018 vitam in D, 25-hy droxy , total , serum 25OH vitamin D 45.8 NG/mL (20-50 ) Serum 25OHD : 20 to 50 ng/mL : suffi cient in vitam in D. Refer ence: [facility] Data Brief : No.59 December: Vitam in D Statu s: Unite d State s: 2000- 2005 As of , Vitam in D, 25-Hy droxy assay has been gleason ed. In some [facility] [place], the new assay may yield a highe r value (up to 15% incre ase) in luis rison to the old assay . These incre ases would mainl y be notic eable at value s of great er than 50 ng/ml . Not Available [facility] (Centralized Electronic Ordering - All Locations) Patient Can Go To The Location Of Their Choice, [id number] 09/01/2018 01:57:01 09/10/20 18 09/10/2018 CBC w/ [...] Go To The Location Of Their Choice, [id number] 07/15/2019 18:47:48 07/15/2007/15/2019 CMP, serum or plasm a ALT 30 U/L (0-33) Not Available [facility] (Centralized Electronic Ordering - All Locations) Patient Can Go To The Location Of Their Choice, [id number] 07/15/2019 18:47:48 07/15/2007/15/2019 CMP, serum or plasm [...] Go To The Location Of Their Choice, [address] 07/15/2019 18:47:48 07/15/20 19 07/15/2019 CMP, serum [...] Go To The Location Of Their Choice, [id number] 07/15/2019 18:47:48 09/10/20 18 09/10/2018 MAMMO , [...] Lay letter mailed to kurt augustin WSN: [id number] Dictat ed By: Teresa Bautista MD Dictat ed Date/T nadeen: 2:20 pm Review ed By: Teresa Bautista MD Signed By: Teresa Bautisat MD Signed Date/T nadeen: 2:20 pm Transc ribed By: ELLIE Transc riptio emily Date/T nadeen: 1:58 pm Birads : Kurt charli Class: Outpat ient [facility] (Outpt Imaging) [address] [place], [address], 03/07/2019 16:31:22 06/22/20 19 06/20/2019 NM, myoca rdial perfu yeison scan No observ ation record ed. [facility] [address] [place] [address], [place], [address], 06/22/2019 13:05:01 Result Notes Documentation Provider Name [...] (Negative) Lay letter mailed to patient WSN: [id number] Dictated By: Teresa Muir MD Dictated Date/Time: 09/10/18 2:20 pm Reviewed By: Teresa Muir MD Signed By: Teresa Muir MD Signed Date/Time: 09/10/18 2:20 pm Transcribed By: ELLIE Valve Setter Date/Time: 09/10/18 1:58 pm Birads: Patient Class: Outpatient Damien Young PA-C [address], [address], [facility] 03/07/2019 16:31:22 Problems Name Problem SNOMED Code Status Onset Date Resolution Date Notes Provider Name and Address Organization Details Recorded Time Upper respirat ory infectio n 16214356 Completed 02/17/2017 Alisson tate [facility] 7 09:28:15 Polyp of colon 39413749 Active Iris Melchor [facility] 9 16:26:38 Transien t cerebral ischemia 851525665 Active Iris tate [facility] 9 16:26:38 Dehydrat ion 35840884 Completed 02/17/2017 Alisson tate [facility] 7 09:28:20 Nausea 850911346 Completed 02/17/2017 Alisson tate [facility] 7 09:28:23 Liver enzymes outside referenc e range 568645783 Completed 02/17/2017 Alisson tate [facility] 7 09:27:48 Influenz a vaccine needed 13373862612 06 Completed 200705/09/2014 RECORDED 10/16/20 08 7:39AM BY NEIL SHELDON MA, ANNOTATI ON/ADDEN DUM Irisjose antonio tate, [facility] 6 09:47:05 Influenz a vaccine needed 97992601379 06 Completed 200706/05/2014 RECORDED 10/16/20 08 7:39AM BY NEIL SHELDON MA, ANNOTATI ON/ADDEN DUM Iris tate, [facility] 6 09:47:05 Administ ration of bacteria l and viral vaccine Completed 200805/09/2014 RECORDED 02/20/20 09 7:45AM BY NEIL SHELDON MA, OFFICE VISIT Iris tate, [facility] 6 09:47:05 Administ ration of bacteria l and viral vaccine Completed 200806/05/2014 RECORDED 02/20/20 09 7:45AM BY NEIL SHELDON MA, OFFICE VISIT Iris tate, [facility] 6 09:47:05 [facility] hyperten yeison 09653436 Completed 201005/09/2014 RECORDED 05/28/20 11 11:12AM BY NEIL SHELDON MA, ANNOTATI ON/ADDEN DUM Alisson tate, [facility] 7 09:28:36 Tobacco user 404322465 Completed 201105/09/2014 RECORDED 04/09/20 12 8:07AM BY NEIL SHELDON MA, ANNOTATI ON/ADDEN DUM Iris tate, [facility] 6 09:47:05 History of clinical finding in subject 714148126 Completed 201102/17/2017 Alisson tate, [facility] 7 09:28:17 Tobacco user 669830298 Completed 201106/05/2014 RECORDED 04/09/20 12 8:07AM BY NEIL SHELDON MA, ANNOTATI ON/ADDEN DUM Iris Melchor null, [facility] 6 09:47:05 Screenin g for malignan t neoplasm of breast Completed 201105/09/2014 RECORDED 06/16/20 12 10:30AM BY NEIL SHELDON MA, ANNOTATI ON/ADDEN DUM Alisson Pedersne MA null, [facility] 7 09:27:58 Screenin g for malignan t neoplasm of cervix Completed 201105/09/2014 RECORDED 06/16/20 12 10:30AM BY NEIL SHELDON MA, ANNOTATI ON/ADDEN DUM Alisson Pedersen MA null, [facility] 7 09:27:52 Screenin g for malignan t neoplasm of colon Completed 201105/09/2014 RECORDED 06/16/20 12 10:30AM BY NEIL SHELDON MA, ANNOTATI ON/ADDEN DUM Iris Melchor null, [facility] 6 09:47:05 Cyst of oral soft tissue 189613011 Completed 201105/09/2014 RECORDED 06/16/20 12 10:30AM BY NEIL SHELDON MA, ANNOTATI ON/ADDEN DUM Iris Melchor null, [facility] 6 09:47:05 Disorder of skin 46016729 Completed 201105/09/2014 RECORDED 06/16/20 12 10:30AM BY NEIL SHELDON MA, ANNOTATI ON/ADDEN DUM Iris Melchor null, [facility] 6 09:47:05 Elevated level of transami nase and lactic acid dehydrog enase 704641089 Completed 201105/09/2014 RECORDED 06/16/20 12 10:30AM BY NEIL SHELDON MA, ANNOTATI ON/ADDEN DUM Iris Melchor null, [facility] 6 09:47:05 Weight finding Completed 201105/09/2014 RECORDED 06/16/20 12 10:30AM BY NEIL SHELDON MA, ANNOTATI ON/ADDEN DUM Iris Melchor null, [facility] 6 09:47:05 Impaired fasting glycemia 219835350 Completed 201105/09/2014 RECORDED 06/16/20 12 10:30AM BY NEIL SHELDON MA, ANNOTATI ON/ADDEN DUM Iris Melchor null, [facility] 6 09:47:05 Malaise and fatigue 279404246 Completed 201105/09/2014 RECORDED 06/16/20 12 10:30AM BY NEIL SHELDON MA, ANNOTATI ON/ADDEN DUM Iris Melchor null, [facility] 6 09:47:05 Screenin g for malignan t neoplasm of breast Completed 201102/17/2017 Alisson Pedersen MA null, [facility] 7 09:27:58 Disorder of oral soft tissues 96632675 Completed 201105/09/2014 RECORDED 06/16/20 12 10:30AM BY NEIL SHELDON MA, ANNOTLEIGHA ON/ADDEN DUM Iris Melchor null, [facility] 6 09:47:05 Adult health examinat ion Completed 201105/09/2014 RECORDED 06/16/20 12 10:30AM BY NEIL SHELDON MA, ANNOTATI ON/ADDEN DUM Alisson Pedersen MA null, [facility] 7 09:28:02 Screenin g for malignan t neoplasm of breast Completed 201106/05/2014 RECORDED 06/16/20 12 10:30AM BY NEIL SHELDON MA, ANNOTATI ON/ADDEN DUM Alisson Pedersen MA null, [facility] 7 09:27:58 Screenin g for malignan t neoplasm of colon Completed 201106/05/2014 RECORDED 06/16/20 12 10:30AM BY NEIL SHELDON MA, ANNOTATI ON/ADDEN DUM Iris Melchor null, [facility] 6 09:47:05 Cyst of oral soft tissue 602248372 Completed 201106/05/2014 RECORDED 06/16/20 12 10:30AM BY NEIL SHELDON MA, ANNOTLEIGHA ON/ADDEN DUM Irisjose antonio Melchor null, [facility] 6 09:47:05 Disorder of skin 82707757 Completed 201106/05/2014 RECORDED 06/16/20 12 10:30AM BY NEIL SHELDON MA, ANNOTATI ON/ADDEN DUM Iris Melchor null, [facility] 6 09:47:05 Elevated level of transami nase and lactic acid dehydrog enase 768993230 Completed 201106/05/2014 RECORDED 06/16/20 12 10:30AM BY NEIL SHELDON MA, ANNOTATI ON/ADDEN DUM Iris Melchor null, [facility] 6 09:47:05 Weight finding Completed 201106/05/2014 RECORDED 06/16/20 12 10:30AM BY NEIL SHELDON MA, ANNOTATI ON/ADDEN DUM Iris Melchor null, [facility] 6 09:47:05 Impaired fasting glycemia 713964770 Completed 201106/05/2014 RECORDED 06/16/20 12 10:30AM BY NEIL SHELDON MA, ANNOTATI ON/ADDEN DUM Iris Melchor null, [facility] 6 09:47:05 Malaise and fatigue 864853577 Completed 201106/05/2014 RECORDED 06/16/20 12 10:30AM BY NEIL SHELDON MA, ANNOTATI ON/ADDEN DUM Iris tate [facility] 6 09:47:05 Disorder of oral soft tissues 87033158 Completed 201106/05/2014 RECORDED 06/16/20 12 10:30AM BY NEIL SHELDON MA, ANNOTATI ON/ADDEN DUM Iris tate [facility] 6 09:47:05 Adult health examinat ion Completed 201106/05/2014 RECORDED 06/16/20 12 10:30AM BY NEIL SHELDON MA, ANNOTATI ON/ADDEN DUM Alisson tate [facility] 7 09:28:02 Benign neoplasm of breast 558673201 Completed 201302/17/2017 Alisson tate [facility] 7 09:28:11 Essentia l hyperten yeison 66435054 Active 2013 Iris tate [facility] 9 16:26:38 Family history of polyp of colon 634381649 Completed 201302/17/2017 Alisson tate [facility] 7 09:28:28 Hyperlip idemia 94833696 Active 2013 Iris tate [facility] 9 16:26:38 Hypoglyc emia 010857646 Active 2013 Iris tate [facility] 9 16:26:38 Glucose toleranc e test outside referenc e range 374519223 Completed 201302/17/2017 Alisson tate [facility] 7 09:28:08 Low back pain 515614641 Completed 201302/17/2017 Alisson tate [facility] 7 09:28:05 Fibromyo sitis 56755114 Active 2013 Iris tate [facility] 9 16:26:38 Tobacco dependen ce syndrome 05974550 Active 2013 Iris tate [facility] 9 16:26:38 Adult health examinat ion Completed 201302/17/2017 Alisson tate [facility] 7 09:28:02 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 Procedures Surgical History Date Name Laterality Status Provider Name and Address Organization Details Recorded Time 09/10/20 18 Most Recent Mammogram completed Fabienne Antoni [facility] 09/10/2018 14:32:27 09/10/20 18 Mammogram Screening completed Fabienne Antoni [facility] 09/10/2018 14:32:20 09/06/20 18 Mini-Cog Test completed Lolly Velazquez [facility] 09/06/2018 16:44:34 06/22/20 18 Date of Last Colonoscopy completed Lolly Velazquez [facility] 09/07/2018 10:24:24 07/30/20 17 Fall Risk Assessment completed Alisson Pedersen MA [facility] 07/30/2017 09:01:50 07/30/20 17 Mini-Cog Test completed Alisson Pedersen MA [facility] 07/30/2017 09:05:40 04/22/20 16 Date of Last Pap Smear completed Irisjose antonio Melchor [facility] 04/24/2016 09:46:33 06/22/20 15 Colonoscopy completed Alisson Pedersen MA [facility] 07/27/2017 11:24:09 05/05/20 14 Most Recent Bone Density completed Darrian Reyes [facility] 04/17/2016 10:42:16 Tonsillectomy completed Chanelle Santanaoit [facility] 09/12/2014 08:48:03 Cholecystectomy completed [facility] 09/12/2014 08:48:03 Hysterectomy completed [facility] 09/12/2014 08:48:03 Imaging Results None recorded. Procedure Notes None recorded. Medical Equipment None Reported. Allergies Allergen ID Allergen Name Allergen Category Reaction Reaction Severity Criticality Documentation Date Start Date Code Code System Note Provider Name and Address Organization Details Recorded Time 38704 acetamino phen / oxycodone medicatio n Not available Not available Not available 12/07/2017 98737 3 RxNorm Alisson tate [facility] 8 10:38:30 04472 Lipitor medicatio n Not available Not available Not available 12/07/[address] [facility] - 8 Damien Young PA-C [address] [facility] [address], [place], [address], [facility] 8 13:53:06 25174 atorvasta tin medicatio n Not available Not available Not available 12/17/2017 26560 RxNorm Alisson tate [facility] 8 11:18:40 89604 pravastat in medicatio n Not available Not available Not available 12/17/2017 06201 RxNorm Alisson tate [facility] 8 11:20:58 16709 rosuvasta tin medicatio n Not available Not available Not available 12/17/2017 83876 2 RxNorm Alisson tate, [facility] 8 11:24:19 03441 simvastat in medicatio n Not available Not available Not available 12/17/2017 34448 RxNorm Alisson tate, [facility] 8 11:24:38 77598 azithromy ghislaine medicatio n facial swelling severe Not available 09/06/20182017 37641 RxNorm Lolly tate, [facility] 8 16:30:07 Medications Name Sig Start Date Stop Date Status Note LastModified by Organization Details LastModified Time gavilyte- g 236 gm solr active Not Available Not Available Not Available lisinop/h ctz tab 20-12.5 active Not Available Not Available Not Available amlodipin e besylate 5 mg tabs active Not Available Not Available No t Available lisinopri l/hydroch lorothiaz alisson 20-12.5 mg tabs active Not Available Not Available Not Available amlodipin e tab 10mgamlod ipine besylate [...] (BMI) Body weight Body temperature Oxygen saturation Heart rate Systolic And Diastolic Provider Name and Address Organization Details Last Updated DateTime 8 168.91 cm 28.3 kg/m2 83082.8 4 g 99.3 [degF] 96 % 88 /min 138/76 mm[Hg] [facility] 8 10:39:54 Date Recorded Body height Body mass index (BMI) Body weight Oxygen saturation Heart rate Systolic And Diastolic Provider Name and Address Organization Details Last Updated DateTime 8 168.91 cm 28.7 kg/m2 05269.7 3 g 96 % 59 /min 132/80 mm[Hg] [facility] 8 11:20:48 Date Recorded Body height Body mass index (BMI) Body weight Heart rate Oxygen saturation Body temperature Systolic And Diastolic Provider Name and Address Organization Details Last Updated DateTime 9 168.91 cm 28.9 kg/m2 80612.8 1 g 62 /min 97 % 97.5 [degF] 132/64 mm[Hg] Blaze Umaña [facility] 9 15:59:42 Date Recorded Body height Body mass index (BMI) Body weight Body temperature Oxygen saturation Heart rate Systolic And Diastolic Provider Name and Address Organization Details Last Updated DateTime 8 168.91 cm 29 kg/m2 95054.2 1 g 97.7 [degF] 97 % 82 /min 138/78 mm[Hg] [facility] 8 09:59:18 Date Recorded Body height Body mass index (BMI) Body weight Body temperature Heart rate Oxygen saturation Systolic And Diastolic Provider Name and Address Organization Details Last Updated DateTime 8 168.91 cm 28.3 kg/m2 85527.1 4 g 98 [degF] 70 /min 97 % 122/72 mm[Hg] Lolly Velazquez [facility] 8 16:35:15 Social History Question Answer Notes LastModified by Organizat ion Details LastModified Time Tobacco Smoking Status Former Smoker Darrian tate, [facility] 04/17/2016 10:42:16 Do You Have An Advance Directive? Yes [facility] Information not available 09/06/2018 Is Blood Transfusion [...] virus, trivalent, PF 08/22/20 14 completed Iris tate [facility] 08/16/2019 16:26:38 Influenza, split virus, trivalent, PF 08/02/20 15 completed Iris tate [facility] 08/16/2019 16:26:38 Pneumococcal conjugate PCV 13 09/07/20 16 completed Iris tate [facility] 08/16/2019 16:26:38 influenza, unspecified formulation 09/07/20 16 completed Iris Melchor null, [facility] 08/16/2019 16:26:38 Influenza, high-dose, trivalent, PF 09/18/20 18 completed Iris Melchor null, [facility] 08/16/2019 16:26:38 Influenza, high-dose, trivalent, PF 08/15/20 19 completed Iris Melchor null, [facility] 08/16/2019 16:26:38 Influenza, high-dose, trivalent, PF 09/06/20 18 cancelled patient objection Not Available On license of [facility] 11/12/2019 02:22:14 Influenza, split virus, trivalent, preservative 10/01/20 07 completed Iris Melchor null, [facility] 08/16/2019 16:26:38 Tdap 02/20/20 09 completed Iris Melchor null, [facility] 08/16/2019 16:26:38 Influenza, split virus, trivalent, preservative 08/21/20 10 completed Iris Melchor null, [facility] 08/16/2019 16:26:38 Influenza, split virus, trivalent, preservative 07/20/20 11 completed Iris Melchor null, [facility] 08/16/2019 16:26:38 Influenza, split virus, trivalent, preservative 08/25/20 13 completed Iris Melchor null, [facility] 08/16/2019 16:26:38 Past Encounters Encounter ID Performer Location Encounter Start Date Encounter Closed Date Diagnosis/Indication Diagnosis SNOMED-CT Code Diagnosis ICD10 Code Diagnosis IMO Codes Diagnosis Note [id number] [facility] [address] [place] [address] 09/20/2007 00:00:00 [id number] [facility] [address] [facility] [address] [place] [address] 11/18/2007 00:00:00 [id number] autoEComm erce [address] [facility] [address] [place] [address] 05/16/2008 00:00:00 [id number] autoEComm erce [address] [facility] [address] [place] [address] 10/16/2008 00:00:00 [id number] autoEComm erce [address] [facility] [address] [place] [address] 02/19/2009 00:00:00 [id number] autoEComm erce [address] [facility] [address] [place] [address] 10/23/2009 00:00:00 [id number] autoEComm erce [address] [facility] [address] [place] [address] 05/07/2010 00:00:00 [id number] autoEComm erce [address] [facility] [address] [place] [address] 09/23/2010 00:00:00 [id number] autoEComm erce [address] [facility] [address] [place] [address] 04/10/2011 00:00:00 [id number] autoEComm erce [address] [facility] [address] [place] [address] 10/07/2011 00:00:00 [id number] autoEComm erce [address] [facility] [address] [place] [address] 04/09/2012 00:00:00 [id number] autoEComm erce [address] [facility] [address] [place] [address] 03/17/2014 00:00:00 [id number] Tony simon MD Main Office [address] [place] [address] 09/12/2014 13:19:35 09/12/2014 14:16:50 Essential hypertension 38286445 poor control/ recently poor control at home/ will order labs and refer. [id number] LIAM Harper Main Office [address] [place] [address] 02/09/2015 11:19:47 02/09/2015 11:57:08 Essential hypertension 15622963 Taking meds as prescribed , states BP was normal at home, she always has high BP when coming to Doctor's office. Upper resp iratory infection 85177648 Recent travel to the [facility], will get CXR and start zpak today, robitussin with codeine as needed- no driving or alcohol with med. [id number] Tony simon MD Main Office [address] [facility] [address] [place] [place] [address] 03/30/2015 10:34:05 03/30/2015 11:24:45 Adult health examination 296472587 pt doing well w/ control of her risks [facility] ed risk for falls 551346413 Essential hypertension 25957910 white coat htn/ home bp controlled in range of 130/80. Polyp of colon 99306601 Hyperlipidemia 12558897 Screening for malignant neoplasm of breast 136633492 [id number] Tony simon MD Main Office [address] [facility] [address] [place] [address] 11/20/2015 08:21:19 11/20/2015 17:10:20 [id number] CODY Harper Main Office [address] [facility] [address] [place] [address] 11/22/2015 08:45:11 11/22/2015 09:37:51 Transient cerebral ischemia 937982395 G45.9 CT initially showed lacunar infarct, MRI did not show acute stroke. Diagnosed with TIA On ASA, Lipitor and BP meds. Should you develop similar symptoms or have severe headache, dizziness, N/V, vision changes, changes in balance, High BP please go to ED. F/U at [facility] in March. Essential hypertension 87833258 I10 Continue current meds as prescribed . Bp today WNL. Hyperlipidemia 89062365 E78.5 Continue atorvastat in daily. [id number] Yas Young PA-C Main Office [address] [address] [place] [address] 12/03/2015 13:22:40 12/03/2015 14:08:48 Dehydration 07203031 E86.0 Dehydratio n due to viral infection. Pt. is recommende d to go to the ER to receive IV treatment and labs. Nausea 316618477 R11.0 [id number] Tony simon MD Main Office [address] [address] [place] [address] 12/11/2015 10:15:43 12/14/2015 16:12:21 [id number] Tony simon MD Main Office [address] [address] [place] [address] 12/14/2015 08:56:24 12/14/2015 09:43:28 Liver enzymes outside reference range 704048072 R94.5 pt plans to see Dr Jarquin dec 19 for f/u/pt needs w/u for unexplaine d hepatitis Transient cerebral ischemia 932071026 G45.9 Essential hypertension 42472632 I10 white coat htn/ home bp controlled in range of 130/80. Hyperlipidemia 72083496 E78.5 [id number] Tony simon MD Main Office [address] [address] [place] [address] 04/17/2016 10:23:53 04/17/2016 12:05:52 Essential hypertension 67478763 I10 white coat htn/ home bp controlled in range of 130/80. Hyperlipidemia 98235420 E78.5 Adult heal th examination 588884211 Z00.00 pt doing well w/ control of her risks [id number] Tony simon MD Main Office [address] [address] [place] [address] 08/19/2016 10:27:34 08/19/2016 11:42:51 Essential hypertension 13911283 I10 white coat htn/ home bp controlled in range of 130/80. Hyperlipidemia 06264680 E78.5 History of cerebrovascular accident 207840443 Z86.73 Gastroesop hageal reflux disease 866911328 K21.9 [id number] Tony simon MD Main Office [address] [address] [place] [address] 02/17/2017 09:22:23 02/17/2017 10:04:47 Essential hypertension 23807743 I10 white coat htn/ home bp controlled in range of 130/80. Hyperlipidemia 70463218 E78.5 goal LDL is 70-100 History of transient ischemic attack 808754759 Z86.73 contASA 81 [id number] Tony simon MD Main Office [address] [address] [place] [address] 04/24/2017 13:32:15 04/24/2017 14:41:37 [id number] Tony simon MD Main Office [address] [address] [place] [address] 04/30/2017 13:58:03 04/30/2017 15:12:28 Gastroenteritis 37978578 K52.9 see hosp notes Essential hypertension 87754651 I10 reduce bp meds and f/u home readings until PE in 6 weeks [id number] Tony simon MD Main Office [address] [address] [place] [address] 07/30/2017 08:51:15 07/30/2017 09:34:00 Adult health examination 164423616 Z00.00 pt doing well w/ control of her risks Essential hypertension 24618935 I10 reduce bp meds and f/u home readings until PE in 6 weeks Hyperlipidemia 72512207 E78.5 goal LDL is 70-100 Hypertensive disorder 38 165952 I10 rare episodes of hypertensi ve urgency Anxiety 76642599 F41.9 [id number] Damien Young PA-C Main Office [address] [address] [place] [address] 12/07/2017 10:24:09 12/07/2017 11:17:06 Fever 529460834 R50.9 doubt flu but will check to r/o stop tyl and etoh d/t jaundice below - could use prn advil for short amount of time -- stay hydrated Nausea and vomiting 1693 1999 R11.2 cont prn zofran, consider flat mckinley poonam Jaundice 47401447 R17 most likely d/t re-trial of atorvastat in - advised pt to stop med pt states feels similar to how she did a few yrs ago p lipitor *will fwd this note to neph.* Dysuria 54433350 R30.0 dipstick + -- will wait for [...] liver to detoxify. Myalgia/my ositis - multiple 122190723 M79.1 [id number] Tony simon MD Main Office [address] [address] [place] [address] 12/17/2017 10:58:03 12/17/2017 12:10:13 Jaundice 07640093 R17 resolving [id number] Tony simon MD Main Office [address] [address] [place] [address] 03/15/2018 09:46:41 03/15/2018 10:38:11 Essential hypertension 72999787 I10 reduce bp meds and f/u home readings until PE in 6 weeks/ Arnaldo will refill bp meds Gastroesop hageal reflux disease 296572545 K21.9 Anxiety 48607683 F41.9 pt uses benzo per Arnaldo for anxiety around her bp issues Alanine aminotransferase above reference range 510282688 R74.0 Hyperlipidemia 88700701 E78.5 goal LDL is 70-100 [id number] Damien Young PA-C Main Office [address] [address] [place] [address] 09/06/2018 15:48:47 09/07/2018 09:01:13 Adult health examination 681356768 Z00.00 Influenza vaccine needed 6414578846 106 Z23 Hyperlipidemia 21478663 E78.5 levels stable - h/o statin allergy, seeing endo - cont zetia as dir Essential hypertension 72167990 I10 bp and Cr are stable, cont meds as dir Leukocytosis 301971620 D 72.829 likely d/t infxn and / or pred use - recheck cbc next wk Cough 55381071 R05 ? postviral cough -- trial c tessalon and nasal saline spray prn already had cxr at [facility] - curr ~ 75% better - lungs clear today - unlikely to have pna Body mass index 25-29 - overweight 447444455 Z68.28 Overweight 636475456 E66 .3 [id number] Noel Gallardo MD Main Office [address] [facility] [address] [facility] [place] [address] 03/07/2019 15:40:22 03/07/2019 17:00:05 Essential hypertension 20141325 I10 bp stable, cont meds as dir, check bmp - see below h/o labile htn fol by renal - rev last note 12.18 pt admits to little water intake - rec increase water intake Gastroesop hageal reflux disease 080095811 K21.9 Hyperlipidemia 44997494 E78.5 levels stable - h/o statin allergy, seeing endo - cont zetia as dir Anxiety 37877367 F41.9 pt gets benzo from renal (as per pt) Transient cerebral ischemia 484286012 G45.9 cont baby asa qd as dir - advised of SE of bruising Chronic ki dney disease stage 3 693361216 N18.3 cont f/u c renal Liver enzy mes level above reference range 451314496 R74.8 Dyspnea 128420680 R06.00 as eval wrapping up - pt describes int dyspnea - no cp - can walk up stairs fine - but pt requests card eval in light of her family history Health Concerns Section Related Observation LastModified by Organization Detai ls LastModified Time None Recorded Concern Status LastModified by Organization Details LastModified Time None Recorded Advance Directives Directive Y: [facility] Payers Insurance Date Sequence Insurance Name Policy Number Policy Velasquez Covered Member ID Velasquez Member ID Guarantor Name 03/07/2019 1 MEDICARE B-[place]: [facility] [employer] Funmi Janet [id number] Funmi Gonzales Notes Date Note Type Note Provider Name [...] cough, chest congestion, sob, cp Tony tate, [facility] 12/07/2017 17:31:17 12/17/19 18 text/htm l [...] ago. For onset/timing, patient reportsabrupt. Tony tate, [facility] 12/17/2017 12:36:16 03/15/20 18 text/htm l HyperlipidemiaReported [...] shortness of breath(pt has labile htn/ her director center prescribes benzo for her). For medications, patient [...] seem to tolerate statin so endo at [facility] will help her decide plan).ROS as noted in the HPI [facility] 03/15/2018 10:39:07 09/06/20 18 text/htm l Medicare [...] HPI TemplateReported by Patient Erlin Jacobsen MD [address] [facility] [address], [place], [address], [facility] 09/08/2018 20:54:09 03/07/20 19 text/htm l Hypertension F/UReported by PatientHPIFor associated symptoms, patient reportsno dizziness,no lightheadedness,no chest pain,no shortness of breath,no palpitations,no edema, andno calf pain with exertion. For lifestyle, patient reportsregular exerciseandlimiting/avoiding salt. For medications, patient reportstaking medications as directed,no side effects from medication, andchecks blood pressure at home, range: (100-130s/40-70s - no dizziness as per pt). Damien Young PA-C [address] [facility] [address], [place], [address], [facility] 03/09/2019 13:11:56 OBGyn Episode No OBEpisode recorded.
== END 2025-09-14 14:40 | disposition home or self-care (01) ==
LOC: HO.HMCC 08:53
PROVIDERS: PCP Internal Medicine; Visit Provider Internal Medicine
DX: Z00.00 Encounter for general adult medical examination without abnormal findings (principal); I12.9 Hypertensive chronic kidney disease with stage 1 through stage 4 chronic kidney disease, or unspecified chronic kidney disease; N18.30 Chronic kidney disease, stage 3 unspecified; E78.5 Hyperlipidemia, unspecified

== ENCOUNTER → 2025-09-14 08:52 | Outpatient (BNVA) | payer MEDICARE, SELFPAY | PROVIDERS: PCP Internal Medicine; Visit Provider Internal Medicine | DX: Z13.31 Encounter for screening for depression (principal) | CPT/HCPCS: 96127 ==

== ENCOUNTER → 2025-10-13 18:07 | Outpatient (BNV) | payer MEDICARE, SELFPAY | PROVIDERS: PCP Internal Medicine; Visit Provider Radiology Diagnostic Ultrasound | DX: M23.221 Derangement of posterior horn of medial meniscus due to old tear or injury, right knee (principal); M17.11 Unilateral primary osteoarthritis, right knee; M25.461 Effusion, right knee | CPT/HCPCS: 73721 ==

== ENCOUNTER 2025-10-13 18:12 | Outpatient (REF) | payer MEDICARE, SELFPAY ==
--- NOTE | ~2025-10-13 | MR_ITS ---
EXAMINATION: MR KNEE WITHOUT CONTRAST, RIGHT CLINICAL INFORMATION: Internal derangement of the knee COMPARISON: X-ray 07/20/2025 TECHNIQUE: MRI of the knee without contrast was performed using routine sequences on a high-field scanner. FINDINGS: MENISCI: Medial Meniscus: Degeneration, with tibial articular surface irregular tearing of the posterior horn and the mid/posterior body. Lateral Meniscus: Degenerative fraying/ill-defined tear of the posterior root/central posterior horn. Degenerative signal in the body. LIGAMENTS: Cruciate: Intact Collateral: Grade 2 sprain/partial tear MCL. Intact LCL complex. EXTENSOR MECHANISM: Intact ARTICULAR CARTILAGE/BONE: Patellofemoral Compartment: Mild arthritis. Partial-thickness chondral loss in the central and medial trochlea. Medial Compartment: Mild arthritis Lateral Compartment: No significant chondral loss No acute fracture. JOINT FLUID AND BURSAE: Small effusion. Small Gonsalez's cyst. Subcutaneous edema. MR/MR knee RT wo con IMPRESSION: * Degeneration and tear of the medial meniscal posterior horn and body. * Degenerative fraying/ill-defined tear of the posterior root/central posterior of the lateral meniscus.. * MCL grade 2 sprain/partial tear * Mild patellofemoral and medial compartment arthritis.. *Small effusion. Small Gonsalez's cyst. Subcutaneous edema. Electronically signed by: Mayo Chen MD 10/16/2025 07:55 AM EST
--- OUTSIDE RECORDS SUMMARY | 2025-10-13 18:15 | XMS_ITS | Encounter Summary ---
Author Organization [facility] Address [address] [facility] [facility] [address] [place] [address] Phone Care Team Providers Care Ribbing Machine Operator Name Role Phone Annelise Griffiths MD Primary Care Provider [phone] Encounter Details Date Type Department Care Team (Late Contact Info) Description 03/26/2021 Orders Only [facility] [address] [facility] [address] [facility] [address] [facility] [address] [place] [phone] Ivy Mcintosh MD Personal history of colon [...] Care Team (Late st Contact Info) Description 04/04/2026 8:15 AM EDT Office Visit [facility] [address] [address] Мария Smith ARNP [address] [phone] documented as of this encounter Visit Diagnoses Diagnosis Personal history of colon polyps documented in this encounter Care Teams Ribbing Machine Operator Relationship Specialty Start Date End Date Annelise Griffiths MD [address] [place] [address] PCP - General Internal Medicine 03/19/21 documented as of this encounter
--- OUTSIDE RECORDS SUMMARY | 2025-10-13 18:16 | XMS_ITS | Encounter Summary ---
Author Organization [facility] Address [address] [place] [address] Phone Care Team Providers Care Bullet Charging Machine Operator Name Role Phone Annelise Griffiths MD Primary Care Provider [phone] Reason for Visit * Reason Comments Med Refill Encounter Details Date Type Department Care Team (Late Contact Info) Description 11/06/2023 Refill [facility] [address] [place] [address] Ivy Mcintosh MD Anxiety, not [...] Visit [facility] [address] [address] Мария Smith ARNP [address] [address] documented as of this encounter Visit Diagnoses Diagnosis Anxiety, not otherwise specified documented in this encounter Care Teams Bullet Charging Machine Operator Relationship Specialty Start Date End Date Annelise Griffiths MD [address] [place] [address] PCP - General Internal Medicine 03/19/21 documented as of this encounter
--- OUTSIDE RECORDS SUMMARY | 2025-10-13 18:16 | XMS_ITS | Data Portability ---
Author Organization 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 Plan of Treatment Reminders Order Date Submit Date Provider Last Modified By Organization Details Last Modified Time Details Appointments None recorded. Lab CMP, serum or plasma 2018 019 [facility], [address], [place], [address], 9 18:47:48 CBC w/ auto diff 2017 018 [facility], [address], [place], [address], 8 20:28:11 hepatic function panel, serum 2017 018 [facility], [address], [place], [address], 8 22:14:23 hepatic function panel, serum - copy all labs to Dr Syed Jarquin 2017 018 [facility], [address], [place], [address], 8 14:36:02 urinalysi s complete, reflex culture 2017 018 [facility], [address], [address], [place], [address], 8 21:21:44 hepatic function panel, serum 2017 018 [facility], [address], [address], [place], [address], 8 15:02:53 urinalysi s, dipstick 2017 018 pmadden In-Office Order, Internal Use Only DO Not Attach Compendium DO Not Attach Compendium, Do Not Delete/merge, [id number] 8 11:07:53 rapid flu (A+B) 2017 018 pmadden In-Office Order, Internal Use Only DO Not Attach Compendium DO Not Attach Compendium, Do Not Delete/merge, [id number] 8 11:07:53 CK (creatine kinase), total, serum 2017 018 [facility], [address], [address], [place], [place], [address], 8 15:02:51 Referral cardiolog ist referral 2018 019 satish Wolff MD, [address] [facility], [address], [place], [address], 9 08:56:49 physical therapist referral - At risk for falling 2017 018 [email or web address] [facility], [address] [place], [address], 8 09:01:13 gastroent erologist referral - pt had episode of jaundice which is most likely due to statin reaction. Labs to be repeated next week. pt needs f/u appt w/GI in December 252017 018 loisezequiel Junior Jarquin, [address] [place], [address], 8 10:24:32 Procedures None recorded. Surgeries None recorded. Imaging None recorded. Medication Orders omeprazol e 20 mg capsule,d elayed release 2018 019 [facility], [address], [place], [id number], 9 17:44:15 lisinopri l 20 mg tablet 2018 019 [facility], [address], [place], [id number], 9 17:44:16 ezetimibe 10 mg tablet 2018 019 [facility], [address], [place], [id number], 9 17:44:14 Tessalon Perles 100 mg capsule 2017 018 [email or web address], [address], [place], [id number], 9 16:02:00 omeprazol e 20 mg capsule,d elayed release 2017 018 abigby Not available 8 11:32:13 Patient Targets Encounter Date Encounter Id Patient Goals Patient Target Last Modified By Organization Details Last Modified Time 09/06/2018 [id number] 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 goal of Blood Pressure 140 / 90 Not available Not available Not available joint terminal attack controller goal of Exercise level Not available Not available Not available [facility] goal of Tobacco Smoking Status Not available Not available Not available 03/07/2019 [id number] Pt advised and agrees to eat a [...] By Organization Details Last Modified Time 12/07/2017 [id number] jaundice: care instructions pmadden Not available 12/07/2017 11:08:02 nausea and vomiting: care instructions pmadden Not available 12/07/2017 11:07:53 dehydration: care instructions pmadden Not available 12/07/2017 11:07:53 Discussed risks for driving while using this medication.mm. I have reviewed the note and agree with the assessment and plan of care. [email or web address] Not available 12/07/2017 17:31:03 09/06/2018 [id number] cough: care instructions pmadden Not available 09/06/2018 [...] medication. pmadden Not available 09/06/2018 17:20:45 03/07/2019 [id number] Medications (OTC, herbal therapies, supplements) reviewed and reconciled with patient and or caregiver, including potential side effects, drug interactions, instructions, and the consequences of not taking medication. Reviewed potential barriers to medication adherence, such as side effects from medication or cost of medication. Patient will follow up and keep appointment as scheduled. pmadden Not available 03/09/2019 13:07:44 Reason for Referral Impregnator Operator Referral for Jaundice pt had episode of jaundice which is most likely due to statin reaction. Labs to be repeated next week. pt needs f/u appt w/GI in December Referring Physician: Tony Mojica, Internal Medicine, Encounter Date: 12/17/2017 Physical Therapist Referral for Adult health examination At risk for falling Referring Physician: Damien Young, Internal Medicine, Encounter Date: 09/06/2018 Metal Hanger Referral for Dy spnea Referring Physician: Damien [...] Go To The Location Of Their Choice, [facility] 12/07/2017 21:21:44 12/07/19 18 12/07/2017 urina lysis compl ete, refle x cultu re mucus SLIGHT /lpf Not Available [facility] (Centralized Electronic Ordering - All Locations) Patient Can Go To The Location Of Their Choice, [id number] 12/07/2017 21:21:44 12/07/19 18 12/07/2017 urina lysis [...] Go To The Location Of Their Choice, [address] 12/07/2017 21:21:44 12/07/19 18 12/07/2017 urina lysis compl ete, refle x cultu re culture indication CULTUR E INDICA MARYLU Not Available [facility] (Centralized Electronic Ordering - All Locations) Patient Can Go To The Location Of Their Choice, [id number] 12/07/2017 21:21:44 12/07/19 18 12/08/2017 cultu re, [...] Go To The Location Of Their Choice, [id number] 12/09/2017 13:00:44 12/07/19 18 12/09/2017 cultu re, 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 Not Available [facility] (Centralized Electronic Ordering - All Locations) Patient Can Go To The Location Of Their Choice, [id number] 12/09/2017 13:00:44 12/07/19 18 12/07/2017 rapid flu [...] DO Not Attach Compendium, Do Not Delete/merge, [id number] 12/07/2017 10:57:51 12/07/19 18 12/07/2017 urina lysis , dipst ick Blood Negati ve Not Available In-Office Order Internal Use Only DO Not Attach Compendium DO Not Attach Compendium, Do Not Delete/merge, [id number] 12/07/2017 10:57:51 12/07/19 18 12/07/2017 urina lysis , dipst ick Specific [place] 1.030 Not Available In-Off ice Order Internal Use Only DO Not Attach Compendium DO Not Attach Compendium, Do Not Delete/merge, [id number] 12/07/2017 10:57:51 12/07/19 18 12/07/2017 urina lysis , dipst ick Ketone Negati ve Not Available In-Office Order Internal Use Only DO Not Attach Compendium DO Not Attach Compendium, Do Not Delete/merge, [id number] 12/07/2017 10:57:51 12/07/19 18 12/07/2017 urina lysis , dipst ick Bilirubin Negati ve Not Available In-Office Order Internal Use Only DO Not Attach Compendium DO Not Attach Compendium, Do Not Delete/merge, [id number] 12/07/2017 10:57:51 12/07/19 18 12/07/2017 urina lysis , dipst ick Glucose Negati ve Not Available In-Office Order Internal Use Only DO Not Attach Compendium DO Not Attach Compendium, Do Not Delete/merge, [id number] 12/07/2017 10:57:51 12/07/19 18 12/07/2017 urina lysis , dipst ick Color [place] Not Available In-Office Order Internal Use Only DO Not Attach Compendium DO Not Attach Compendium, Do Not Delete/merge, 12/07/2017 10:57:51 12/07/19 18 12/07/2017 urina lysis , dipst ick Appearance Cloudy Not Available In-Offi ce Order Internal Use Only DO Not Attach Compendium DO Not Attach Compendium, Do Not Delete/merge, [id number] 12/07/2017 10:57:51 12/22/19 18 12/22/2017 hepat ic [...] Go To The Location Of Their Choice, [id number] 08/31/2018 20:51:23 08/31/20 18 08/31/2018 CMP, serum [...] Go To The Location Of Their Choice, [address] 08/31/2018 20:51:24 08/31/20 18 08/31/2018 lipid panel , serum LDL cholesterol, calculated 120 mg/dL (0-130 ) Not Available [facility] (Centralized Electronic Ordering - All Locations) Patient Can Go To The Location Of Their Choice, [address] 08/31/2018 20:51:24 08/31/20 18 08/31/2018 lipid panel , serum non HDL cholesterol (calc) 144 mg/dL (<160) Not Available [facility] (Centralized Electronic Ordering - All Locations) Patient Can Go To The Location Of Their Choice, [address] 08/31/2018 20:51:24 08/31/20 18 08/31/2018 TSH, serum or plasm a TSH 1.72 mIU/m L (0.40- 4.00) Not Available [facility] (Centralized Electronic Ordering - All Locations) Patient Can Go To The Location Of Their Choice, [id number] 08/31/2018 21:14:43 08/31/20 18 09/01/2018 vitam in D, 25-hy droxy , total , serum 25OH vitamin D 45.8 NG/mL (20-50 ) Serum 25OHD : 20 to 50 ng/mL : suffi cient in vitam in D. Refer ence: [facility] Data Brief : No.59 December: [...] Go To The Location Of Their Choice, [id number] 09/01/2018 01:57:01 09/10/20 18 09/10/2018 CBC w/ [...] Go To The Location Of Their Choice, [id number] 07/15/2019 18:47:48 07/15/2007/15/2019 CMP, serum or plasm a ALT 30 U/L (0-33) Not Available [facility] (Centralized Electronic Ordering - All Locations) Patient Can Go To The Location Of Their Choice, [id number] 07/15/2019 18:47:48 07/15/2007/15/2019 CMP, serum or plasm [...] Go To The Location Of Their Choice, [address] 07/15/2019 18:47:48 07/15/20 19 07/15/2019 CMP, serum [...] Go To The Location Of Their Choice, [id number] 07/15/2019 18:47:48 09/10/20 18 09/10/2018 MAMMO , [...] Lay letter mailed to kurt augustin WSN: [id number] Dictat ed By: Teresa Bautista MD Dictat ed Date/T nadeen: 2:20 pm Review ed By: Teresa Bautista MD Signed By: Teresa Bautista MD Signed Date/T nadeen: 2:20 pm Transc ribed By: ELLIE Transc riptio emily Date/T nadeen: 1:58 pm Birads : Kurt charli Class: Outpat ient [facility] (Outpt Imaging) [address] [place], [address], 03/07/2019 16:31:22 06/22/20 19 06/20/2019 NM, myoca rdial perfu yeison scan No observ ation record ed. [facility] [address] [place] [address], [place], [address], 06/22/2019 13:05:01 Result Notes Documentation Provider Name [...] (Negative) Lay letter mailed to patient WSN: [id number] Dictated By: Teresa Muir MD Dictated Date/Time: 09/10/18 2:20 pm Reviewed By: Teresa Muir MD Signed By: Teresa Muir MD Signed Date/Time: 09/10/18 2:20 pm Transcribed By: ELLIE Elementary Reading Tutor Date/Time: 09/10/18 1:58 pm Birads: Patient Class: Outpatient Damien Young PA-C [address], [address], [facility] 03/07/2019 16:31:22 Problems Name Problem SNOMED Code Status Onset Date Resolution Date Notes Provider Name and Address Organization Details Recorded Time Upper respirat ory infectio n 35257083 Completed 02/17/[address] [facility] 7 09:28:15 Polyp of colon 90073264 Active Iris Melchor [facility] 9 16:26:38 Transien t cerebral ischemia 363624070 Active Iris tate [facility] 9 16:26:38 Dehydrat ion 50987341 Completed 02/17/[address] [facility] 7 09:28:20 Nausea 110557055 Completed 02/17/[address] [facility] 7 09:28:23 Liver enzymes outside referenc e range 400432707 Completed 02/17/[address] [facility] 7 09:27:48 Influenz a vaccine needed 42335370795 06 Completed 200705/09/2014 RECORDED 10/16/20 08 7:39AM BY NEIL SHELDON MA, ANNOTATI ON/ADDEN DUM Irisjose antonio tate, [facility] 6 09:47:05 Influenz a vaccine needed 40391999992 06 Completed 200706/05/2014 RECORDED 10/16/20 08 7:39AM BY NEIL SHELDON MA, ANNOTATI ON/ADDEN DUM Iris tate, [facility] 6 09:47:05 Administ ration of bacteria l and viral vaccine Completed 200805/09/2014 RECORDED 02/20/20 09 7:45AM BY NEIL SHELDON MA, OFFICE VISIT Iris tate, [facility] 6 09:47:05 Administ ration of bacteria l and viral vaccine Completed 200806/05/2014 RECORDED 02/20/20 09 7:45AM BY NEIL SHELDON MA, OFFICE VISIT Iris tate, [facility] 6 09:47:05 [facility] hyperten yeison 67900554 Completed 201005/09/2014 RECORDED 05/28/20 11 11:12AM BY NEIL SHELDON MA, ANNOTATI ON/ADDEN DUM Alisson tate, [facility] 7 09:28:36 Tobacco user [id number] Completed 201105/09/2014 RECORDED 04/09/20 12 8:07AM BY NEIL SHELDON MA, ANNOTATI ON/ADDEN DUM Iris tate, [facility] 6 09:47:05 History of clinical finding in subject 043367408 Completed 201102/17/2017 Alisson tate, [facility] 7 09:28:17 Tobacco user [id number] Completed 201106/05/2014 RECORDED 04/09/20 12 8:07AM BY NEIL SHELDON MA, ANNOTATI ON/ADDEN DUM Iris Melchor null, [facility] 6 09:47:05 Screenin g for malignan t neoplasm of breast Completed 201105/09/2014 RECORDED 06/16/20 12 10:30AM BY NEIL SHELDON MA, ANNOTATI ON/ADDEN DUM Alisson Pedersen MA null, [facility] 7 09:27:58 Screenin g for malignan t neoplasm of cervix Completed 201105/09/2014 RECORDED 06/16/20 12 10:30AM BY NEIL SHELDON MA, ANNOTATI ON/ADDEN DUM Alisson Pedersen MA null, [facility] 7 09:27:52 Screenin g for malignan t neoplasm of colon Completed 201105/09/2014 RECORDED 06/16/20 12 10:30AM BY NEIL SHELDON MA, ANNOTATI ON/ADDEN DUM Iris Melchor null, [facility] 6 09:47:05 Cyst of oral soft tissue 422346278 Completed 201105/09/2014 RECORDED 06/16/20 12 10:30AM BY NEIL SHELDON MA, ANNOTATI ON/ADDEN DUM Iris Melchor null, [facility] 6 09:47:05 Disorder of skin 99798851 Completed 201105/09/2014 RECORDED 06/16/20 12 10:30AM BY NEIL SHELDON MA, ANNOTATI ON/ADDEN DUM Iris Melchor null, [facility] 6 09:47:05 Elevated level of transami nase and lactic acid dehydrog enase 961993010 Completed 201105/09/2014 RECORDED 06/16/20 12 10:30AM BY NEIL SHELDON MA, ANNOTATI ON/ADDEN DUM Iris Melchor null, [facility] 6 09:47:05 Weight finding Completed 201105/09/2014 RECORDED 06/16/20 12 10:30AM BY NEIL SHELDON MA, ANNOTATI ON/ADDEN DUM Iris Melchor null, [facility] 6 09:47:05 Impaired fasting glycemia 069887995 Completed 201105/09/2014 RECORDED 06/16/20 12 10:30AM BY NEIL SHELDON MA, ANNOTATI ON/ADDEN DUM Iris Melchor null, [facility] 6 09:47:05 Malaise and fatigue 148566179 Completed 201105/09/2014 RECORDED 06/16/20 12 10:30AM BY NEIL SHELDON MA, ANNOTATI ON/ADDEN DUM Iris Melchor null, [facility] 6 09:47:05 Screenin g for malignan t neoplasm of breast Completed 201102/17/2017 Alisson Pedersen MA null, [facility] 7 09:27:58 Disorder of oral soft tissues 32724756 Completed 201105/09/2014 RECORDED 06/16/20 12 10:30AM BY NEIL SHELDON MA, ANNOTLEIGHA ON/ADDEN DUM Iris Melchor null, [facility] 6 09:47:05 Adult health examinat ion Completed 201105/09/2014 RECORDED 06/16/20 12 10:30AM BY NEIL SHELDON MA, ANNOTATI ON/ADDEN DUM Alisson Pedersen MA null, [facility] 7 09:28:02 Screenin g for malignan t neoplasm of breast Completed 201106/05/2014 RECORDED 06/16/20 12 10:30AM BY NEIL SHELDON MA, ANNOTATI ON/ADDEN DUM Alisson Pedersen MA null, [facility] 7 09:27:58 Screenin g for malignan t neoplasm of colon Completed 201106/05/2014 RECORDED 06/16/20 12 10:30AM BY NEIL SHELDON MA, ANNOTATI ON/ADDEN DUM Iris Melchor null, [facility] 6 09:47:05 Cyst of oral soft tissue 421351616 Completed 201106/05/2014 RECORDED 06/16/20 12 10:30AM BY NEIL SHELDON MA, ANNOTLEIGHA ON/ADDEN DUM Irisjose antonio Melchor null, [facility] 6 09:47:05 Disorder of skin 17396246 Completed 201106/05/2014 RECORDED 06/16/20 12 10:30AM BY NEIL SHELDON MA, ANNOTATI ON/ADDEN DUM Iris Melchor null, [facility] 6 09:47:05 Elevated level of transami nase and lactic acid dehydrog enase 394360951 Completed 201106/05/2014 RECORDED 06/16/20 12 10:30AM BY NEIL SHELDON MA, ANNOTATI ON/ADDEN DUM Iris Melchor null, [facility] 6 09:47:05 Weight finding Completed 201106/05/2014 RECORDED 06/16/20 12 10:30AM BY NEIL SHELDON MA, ANNOTATI ON/ADDEN DUM Iris Melchor null, [facility] 6 09:47:05 Impaired fasting glycemia 640410947 Completed 201106/05/2014 RECORDED 06/16/20 12 10:30AM BY NEIL SHELDON MA, ANNOTATI ON/ADDEN DUM Iris Melchor null, [facility] 6 09:47:05 Malaise and fatigue 192603739 Completed 201106/05/2014 RECORDED 06/16/20 12 10:30AM BY NEIL SHELDON MA, ANNOTATI ON/ADDEN DUM Iris tate [facility] 6 09:47:05 Disorder of oral soft tissues 86957078 Completed 201106/05/2014 RECORDED 06/16/20 12 10:30AM BY NEIL SHELDON MA, ANNOTATI ON/ADDEN DUM Iris tate [facility] 6 09:47:05 Adult health examinat ion Completed 201106/05/2014 RECORDED 06/16/20 12 10:30AM BY NEIL SHELDON MA, ANNOTATI ON/ADDEN DUM Alisson tate [facility] 7 09:28:02 Benign neoplasm of breast 570897550 Completed 201302/17/[address] [facility] 7 09:28:11 Essentia l hyperten yeison 02233691 Active [address] [facility] 9 16:26:38 Family history of polyp of colon 824636444 Completed 201302/17/[address] [facility] 7 09:28:28 Hyperlip idemia 28683460 Active [address] [facility] 9 16:26:38 Hypoglyc emia 200162903 Active [address] [facility] 9 16:26:38 Glucose toleranc e test outside referenc e range 440575392 Completed 201302/17/[address] [facility] 7 09:28:08 Low back pain 064869828 Completed 201302/17/[address] [facility] 7 09:28:05 Fibromyo sitis 94209288 Active [address] [facility] 9 16:26:38 Tobacco dependen ce syndrome 31943408 Active [address] [facility] 9 16:26:38 Adult health examinat ion Completed 201302/17/[address] 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 9 16:26:38 Screenin g for malignan t neoplasm of cervix Completed 201302/17/[address] [facility] 7 09:27:52 Excess skin of eyelid 832135965 Completed 201302/17/[address] [facility] 7 09:27:55 Overweig ht 072482800 Active [address] [facility] 9 16:26:38 Problem Notes None recorded. Procedures Surgical History Date Name Laterality Status Provider Name and Address Organization Details Recorded Time 09/10/20 18 Most Recent Mammogram completed Fabienne Antoni [facility] 09/10/2018 14:32:27 09/10/20 18 Mammogram Screening completed Fabienne Antoni [facility] 09/10/2018 14:32:20 09/06/20 18 Mini-Cog Test completed Lolly Velazquez [facility] 09/06/2018 16:44:34 06/22/20 18 Date of Last Colonoscopy completed Lolly Velazquez [facility] 09/07/2018 10:24:24 07/30/20 17 Fall Risk Assessment completed Alisson Pedersen MA [facility] 07/30/2017 09:01:50 07/30/20 17 Mini-Cog Test completed Alisson Pedersen MA [facility] 07/30/2017 09:05:40 04/22/20 16 Date of Last Pap Smear completed Irisjose antonio Melchor [facility] 04/24/2016 09:46:33 06/22/20 15 Colonoscopy completed Alisson Pedersen MA [facility] 07/27/2017 11:24:09 05/05/20 14 Most Recent Bone Density completed Darrian Reyes [facility] 04/17/2016 10:42:16 Tonsillectomy completed Chanelle Santanaoit [facility] 09/12/2014 08:48:03 Cholecystectomy completed [facility] 09/12/2014 08:48:03 Hysterectomy completed [facility] 09/12/2014 08:48:03 Imaging Results None recorded. Procedure Notes None recorded. Medical Equipment None Reported. Allergies Allergen ID Allergen Name Allergen Category Reaction Reaction Severity Criticality Documentation Date Start Date Code Code System Note Provider Name and Address Organization Details Recorded Time 23479 acetamino phen / oxycodone medicatio n Not available Not available Not available 12/07/2017 [address] [facility] 8 10:38:30 28914 Lipitor medicatio n Not available Not available Not available 12/07/2017 58639 5 RxNorm [facility] - 8 Damien Young PA-C [address] [address], [place], [address], [facility] 8 13:53:06 34964 atorvasta tin medicatio n Not available Not available Not available 12/17/[address] [facility] 8 11:18:40 67575 pravastat in medicatio n Not available Not available Not available 12/17/[address] [facility] 8 11:20:58 62064 rosuvasta tin medicatio n Not available Not available Not available 12/17/2017 15565 2 RxNorm Alisson tate, [facility] 8 11:24:19 97265 simvastat in medicatio n Not available Not available Not available 12/17/2017 03534 RxNorm Alisson tate, [facility] 8 11:24:38 21595 azithromy ghislaine medicatio n facial swelling severe Not available 09/06/20182017 20366 RxNorm Lolly tate, [facility] 8 16:30:07 Medications Name Sig [...] Updated DateTime 8 168.91 cm 28.3 kg/m2 51315.8 4 g 99.3 [degF] 96 % 88 /min 138/76 mm[Hg] [facility] 8 10:39:54 Date Recorded Body height Body mass index (BMI) Body weight Oxygen saturation Heart rate Systolic And Diastolic Provider Name and Address Organization Details Last Updated DateTime 8 168.91 cm 28.7 kg/m2 79026.7 3 g 96 % 59 /min 132/80 mm[Hg] [facility] 8 11:20:48 Date Recorded Body height Body mass index (BMI) Body weight Heart rate Oxygen saturation Body temperature Systolic And Diastolic Provider Name and Address Organization Details Last Updated DateTime 9 168.91 cm 28.9 kg/m2 22407.8 1 g 62 /min 97 % 97.5 [degF] 132/64 mm[Hg] Blaze Umaña [facility] 9 15:59:42 Date Recorded Body height Body mass index (BMI) Body weight Body temperature Oxygen saturation Heart rate Systolic And Diastolic Provider Name and Address Organization Details Last Updated DateTime 8 168.91 cm 29 kg/m2 44189.2 1 g 97.7 [degF] 97 % 82 /min 138/78 mm[Hg] [facility] 8 09:59:18 Date Recorded Body height Body mass index (BMI) Body weight Body temperature Heart rate Oxygen saturation Systolic And Diastolic Provider Name and Address Organization Details Last Updated DateTime 8 168.91 cm 28.3 kg/m2 99628.1 4 g 98 [degF] 70 /min 97 % 122/72 mm[Hg] Lolly Velazquez [facility] 8 16:35:15 Social History Question Answer Notes LastModified by Organizat ion Details LastModified Time Tobacco Smoking Status Former Smoker Darrian tate, [facility] 04/17/2016 10:42:16 Do You Have An Advance Directive? Yes [facility] Information not available 09/06/2018 Is Blood Transfusion [...] trivalent, PF 08/22/[address] [facility] 08/16/2019 16:26:38 Influenza, split virus, trivalent, PF 08/02/[address] [facility] 08/16/2019 16:26:38 Pneumococcal conjugate PCV 13 09/07/[address] [facility] 08/16/2019 16:26:38 influenza, unspecified formulation 09/07/20 16 completed Iris Melchor null, [facility] 08/16/2019 16:26:38 Influenza, high-dose, trivalent, PF 09/18/20 18 completed Iris Melchor null, [facility] 08/16/2019 16:26:38 Influenza, high-dose, trivalent, PF 08/15/20 19 completed Iris Melchor null, [facility] 08/16/2019 16:26:38 Influenza, high-dose, trivalent, PF 09/06/20 18 cancelled patient objection Not Available [facility] 11/12/2019 02:22:14 Influenza, split virus, trivalent, preservative 10/01/20 07 completed Iris Melchor null, [facility] 08/16/2019 16:26:38 Tdap 02/20/20 09 completed Iris Melchor null, [facility] 08/16/2019 16:26:38 Influenza, split virus, trivalent, preservative 08/21/20 10 completed Iris Melchor null, [facility] 08/16/2019 16:26:38 Influenza, split virus, trivalent, preservative 07/20/20 11 completed Iris Melchor null, [facility] 08/16/2019 16:26:38 Influenza, split virus, trivalent, preservative 08/25/20 13 completed Iris Melchor null, [facility] 08/16/2019 16:26:38 Past Encounters Encounter ID Performer Location Encounter Start Date Encounter Closed Date Diagnosis/Indication Diagnosis SNOMED-CT Code Diagnosis ICD10 Code Diagnosis IMO Codes Diagnosis Note [id number] [facility] erc [address] [facility] [address] [place] [address] 09/20/2007 00:00:00 [id number] auto[facility]Comm [facility] [address] [facility] [address] [place] [address] 11/18/2007 00:00:00 [id number] autoEComm erce [address] [facility] [address] [place] [address] 05/16/2008 00:00:00 [id number] autoEComm erce [address] [facility] [address] [place] [address] 10/16/2008 00:00:00 [id number] autoEComm erce [address] [facility] [address] [place] [address] 02/19/2009 00:00:00 [id number] autoEComm erce [address] [facility] [address] [place] [address] 10/23/2009 00:00:00 [id number] autoEComm erce [address] [facility] [address] [place] [address] 05/07/2010 00:00:00 [id number] autoEComm erce [address] [facility] [address] [place] [address] 09/23/2010 00:00:00 [id number] autoEComm erce [address] [facility] [address] [place] [address] 04/10/2011 00:00:00 [id number] autoEComm erce [address] [facility] [address] [place] [address] 10/07/2011 00:00:00 [id number] autoEComm erce [address] [facility] [address] [place] [address] 04/09/2012 00:00:00 [id number] autoEComm erce [address] [facility] [address] [place] [address] 03/17/2014 00:00:00 [id number] Tony simon MD Main Office [address] [place] [address] 09/12/2014 13:19:35 09/12/2014 14:16:50 Essential hypertension 43186123 poor control/ recently poor control at home/ will order labs and refer. [id number] LIAM Harper Main Office [address] [place] [address] 02/09/2015 11:19:47 02/09/2015 11:57:08 Essential hypertension 20276242 Taking meds as prescribed , states BP was normal at home, she always has high BP when coming to Doctor's office. Upper resp iratory infection 72897019 Recent travel to the [facility], will get CXR and start zpak today, robitussin with codeine as needed- no driving or alcohol with med. [id number] Tony simon MD Main Office [address] [facility] [address] [place] [place] [address] 03/30/2015 10:34:05 03/30/2015 11:24:45 Adult health examination 166854548 pt doing well w/ control of her risks At [facility] ed risk for falls 149222271 Essential hypertension 22350718 white coat htn/ home bp controlled in range of 130/80. Polyp of colon 04495699 Hyperlipidemia 49720878 Screening for malignant neoplasm of breast 364516279 [id number] Tony simon MD Main Office [address] [facility] [address] [place] [address] 11/20/2015 08:21:19 11/20/2015 17:10:20 [id number] CODY Harper Main Office [address] [facility] [address] [place] [place] [address] 11/22/2015 08:45:11 11/22/2015 09:37:51 Transient cerebral ischemia 087858441 G45.9 CT initially showed lacunar infarct, MRI did not show acute stroke. Diagnosed with TIA On ASA, Lipitor and BP meds. Should you develop similar symptoms or have severe headache, dizziness, N/V, vision changes, changes in balance, High BP please go to ED. F/U at [facility] in March. Essential hypertension 40803779 I10 Continue current meds as prescribed . Bp today WNL. Hyperlipidemia 95050554 E78.5 Continue atorvastat in daily. [id number] Yas Young PA-C Main Office [address] [address] [address] [place] [address] 12/03/2015 13:22:40 12/03/2015 14:08:48 Dehydration 75667570 E86.0 Dehydratio n due to viral infection. Pt. is recommende d to go to the ER to receive IV treatment and labs. Nausea 417678057 R11.0 [id number] Tony simon MD Main Office [address] [address] [place] [address] 12/11/2015 10:15:43 12/14/2015 16:12:21 [id number] Tony simon MD Main Office [address] [address] [place] [address] 12/14/2015 08:56:24 12/14/2015 09:43:28 Liver enzymes outside reference range 192221961 R94.5 pt plans to see Dr Jarquin dec 19 for f/u/pt needs w/u for unexplaine d hepatitis Transient cerebral ischemia 784556610 G45.9 Essential hypertension 08082940 I10 white coat htn/ home bp controlled in range of 130/80. Hyperlipidemia 10962284 E78.5 [id number] Tony simon MD Main Office [address] [address] [place] [address] 04/17/2016 10:23:53 04/17/2016 12:05:52 Essential hypertension 70558068 I10 white coat htn/ home bp controlled in range of 130/80. Hyperlipidemia 94767288 E78.5 Adult heal th examination 228151819 Z00.00 pt doing well w/ control of her risks [id number] Tony simon MD Main Office [address] [address] [place] [address] 08/19/2016 10:27:34 08/19/2016 11:42:51 Essential hypertension 62955007 I10 white coat htn/ home bp controlled in range of 130/80. Hyperlipidemia 00614802 E78.5 History of cerebrovascular accident 137666895 Z86.73 Gastroesop hageal reflux disease 360372191 K21.9 [id number] Tony simon MD Main Office [address] [address] [place] [address] 02/17/2017 09:22:23 02/17/2017 10:04:47 Essential hypertension 85365088 I10 white coat htn/ home bp controlled in range of 130/80. Hyperlipidemia 19566671 E78.5 goal LDL is 70-100 History of transient ischemic attack 350738065 Z86.73 contASA 81 [id number] Tony simon MD Main Office [address] [address] [place] [address] 04/24/2017 13:32:15 04/24/2017 14:41:37 [id number] Tony simon MD Main Office [address] [address] [place] [address] 04/30/2017 13:58:03 04/30/2017 15:12:28 Gastroenteritis 07921896 K52.9 see hosp notes Essential hypertension 98260446 I10 reduce bp meds and f/u home readings until PE in 6 weeks [id number] Tony simon MD Main Office [address] [address] [place] [address] 07/30/2017 08:51:15 07/30/2017 09:34:00 Adult health examination 759949226 Z00.00 pt doing well w/ control of her risks Essential hypertension 24133476 I10 reduce bp meds and f/u home readings until PE in 6 weeks Hyperlipidemia 27759627 E78.5 goal LDL is 70-100 Hypertensive disorder 38 809011 I10 rare episodes of hypertensi ve urgency Anxiety 51547631 F41.9 [id number] Damien Young PA-C Main Office [address] [address] [place] [address] 12/07/2017 10:24:09 12/07/2017 11:17:06 Fever 241876423 R50.9 doubt flu but will check to r/o stop tyl and etoh d/t jaundice below - could use prn advil for short amount of time -- stay hydrated Nausea and vomiting 1693 1999 R11.2 cont prn zofran, consider flat mckinley poonam Jaundice 31869073 R17 most likely d/t re-trial of atorvastat in - advised pt to stop med pt states feels similar to how she did a few yrs ago p lipitor *will fwd this note to neph.* Dysuria 95568905 R30.0 dipstick + -- will wait for [...] liver to detoxify. Myalgia/my ositis - multiple 389359300 M79.1 [id number] Tony simon MD Main Office [address] [address] [place] [address] 12/17/2017 10:58:03 12/17/2017 12:10:13 Jaundice 33967981 R17 resolving [id number] Tony simon MD Main Office [address] [address] [place] [address] 03/15/2018 09:46:41 03/15/2018 10:38:11 Essential hypertension 01797812 I10 reduce bp meds and f/u home readings until PE in 6 weeks/ Arnaldo will refill bp meds Gastroesop hageal reflux disease 846867973 K21.9 Anxiety 57683637 F41.9 pt uses benzo per Arnaldo for anxiety around her bp issues Alanine aminotransferase above reference range 644899237 R74.0 Hyperlipidemia 90060960 E78.5 goal LDL is 70-100 [id number] Damien Young PA-C Main Office [address] [address] [place] [address] 09/06/2018 15:48:47 09/07/2018 09:01:13 Adult health examination 191793779 Z00.00 Influenza vaccine needed 0549070743 106 Z23 Hyperlipidemia 77189974 E78.5 levels stable - h/o statin allergy, seeing endo - cont zetia as dir Essential hypertension 11783241 I10 bp and Cr are stable, cont meds as dir Leukocytosis 369463094 D 72.829 likely d/t infxn and / or pred use - recheck cbc next wk Cough 77306138 R05 ? postviral cough -- trial c tessalon and nasal saline spray prn already [place] [facility] [place]r ~ 75% better - lungs clear today - unlikely to have pna Body mass index 25-29 - overweight 565822694 Z68.28 Overweight 941531870 E66 .3 [id number] Noel Gallardo MD Main Office [address] [facility] [address] [facility] [place] [address] 03/07/2019 15:40:22 03/07/2019 17:00:05 Essential hypertension 91156893 I10 bp stable, cont meds as dir, check bmp - see below h/o labile htn fol by renal - rev last note 12.18 pt admits to little water intake - rec increase water intake Gastroesop hageal reflux disease 063400918 K21.9 Hyperlipidemia 06159516 E78.5 levels stable - h/o statin allergy, seeing endo - cont zetia as dir Anxiety 50556262 F41.9 pt gets benzo from renal (as per pt) Transient cerebral ischemia 360735384 G45.9 cont baby asa qd as dir - advised of SE of bruising Chronic ki dney disease stage 3 582960373 N18.3 cont f/u c renal Liver enzy mes level above reference range 289959406 R74.8 Dyspnea 277479114 R06.00 as eval wrapping up - pt describes int dyspnea - no cp - can walk up stairs fine - but pt requests card eval in light of her family history Health Concerns Section Related Observation LastModified by Organization Detai ls LastModified Time None Recorded Concern Status LastModified by Organization Details LastModified Time None Recorded Advance Directives Directive Y: [facility] Payers Insurance Date Sequence Insurance Name Policy Number Policy Velasquez Covered Member ID Velasquez Member ID Guarantor Name 03/07/2019 1 MEDICARE B-[place]: [facility] [employer] uFnmi Janet [id number] Funmi Gonzales Notes Date Note Type [...] cough, chest congestion, sob, cp Tony tate, [facility] 12/07/2017 17:31:17 12/17/19 18 text/htm [...] ago. For onset/timing, patient reportsabrupt. Tony tate, 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 For medications, patient [...] seem to tolerate statin so endo at [facility] will help her decide plan).ROS as noted in the HPI [facility] 03/15/2018 10:39:07 09/06/20 18 text/htm l [...] HPI TemplateReported by Patient Erlin Jacobsen MD [address] [facility] [address], [place], [address], [facility] 09/08/2018 20:54:09 03/07/20 19 text/htm l Hypertension F/UReported by PatientHPIFor associated symptoms, patient reportsno dizziness,no lightheadedness,no chest pain,no shortness of breath,no palpitations,no edema, andno calf pain with exertion. For lifestyle, patient reportsregular exerciseandlimiting/avoiding salt. For medications, patient reportstaking medications as directed,no side effects from medication, andchecks blood pressure at home, range: (100-130s/40-70s - no dizziness as per pt). Damien Young PA-C [address] [facility] [address], [place], [address], [facility] 03/09/2019 13:11:56 OBGyn Episode No OBEpisode recorded.
--- OUTSIDE RECORDS SUMMARY | 2025-10-13 18:16 | XMS_ITS | Clinical Summary ---
Author Organization [facility] [address] [facility] Address [address] [place] [address] Phone Care Team Providers Care J2Ee Software Engineer Name Role Phone Annelise Griffiths MD Primary Care Provider [phone] Allergies Active Allergy Reactions Criticality Noted Date Comments Atorvastatin Unknown,Other 03/19/2021 Other Reaction(s): liver problem Nitrofurantoin Other 03/19/2021 Other Reaction(s): diff breathing Oxycodone 09/16/2024 Other Reaction(s): ? diff breathing Oxycodone-Acetaminophen Unknown,Other Other Reaction(s): N&V, dizziness Pravastatin Rash 09/17/2021 Rosuvastatin Rash 09/17/2021 Simvastatin Rash 09/17/2021 Jntsxry-Jug-Tbw Reductase Inhibitors Other 03/19/2021 Other Reaction(s): liver [...] (one) time each day. 02/24/2024 Active cloNIDine (YDVMOWUC-YLI-6 ) 0.1 mg/[address] 1 patch on the skin 1 (one) time per week. Active Active Problems Problem Noted Date Diagnosed Date Abnormal liver enzymes 09/16/2024 History of adenomatous polyp of colon 09/16/2024 Encounters Date Type Department Care Team Description 08/11/2025 Telephone Gastroenterology - [address] [phone] Quentin Bliss MD from Last 3 Months Social History Tobacco [...] 09/16/2024 9:22 AM EST Plan of Treatment Upcoming Encounters Date Type Department Care Team (Late st Contact Info) Description 03/05/2026 9:30 AM EDT Office Visit Gastroenterology - [address] [phone] Mee Chavez PA [address] [place] [phone] Health Maintenance Due Date Last Done Comments Colorectal Cancer Screening: Colonoscopy 1950 Zoster Vaccines (1 of 2) 1970 DTaP,Tdap,and Td Vaccines (2 - Td or Tdap) 02/19/2019 02/19/2009 Breast Cancer Screening 09/10/2020 09/10/2018 COVID-19 Vaccine (3 - Moderna risk series) 04/08/2021 03/11/2021, 02/10/2021 Cholesterol Screening (Lipid Panel) 09/28/2022 Falls Risk Assessment 09/28/2022 Hepatitis C [...] square meter and albuminuria creatinine ratio les* ([facility] V24, [facility] V28) Essential hypertension, malignant Persistent proteinuria from Last 3 Months or Most Recently Relevant to Health Maintenance Results * Renal function panel (09/16/2024 10:06 AM EST) Sodium 142 133 - 145 mmol/L LAB CHEMISTRY METHOD 09/16/2024 2:23 PM [facility] Potassium 4.0 3.5 - 5.5 mmol/L LAB CHEMISTRY METHOD 09/16/2024 2:23 PM [facility] Chloride 110 96 - 110 mmol/L LAB CHEMISTRY METHOD 09/16/2024 2:23 PM [facility] CO2 28 21 - 32 mmol/L LAB CHEMISTRY METHOD 09/16/2024 2:23 PM [facility] Anion Gap 4 3 - 11 LAB CHEMISTRY METHOD 09/16/2024 2:23 PM [facility] Glucose 74 70 - 100 mg/dL LAB CHEMISTRY METHOD 09/16/2024 2:23 PM [facility] BUN 18 5 - 25 mg/dL LAB CHEMISTRY METHOD 09/16/2024 2:23 PM [facility] Creatinine 0.99 0.50 - 1.10 mg/dL LAB CHEMISTRY METHOD 09/16/2024 2:23 PM [facility] eGFR 60 >=60 mL/min/1. 73m2 LAB CHEMISTRY METHOD 09/16/2024 2:23 PM [facility] Comment:Calculation based on the Chronic Kidney Disease Epidemiology Collaboration (CKD-EPI) equation refit without adjustment for race. BUN/Creatinine Ratio 18.2 LAB CHEMISTRY METHOD 09/16/2024 2:23 PM [facility] Albumin 3.4 3.2 - 5.0 g/dL LAB CHEMISTRY METHOD 09/16/2024 2:23 PM [facility] Calcium 9.2 8.5 - 10.5 mg/dL LAB CHEMISTRY METHOD 09/16/2024 2:23 PM [facility] Phosphorus 3.5 2.5 - 4.5 mg/dL LAB CHEMISTRY METHOD 09/16/2024 2:23 PM [facility] Blood Venous blood specimen / Unknown Venipuncture / Unknown 09/16/2024 10:06 AM EST 09/16/2024 11:28 AM EST us Lalo Molina MD LAB BLOOD ORDERABLES Final Result VISHAL CLARKE [place] ([facility]) [facility] [address] [place] [address], from Last 3 Months or Most Recently Relevant to Health Maintenance Insurance [facility] MEDICARE Care Teams J2Ee Software Engineer Relationship Specialty Start Date End Date Annelise Griffiths MD [address] [place] [phone] PCP - General Internal Medicine 08/13/24
--- OUTSIDE RECORDS SUMMARY | 2025-10-13 18:16 | XMS_ITS | Clinical Summary ---
Author Organization [employer] Address [address] [facility] [address] [place] [address] Care Team Providers Care House Furnishings Supervisor Name Role Phone Unavailable Primary Care Provider [...] colon 03/19/2021 Stage 3a chronic kidney disease (CMS/HCC) 2020 Overweight 09/06/2018 Excess skin of eyelid 04/06/2014 [...] Encounters Date Type Department Care Team Description 10/02/2025 Telephone [facility] [address] [place] [address] Miguelina Dickinson 09/29/2025 Telephone [facility] [address] [place] [address] Miguelina Dickinson 09/27/2025 Telephone [facility] [address] [place] [address] Miguelina Dickinson from Last 3 Months Social History Tobacco [...] 1969 Zoster Vaccines (1 of 2) 2001 Pneumococcal Vaccine: 50+ Years (2 of 2 - PCV20 or PCV21) 09/07/2017 09/07/2016 DTaP/Tdap/Td Vaccines (2 - Td or Tdap) 02/19/2019 02/19/2009 Mammogram 09/10/2020 09/10/2018 Dental Oral Exam 03/22/2025 09/21/2024 COVID-19 Vaccine ( - season) 2025 Influenza Vaccine (#1) 2025 9, 09/18/2018, 09/07/2016, Additional history exists Dental Prophylaxis 08/12/2025 02/09/2025 Dental X-Ray: Bitewings 09/22/2025 09/21/2024 RSV Patients and Patients Aged 60 years or older (1 - 1-dose 75+ series) 2026 Tobacco Screening 05/11/2026 05/11/2025 Dental X-Ray: Full [...] Procedure Name Priority Date/Time Associated Diagnosis Comments PROPHYLAXIS - ADULT Routine 02/09/2025 8 :00 AM EDT INTRAORAL - COMPLETE SERIES OF RADIOGRAPHIC IMAGES Routine 09/21/2024 11:00 AM EST COMPREHENSIVE ORAL EVALUATION - NEW OR ESTABLISHED PATIENT Routine 09/21/2024 11:00 AM EST from Last 3 Months or Most Recently Relevant to Health Maintenance Insurance DENTAL - HSN FULL (MEDICAID)
--- OUTSIDE RECORDS SUMMARY | 2025-10-13 18:16 | XMS_ITS | Clinical Summary ---
Author Organization [facility] Address [address] [place] [address] [address] [place] [address] Phone Care Team Providers Care Psychology Department Chair Name Role Phone Annelise Griffiths MD Primary Care Provider [phone] Allergies Active Allergy Reactions Criticality Noted Date [...] Patient taking differently:0.1 mg OralDaily, Reported on 10/04/2025 spironolactone (ALDACTONE) 25 MG tablet Take 2 tablets (50 mg total) by mouth 1 (one) time each day 90 tablet 3 4 Active Additional Information Patient not taking.Reported on 10/04/2025 amLODIPine (Norvasc) 5 MG tablet Take 1 tablet (5 mg total) by mouth in the morning and 1 tablet (5 mg total) in the evening. 180 tablet 3 4 Active lisinopril 40 MG tabletIndicatio ns:Hypertensive disorder [...] Encounters Date Type Department Care Team Description 10/04/2025 9:00 AM EST [facility] Visit [facility] [address] [address] Мария Smith ARNP Stage 3a chronic kidney disease (HCC) (Primary Dx); Hypertensive disorder; Persistent proteinuria 09/17/2025 Orders Only [facility] [address] [address] Мария Smith ARNP Stage 3a chronic kidney disease (HCC); Hypertensive disorder; Persistent proteinuria from Last 3 Months Family History Medical History Relation Comments Heart disease Mother Hypertension Mother Kidney disease Sibling brother Relation Status Comments Father Mother Sibling Social History Tobacco Use Types Packs/Day Years Used Date Smoking Tobacco: Former Cigarettes Smokeless Tobacco: Never Tobacco Cessation:Counseling Given: Not [...] Sign Reading Time Taken Comments Blood Pressure 132/56 10/04/2025 9:47 AM EST Pulse 47 10/04/2025 9:24 AM EST Temperature - - Respiratory Rate - - Oxygen Saturation 98% 10/04/2025 9:24 AM EST Inhaled Oxygen Concentration - - Weight 73.5 kg (162 lb) 10/04/2025 9:24 AM EST Height 170.2 cm (5' 7 ) 09/07/2023 4:22 PM EST Body Mass Index 25.37 09/07/2023 4:22 PM EST Plan of Treatment Upcoming Encounters Date Type Department Care Team (Late st Contact Info) Description 04/04/2026 8:15 AM EDT Office Visit [facility] [address] [address] Мария Smith ARNP [address] [phone] Health Maintenance Due Date Last Done Comments [...] Procedure Name Priority Date/Time Associated Diagnosis Comments PTH, INTACT Routine 09/12/2025 10:18 AM EST MAGNESIUM Routine 09/12/2025 10:18 AM EST VITAMIN D 25 HYDROXY Routine 09/12/2025 10:18 AM EST URINE ALBUMIN / CREATININE RATIO Routine 09/12/2025 10:18 AM EST PROTEIN / CREATININE RATIO, URINE Routine 09/12/2025 10:18 AM EST CBC Routine 09/12/2025 10:18 AM EST RENAL FUNCTION PANEL Routine 09/12/2025 10:18 AM EST from Last 3 Months Results * Protein, Total, Random Urine w/Creatinine (Protein/Creat Ratio) (09/12/2025 10:18 AM EST) Creatinine, Ur 227.0 Not Estab. mg/dL [facility] Protein, Ur 15.9 Not Estab. mg/dL [facility] Urine Protein/Creatin ine Ratio 70 0 - 200 mg/g creat [facility] 09/12/2025 10:1 8 AM EST 09/12/2025 [facility] LAB URINE ORDERABLES Final Result [facility] [place] [address] [place] [address] * Urine Albumin / Creatinine Ratio (09/12/2025 10:18 AM EST) Albumin, Urine 8.3 Not Estab. ug/mL [facility] Albumin/Creatin ine Ratio 4 0 - 29 mg/g creat [facility] Comment: Normal: 0 - 29 Moderately increased: 30 - 300 Severely increased: >300 09/12/2025 10:1 8 AM EST 09/12/2025 [facility] LAB URINE ORDERABLES Final Result [facility] [place] [address] [place] [address] * Vitamin D 25 Hydroxy (09/12/2025 10:18 AM EST) Vitamin D, 25-OH, Total 38.0 30.0 - 100.0 ng/mL [facility] Comment: Vitamin D deficiency has been defined by the [place] of Medicine and an Endocrine Society practice guideline as a level of serum 25-OH vitamin D less than 20 ng/mL (1,2). The Endocrine Society went on to further define vitamin D insufficiency as a level between 21 and 29 ng/mL (2). 1. IOM ([place] of Medicine). 2010. Dietary reference intakes for calcium and D. [place]: The National Academies Press. 2. Katie MF, Shelton TELLEZ, Doroteo PAEZ, et al. Evaluation, treatment, and prevention of vitamin D deficiency: an Endocrine Society clinical practice guideline. JCEM. 2010; 96(7):1911-30. 09/12/2025 10:1 8 AM EST 09/12/2025 Мария Smith [facility] LAB BLOOD ORDERABLES Final Result [facility] [address] [place] [address] * CBC (09/12/2025 10:18 AM EST) WBC 9.0 3.4 - 10.8 x10E3/uL [facility] RBC 4.87 3.77 - 5.28 x10E6/uL [facility] Hemoglobin 14.7 11.1 - 15.9 g/dL [facility] Hematocrit 44.5 34.0 - 46.6 % [facility] MCV 91 79 - 97 fL [facility] MCH 30.2 26.6 - 33.0 pg [facility] MCHC 33.0 31.5 - 35.7 g/dL [facility] RDW 13.3 11.7 - 15.4 % [facility] Platelets 304 150 - 450 x10E3/uL [facility] 09/12/2025 10:1 8 AM EST 09/12/2025 Мария Smith [facility] LAB BLOOD ORDERABLES Final Result [facility] [address] [place] [address] * PTH, Intact (09/12/2025 10:18 AM EST) PTH 19 15 - 65 pg/mL [facility] 09/12/2025 10:1 8 AM EST 09/12/2025 Мария Smith [facility] LAB BLOOD ORDERABLES Final Result [facility] [place] [address], [address] [place] [address] * Magnesium (09/12/2025 10:18 AM EST) Magnesium 2.0 1.6 - 2.3 mg/dL [facility] [place] 09/12/2025 10:1 8 AM EST 09/12/2025 Мария Smith [facility] LAB BLOOD ORDERABLES Final Result [facility] [place] [address], [address] [place] [address] * (ABNORMAL) Renal Function Panel (09/12/2025 10:18 AM EST) Glucose 93 70 - 99 mg/dL [facility] [place] BUN 16 8 - 27 mg/dL [facility] [place] Creatinine 1.06(H) 0.57 - 1.00 mg/dL [facility] [place] eGFR CKD-EPI CR 2020 55(L) >59 mL/min/1.7 3 [facility] [place] BUN/Creatinine Ratio 15 12 - 28 [facility] [place] Bicarbonate (CO2) 28 20 - 29 mmol/L [facility] [place] Calcium 9.7 8.7 - 10.3 mg/dL [facility] [place] Albumin 4.2 3.8 - 4.8 g/dL [facility] [place] Sodium 140 134 - 144 mmol/L [facility] [place] Potassium 4.6 3.5 - 5.2 mmol/L [facility] [place] Chloride 102 96 - 106 mmol/L [facility] [place] Phosphorus 4.5(H) 3.0 - 4.3 mg/dL [facility] [place] 09/12/2025 10:1 8 AM EST 09/12/2025 Мария Smith [facility] LAB BLOOD ORDERABLES Final Result [facility] [place] [address] [place] [address] from Last 3 Months Insurance Medicare [facility] Medicare [facility] Care Teams Psychology Department Chair Relationship Specialty Start Date End Date Annelise Griffiths MD [facility] [place] [address] PCP - General Internal Medicine 03/19/21
--- OUTSIDE RECORDS SUMMARY | 2025-10-13 18:16 | XMS_ITS | Encounter Summary ---
Author Organization [facility] Address [address] [place] [address] Phone Care Team Providers Care Medical Oncologist Name Role Phone Annelise Griffiths MD Primary Care Provider [phone] Reason for Visit * Reason Comments Med Refill Encounter Details Date Type Department Care Team (Late Contact Info) Description 11/02/2023 Refill [facility] [address] [place] [address] Ivy Mcintosh MD Anxiety, not [...] Visit [facility] [address] [address] Мария Smith ARNP [address] [address] documented as of this encounter Visit Diagnoses Diagnosis Anxiety, not otherwise specified documented in this encounter Care Teams Medical Oncologist Relationship Specialty Start Date End Date Annelise Griffiths MD [address] [place] [address] PCP - General Internal Medicine 03/19/21 documented as of this encounter
--- OUTSIDE RECORDS SUMMARY | 2025-10-13 18:16 | XMS_ITS | Encounter Summary ---
Author Organization [employer] Address [address] [facility] [address] [place] [address] Care Team Providers Care Bull Fiddle Player Name Role Phone Unavailable Primary Care Provider Unavailabl e Reason for Visit * Reason Onset Date Comments rs appt new date and time 01/18/2025 Encounter Details Date Type Department Care Team (Late st Contact Info) Description 01/18/2025 Telephone [facility] [address] [place], [place] [phone] Timo Hernandez, DMD [address] [place], [place] [phone] rs appt new date and time Social [...]
== END 2025-10-13 18:13 | disposition home or self-care (01) ==
LOC: HO.MRI 18:12
PROVIDERS: PCP Internal Medicine; Visit Provider Orthopaedic Surgery
DX: M23.91 Unspecified internal derangement of right knee (principal)
CPT/HCPCS: 73721